=== PATIENT | female | born 1945 | race Caucasian/White ===

== ENCOUNTER → 2017-09-19 11:08 | Outpatient (CLI) | payer MEDICARE, SELFPAY ==
[2017-09-19 11:38] LABS: Absolute Lymphocyte Count 2.34 X10^3/ul (0.83-4.51); Absolute Neutrophil Count 4.7 X10^3/uL (2.0-7.7); Basophil# 0.06 X10^3/uL; Basophil% 0.7 % (0-1); Eosinophil# 0.32 X10^3/uL; Hematocrit 39.1 % (37-47); Hemoglobin 12.8 g/dl (12.0-15.0); Lymphocyte # 2.34 X10^3/ul (4.0); Lymphocyte % 29.2 % (19-41); Mean Corp Hgb Conc 32.7 g/gl (32-36); Mean Corpuscular Hgb 29.1 pg (27.0-32.0); Mean Corpuscular Volume 88.9 fL (81-99); Mean Platelet Vol. 9.8 fl (6.2-12.0); Monocyte% 7.5 % (0-10); Neutrophil # 4.67 X10^3/uL (2.7-7.7); Neutrophil % 58.4 % (47-70); POSITIVE COUNT NO; POSITIVE DIFFERENTIAL NO; POSITIVE MORPHOLOGY NO; Platelet Count 215 K/mm3 (150-450); RBC Distribution Width CV 13.3 % (11.6-14.6); RBC Distribution Width SD 43.1 fl (35.1-43.9)
[2017-09-19 12:12] LABS: Hemoglobin A1c 7.6 % (4.2-6.3)
[2017-09-19 12:23] LABS: ALB/GLOB Ratio 0.9 RATIO (0.9-2.4); AST(SGOT) 23 U/L (15-37); Alanine Aminotransfer ALT/SGPT 28 U/L (13-56); Albumin, Serum 3.7 g/dL (3.2-5.0); Alkaline Phosphatase 90 U/L (45-117); Anion Gap 10 (5-15); BUN 36 mg/dL (7-18); BUN/Creat Ratio 15.7 RATIO (10-20); Chloride 105 mmol/L (98-107); Cholesterol 162 mg/dL (200); Creatinine, Serum 2.29 mg/dL (0.55-1.02); EST Glomerular Filtration Rate 22 mL/min (>60); Est Glom Filt Rate - Afr Amer 27 mL/min (>60); Globulin 3.9 g/dL (2.2-4.2); Glucose 210 mg/dL (74-106); High Density Lipoprotein 37 mg/dL; Potassium 4.3 mmol/L (3.5-5.1); Protein, Total 7.6 g/dL (6.4-8.2); Sodium Level 140 mmol/L (136-145); Thyroid Stim Hormone (TSH) 4.55 uIU/mL (0.358-3.74); Triglycerides 203 mg/dL; Very Low Density Lipoprotein 41 mg/dL (5-40)
== END ==
PROVIDERS: Family Provider Nurse Practitioner Adult Health; PCP Nurse Practitioner Adult Health; Visit Provider Nurse Practitioner Adult Health
DX: E11.65 Type 2 diabetes mellitus with hyperglycemia (principal); E78.2 Mixed hyperlipidemia; I25.119 Atherosclerotic heart disease of native coronary artery with unspecified angina pectoris; M62.81 Muscle weakness (generalized); I10 Essential (primary) hypertension
CPT/HCPCS: 36415; 80053; 80061; 83036; 84443; 85025

== ENCOUNTER 2017-09-27 08:52 | Emergency (ER) | payer MEDICARE, SELFPAY ==
[2017-09-27 08:53] VITALS: BP 124/70; PULSE 59; RESP 18; TEMP 36.6; O2SAT 97; BMI 34.4
--- NOTE | 2017-09-27 09:11 | EKG12_ITS ---
Test Reason : Blood Pressure : / mmHG Vent. Rate : 056 BPM Atrial Rate : 056 BPM P-R Int : 192 ms QRS Dur : 082 ms QT Int : 460 ms P-R-T Axes : -08 060 113 degrees QTc Int : 443 ms Sinus bradycardia T wave abnormality, consider anterior ischemia Abnormal ECG Confirmed by CASTRO ANTUNEZ ([id number]), book editor NATALIIA OLIVEROS ([id number]) on 09/29/2017 2:59:49 PM Referred By: BHARATI Confirmed By:CASTRO ANTUNEZ
[2017-09-27 09:28] LABS: Absolute Lymphocyte Count 2.25 X10^3/ul (0.83-4.51); Absolute Neutrophil Count 3.8 X10^3/uL (2.0-7.7); Basophil# 0.07 X10^3/uL; Eosinophil# 0.46 X10^3/uL; Eosinophils% 6.6 % (0-5); Hematocrit 35.5 % (37-47); Hemoglobin 12.1 g/dl (12.0-15.0); Lymphocyte # 2.25 X10^3/ul (4.0); Lymphocyte % 32.1 % (19-41); Mean Corp Hgb Conc 34.1 g/gl (32-36); Mean Corpuscular Hgb 29.4 pg (27.0-32.0); Mean Corpuscular Volume 86.4 fL (81-99); Mean Platelet Vol. 9.6 fl (6.2-12.0); Monocyte# 0.44 X10^3/uL; Monocyte% 6.3 % (0-10); Neutrophil # 3.76 X10^3/uL (2.7-7.7); Neutrophil % 53.7 % (47-70); Platelet Count 188 K/mm3 (150-450); RBC Distribution Width CV 12.3 % (11.6-14.6); RBC Distribution Width SD 38.7 fl (35.1-43.9); Red Blood Count 4.11 M/mm3 (4.2-5.4)
--- NOTE | 2017-09-27 09:28 | RAD_ITS ---
STUDY: X-RAY CHEST REASON FOR EXAM: Female, 72 years old. Stage IV kidney failure. TECHNIQUE: PA and lateral views of the chest. COMPARISON: Prior comparison studies are not available for review at this time. FINDINGS: The lungs are clear and expanded. There is no demonstrated pleural abnormality. Sternal cerclage wires and vascular clips are present from a prior sternotomy and coronary artery bypass graft procedure (CABG). Normal mediastinum and baldemar. Normal visualized pulmonary arteries. There is atherosclerotic calcification of the aortic arch with tortuosity. There are degenerative changes of the visualized thoracic spine. Normal visualized ribs, clavicles, and shoulders. There is no demonstrated abnormality of the visualized soft tissue structures of the upper abdomen. RAD/Chest PA and Lateral IMPRESSION: No acute abnormality is seen. Electronically Signed: Ronen Norris MD at 10:12 EST Tel [phone], Service support ,
[2017-09-27 09:36] LABS: POSITIVE COUNT NO; POSITIVE DIFFERENTIAL NO; POSITIVE MORPHOLOGY NO
[2017-09-27 09:37] LABS: Anion Gap 7 (5-15); BUN 24 mg/dL (7-18); BUN/Creat Ratio 17.1 RATIO (10-20); Calcium,Total 8.9 mg/dL (8.5-10.1); Chloride 100 mmol/L (98-107); EST Glomerular Filtration Rate 40 mL/min (>60); Est Glom Filt Rate - Afr Amer 48 mL/min (>60); Estimated Creatinine Clearance 36.36 ml/min; Glucose 245 mg/dL (74-106); Potassium 4.3 mmol/L (3.5-5.1); Sodium Level 135 mmol/L (136-145)
[2017-09-27] MEDS: 0.9% Normal Saline 1,000 ML 1000 ML IV (09:41)
[2017-09-27 09:43] VITALS: BP 145/73; PULSE 58; RESP 17; O2SAT 95
[2017-09-27 10:57] VITALS: BP 144/67; PULSE 57; RESP 20; O2SAT 96
--- NOTE | 2017-09-27 11:10 | NURSING ---
PAGED IRON PLASTIC BULLET MAKER TRACI HOFFMAN THROUGH DR OFFICE. TALKED TO AYUSH. [phone]
--- NOTE | 2017-09-27 11:12 | ED.DCSUM_ITS ---
- ER Visit Summary Date of Service: 09/27/17 Chief Complaint: Abnormal blood work History of Present Illness: The patient is a 72 F who presents with abnormal blood work. She had labs drawn 8 days ago. This showed worsening of her kidney function. The office had difficulty contacting the patient but when the patient was contacted today was advised to be evaluated in the emergency department. She complains of about a week of generalized weakness and generalized malaise. She has multiple chronic complaints including lower back pain and chest pain which she states she has had for the past 16 years ever since her bypass. She has no focal new complaints except generalized malaise and weakness for the past week. She denies fevers or vomiting. No congestion rhinorrhea cough. He is urinating normally. She states that last week she was not drinking as well and was drinking a lot of pop and tea to water and is actually drinking better. Physical Examination: Afebrile vitals are stable Moist mucous membranes Heart regular bradycardia Lungs are clear Abdomen soft nontender Back nontender Test Results: EKG shows sinus rhythm at a rate of 56 with anterior T-wave inversions similar to prior. Chest x-ray shows no acute process. CBC BMP notable for creatinine of 1.40. Troponin negative. BNP 148. Emergency Department Course and Treatment: Patient's creatinine has actually improved from prior labs and appears to be near baseline. I suspect that given that she was not drinking as well and has been drinking better lately at her acute kidney injury was likely prerenal. An improvement of her laboratory studies I do feel she can follow-up as an outpatient. I have attempted to contact her physician and nurse practitioner but have not received a call back. The patient was instructed on signs and symptoms to monitor for and conditions under which return to the emergency department. All questions answered at bedside. Patient is asking to be discharged. She was discharged home in good condition. Treatment Plan: [] Disposition: Discharge Impression: Acute kidney injury, resolved This note was generated with [employer] dictation software. It may contain incorrect words, spelling, and punctuation that were not noted in review of the chart prior to signing ED Disposition - Plan for ED Patient: Chief Complaint: General Illness Referrals: Eugenia Watson, GROUNDWATER PROGRAMS DIRECTOR-C [Primary Care Provider] -
--- NOTE | 2017-09-27 11:12 | ED.DEP ---
ED Disposition - Plan for ED Patient: Chief Complaint: General Illness Instructions: ED Dehydration, ED Insufficiency Renal Referrals: Eugenia Watson, OUTER DIAMETER GRINDER-C [Primary Care Provider] -
--- NOTE | 2017-09-27 11:14 | DCINST.ED_ITS ---
ED Disposition - Plan for ED Patient: Chief Complaint: General Illness Instructions: ED Dehydration, ED Insufficiency Renal Referrals: Eugenia Watson, PHOSPHORIC ACID SUPERVISOR-C [Primary Care Provider] -
[2017-09-27 11:21] VITALS: BP 132/71; PULSE 59; RESP 19; O2SAT 95
== END 2017-09-27 11:24 | disposition home or self-care (01) ==
PROVIDERS: Emergency Provider Emergency Medicine; Family Provider Nurse Practitioner Adult Health; PCP Nurse Practitioner Adult Health
DX: N17.9 Acute kidney failure, unspecified (principal); R06.09 Other forms of dyspnea; I25.10 Atherosclerotic heart disease of native coronary artery without angina pectoris; I25.2 Old myocardial infarction; I10 Essential (primary) hypertension; E78.00 Pure hypercholesterolemia, unspecified; E11.9 Type 2 diabetes mellitus without complications; Z79.4 Long term (current) use of insulin; F32.9 Major depressive disorder, single episode, unspecified; Z95.1 Presence of aortocoronary bypass graft; Z79.82 Long term (current) use of aspirin; Z79.899 Other long term (current) drug therapy; Z72.0 Tobacco use
CPT/HCPCS: 71046; 80048; 83880; 84484; 85025; 93005; 96360; 99284; J7030; A4216

== ENCOUNTER → 2017-10-10 09:18 | Outpatient (CLI) | payer MEDICARE, SELFPAY ==
[2017-10-10 09:28] LABS: Bacteria 0 SEEN /hpf (None Seen); Mucous, Urine 0 SEEN /hpf (<or=2+); Red Blood Cells-Urine 0 SEEN /hpf (0-5); White Blood Cells 0 SEEN /hpf (0-5)
[2017-10-10 10:48] LABS: Color, Urine Yellow (Yellow); Glucose, Dipstick 1000 mg/dl (Normal); Ketone-Dipstick Negative (Negative); Leukocyte Esterase-Dipstick 25 /ul (Negative); Nitrite-Dipstick Negative (Negative); Occult Blood-Urine Negative /ul (Negative); Protein-Dipstick Negative (Negative); Specific Gravity, Urine 1.015 (1.002-1.030); Urine Bilirubin Dipstick Negative (Negative); Urine Clarity Clear (Clear); Urine Urobilinogen Normal (Normal)
[2017-10-10 11:01] LABS: Squamous Epithelial Cells - UA 0-5 SEEN /hpf (5-10)
[2017-10-10 11:15] LABS: Anion Gap 8 (5-15); BUN 16 mg/dL (7-18); BUN/Creat Ratio 12.6 RATIO (10-20); Calcium,Total 9.5 mg/dL (8.5-10.1); Chloride 101 mmol/L (98-107); Creatinine, Serum 1.27 mg/dL (0.55-1.02); EST Glomerular Filtration Rate 44 mL/min (>60); Est Glom Filt Rate - Afr Amer 54 mL/min (>60); Glucose 196 mg/dL (74-106); Sodium Level 137 mmol/L (136-145)
== END ==
PROVIDERS: Family Provider Nurse Practitioner Adult Health; PCP Nurse Practitioner Adult Health; Visit Provider Nurse Practitioner Adult Health
DX: N18.3 Chronic kidney disease, stage 3 (moderate) (principal); N39.0 Urinary tract infection, site not specified
CPT/HCPCS: 36415; 80048; 81001; 87086; 87088

== ENCOUNTER → 2017-10-24 09:10 | Outpatient (CLI) | payer MEDICARE, SELFPAY ==
[2017-10-24 09:40] LABS: Color, Urine Yellow (Yellow); Glucose, Dipstick 1000 mg/dl (Normal); Ketone-Dipstick Negative (Negative); Leukocyte Esterase-Dipstick Negative /ul (Negative); Nitrite-Dipstick Negative (Negative); Occult Blood-Urine Negative /ul (Negative); Protein-Dipstick Negative (Negative); Specific Gravity, Urine 1.015 (1.002-1.030); Urine Bilirubin Dipstick Negative (Negative); Urine Clarity Sl. Cloudy (Clear); Urine Urobilinogen Normal (Normal)
== END ==
PROVIDERS: Family Provider Nurse Practitioner Adult Health; PCP Nurse Practitioner Adult Health; Visit Provider Nurse Practitioner Adult Health
DX: E11.65 Type 2 diabetes mellitus with hyperglycemia (principal); I25.119 Atherosclerotic heart disease of native coronary artery with unspecified angina pectoris; G64 Other disorders of peripheral nervous system; E78.2 Mixed hyperlipidemia; M51.36 Other intervertebral disc degeneration, lumbar region; M43.02 Spondylolysis, cervical region; F34.1 Dysthymic disorder; K51.80 Other ulcerative colitis without complications; M79.7 Fibromyalgia; K21.9 Gastro-esophageal reflux disease without esophagitis; N39.0 Urinary tract infection, site not specified; I12.9 Hypertensive chronic kidney disease with stage 1 through stage 4 chronic kidney disease, or unspecified chronic kidney disease; E11.22 Type 2 diabetes mellitus with diabetic chronic kidney disease; N18.3 Chronic kidney disease, stage 3 (moderate)
CPT/HCPCS: 81002; 87086; 87088

== ENCOUNTER → 2017-12-29 09:01 | Outpatient (CLI) | payer MEDICARE, SELFPAY ==
[2017-12-29 10:06] LABS: Hemoglobin A1c 11.7 % (4.2-6.3)
[2017-12-29 10:17] LABS: ALB/GLOB Ratio 0.8 RATIO (0.9-2.4); AST(SGOT) 23 U/L (15-37); Alanine Aminotransfer ALT/SGPT 24 U/L (13-56); Albumin, Serum 3.5 g/dL (3.2-5.0); Alkaline Phosphatase 106 U/L (45-117); Anion Gap 10 (5-15); BUN 39 mg/dL (7-18); BUN/Creat Ratio 24.5 RATIO (10-20); Calcium,Total 9.2 mg/dL (8.5-10.1); Chloride 99 mmol/L (98-107); Creatinine, Serum 1.59 mg/dL (0.55-1.02); EST Glomerular Filtration Rate 34 mL/min (>60); Est Glom Filt Rate - Afr Amer 41 mL/min (>60); Globulin 4.3 g/dL (2.2-4.2); Glucose 372 mg/dL (74-106); Potassium 3.9 mmol/L (3.5-5.1); Protein, Total 7.8 g/dL (6.4-8.2); Sodium Level 137 mmol/L (136-145)
== END ==
PROVIDERS: Family Provider Nurse Practitioner Adult Health; PCP Nurse Practitioner Adult Health; Visit Provider Nurse Practitioner Adult Health
DX: E11.65 Type 2 diabetes mellitus with hyperglycemia (principal); I12.9 Hypertensive chronic kidney disease with stage 1 through stage 4 chronic kidney disease, or unspecified chronic kidney disease; E11.22 Type 2 diabetes mellitus with diabetic chronic kidney disease; N18.3 Chronic kidney disease, stage 3 (moderate); I25.119 Atherosclerotic heart disease of native coronary artery with unspecified angina pectoris; G64 Other disorders of peripheral nervous system; E78.2 Mixed hyperlipidemia; M51.36 Other intervertebral disc degeneration, lumbar region; M43.02 Spondylolysis, cervical region; F34.1 Dysthymic disorder; K51.80 Other ulcerative colitis without complications; M79.7 Fibromyalgia; K21.9 Gastro-esophageal reflux disease without esophagitis; N39.0 Urinary tract infection, site not specified; M62.81 Muscle weakness (generalized); R29.6 Repeated falls
CPT/HCPCS: 36415; 80053; 83036

== ENCOUNTER → 2018-04-19 12:30 | Outpatient (CLI) | payer MEDICARE, SELFPAY ==
--- NOTE | 2018-04-19 12:34 | CT_ITS ---
STUDY: CT BRAIN WITHOUT CONTRAST REASON FOR EXAM: Female, 72 years old. History of falls. RADIATION DOSAGE (If Supplied By Facility): CTDIvol = ( 60.81 ) mGy, DLP = ( 1089.89 ) mGycm TECHNIQUE: Transaxial CT imaging of the brain was performed without administration of intravenous contrast material. Individualized dose optimization techniques were used for this CT. COMPARISON: Comparison is made with prior study dated July 12, 2017. FINDINGS: Normal soft tissue structures. There is hyperostosis frontalis internus. There is mild cerebral atrophy with widening of the extra-axial spaces and ventricular dilatation. Normal white matter tracts of the cerebral hemispheres. Normal basal ganglia and thalami. Normal brainstem. Normal cerebellum. There is no intracranial hemorrhage. There are no findings of an acute ischemic infarction. Atherosclerotic calcification of the vertebral arteries and cavernous portions of the internal carotid arteries bilaterally. Normal visualized paranasal sinuses. CT/Brain/Head without Contrast IMPRESSION: Chronic involutional changes of the brain. Electronically Signed: Ronen Norris MD at 15:57 EDT Tel [phone], Service support ,
== END ==
PROVIDERS: Family Provider Nurse Practitioner Adult Health; PCP Nurse Practitioner Adult Health; Visit Provider Nurse Practitioner Adult Health
DX: R41.0 Disorientation, unspecified (principal); R29.6 Repeated falls
CPT/HCPCS: 70450

== ENCOUNTER → 2018-05-02 08:41 | Outpatient (CLI) | payer MEDICARE, SELFPAY ==
[2018-05-02 08:50] LABS: Mucous, Urine 0 SEEN /hpf (<or=2+); Red Blood Cells-Urine 0 SEEN /hpf (0-5)
[2018-05-02 11:03] LABS: Hematocrit 38.4 % (37-47); Hemoglobin 12.9 g/dl (12.0-15.0); Mean Corp Hgb Conc 33.6 g/gl (32-36); Mean Corpuscular Hgb 29.7 pg (27.0-32.0); Mean Corpuscular Volume 88.5 fL (81-99); Mean Platelet Vol. 10.3 fl (6.2-12.0); Platelet Count 224 K/mm3 (150-450); RBC Distribution Width CV 12.8 % (11.6-14.6); Red Blood Count 4.34 M/mm3 (4.2-5.4); White Blood Count 8.3 K/mm3 (4.4-11.0)
[2018-05-02 11:05] LABS: Color, Urine Yellow (Yellow); Glucose, Dipstick Normal (Normal); Ketone-Dipstick Negative (Negative); Leukocyte Esterase-Dipstick 100 /ul (Negative); Nitrite-Dipstick Negative (Negative); Occult Blood-Urine Negative /ul (Negative); Protein-Dipstick Negative (Negative); Urine Bilirubin Dipstick Negative (Negative); Urine Clarity Sl. Cloudy (Clear); Urine Urobilinogen Normal (Normal)
[2018-05-02 11:11] LABS: Bacteria RARE /hpf (None Seen); Squamous Epithelial Cells - UA 5-10 SEEN /hpf (5-10); White Blood Cells 0-5 SEEN /hpf (0-5)
[2018-05-02 11:12] LABS: Scan Indicated on CBC? Y/N NO
[2018-05-02 11:13] LABS: Hemoglobin A1c 6.9 % (4.2-6.3)
[2018-05-02 11:30] LABS: ALB/GLOB Ratio 0.9 RATIO (0.9-2.4); AST(SGOT) 25 U/L (15-37); Alanine Aminotransfer ALT/SGPT 30 U/L (13-56); Albumin, Serum 3.7 g/dL (3.2-5.0); Alkaline Phosphatase 82 U/L (45-117); Anion Gap 10 (5-15); BUN 17 mg/dL (7-18); BUN/Creat Ratio 13.7 RATIO (10-20); Calcium,Total 9.2 mg/dL (8.5-10.1); Chloride 103 mmol/L (98-107); Cholesterol 152 mg/dL (200); Creatinine, Serum 1.24 mg/dL (0.55-1.02); EST Glomerular Filtration Rate 45 mL/min (>60); Est Glom Filt Rate - Afr Amer 55 mL/min (>60); Globulin 4.1 g/dL (2.2-4.2); Glucose 175 mg/dL (74-106); High Density Lipoprotein 50 mg/dL; Potassium 3.8 mmol/L (3.5-5.1); Protein, Total 7.8 g/dL (6.4-8.2); Sodium Level 141 mmol/L (136-145); Thyroid Stim Hormone (TSH) 5.81 uIU/mL (0.358-3.74); Triglycerides 198 mg/dL; Very Low Density Lipoprotein 40 mg/dL (5-40); Vitamin B12 465 pg/mL (211-911); Vitamin D,25 Hydroxy 13.9 ng/mL (29.95-100.01)
== END ==
PROVIDERS: Family Provider Nurse Practitioner Adult Health; PCP Nurse Practitioner Adult Health; Visit Provider Nurse Practitioner Adult Health
DX: I12.9 Hypertensive chronic kidney disease with stage 1 through stage 4 chronic kidney disease, or unspecified chronic kidney disease (principal); E11.22 Type 2 diabetes mellitus with diabetic chronic kidney disease; N18.3 Chronic kidney disease, stage 3 (moderate); E11.65 Type 2 diabetes mellitus with hyperglycemia; I25.119 Atherosclerotic heart disease of native coronary artery with unspecified angina pectoris; G64 Other disorders of peripheral nervous system; E78.2 Mixed hyperlipidemia; M51.36 Other intervertebral disc degeneration, lumbar region; M43.02 Spondylolysis, cervical region; F34.1 Dysthymic disorder; K51.80 Other ulcerative colitis without complications; M79.7 Fibromyalgia; K21.9 Gastro-esophageal reflux disease without esophagitis; N39.0 Urinary tract infection, site not specified; M62.81 Muscle weakness (generalized); M79.604 Pain in right leg; R29.6 Repeated falls; Z79.4 Long term (current) use of insulin
CPT/HCPCS: 80053; 80061; 81001; 82306; 82607; 83036; 84443; 85027

== ENCOUNTER → 2018-08-22 10:25 | Outpatient (CLI) | payer MEDICARE, SELFPAY ==
[2018-08-22 10:46] LABS: Red Blood Cells-Urine 0 SEEN /hpf (0-5)
[2018-08-22 11:44] LABS: Absolute Lymphocyte Count 2.22 X10^3/ul (0.83-4.51); Absolute Neutrophil Count 4.4 X10^3/uL (2.0-7.7); Basophil# 0.07 X10^3/uL; Basophil% 0.9 % (0-1); Eosinophil# 0.41 X10^3/uL; Eosinophils% 5.4 % (0-5); Lymphocyte # 2.22 X10^3/ul (4.0); Lymphocyte % 29.1 % (19-41); Mean Corp Hgb Conc 33.3 g/gl (32-36); Mean Corpuscular Hgb 29.5 pg (27.0-32.0); Mean Corpuscular Volume 88.4 fL (81-99); Mean Platelet Vol. 10.7 fl (6.2-12.0); Monocyte# 0.52 X10^3/uL; Monocyte% 6.8 % (0-10); Neutrophil % 57.5 % (47-70); Platelet Count 225 K/mm3 (150-450); RBC Distribution Width CV 12.9 % (11.6-14.6); RBC Distribution Width SD 41.1 fl (35.1-43.9); Red Blood Count 4.41 M/mm3 (4.2-5.4); White Blood Count 7.6 K/mm3 (4.4-11.0)
[2018-08-22 11:45] LABS: POSITIVE COUNT NO; POSITIVE DIFFERENTIAL NO; POSITIVE MORPHOLOGY NO
[2018-08-22 11:51] LABS: Color, Urine Yellow (Yellow); Glucose, Dipstick Normal (Normal); Ketone-Dipstick Negative (Negative); Leukocyte Esterase-Dipstick 25 /ul (Negative); Nitrite-Dipstick Negative (Negative); Occult Blood-Urine Negative /ul (Negative); Protein-Dipstick Negative (Negative); Urine Bilirubin Dipstick Negative (Negative); Urine Clarity Sl. Cloudy (Clear); Urine Urobilinogen Normal (Normal)
[2018-08-22 12:05] LABS: Bacteria RARE /hpf (None Seen); Mucous, Urine RARE /hpf (<or=2+); Squamous Epithelial Cells - UA 5-10 SEEN /hpf (5-10); White Blood Cells 0-5 SEEN /hpf (0-5)
[2018-08-22 12:06] LABS: Hemoglobin A1c 8.9 % (4.2-6.3)
[2018-08-22 12:20] LABS: ALB/GLOB Ratio 0.9 RATIO (0.9-2.4); AST(SGOT) 32 U/L (15-37); Alanine Aminotransfer ALT/SGPT 35 U/L (13-56); Albumin, Serum 3.5 g/dL (3.2-5.0); Alkaline Phosphatase 88 U/L (45-117); Anion Gap 11 (5-15); BUN 28 mg/dL (7-18); BUN/Creat Ratio 20.1 RATIO (10-20); Calcium,Total 9.3 mg/dL (8.5-10.1); Chloride 104 mmol/L (98-107); Cholesterol 174 mg/dL (200); Creatinine, Serum 1.39 mg/dL (0.55-1.02); EST Glomerular Filtration Rate 40 mL/min (>60); Est Glom Filt Rate - Afr Amer 48 mL/min (>60); Glucose 238 mg/dL (74-106); High Density Lipoprotein 50 mg/dL; Potassium 4.4 mmol/L (3.5-5.1); Protein, Total 7.5 g/dL (6.4-8.2); Sodium Level 142 mmol/L (136-145); Thyroid Stim Hormone (TSH) 1.68 uIU/mL (0.358-3.74); Triglycerides 200 mg/dL; Very Low Density Lipoprotein 40 mg/dL (5-40)
== END ==
PROVIDERS: Family Provider Nurse Practitioner Adult Health; PCP Nurse Practitioner Adult Health; Referring Provider Nurse Practitioner Adult Health; Visit Provider Nurse Practitioner Adult Health
DX: E11.65 Type 2 diabetes mellitus with hyperglycemia (principal); I12.9 Hypertensive chronic kidney disease with stage 1 through stage 4 chronic kidney disease, or unspecified chronic kidney disease; N18.3 Chronic kidney disease, stage 3 (moderate); E78.2 Mixed hyperlipidemia; R30.0 Dysuria
CPT/HCPCS: 36415; 80053; 80061; 81001; 83036; 84443; 85025; 87086; 87088

== ENCOUNTER → 2018-12-13 10:21 | Outpatient (CLI) | payer MEDICARE, SELFPAY ==
[2018-12-13 12:20] LABS: Hematocrit 35.8 % (37-47); Hemoglobin 11.7 g/dl (12.0-15.0); Mean Corp Hgb Conc 32.7 g/gl (32-36); Mean Corpuscular Hgb 29.2 pg (27.0-32.0); Mean Corpuscular Volume 89.3 fL (81-99); Mean Platelet Vol. 10.7 fl (6.2-12.0); Platelet Count 197 K/mm3 (150-450); RBC Distribution Width SD 41.7 fl (35.1-43.9); Red Blood Count 4.01 M/mm3 (4.2-5.4); White Blood Count 7.2 K/mm3 (4.4-11.0)
[2018-12-13 12:27] LABS: Scan Indicated on CBC? Y/N NO
[2018-12-13 13:08] LABS: ALB/GLOB Ratio 0.9 RATIO (0.9-2.4); AST(SGOT) 36 U/L (15-37); Alanine Aminotransfer ALT/SGPT 34 U/L (13-56); Albumin, Serum 3.5 g/dL (3.2-5.0); Alkaline Phosphatase 90 U/L (45-117); Anion Gap 8 (5-15); BUN 23 mg/dL (7-18); BUN/Creat Ratio 16.9 RATIO (10-20); Chloride 104 mmol/L (98-107); Cholesterol 163 mg/dL (200); Creatinine, Serum 1.36 mg/dL (0.55-1.02); EST Glomerular Filtration Rate 41 mL/min (>60); Est Glom Filt Rate - Afr Amer 49 mL/min (>60); Globulin 3.7 g/dL (2.2-4.2); Glucose 257 mg/dL (74-106); Hemoglobin A1c 8.3 % (4.2-6.3); High Density Lipoprotein 42 mg/dL; Potassium 4.3 mmol/L (3.5-5.1); Protein, Total 7.2 g/dL (6.4-8.2); Sodium Level 139 mmol/L (136-145); Thyroid Stim Hormone (TSH) 2.04 uIU/mL (0.358-3.74); Triglycerides 250 mg/dL; Very Low Density Lipoprotein 50 mg/dL (5-40)
== END ==
PROVIDERS: Family Provider Nurse Practitioner Adult Health; PCP Nurse Practitioner Adult Health; Referring Provider Nurse Practitioner Adult Health; Visit Provider Nurse Practitioner Adult Health
DX: E11.65 Type 2 diabetes mellitus with hyperglycemia (principal); E78.2 Mixed hyperlipidemia; I10 Essential (primary) hypertension
CPT/HCPCS: 36415; 80053; 80061; 83036; 84443; 85027

== ENCOUNTER 2019-01-05 17:10 | Observation (INO) | payer MEDICARE, SELFPAY ==
[2019-01-05] VITALS (8 sets, daily range): BP systolic 124–140; BP diastolic 59–99; PULSE 58–65; RESP 13–20; TEMP 37–37.1; O2SAT 95–96; BMI 40.8; BMI 38.8
--- NOTE | 2019-01-05 17:19 | EKG12_ITS ---
Test Reason : ADMISSION CP Blood Pressure : / mmHG Vent. Rate : 063 BPM Atrial Rate : 063 BPM P-R Int : 168 ms QRS Dur : 082 ms QT Int : 480 ms P-R-T Axes : 077 046 100 degrees QTc Int : 491 ms Normal sinus rhythm T wave abnormality, consider anterolateral ischemia Prolonged QT Abnormal ECG Confirmed by MISTY GARZA, JASSON ([id number]), newspaper editor NATALIIA OLIVEROS ([id number]) on 01/12/2019 6:48:43 AM Referred By: Dioni Hammonds Confirmed By:JASSON JAY MD
--- NOTE | 2019-01-05 17:35 | RAD_ITS ---
STUDY: X-RAY CHEST REASON FOR EXAM: Female, 73 years old. Chest pain TECHNIQUE: Frontal and lateral views of the chest. COMPARISON: 09/27/2017 FINDINGS: Median sternotomy wires. The lungs are clear and expanded. There is no demonstrated pleural abnormality. Normal size heart. Normal mediastinum and baldemar. Normal visualized pulmonary arteries. Normal visualized aortic arch and descending thoracic aorta. Normal visualized thoracic spine. Normal visualized ribs, clavicles, and shoulders. There is no demonstrated abnormality of the visualized soft tissue structures of the upper abdomen. RAD/Chest PA and Lateral IMPRESSION: No acute pulmonary findings. Electronically Signed: Marco Do MD at 17:59 EDT Tel , Service support ,
[2019-01-05 17:45] LABS: Absolute Lymphocyte Count 2.94 X10^3/ul (0.83-4.51); Absolute Neutrophil Count 5.3 X10^3/uL (2.0-7.7); Basophil# 0.05 X10^3/uL; Basophil% 0.5 % (0-1); Eosinophil# 0.51 X10^3/uL; Eosinophils% 5.4 % (0-5); Hematocrit 35.4 % (37-47); Hemoglobin 12.2 g/dl (12.0-15.0); Lymphocyte # 2.94 X10^3/ul (4.0); Lymphocyte % 31.2 % (19-41); Mean Corp Hgb Conc 34.5 g/gl (32-36); Mean Corpuscular Hgb 30.1 pg (27.0-32.0); Mean Corpuscular Volume 87.4 fL (81-99); Mean Platelet Vol. 9.8 fl (6.2-12.0); Monocyte# 0.63 X10^3/uL; Monocyte% 6.7 % (0-10); Neutrophil # 5.27 X10^3/uL (2.7-7.7); Platelet Count 212 K/mm3 (150-450); RBC Distribution Width CV 12.6 % (11.6-14.6); RBC Distribution Width SD 40.5 fl (35.1-43.9); Red Blood Count 4.05 M/mm3 (4.2-5.4); White Blood Count 9.4 K/mm3 (4.4-11.0)
[2019-01-05 17:48] LABS: International Normalized Ratio 1.1; Partial Thromboplast Time 27.5 Seconds (24.1-36.2); Prothrombin Time (Protime)PT. 14.4 SECONDS (11.7-14.9)
[2019-01-05 17:54] LABS: Anion Gap 8 (5-15); BUN 21 mg/dL (7-18); BUN/Creat Ratio 15.9 RATIO (10-20); Calcium,Total 9.3 mg/dL (8.5-10.1); Chloride 102 mmol/L (98-107); Creatinine, Serum 1.32 mg/dL (0.55-1.02); EST Glomerular Filtration Rate 42 mL/min (>60); Est Glom Filt Rate - Afr Amer 51 mL/min (>60); Estimated Creatinine Clearance 36.59 ml/min; Glucose 152 mg/dL (74-106); Potassium 3.9 mmol/L (3.5-5.1); Sodium Level 139 mmol/L (136-145)
--- NOTE | 2019-01-05 17:55 | ED.DCSUM_ITS ---
- ER Visit Summary Date of Service: 01/05/19 Chief Complaint: Shortness of breath and chest pain History of Present Illness: The patient is a 73 F who presents emergency department after being referred by her nurse practitioner who visited her home today. Patient notes 2 days of shortness of breath. It is worse with exertion. She states that when she starts to breathe heavy she gets a chest heaviness in the midsternal region.. She has a history of coronary artery bypass 14 years ago. She also notes history of diabetes hypertension high cholesterol. She is a current smoker and utilizes marijuana once a year. She states she rarely drinks alcohol. She notes a slight cough but nonproductive and nothing out of the ordinary. No leg swelling. There is practitioner informed me that even taking her sweater off makes her short of breath. Patient informs me last time she had a stress test was at the time of her CABG. She has not seen a field service specialist since Dr. Jones. She had aspirin 81 mg x 4 by EMS. Physical Examination: Afebrile vital signs are stable. Heart rate 65 pulse ox 95% on room air Gen: Well-nourished well-developed Head: Normocephalic atraumatic Eyes: Perrl EOMI ENT: TMs clear no rhinorrhea moist mucous membranes Neck: Supple no lymphadenopathy no JVD nontender CVS: Regular rate rhythm no murmurs normal S1-S2 Respiratory: No distress clear to auscultation bilaterally diminished breath sounds at the bases chest nontender patient has conversational dyspnea Abdomen: Soft nontender nondistended normal bowel sounds no masses Back: Nontender Extremity: Nontender no edema Skin: Normal color no rash Neuro: alert orientated ?3 CN II-XII intact normal strength sensation reflexes Psych: Normal affect normal mood Test Results: EKG shows a sinus rhythm at a rate of 63. There are T wave inversions in V2 through V5. This is unchanged from EKG dated September 27, 2017. CBC BMP troponin negative. Beta natruretic peptide at 100. Chest x-ray showed no acute findings. D-dimer 0.68 and is normal using the age-adjusted method. Emergency Department Course and Treatment: She received a DuoNeb. This did not change her symptomology. Patient is still short of breath when she exerts herself. Patient does not wish to have any further heart surgery. She is agreeable to stress testing and heart catheterization if need be. Impression: 1. Chest pain 2. Dyspnea on exertion This note was generated with [employer] dictation software. It may contain incorrect words, spelling, and punctuation that were not noted in review of the chart prior to signing ED Disposition - Plan for ED Patient:
[2019-01-05 18:00] LABS: POSITIVE COUNT NO; POSITIVE DIFFERENTIAL NO; POSITIVE MORPHOLOGY NO
[2019-01-05] MEDS: Ipratropium/Albuterol Sulfate 3 ML AMPUL.NEB INHALATION (18:00)
[2019-01-05 18:22] LABS: BNP,B-Type NATRIURETIC PEPTIDE 108.2 pg/mL (0-100)
[2019-01-05 18:59] LABS: D-Dimer Quantitative (DVT/PE) 0.68 FEU/ug/m (0.27-0.49)
--- NOTE | 2019-01-05 19:01 | ED.RN ---
DR ARCHIBALD NOTIFIED OF DDIMER 0.68
--- NOTE | 2019-01-05 19:20 | HP.PCM_ITS ---
Problem List (1) Chest pain Status: Acute (2) Diabetes mellitus, type II Status: Chronic Qualifiers: Diabetes mellitus terminal supervisor insulin use: with nursing home use Diabetes mellitus complication status: with unspecified complications Qualified Code(s): E11.8 - Type 2 diabetes mellitus with unspecified complications (3) Postconcussive syndrome Status: Inactive (4) Vertigo Status: Inactive History of Present Illness Date of Admission: 01/05/19 Chief Complaint: chest pain The patient is a 73 year old F with a significant history of CAD status post CABG; obesity; diabetes mellitus; hypertension; hyperlipidemia; and tobacco use who presented to the emergency department with 1 month history of progressively worsening chest pain and shortness of breath. Both her chest pain and shortness of breath worsens with exertion. She describes her chest pain as an elephant sitting on her chest. Associated with her symptoms is diaphoresis. She denies any nausea or vomiting. She describes her chest pain as an elephant sitting on her chest. Her chest pain ranges from a 2 to a 10 on a scale of 1-10. At times her chest pain radiates to her left arm. Her nurse practitioner saw her on the day of presentation and the nurse practitioner recommended that she come to emergency department for further evaluation. Past Medical History Past Medical History (Chronic Problems): Chronic Problems Back pain (Chronic) Hypertension (Chronic) Diabetes mellitus, type II (Chronic) Obesity (BMI 30-39.9) (Chronic) CAD (coronary artery disease) (Chronic) Neuropathy (Chronic) Allergies pregabalin [From Lyrica] Adverse Reaction (Verified 01/05/19 17:18) Other suicidal Home Medications: Ambulatory Orders Medication Instructions Recorded Aspirin 81 mg PO DAILY 04/06/16 Insulin U-500 [Humulin R U-500 0.24 ml SQ BIDAC 04/06/16 ([facility])] Torsemide [Demadex] 20 mg PO DAILY 04/06/16 Propranolol HCl [Propranolol HCl 80 mg PO DAILY 04/09/16 ER] Simvastatin [Zocor] 40 mg PO DINNER 04/09/16 Losartan Potassium [Cozaar] 100 mg PO DAILY 09/27/17 Cholecalciferol (Vitamin D3) 2,000 unit PO DAILY 01/05/19 [D3-2000] Fluoxetine HCl 40 mg PO DAILY 01/05/19 Levothyroxine [Synthroid] 50 mcg PO DAILY 01/05/19 Multivitamin with Minerals 1 tab PO DAILY 01/05/19 [Multiple Vitamin] [place]-3 Fatty Acids/Fish Oil 1 cap PO BID 01/05/19 [[place] 3 1,000 mg Softgel] Surgical History: coronary bypass surgery, - - CABG x 4, Carpal tunnel BL, Cervical neck fusion x 2 (anterior, posterior), LA w/ BLSOO, Appendectomy, Cholecystectomy, Eye surgery, Bowel resection. Psychiatric History: No pertinent psych hx GUEST SERVICES ASSISTANT History: No pertinent GUEST SERVICES ASSISTANT history Lives: Alone Smoking Status: Current some day smoker Tobacco Use: Cigarettes - *Family History Maternal History Items: Cancer, Diabetes, Dementia Paternal History Items: No pertinent history Review of Systems Constitutional: Denies: Chills, Fever, Weight Change HEENT: Denies: Head Aches, Sinus Congestion, Sinus Drainage Cardiovascular: Reports: Chest Pressure. Denies: Palpitations Respiratory: Reports: Shortness of Breath. Denies: Cough, Sputum production Gastrointestinal: Denies: Abdominal Pain, Nausea, Vomiting Genitourinary: Denies: Dysuria Musculoskeletal: Denies: Joint Pain, Joint Tenderness Skin: Denies: Rash, Wounds Neurological: Denies: Numbness, Tingling, Focal weakness Psychiatric: Denies: Anxiety, Depression, Homicidal Ideations, Suicidal Ideatio ns Hematologic/ Lymphatic: Denies: Easy Bruising, Easy Bleeding VTE Information - Inpt Only VTE Present on Admission: No VTE Mechan Device Prophylaxis: None VTE Pharm Prophylaxis ordered?: Yes Patient Problems: Active and Suspected Problems Chest pain (Acute) - Physical Exam General: Alert, Oriented x3, Cooperative HEENT: Atraumatic, PERRLA, EOMI, Normocephalic Neck: Supple, No JVD, Negative Carotid Bruits Lungs: Diminished, Tachypneic, Using Accessory Muscles Cardiovascular: Regular rate, No murmurs Abdomen: Bowel Sounds Present, Soft, Non Tender Extremities: No edema, Capillary Refill Less than 3 Seconds Skin: No rashes, No breakdown Musculoskeletal: No Tenderness to Palpation of Joints or Extremities Neurological: Neuro grossly intact Psych/Mental Status: Normal Affect, Appropriate Vital Signs Temp Pulse Resp BP Pulse Ox 98.8 F 59 L 13 140/69 H 96 01/05/19 17:11 01/05/19 19:12 01/05/19 19:12 01/05/19 19:12 01/05/19 19:12 Oxygen Delivery Method Room Air Weight: 114.7 kg Body Mass Index (BMI) 40.8 Laboratory Tests Past 24 Hrs 01/05/19 01/05/19 01/05/19 17:25 17:25 17:25 WBC 9.4 RBC 4.05 L Hgb 12.2 Hct 35.4 L MCV 87.4 MCH 30.1 MCHC 34.5 RDW 12.6 RDW Differential 40.5 Plt Count 212 MPV 9.8 Immature Gran % (Auto) 0.200 Neut % (Auto) 56.0 Lymph % (Auto) 31.2 [place] % (Auto) 6.7 Eos % (Auto) 5.4 H Baso % (Auto) 0.5 Absolute Neuts (auto) 5.3 Absolute Lymphs (auto) 2.94 Total Counted Not Reportable PT 14.4 INR 1.1 APTT 27.5 D-Dimer Quant (PE/DVT) Sodium 139 Potassium 3.9 Chloride 102 Carbon Dioxide 29.0 Anion Gap 8 BUN 21 H Creatinine 1.32 H Estim Creat Clear Calc 36.59 Est GFR (MDRD) Af Amer 51 L Est GFR (MDRD) Non-Af 42 L BUN/Creatinine Ratio 15.9 Glucose 152 H Calcium 9.3 Troponin I < 0.015 B-Natriuretic Peptide 01/05/19 01/05/19 17:25 17:25 WBC RBC Hgb Hct MCV MCH MCHC RDW RDW Differential Plt Count MPV Immature Gran % (Auto) Neut % (Auto) Lymph % (Auto) [place] % (Auto) Eos % (Auto) Baso % (Auto) Absolute Neuts (auto) Absolute Lymphs (auto) Total Counted PT INR APTT D-Dimer Quant (PE/DVT) 0.68 H* Sodium Potassium Chloride Carbon Dioxide Anion Gap BUN Creatinine Estim Creat Clear Calc Est GFR (MDRD) Af Amer Est GFR (MDRD) Non-Af BUN/Creatinine Ratio Glucose Calcium Troponin I B-Natriuretic Peptide 108.2 H Assessment/Plan All Active Problems Chest pain (Acute) The patient is a 73 year old F with a significant history of CAD status post CABG; obesity; diabetes mellitus; hypertension; hyperlipidemia; tobacco use who presented to the emergency department with 1 month history of progressively worsening chest pain and shortness of breath. Chest pain Admit to a monitored bed on PCU CXR independently reviewed confirms no acute cardiopulmonary process. EKG independently reviewed showed T wave inversion in anterolateral leads. Old records reviewed showed unchanged EKG(27 September 2017) Reportedly she received 4 baby aspirin by the paramedics. She takes aspirin 81 mg daily. Continue ASA 81 mg p.o. daily SL NTG 0.4 mg prn as needed for chest pain Morphine as needed for pain We will check lipid panel. Continue home statin. Serial cardiac enzymes Stat EKG as needed for chest pain Dobutamine Stress test in the AM if the cardiac enzymes are negative. Albuterol as needed for shortness of breath. Consider outpatient PFT if cardiac work-up is unremarkable. Tobacco abuse Patient smoke about 5 cigarettes per week on Fridays. Counseled. Hypertension On presentation her blood pressure was stable in regard to her age. Cozaar continued Hydralazine as needed ordered Hold propranolol because of stress test in a.m. Trend blood pressures. Diabetes mellitus Presentation her blood glucose was within goal. Hold home U5 100 insulin bid. And put on correction scale insulin. Depression Fluoxetine continued DVT prophylaxis Lovenox Code Visit OBSV E&M: [id number] Initial observation care L3
--- NOTE | 2019-01-05 19:23 | ED.RN ---
DR. ARCHIBALD TOLD THIS NURSE TO HOLD THE 500 CC'S BOLUS.
--- NOTE | 2019-01-05 20:28 | EKG12_ITS ---
Test Reason : CP Blood Pressure : / mmHG Vent. Rate : 063 BPM Atrial Rate : 063 BPM P-R Int : 182 ms QRS Dur : 082 ms QT Int : 440 ms P-R-T Axes : 088 050 123 degrees QTc Int : 450 ms Normal sinus rhythm with sinus arrhythmia T wave abnormality, consider anterolateral ischemia Abnormal ECG Confirmed by MISTY GARZA, JASSON ([id number]), news editor NATALIIA OLIVEROS ([id number]) on 01/08/2019 1:44:53 PM Referred By: Dioni Hammonds Confirmed By:JASSON JAY MD
--- NOTE | 2019-01-05 22:48 | NURSING ---
This RN entered room and pt was drowsy, confused, diaphoretic, and speech was slow/slurred. Blood sugar checked and was 58. Pt given orange juice and Loreta Doones. After carbs given, pt states speech sounds normal to her and she is A/O x3. Will continue to monitor blood glucose.
--- NOTE | 2019-01-05 23:04 | NURSING ---
Blood sugar rechecked at this time and is 102. Pt NPO at midnight. More Loreta Doones given at this time.
[2019-01-05 23:16] LABS: Bedside Glucose 102 mg/dL (70-110)
[2019-01-05 23:16] LABS: Bedside Glucose 58 mg/dL (70-110)
[2019-01-06] VITALS (7 sets, daily range): BP systolic 116–124; BP diastolic 41–53; PULSE 53–71; RESP 12–16; TEMP 36.6–36.8; O2SAT 95–96
[2019-01-06 05:01] LABS: Bedside Glucose 174 mg/dL (70-110)
--- NOTE | 2019-01-06 05:55 | EKG12_ITS ---
Test Reason : AM EKG / CP Blood Pressure : / mmHG Vent. Rate : 053 BPM Atrial Rate : 053 BPM P-R Int : 190 ms QRS Dur : 086 ms QT Int : 500 ms P-R-T Axes : -32 037 109 degrees QTc Int : 469 ms Unusual P axis, possible ectopic atrial bradycardia T wave abnormality, consider anterolateral ischemia Abnormal ECG Confirmed by MISTY GARZA, JASSON ([id number]), editor news NATALIIA OLIVEROS ([id number]) on 01/12/2019 6:48:12 AM Referred By: Dioni Hammonds Confirmed By:JASSON JAY MD
[2019-01-06] MEDS: Aspirin 81 MG TAB.CHEW PO (06:03)
[2019-01-06] MEDS: Losartan Potassium 100 MG Tablet PO (06:03)
[2019-01-06] MEDS: Levothyroxine 50 MCG Tablet PO (06:03)
[2019-01-06 06:59] LABS: Absolute Neutrophil Count 4.7 X10^3/uL (2.0-7.7); Basophil# 0.07 X10^3/uL; Basophil% 0.8 % (0-1); Eosinophil# 0.57 X10^3/uL; Eosinophils% 6.6 % (0-5); Hematocrit 36.5 % (37-47); Hemoglobin 12.1 g/dl (12.0-15.0); Mean Corp Hgb Conc 33.2 g/gl (32-36); Mean Corpuscular Volume 87.5 fL (81-99); Mean Platelet Vol. 10.1 fl (6.2-12.0); Monocyte# 0.62 X10^3/uL; Monocyte% 7.1 % (0-10); Neutrophil # 4.71 X10^3/uL (2.7-7.7); Neutrophil % 54.2 % (47-70); Platelet Count 192 K/mm3 (150-450); RBC Distribution Width CV 12.5 % (11.6-14.6); RBC Distribution Width SD 38.6 fl (35.1-43.9); Red Blood Count 4.17 M/mm3 (4.2-5.4); White Blood Count 8.7 K/mm3 (4.4-11.0)
[2019-01-06 07:00] LABS: POSITIVE COUNT NO; POSITIVE DIFFERENTIAL NO; POSITIVE MORPHOLOGY NO
[2019-01-06 07:01] LABS: Bedside Glucose 162 mg/dL (70-110)
[2019-01-06 07:17] LABS: International Normalized Ratio 1.2; Prothrombin Time (Protime)PT. 14.6 SECONDS (11.7-14.9)
[2019-01-06 07:18] LABS: Partial Thromboplast Time 29.3 Seconds (24.1-36.2)
[2019-01-06 07:21] LABS: Anion Gap 10 (5-15); BUN 20 mg/dL (7-18); BUN/Creat Ratio 14.5 RATIO (10-20); Calcium,Total 9.2 mg/dL (8.5-10.1); Chloride 102 mmol/L (98-107); Cholesterol 159 mg/dL (200); Creatinine, Serum 1.38 mg/dL (0.55-1.02); EST Glomerular Filtration Rate 40 mL/min (>60); Est Glom Filt Rate - Afr Amer 48 mL/min (>60); Glucose 173 mg/dL (74-106); High Density Lipoprotein 48 mg/dL; Sodium Level 139 mmol/L (136-145); Triglycerides 171 mg/dL; Very Low Density Lipoprotein 34 mg/dL (5-40)
--- NOTE | 2019-01-06 07:35 | ECHOCS_ITS ---
Reason For Study: HEART FAILURE Procedure This was a 2D Doppler, Color Flow transthoracic echocardiogram. The study was technically difficult. Contrast injection was performed. Exam performed portable in patient room. Left Ventricle Normal LV size. Left ventricular systolic function is normal. The estimated ejection fraction is 65 %. No regional wall motion abnormalities noted. Right Ventricle Normal RV size. Normal systolic function. Atria Normal left atrium. Normal right atrium. No doppler evidence for ASD. Mitral Valve There is no mitral annular calcification. Normal mitral valve. Trivial mitral valve insufficiency. Tricuspid Valve Normal tricuspid valve. Trivial tricuspid valve insufficiency. Right ventricular systolic pressure estimated to be 20 mmHg. Aortic Valve Trisinus/trileaflet aortic valve. Normal aortic valve. Pulmonic Valve The pulmonic valve is not well visualized. Trivial pulmonic valve insufficiency. Great Vessels Normal sized aortic root. Pericardium/Pleural No pericardial effusion. Medication Diluted definity 2.0ml given slow IV push to enhance endocardial definition. MMode/2D Measurements & Calculations LVIDd: 5.0 cm IVSd: 1.1 cm Ao root diam: 3.2 cm LVIDs: 3.5 cm LVPWd: 1.1 cm RVDd: 3.1 cm FS: 30.8 % LAV(MOD-bp): 61.4 ml LA A4 area: 20.0 cm2 LA dimension(2D): 3.7 cm LAV(MOD-bp) Indexed: 28.4 ml/m2 LAV(MOD-sp2): 59.9 ml LAV(MOD-sp4): 55.7 ml RA A4 area: 19.3 cm2 Time Measurements MV dec time: 0.20 sec Doppler Measurements & Calculations MV E max vineet: 101.9 cm/sec Lat Peak E' Vineet: 10.5 cm/sec Med Peak E' Vineet: 7.0 cm/sec MV A max vineet: 83.6 cm/sec E/E' lat: 9.7 E/E' med: 14.6 MV E/A: 1.2 Ao V2 max: 161.2 cm/sec LV V1 max: 104.9 cm/sec PA V2 max: 105.8 cm/sec Ao max P.4 mmHg LV V1 max P.4 mmHg TR max vineet: 207.9 cm/sec TR max P.3 mmHg Interpretation Summary The study was technically difficult. Contrast injection was performed. Left ventricular systolic function is normal. The estimated ejection fraction is 65 %. Trivial mitral valve insufficiency. Trivial tricuspid valve insufficiency. Trivial pulmonic valve insufficiency. Right ventricular systolic pressure estimated to be 20 mmHg. Transmitral diastolic flow velocities suggest diastolic dysfunction (pseudonormal pattern). Ordering Physician: Shaun Montaño Referring Physician: Dioni Hammonds Performed By: Becky Pa, ROQUE, RVT
--- NOTE | 2019-01-06 10:05 | NURSING ---
Pt down in stress lab for testing.
[2019-01-06 11:15] LABS: Bedside Glucose 282 mg/dL (70-110)
--- NOTE | 2019-01-06 11:45 | PCM.DC ---
- Discharge Diagnoses Current Active Problems: Current Active and Chronic Problems Chest pain (Acute) You will use the following diet at home:: Cardiac Your food should be the consistency of: Regular Discharge Activity: May not drive while taking narcotic pain medications. Call your doctor if you observe: Fever of 101 or Higher, Numbness or Tingling, Change in Color, Inability to urinate, Inability to have a bowel movement, Shortness of breath, Dizziness, Fainting spells, Swelling in the ankles, Chest pain Additional Instructions: Follow-up own deburring technician at [facility] in 2 to 3 weeks with 2D echo Allergies/Adverse Reactions: Allergies pregabalin [From Lyrica] Adverse Reaction (Verified 01/05/19 19:53) suicidal thoughts Medications to take at Discharge Aspirin 81 mg PO DAILY 04/06/16 Insulin U-500 [Humulin R U-500 ([facility])] 0.24 ml SQ BIDAC 04/06/16 Torsemide [Demadex] 20 mg PO DAILY 04/06/16 Propranolol HCl [Propranolol HCl ER] 80 mg PO DAILY 04/09/16 Simvastatin [Zocor] 40 mg PO DINNER 04/09/16 Losartan Potassium [Cozaar] 100 mg PO DAILY 09/27/17 Cholecalciferol (Vitamin D3) [D3-2000] 2,000 unit PO DAILY 01/05/19 Fluoxetine HCl 40 mg PO DAILY 01/05/19 Levothyroxine [Synthroid] 50 mcg PO DAILY 01/05/19 Multivitamin with Minerals [Multiple Vitamin] 1 tab PO DAILY 01/05/19 [place]-3 Fatty Acids/Fish Oil [[place] 3 1,000 mg Softgel] 1 cap PO BID 01/05/19 Primary Care Physician: Eugenia Watson NP-C [Primary Care Provider] - Please follow up with your Primary Care Physician in: in 2 week Test Results: Test results from this visit will be discussed in further detail at your follow-up appointment, if applicable.
[2019-01-06] MEDS: FLUoxetine 20 MG Capsule 40 MG PO (11:49)
[2019-01-06] MEDS: Enoxaparin 40 MG/0.4 ML Syringe SC (11:50)
[2019-01-06] MEDS: Furosemide 40 MG Tablet PO (11:50)
--- NOTE | 2019-01-06 12:37 | STRESSREP_ITS ---
Stress Test Report Date: 01-06-19 Procedure: Pharmacologic stress nuclear imaging study Indications: Chest pain; shortness of breath; CAD; CABG Consent: Per the patient Procedure: The patient underwent pharmacologic (Regadenoson) evaluation with a peak heart rate of 72 beats per minute (48 %predicted maximal heart rate) and a peak blood pressure of 142/68 mmHg. The baseline ECG demonstrated normal sinus rhythm; nonspecific T wave abnormality. The peak pharmacologic ECG demonstrated continued T wave abnormality. There were no cardiac dysrhythmias pretest, during pharmacologic infusion, or recovery. There was no complaint of chest discomfort during pharmacologic infusion or recovery. The examination was discontinued secondary to completion of protocol. Impression: 1. Pharmacologic (Regadenoson) evaluation 2. Peak pharmacologic ECG with continued T wave abnormality. 3. There were no cardiac dysrhythmias pretest, during pharmacologic infusion, or recovery. 4. Nuclear images pending Myocardial perfusion imaging study: Technique: The patient was injected with 13.9 millicuries of technetium 99m Cardiolite and subsequently rest SPECT Cardiolite nuclear imaging was obtained in the horizontal long, vertical long, and short axis views. The patient underwent pharmacologic (Regadenoson) evaluation with a peak heart rate of 72 beats per minute (48 % percent predicted maximal heart rate) and a peak blood pressure of 142/68 mmHg. The patient was injected with 42.0 millicuries of technetium 99m Cardiolite and subsequently stress SPECT Cardiolite nuclear imaging was obtained in the horizontal long, vertical long, and short axis views. A gated Cardiolite study at peak stress was obtained. Interpretation: Rest and stress SPECT Cardiolite nuclear imaging status post realignment, normalization, and attenuation correction demonstrate relative uniform tracer uptake and myocardial perfusion appearing within normal limits. There is end systolic thickening and brightening. The gated Cardiolite study demonstrates myocardial thickening and inward wall motion. The reported LVEF is 77 %. Impression: 1. Rest and stress SPECT Cardiolite nuclear imaging demonstrate relative uniform tracer uptake and myocardial perfusion appearing within normal limits. 2. The gated Cardiolite study reports an LVEF of 77 %. This note was generated with Algonom[employer]ation software. It may contain incorrect words, spelling, and punctuation that were not noted in checking the note before signing.
--- NOTE | 2019-01-06 12:48 | DCINST_ITS ---
- Discharge Diagnoses Current Active Problems: Current Active and Chronic Problems Chest pain (Acute) You will use the following diet at home:: Cardiac Your food should be the consistency of: Regular Discharge Activity: May not drive while taking narcotic pain medications. Call your doctor if you observe: Fever of 101 or Higher, Numbness or Tingling, Change in Color, Inability to urinate, Inability to have a bowel movement, Shortness of breath, Dizziness, Fainting spells, Swelling in the ankles, Chest pain Additional Instructions: Follow-up own grain sacker at [facility] in 2 to 3 weeks with 2D echo Allergies/Adverse Reactions: Allergies pregabalin [From Lyrica] Adverse Reaction (Verified 01/05/19 19:53) suicidal thoughts Medications to take at Discharge Aspirin 81 mg PO DAILY 04/06/16 Insulin U-500 [Humulin R U-500 (BKC)] 0.24 ml SQ BIDAC 04/06/16 Torsemide [Demadex] 20 mg PO DAILY 04/06/16 Propranolol HCl [Propranolol HCl ER] 80 mg PO DAILY 04/09/16 Simvastatin [Zocor] 40 mg PO DINNER 04/09/16 Losartan Potassium [Cozaar] 100 mg PO DAILY 09/27/17 Cholecalciferol (Vitamin D3) [D3-2000] 2,000 unit PO DAILY 01/05/19 Fluoxetine HCl 40 mg PO DAILY 01/05/19 Levothyroxine [Synthroid] 50 mcg PO DAILY 01/05/19 Multivitamin with Minerals [Multiple Vitamin] 1 tab PO DAILY 01/05/19 Valley-3 Fatty Acids/Fish Oil [Valley 3 1,000 mg Softgel] 1 cap PO BID 01/05/19 Primary Care Physician: Eugenia Watson NP-C [Primary Care Provider] - Please follow up with your Primary Care Physician in: in 2 week Test Results: Test results from this visit will be discussed in further detail at your follow- up appointment, if applicable.
--- NOTE | 2019-01-06 12:48 | PCM.DC.SUM ---
Discharge Date and Diagnosis Date of Admission: 01/05/19 Date of Discharge: 01/06/19 - Primary Discharge Diagnosis Active and Suspected Problems Chest pain (Acute) - Secondary Discharge Diagnosis Chronic Problems Back pain (Chronic) Hypertension (Chronic) Diabetes mellitus, type II (Chronic) Obesity (BMI 30-39.9) (Chronic) CAD (coronary artery disease) (Chronic) Neuropathy (Chronic) Hospital Course and Treatment Imaging Results: 01/06/19 07:35 Echo Complete W/ Contrast [ECHO] Routine Nuclear Stress Test - Chemical [NM] Routine Operations: None Summary of Care Provided: The patient is a 73 year old F with history of coronary artery status post quadruple bypass surgery, morbid obesity, diabetes mellitus type 2, hypertension and dyslipidemia was admitted with progressive worsening of shortness of breath and chest pain/heaviness. Patient follows corporate licensed broker in [facility]. No available cardiac testing record available here. She was admitted in PCU. Serial troponin enzymes were done and came out negative. Patient glucose is elevated. BNP slightly elevated 108 her chest x-ray is clear. Thereafter, patient had Lexiscan nuclear stress test which was negative for stress-induced ischemia. 2D echo was done reported as EF 65% with normal left ventricular systolic function. Trivial MR and TR. RVSP 20 mmHg. 2D echo suggestive of diastolic dysfunction history of chronic heart failure with preserved EF. Patient is being discharged home. Discharge medication reconciliation done. Discharge follow-up instructions completed. Discharge process discussed with the patient and all questions were answered to patient's satisfaction.. [] Subjective: Patient looks mild short of breath. Denies any chest pain. Patient was admitted with chest heaviness and shortness of breath. Patient has history of quadruple bypass surgery in [address] [facility]. She follows corporate licensed broker in [place]. - Physical Exam General: Alert, Oriented x3, Cooperative, - - Morbid obesity HEENT: Atraumatic, PERRLA, EOMI, Normocephalic Neck: Supple, No JVD, Negative Carotid Bruits Lungs: Clear to auscultation, Normal air movement, No rhonchi, No wheeze, No rales Cardiovascular: Regular rate, Regular Rhythm, Normal S1, Normal S2, No murmurs Abdomen: Bowel Sounds Present, Soft, Non Tender, Non-Distended Extremities: No edema, Capillary Refill Less than 3 Seconds Skin: No rashes, No breakdown Musculoskeletal: No Tenderness to Palpation of Joints or Extremities, Arthritic Changes Lymphatic: No Cervical, Supraclavicular, or Inguinal Adenopathy Neurological: Cranial nerves II-XII grossly intact, Deep Tendon Reflexes 2+/4 and Symmetrical, Neuro grossly intact, Motor Exam 5/5 strength throughout Psych/Mental Status: Normal Affect, Appropriate Vital Signs Temp Pulse Resp BP Pulse Ox 98 F 71 16 116/41 L 95 01/06/19 08:36 01/06/19 12:04 01/06/19 08:42 01/06/19 08:36 01/06/19 08:42 Oxygen Flow Rate (L/min) 2 Oxygen Delivery Method Nasal Cannula Weight: 240 lb 11.916 oz Body Mass Index (BMI) 38.8 Intake and Output for Last 24 Hours 01/04/19 01/05/19 01/06/19 23:59 23:59 23:59 Intake Total 720 / 720 270 / 270 Output Total 0 / 0 Balance 720 / 720 270 / 270 Laboratory Tests Past 24 Hrs 01/05/19 01/05/19 01/05/19 17:25 17:25 17:25 WBC 9.4 RBC 4.05 L Hgb 12.2 Hct 35.4 L MCV 87.4 MCH 30.1 MCHC 34.5 RDW 12.6 RDW Differential 40.5 Plt Count 212 MPV 9.8 Immature Gran % (Auto) 0.200 Neut % (Auto) 56.0 Lymph % (Auto) 31.2 Dale % (Auto) 6.7 Eos % (Auto) 5.4 H Baso % (Auto) 0.5 Absolute Neuts (auto) 5.3 Absolute Lymphs (auto) 2.94 Total Counted Not Reportable PT 14.4 INR 1.1 APTT 27.5 D-Dimer Quant (PE/DVT) Sodium 139 Potassium 3.9 Chloride 102 Carbon Dioxide 29.0 Anion Gap 8 BUN 21 H Creatinine 1.32 H Estim Creat Clear Calc 36.59 Est GFR (MDRD) Af Amer 51 L Est GFR (MDRD) Non-Af 42 L BUN/Creatinine Ratio 15.9 Glucose 152 H Calcium 9.3 Troponin I < 0.015 B-Natriuretic Peptide Triglycerides Cholesterol LDL Cholesterol VLDL Cholesterol HDL Cholesterol 01/05/19 01/05/19 01/05/19 17:25 17:25 20:40 WBC RBC Hgb Hct MCV MCH MCHC RDW RDW Differential Plt Count MPV Immature Gran % (Auto) Neut % (Auto) Lymph % (Auto) [place] % (Auto) Eos % (Auto) Baso % (Auto) Absolute Neuts (auto) Absolute Lymphs (auto) Total Counted PT INR APTT D-Dimer Quant (PE/DVT) 0.68 H* Sodium Potassium Chloride Carbon Dioxide Anion Gap BUN Creatinine Estim Creat Clear Calc Est GFR (MDRD) Af Amer Est GFR (MDRD) Non-Af BUN/Creatinine Ratio Glucose Calcium Troponin I < 0.015 B-Natriuretic Peptide 108.2 H Triglycerides Cholesterol LDL Cholesterol VLDL Cholesterol HDL Cholesterol 01/05/19 01/06/19 01/06/19 23:10 06:30 06:30 WBC 8.7 RBC 4.17 L Hgb 12.1 Hct 36.5 L MCV 87.5 MCH 29.0 MCHC 33.2 RDW 12.5 RDW Differential 38.6 Plt Count 192 MPV 10.1 Immature Gran % (Auto) 0.300 Neut % (Auto) 54.2 Lymph % (Auto) 31.0 [place] % (Auto) 7.1 Eos % (Auto) 6.6 H Baso % (Auto) 0.8 Absolute Neuts (auto) 4.7 Absolute Lymphs (auto) 2.70 Total Counted Not Reportable PT INR APTT D-Dimer Quant (PE/DVT) Sodium 139 Potassium 4.0 Chloride 102 Carbon Dioxide 27.0 Anion Gap 10 BUN 20 H Creatinine 1.38 H Estim Creat Clear Calc 35.00 Est GFR (MDRD) Af Amer 48 L Est GFR (MDRD) Non-Af 40 L BUN/Creatinine Ratio 14.5 Glucose 173 H Calcium 9.2 Troponin I < 0.015 B-Natriuretic Peptide Triglycerides 171 Cholesterol 159 LDL Cholesterol 77 VLDL Cholesterol 34 HDL Cholesterol 48 01/06/19 06:30 WBC RBC Hgb Hct MCV MCH MCHC RDW RDW Differential Plt Count MPV Immature Gran % (Auto) Neut % (Auto) Lymph % (Auto) [place] % (Auto) Eos % (Auto) Baso % (Auto) Absolute Neuts (auto) Absolute Lymphs (auto) Total Counted PT 14.6 INR 1.2 APTT 29.3 D-Dimer Quant (PE/DVT) Sodium Potassium Chloride Carbon Dioxide Anion Gap BUN Creatinine Estim Creat Clear Calc Est GFR (MDRD) Af Amer Est GFR (MDRD) Non-Af BUN/Creatinine Ratio Glucose Calcium Troponin I B-Natriuretic Peptide Triglycerides Cholesterol LDL Cholesterol VLDL Cholesterol HDL Cholesterol POC Glucose 01/06/19 01/06/19 01/06/19 11:00 05:58 04:56 POC Glucose 282 H 162 H 174 H 01/05/19 01/05/19 23:03 22:40 POC Glucose 102 58 L Discharge Activity: May not drive while taking narcotic pain medications. Call your doctor if you observe: Fever of 101 or Higher, Numbness or Tingling, Change in Color, Inability to urinate, Inability to have a bowel movement, Shortness of breath, Dizziness, Fainting spells, Swelling in the ankles, Chest pain Home Medications: Medications to take at Discharge Aspirin 81 mg PO DAILY 04/06/16 Insulin U-500 [Humulin R U-500 (BKC)] 0.24 ml SQ BIDAC 04/06/16 Torsemide [Demadex] 20 mg PO DAILY 04/06/16 Propranolol HCl [Propranolol HCl ER] 80 mg PO DAILY 04/09/16 Simvastatin [Zocor] 40 mg PO DINNER 04/09/16 Losartan Potassium [Cozaar] 100 mg PO DAILY 09/27/17 Cholecalciferol (Vitamin D3) [D3-2000] 2,000 unit PO DAILY 01/05/19 Fluoxetine HCl 40 mg PO DAILY 01/05/19 Levothyroxine [Synthroid] 50 mcg PO DAILY 01/05/19 Multivitamin with Minerals [Multiple Vitamin] 1 tab PO DAILY 01/05/19 Garita-3 Fatty Acids/Fish Oil [Garita 3 1,000 mg Softgel] 1 cap PO BID 01/05/19 Primary Care Physician: Eugenia Watson, MEAT GRADER-C [Primary Care Provider] - Please follow up with your Primary Care Physician in: in 2 week Medical Necessity - Tobacco Use Smoking Status: Current some day smoker Tobacco Use: Cigarettes Meaningful Use Info Meaningful Use Diagnoses (Choose all that apply): None applicable Code Visit OBSV E&M: 63993 Observation care discharge
== END 2019-01-06 12:46 | disposition home or self-care (01) ==
LOC: ED 17:31 → PCU 19:49
PROVIDERS: Admitting Provider Hospitalist; Emergency Provider Emergency Medicine; Family Provider Nurse Practitioner Adult Health; PCP Nurse Practitioner Adult Health; Referring Provider Hospitalist; Visit Provider Internal Medicine
DX: R07.89 Other chest pain (principal); I10 Essential (primary) hypertension; E11.40 Type 2 diabetes mellitus with diabetic neuropathy, unspecified; I25.10 Atherosclerotic heart disease of native coronary artery without angina pectoris; E66.9 Obesity, unspecified; Z95.1 Presence of aortocoronary bypass graft; E78.5 Hyperlipidemia, unspecified; F17.210 Nicotine dependence, cigarettes, uncomplicated; Z79.899 Other long term (current) drug therapy; Z79.82 Long term (current) use of aspirin; F32.9 Major depressive disorder, single episode, unspecified; Z68.38 Body mass index [BMI] 38.0-38.9, adult; Z71.3 Dietary counseling and surveillance; R06.02 Shortness of breath
CPT/HCPCS: 36415; 71046; 78452; 80048; 80061; 82962; 83880; 84484; 85025; 85379; 85610; 85730; 93005; 93017; 93306; 94640; 96372; 97162; 97165; 99218; 99285; 99406; A9500; J7030; J7040; Q9957; A4216; C8929; G0378; J2785

== ENCOUNTER 2019-01-12 10:48 | Observation (INO) | payer MEDICARE, SELFPAY ==
[2019-01-05 20:34] VITALS: BMI 38.8
[2019-01-12] VITALS (11 sets, daily range): BP systolic 123–182; BP diastolic 46–88; PULSE 57–68; RESP 13–24; TEMP 36.4–37.4; O2SAT 92–98; BMI 38.0; BMI 36.7
--- NOTE | 2019-01-12 11:01 | EKG12_ITS ---
Test Reason : CONFUSION Blood Pressure : / mmHG Vent. Rate : 059 BPM Atrial Rate : 059 BPM P-R Int : 188 ms QRS Dur : 084 ms QT Int : 482 ms P-R-T Axes : 084 053 102 degrees QTc Int : 477 ms Sinus bradycardia T wave abnormality, consider anterolateral ischemia Prolonged QT Abnormal ECG Confirmed by ION GARZA, JESUS ([id number]), pictures editor MARTIN MONTES ([id number]) on 01/16/2019 8:51:31 AM Referred By: SANDRA Confirmed By:JESUS LEMON MD
--- NOTE | 2019-01-12 11:12 | RAD_ITS ---
STUDY: X-RAY CHEST REASON FOR EXAM: Female, 73 years old. Confusion/fever. TECHNIQUE: Single AP portable view of the chest. COMPARISON: Comparison is made with prior study dated January 05, 2019. FINDINGS: EKG electrodes are seen. Hyperinflation. The lungs are clear. There is no demonstrated pleural abnormality. Sternal cerclage wires and vascular clips are present from a prior sternotomy and coronary artery bypass graft procedure (CABG). Normal mediastinum and baldemar. Normal visualized pulmonary arteries. There is atherosclerotic calcification of the aortic arch with tortuosity. Normal visualized thoracic spine. Normal visualized ribs, clavicles, and shoulders. There is no demonstrated abnormality of the visualized soft tissue structures of the upper abdomen. RAD/Chest 1 View (Portable) IMPRESSION: Hyperinflation. The lungs are clear. Electronically Signed: Ronen Norris, at 11:41 EDT , Service support ,
[2019-01-12 11:19] LABS: Absolute Lymphocyte Count 1.73 X10^3/ul (0.83-4.51); Absolute Neutrophil Count 4.3 X10^3/uL (2.0-7.7); Basophil# 0.08 X10^3/uL; Basophil% 1.1 % (0-1); Eosinophil# 0.37 X10^3/uL; Eosinophils% 5.3 % (0-5); Hematocrit 36.8 % (37-47); Hemoglobin 12.2 g/dl (12.0-15.0); Lymphocyte # 1.73 X10^3/ul (4.0); Lymphocyte % 24.7 % (19-41); Mean Corp Hgb Conc 33.2 g/gl (32-36); Mean Corpuscular Hgb 29.3 pg (27.0-32.0); Mean Corpuscular Volume 88.5 fL (81-99); Mean Platelet Vol. 9.9 fl (6.2-12.0); Monocyte# 0.49 X10^3/uL; Neutrophil # 4.32 X10^3/uL (2.7-7.7); Neutrophil % 61.8 % (47-70); Platelet Count 185 K/mm3 (150-450); RBC Distribution Width CV 12.8 % (11.6-14.6); Red Blood Count 4.16 M/mm3 (4.2-5.4)
[2019-01-12 11:22] LABS: POSITIVE COUNT NO; POSITIVE DIFFERENTIAL NO; POSITIVE MORPHOLOGY NO
[2019-01-12 11:29] LABS: Bacteria 0 SEEN /hpf (None Seen); Mucous, Urine 0 SEEN /hpf (<or=2+); Red Blood Cells-Urine 0 SEEN /hpf (0-5); Squamous Epithelial Cells - UA 0 SEEN /hpf (5-10); White Blood Cells 0 SEEN /hpf (0-5)
[2019-01-12 11:32] LABS: International Normalized Ratio 1.2; Partial Thromboplast Time 26.6 Seconds (24.1-36.2); Prothrombin Time (Protime)PT. 15.2 SECONDS (11.7-14.9)
[2019-01-12 11:34] LABS: Color, Urine Yellow (Yellow); Glucose, Dipstick 100 mg/dl (Normal); Ketone-Dipstick Negative (Negative); Leukocyte Esterase-Dipstick Negative /ul (Negative); Nitrite-Dipstick Negative (Negative); Occult Blood-Urine Negative /ul (Negative); Protein-Dipstick 15 mg/dl (Negative); Urine Bilirubin Dipstick Negative (Negative); Urine Clarity Sl. Cloudy (Clear); Urine Urobilinogen Normal (Normal)
[2019-01-12 11:35] LABS: ALB/GLOB Ratio 0.9 RATIO (0.9-2.4); AST(SGOT) 35 U/L (15-37); Alanine Aminotransfer ALT/SGPT 35 U/L (13-56); Albumin, Serum 3.4 g/dL (3.2-5.0); Alkaline Phosphatase 88 U/L (45-117); Anion Gap 6 (5-15); BUN 16 mg/dL (7-18); BUN/Creat Ratio 12.3 RATIO (10-20); Calcium,Total 9.2 mg/dL (8.5-10.1); Chloride 104 mmol/L (98-107); EST Glomerular Filtration Rate 43 mL/min (>60); Est Glom Filt Rate - Afr Amer 52 mL/min (>60); Estimated Creatinine Clearance 40.04 ml/min; Globulin 3.8 g/dL (2.2-4.2); Glucose 269 mg/dL (74-106); Potassium 4.3 mmol/L (3.5-5.1); Protein, Total 7.2 g/dL (6.4-8.2); Sodium Level 139 mmol/L (136-145)
--- NOTE | 2019-01-12 11:45 | ED.RN ---
PER HOME HEALTH AIDE THAT HELPS TAKE CARE OF PATIENT, I WAS THERE YESTERDAY AND SHE SEEMED FINE, SHE IS USUALLY WITH IT AND CAN TAKE CARE OF HERSELF. I HELP COOK AND CLEAN FOR HER WITH BASIC CARE. SHE IS VERY SMART. PT UNABLE TO ANSWER BASIC HISTORY QUESTIONS ONLY ORIENTED TO SELF. REPETITIVE STATEMENTS, RESTLESSNESS, PULLING AT IV. IV WRAPPED WITH GAUZE. PT RE-ORIENTED. HOME HEALTH AIDE CONTACTED DR. PERAZA AND ASKED FOR MEDICATION LIST TO BE FAXED.
[2019-01-12 11:56] LABS: Lactic Acid 2.6 mmol/L (0.4-2.0)
--- NOTE | 2019-01-12 12:10 | CT_ITS ---
STUDY: CT BRAIN WITHOUT CONTRAST REASON FOR EXAM: Female, 73 years old. Mental status change RADIATION DOSAGE (If Supplied By Facility): CTDIvol = ( 60.81 ) mGy, DLP = ( 1112.69 ) mGycm TECHNIQUE: Transaxial CT imaging of the brain was performed without administration of intravenous contrast material. Individualized dose optimization techniques were used for this CT. COMPARISON: 04/19/2018 FINDINGS: Normal soft tissue structures. Normal calvarium. Normal size ventricles and extra-axial spaces for the patient's age. Normal white matter tracts of the cerebral hemispheres. Normal basal ganglia and thalami. Normal brainstem. Normal cerebellum. There is no intracranial hemorrhage. There are no findings of an acute ischemic infarction. Normal visualized paranasal sinuses. CT/Brain/Head without Contrast IMPRESSION: Chronic involutional changes of the brain. No acute hemorrhage Electronically Signed: Stu Baez MD at 12:50 EDT , Service support ,
--- NOTE | 2019-01-12 12:11 | ED.VIS.GEN ---
History of Present Illness Chief Complaint: Confusion Informant: - - Care provider for the past 8 years Limited by: - - Patient responds to all questions is mom Onset: Today Context: Sudden Onset Timing: Continuous Quality: Abrupt altered mental status Location: From home Current Severity: Moderate Maximum Severity: Moderate Worsened by: Unable to determine Relieved by: Unable to determine Associated Symptoms: Unable to determine Narrative: Patient is an elderly woman sent to the emerge department as abrupt onset of altered mental status. There is no history of trauma. There is no history of fall. She is unable to provide history. Once truck safety inspector arrived spoke with her. She was alert oriented yesterday. This is not her normal self. There is no history of trauma. She voiced no complaints prior to the abrupt change in her mental status. Prior similar symptoms: No Recent Illness/Hospitalization: No - Past Medical History (1) CAD (coronary artery disease) Status: Chronic (2) Diabetes mellitus, type II Status: Chronic (3) Hypertension Status: Chronic (4) Neuropathy Status: Chronic (5) Obesity (BMI 30-39.9) Status: Chronic (6) Postconcussive syndrome Status: Inactive (7) Vertigo Status: Inactive Past Medical History - Allergies and Home Meds Allergies/Adverse Reactions: Allergies pregabalin [From Lyrica] Adverse Reaction (Verified 01/12/19 10:49) suicidal thoughts Primary Care Physician: Eugenia Watson NP-C [Primary Care Provider] - Prior records reviewed: Yes Surgical History: coronary bypass surgery, - - CABG x 4, Carpal tunnel BL, Cervical neck fusion x 2 (anterior, posterior), LA w/ BLSOO, Appendectomy, Cholecystectomy, Eye surgery, Bowel resection. Lives: - - Health care provider Smoking Status: Former smoker Alcohol: None - Family History Maternal Family History: Reports: Cancer, Diabetes, Dementia Paternal Family History: Reports: No pertinent history Review of Systems ROS: Unable to Obtain Physical Exam Vital Signs/Narrative: Vital Signs Temp Pulse Resp BP Pulse Ox 01/12/19 11:08 98.0 F 62 21 H 168/76 H 98 01/12/19 11:07 99.0 F 93 01/12/19 10:49 99.0 F 61 24 H 182/75 H 94 Inital Vital Signs reviewed: Yes General: Well nourished, Well developed, Obese, No Acute Distress Head: Normocephalic, Atraumatic Eyes: Perrl, EOMI. Negative for: Pale conjunctiva, Scleral icterus ENT: No rhinorrhea, TM's clear, Dry mucous membranes, - - Trachea is midline. There is no stridor. Neck: Supple, Nontender, No lymphadenopathy, No JVD Cardiovascular: Regular rate, Regular rhythm, No murmurs, Normal S1, Normal S2 Respiratory: No distress, CTA bilaterally, Chest nontender, Chest tenderness Abdomen: Soft, Nontender, Nondistended, Normal bowel sounds Rectal: Deferred Back: Nontender, Normal Inspection Extremities: Nontender, Edema Skin: No rash, No Trauma, Pallor. Negative for: Cyanosis, Diaphoresis, Jaundice Neurological: Cranial nerves II-XII grossly intact, Confused. Negative for: Alert, Oriented x3, Normal Gait Psychological: - - Unable to determine Diagnostic/Tx/Re-eval Chest X-Ray - ED: 1 View, Read by ED Physician, Unchanged, Normal, Heart, Mediastinum, Bony Structures, No Acute Disease, Chronic Changes, - - CT of the head was reviewed by me. There is no evidence of skull fracture, subdural, epidural, arachnoid hemorrhage or intraparenchymal bleed. No obvious stroke on my review. Awaiting formal read by radiologist. Impressions Chest X-Ray 01/12/19 11:12 IMPRESSION: Hyperinflation. The lungs are clear. Electronically Signed: Ronen Norris, at 11:41 EDT , Service support , Brain CT 01/12/19 12:10 IMPRESSION: Chronic involutional changes of the brain. No acute hemorrhage Electronically Signed: Stu Baez MD at 12:50 EDT , Service support , 01/12/19 11:12 Chest 1 View (Portable) [RAD] Stat 01/12/19 12:10 Brain/Head without Contrast [CT] Stat Laboratory Results 01/12/19 01/12/19 01/12/19 11:05 11:05 11:05 WBC 7.0 RBC 4.16 L Hgb 12.2 Hct 36.8 L MCV 88.5 MCH 29.3 MCHC 33.2 RDW 12.8 RDW Differential 41.0 Plt Count 185 MPV 9.9 Immature Gran % (Auto) 0.100 Neut % (Auto) 61.8 Lymph % (Auto) 24.7 [place] % (Auto) 7.0 Eos % (Auto) 5.3 H Baso % (Auto) 1.1 H Absolute Neuts (auto) 4.3 Absolute Lymphs (auto) 1.73 Total Counted Not Reportable PT 15.2 H INR 1.2 APTT 26.6 Sodium 139 Potassium 4.3 Chloride 104 Carbon Dioxide 29.0 Anion Gap 6 BUN 16 Creatinine 1.30 H Estim Creat Clear Calc 40.04 Est GFR (MDRD) Af Amer 52 L Est GFR (MDRD) Non-Af 43 L BUN/Creatinine Ratio 12.3 Glucose 269 H Lactic Acid Calcium 9.2 Total Bilirubin 0.50 AST 35 ALT 35 Alkaline Phosphatase 88 Total Protein 7.2 Albumin 3.4 Globulin 3.8 Albumin/Globulin Ratio 0.9 Urine Color Urine Clarity Urine pH Ur Specific [place] Urine Protein Urine Glucose (UA) Urine Ketones Urine Occult Blood Urine Nitrite Urine Bilirubin Urine Urobilinogen Ur Leukocyte Esterase Urine RBC Urine WBC Ur Squamous Epith Cells Urine Bacteria Urine Mucus 01/12/19 01/12/19 11:05 11:23 WBC RBC Hgb Hct MCV MCH MCHC RDW RDW Differential Plt Count MPV Immature Gran % (Auto) Neut % (Auto) Lymph % (Auto) [place] % (Auto) Eos % (Auto) Baso % (Auto) Absolute Neuts (auto) Absolute Lymphs (auto) Total Counted PT INR APTT Sodium Potassium Chloride Carbon Dioxide Anion Gap BUN Creatinine Estim Creat Clear Calc Est GFR (MDRD) Af Amer Est GFR (MDRD) Non-Af BUN/Creatinine Ratio Glucose Lactic Acid 2.6 H Calcium Total Bilirubin AST ALT Alkaline Phosphatase Total Protein Albumin Globulin Albumin/Globulin Ratio Urine Color Yellow Urine Clarity Sl. Cloudy Urine pH 6.0 Ur Specific [place] 1.020 Urine Protein 15 H Urine Glucose (UA) 100 H Urine Ketones Negative Urine Occult Blood Negative Urine Nitrite Negative Urine Bilirubin Negative Urine Urobilinogen Normal Ur Leukocyte Esterase Negative Urine RBC 0 SEEN Urine WBC 0 SEEN Ur Squamous Epith Cells 0 SEEN Urine Bacteria 0 SEEN Urine Mucus 0 SEEN - Medical Decision Making Abrupt onset of mental status change will evaluate for metabolic infectious etiology. Image was not ordered initially since there is no history of trauma. Since metabolic work-up was unremarkable including UA chest x-ray will obtain CT of the head to determine if there is an intracranial process to explain patient's abrupt onset and mental status change. Since there is no obvious source of infection or metabolic cause and CT is unremarkable will contact hospitalist for admission and further testing. This may represent seizure disorder. Also, this may represent psychological etiology. ED Disposition - Plan for ED Patient: Disposition: Acute Care Hospital [facility] Diagnosis: Acute alteration in mental status Referrals: Eugenia Watson, STAVE BLOCK ROLLER-C [Primary Care Provider] -
--- NOTE | 2019-01-12 12:12 | ED.RN ---
DR. FLORES INFORMED OF LACTIC ACID 2.6.
--- NOTE | 2019-01-12 12:15 | ED.DCSUM_ITS ---
History of Present Illness Chief Complaint: Confusion Informant: - - Care provider for the past 8 years Limited by: - - Patient responds to all questions is mom Onset: Today Context: Sudden Onset Timing: Continuous Quality: Abrupt altered mental status Location: From home Current Severity: Moderate Maximum Severity: Moderate Worsened by: Unable to determine Relieved by: Unable to determine Associated Symptoms: Unable to determine Narrative: Patient is an elderly woman sent to the [facility] as abrupt onset of altered mental status. There is no history of trauma. There is no history of fall. She is unable to provide history. Once pump installer arrived spoke with her. She was alert oriented yesterday. This is not her normal self. There is no history of trauma. She voiced no complaints prior to the abrupt change in her mental status. Prior similar symptoms: No Recent Illness/Hospitalization: No - Past Medical History (1) CAD (coronary artery disease) Status: Chronic (2) Diabetes mellitus, type II Status: Chronic (3) Hypertension Status: Chronic (4) Neuropathy Status: Chronic (5) Obesity (BMI 30-39.9) Status: Chronic (6) Postconcussive syndrome Status: Inactive (7) Vertigo Status: Inactive Past Medical History - Allergies and Home Meds Allergies/Adverse Reactions: Allergies pregabalin [From Lyrica] Adverse Reaction (Verified 01/12/19 10:49) suicidal thoughts Primary Care Physician: Eugenia Watson NP-C [Primary Care Provider] - Prior records reviewed: Yes Surgical History: coronary bypass surgery, - - CABG x 4, Carpal tunnel BL, Cervical neck fusion x 2 (anterior, posterior), [place] w/ BLSOO, Appendectomy, Cholecystectomy, Eye surgery, Bowel resection. Lives: - - Health care provider Smoking Status: Former smoker Alcohol: None - Family History Maternal Family History: Reports: Cancer, Diabetes, Dementia Paternal Family History: Reports: No pertinent history Review of Systems ROS: Unable to Obtain Physical Exam Vital Signs/Narrative: Vital Signs Temp Pulse Resp BP Pulse Ox 01/12/19 11:08 98.0 F 62 21 H 168/76 H 98 01/12/19 11:07 99.0 F 93 01/12/19 10:49 99.0 F 61 24 H 182/75 H 94 Inital Vital Signs reviewed: Yes General: Well nourished, Well developed, Obese, No Acute Distress Head: Normocephalic, Atraumatic Eyes: Perrl, EOMI. Negative for: Pale conjunctiva, Scleral icterus ENT: No rhinorrhea, TM's clear, Dry mucous membranes, - - Trachea is midline. There is no stridor. Neck: Supple, Nontender, No lymphadenopathy, No JVD Cardiovascular: Regular rate, Regular rhythm, No murmurs, Normal S1, Normal S2 Respiratory: No distress, CTA bilaterally, Chest nontender, Chest tenderness Abdomen: Soft, Nontender, Nondistended, Normal bowel sounds Rectal: Deferred Back: Nontender, Normal Inspection Extremities: Nontender, Edema Skin: No rash, No Trauma, Pallor. Negative for: Cyanosis, Diaphoresis, Jaundice Neurological: Cranial nerves II-XII grossly intact, Confused. Negative for: Alert, Oriented x3, Normal Gait Psychological: - - Unable to determine Diagnostic/Tx/Re-eval Chest X-Ray - ED: 1 View, Read by ED Physician, Unchanged, Normal, Heart, Mediastinum, Bony Structures, No Acute Disease, Chronic Changes, - - CT of the head was reviewed by me. There is no evidence of skull fracture, subdural, epidural, arachnoid hemorrhage or intraparenchymal bleed. No obvious stroke on my review. Awaiting formal read by radiologist. Impressions Chest X-Ray 01/12/19 11:12 IMPRESSION: Hyperinflation. The lungs are clear. Electronically Signed: Ronen Norris, at 11:41 EDT , Service support , Brain CT 01/12/19 12:10 IMPRESSION: Chronic involutional changes of the brain. No acute hemorrhage Electronically Signed: Stu Baez MD at 12:50 EDT , Service support , 01/12/19 11:12 Chest 1 View (Portable) [RAD] Stat 01/12/19 12:10 Brain/Head without Contrast [CT] Stat Laboratory Results 01/12/19 01/12/19 01/12/19 11:05 11:05 11:05 WBC 7.0 RBC 4.16 L Hgb 12.2 Hct 36.8 L MCV 88.5 MCH 29.3 MCHC 33.2 RDW 12.8 RDW Differential 41.0 Plt Count 185 MPV 9.9 Immature Gran % (Auto) 0.100 Neut % (Auto) 61.8 Lymph % (Auto) 24.7 [place] % (Auto) 7.0 Eos % (Auto) 5.3 H Baso % (Auto) 1.1 H Absolute Neuts (auto) 4.3 Absolute Lymphs (auto) 1.73 Total Counted Not Reportable PT 15.2 H INR 1.2 APTT 26.6 Sodium 139 Potassium 4.3 Chloride 104 Carbon Dioxide 29.0 Anion Gap 6 BUN 16 Creatinine 1.30 H Estim Creat Clear Calc 40.04 Est GFR (MDRD) Af Amer 52 L Est GFR (MDRD) Non-Af 43 L BUN/Creatinine Ratio 12.3 Glucose 269 H Lactic Acid Calcium 9.2 Total Bilirubin 0.50 AST 35 ALT 35 Alkaline Phosphatase 88 Total Protein 7.2 Albumin 3.4 Globulin 3.8 Albumin/Globulin Ratio 0.9 Urine Color Urine Clarity Urine pH Ur Specific [place] Urine Protein Urine Glucose (UA) Urine Ketones Urine Occult Blood Urine Nitrite Urine Bilirubin Urine Urobilinogen Ur Leukocyte Esterase Urine RBC Urine WBC Ur Squamous Epith Cells Urine Bacteria Urine Mucus 01/12/19 01/12/19 11:05 11:23 WBC RBC Hgb Hct MCV MCH MCHC RDW RDW Differential Plt Count MPV Immature Gran % (Auto) Neut % (Auto) Lymph % (Auto) [place] % (Auto) Eos % (Auto) Baso % (Auto) Absolute Neuts (auto) Absolute Lymphs (auto) Total Counted PT INR APTT Sodium Potassium Chloride Carbon Dioxide Anion Gap BUN Creatinine Estim Creat Clear Calc Est GFR (MDRD) Af Amer Est GFR (MDRD) Non-Af BUN/Creatinine Ratio Glucose Lactic Acid 2.6 H Calcium Total Bilirubin AST ALT Alkaline Phosphatase Total Protein Albumin Globulin Albumin/Globulin Ratio Urine Color Yellow Urine Clarity Sl. Cloudy Urine pH 6.0 Ur Specific [place] 1.020 Urine Protein 15 H Urine Glucose (UA) 100 H Urine Ketones Negative Urine Occult Blood Negative Urine Nitrite Negative Urine Bilirubin Negative Urine Urobilinogen Normal Ur Leukocyte Esterase Negative Urine RBC 0 SEEN Urine WBC 0 SEEN Ur Squamous Epith Cells 0 SEEN Urine Bacteria 0 SEEN Urine Mucus 0 SEEN - Medical Decision Making Abrupt onset of mental status change will evaluate for metabolic infectious etiology. Image was not ordered initially since there is no history of trauma. Since metabolic work-up was unremarkable including UA chest x-ray will obtain CT of the head to determine if there is an intracranial process to explain patient's abrupt onset and mental status change. Since there is no obvious source of infection or metabolic cause and CT is unremarkable will contact hospitalist for admission and further testing. This may represent seizure disorder. Also, this may represent psychological etiology. ED Disposition - Plan for ED Patient: Disposition: Acute Care Hospital [facility] Diagnosis: Acute alteration in mental status Referrals: Eugenia Watson, PEPPER PICKER-C [Primary Care Provider] -
--- NOTE | 2019-01-12 13:35 | NURSING ---
PCU OBS [place] ACUTE ALTERED MENTAL STATUS
--- NOTE | 2019-01-12 13:43 | PCM.HP.STD ---
Problem List (1) Acute alteration in mental status Status: Acute (2) CAD (coronary artery disease) Status: Chronic Qualifiers: Coronary Disease-Associated Artery/Lesion type: unspecified vessel or lesion type [place] vs. transplanted heart: unspecified whether [place] or transplanted heart Associated angina: angina presence unspecified Qualified Code(s): I25.10 - Atherosclerotic heart disease of [place] coronary artery without angina pectoris (3) Diabetes mellitus, type II Status: Chronic Qualifiers: Diabetes mellitus intermediate insulin use: with regional intermodal truck driver use Diabetes mellitus complication status: with unspecified complications (4) Hypertension Status: Chronic Qualifiers: Hypertension type: essential hypertension Qualified Code(s): I10 - Essential (primary) hypertension (5) Obesity (BMI 30-39.9) Status: Chronic History of Present Illness Date of Admission: 01/12/19 Chief Complaint: Confusion The patient is a 73 year old F H as below who presents with acute onset altered mental status. She is incomprehensible in her responses and therefore history is very limited. She was recently admitted for chest pain and had a stress test which was normal and an echo with a normal EF and diastolic function. She has a caregiver that comes every day from about 10 AM to 3 PM, and yesterday she was at her baseline and normal. Today on arrival she was completely confused and disoriented. In the ER her work-up was essentially normal, with normal vital signs, her only abnormal lab was a lactate of 2.6 however chest x-ray, CT of the brain, and UTI were negative for any pathology. Her renal function is at baseline and she has no signs of infection. Of note she calls everybody mom and does not respond to questions appropriately and is making up words. The family states that she gets drunk once a week on Tuesday and she has not drank anything today. Otherwise she does not do any drugs or take any medications other than was prescribed. Past Medical History Past Medical History (Chronic Problems): Chronic Problems Back pain (Chronic) Hypertension (Chronic) Diabetes mellitus, type II (Chronic) Obesity (BMI 30-39.9) (Chronic) CAD (coronary artery disease) (Chronic) Neuropathy (Chronic) Allergies pregabalin [From Lyrica] Adverse Reaction (Verified 01/12/19 10:49) suicidal thoughts Home Medications: Ambulatory Orders Medication Instructions Recorded Aspirin 81 mg PO DAILY 04/06/16 Insulin U-500 [Humulin R U-500 0.24 ml SQ BIDAC 04/06/16 ([facility])] Torsemide [Demadex] 20 mg PO DAILY 04/06/16 Propranolol HCl [Propranolol HCl 80 mg PO DAILY 04/09/16 ER] Simvastatin [Zocor] 40 mg PO DINNER 04/09/16 Losartan Potassium [Cozaar] 100 mg PO DAILY 09/27/17 Cholecalciferol (Vitamin D3) 3,000 unit PO DAILY 01/05/19 [D3-2000] Fluoxetine HCl 40 mg PO DAILY 01/05/19 Levothyroxine [Synthroid] 50 mcg PO DAILY 01/05/19 Multivitamin with Minerals 1 tab PO DAILY 01/05/19 [Multiple Vitamin] [place]-3 Fatty Acids/Fish Oil 1 cap PO BID 01/05/19 [[place] 3 1,000 mg Softgel] Surgical History: coronary bypass surgery, - - CABG x 4, Carpal tunnel BL, Cervical neck fusion x 2 (anterior, posterior), [place] w/ BLSOO, Appendectomy, Cholecystectomy, Eye surgery, Bowel resection. Lives: - - Health care provider Smoking Status: Former smoker Tobacco Use: Cigarettes Alcohol: Occasional Drugs: None - *Family History Maternal History Items: Cancer, Diabetes, Dementia Paternal History Items: No pertinent history Review of Systems Unable to obtain accurate/complete ROS d/t: Confusion VTE Information - Inpt Only VTE Present on Admission: No Patient Problems: Active and Suspected Problems Acute alteration in mental status (Acute) - Physical Exam General: Alert, Confused, Disoriented, Non-Cooperative, - - Incapable of following commands HEENT: Atraumatic, PERRLA Oral: Moist Mucosa Neck: Supple, No JVD Lungs: Clear to auscultation, Normal air movement, No rhonchi, No wheeze, No rales Cardiovascular: Regular rate, Regular Rhythm, Normal S1, Normal S2, No murmurs Abdomen: Soft, Non-Distended, No Hepato-splenomegaly, Obese, Tender - There is bruising from previous DVT prophylaxis administration Extremities: No edema, Capillary Refill Less than 3 Seconds Skin: No rashes, No breakdown Neurological: - - She moves all extremities on her own though she does not follow any commands, she does not have any lateralizing symptoms however her incomprehensible speech is reminiscent of a Broca's aphasia Psych/Mental Status: - - Cannot obtain secondary to her altered mental status Vital Signs Temp Pulse Resp BP Pulse Ox 99.2 F H 60 18 177/87 H 98 01/12/19 13:22 01/12/19 13:22 01/12/19 13:22 01/12/19 13:22 01/12/19 13:22 Oxygen Flow Rate (L/min) 2 Oxygen Delivery Method Nasal Cannula Weight: 250 lb 0.067 oz Body Mass Index (BMI) 38.0 Laboratory Tests Past 24 Hrs 01/12/19 01/12/19 01/12/19 11:05 11:05 11:05 WBC 7.0 RBC 4.16 L Hgb 12.2 Hct 36.8 L MCV 88.5 MCH 29.3 MCHC 33.2 RDW 12.8 RDW Differential 41.0 Plt Count 185 MPV 9.9 Immature Gran % (Auto) 0.100 Neut % (Auto) 61.8 Lymph % (Auto) 24.7 [place] % (Auto) 7.0 Eos % (Auto) 5.3 H Baso % (Auto) 1.1 H Absolute Neuts (auto) 4.3 Absolute Lymphs (auto) 1.73 Total Counted Not Reportable PT 15.2 H INR 1.2 APTT 26.6 Sodium 139 Potassium 4.3 Chloride 104 Carbon Dioxide 29.0 Anion Gap 6 BUN 16 Creatinine 1.30 H Estim Creat Clear Calc 40.04 Est GFR (MDRD) Af Amer 52 L Est GFR (MDRD) Non-Af 43 L BUN/Creatinine Ratio 12.3 Glucose 269 H Lactic Acid Calcium 9.2 Total Bilirubin 0.50 AST 35 ALT 35 Alkaline Phosphatase 88 Total Protein 7.2 Albumin 3.4 Globulin 3.8 Albumin/Globulin Ratio 0.9 Urine Color Urine Clarity Urine pH Ur Specific [place] Urine Protein Urine Glucose (UA) Urine Ketones Urine Occult Blood Urine Nitrite Urine Bilirubin Urine Urobilinogen Ur Leukocyte Esterase Urine RBC Urine WBC Ur Squamous Epith Cells Urine Bacteria Urine Mucus 01/12/19 01/12/19 11:05 11:23 WBC RBC Hgb Hct MCV MCH MCHC RDW RDW Differential Plt Count MPV Immature Gran % (Auto) Neut % (Auto) Lymph % (Auto) [place] % (Auto) Eos % (Auto) Baso % (Auto) Absolute Neuts (auto) Absolute Lymphs (auto) Total Counted PT INR APTT Sodium Potassium Chloride Carbon Dioxide Anion Gap BUN Creatinine Estim Creat Clear Calc Est GFR (MDRD) Af Amer Est GFR (MDRD) Non-Af BUN/Creatinine Ratio Glucose Lactic Acid 2.6 H Calcium Total Bilirubin AST ALT Alkaline Phosphatase Total Protein Albumin Globulin Albumin/Globulin Ratio Urine Color Yellow Urine Clarity Sl. Cloudy Urine pH 6.0 Ur Specific [place] 1.020 Urine Protein 15 H Urine Glucose (UA) 100 H Urine Ketones Negative Urine Occult Blood Negative Urine Nitrite Negative Urine Bilirubin Negative Urine Urobilinogen Normal Ur Leukocyte Esterase Negative Urine RBC 0 SEEN Urine WBC 0 SEEN Ur Squamous Epith Cells 0 SEEN Urine Bacteria 0 SEEN Urine Mucus 0 SEEN Assessment/Plan All Active Problems Chest pain (Acute) Acute alteration in mental status (Acute) 1. Confusion with altered mental status and incomprehensible speech -This is very similar to Broca's aphasia or possibly a Warnicke's encephalopathy secondary to her drinking though that is highly unlikely since she only drinks once a week -She is getting a dose of thiamine in the ER -We will consult neurology and proceed with an MRI of her brain to rule out a left MCA stroke -She is already on aspirin, will start Plavix -We will increase her statin from Zocor to Lipitor 80 mg -Continue with speech for dysphasia screen -PT/OT -There is no metabolic cause for her altered mental status 2. CAD status post CABG/HLD/HTN -She had a stress test earlier in the week which was normal because of chest pain, and her echo was unremarkable -Will not repeat lipid panel that was done and it was normal We will continue with her medications of losartan, aspirin, torsemide once she is cleared to take p.o. 3. Hypothyroidism -Stable -Continue with Synthroid 4. DM2 -She is on insulin U500 at home -Placed on a sliding scale insulin while she is here 5. Depression/anxiety -Stable -Continue with Prozac when able to take p.o. DVT: Lovenox Code Visit OBSV E&M: [id number] Initial observation care L3
--- NOTE | 2019-01-12 13:48 | HP.PCM_ITS ---
Problem List (1) Acute alteration in mental status Status: Acute (2) CAD (coronary artery disease) Status: Chronic Qualifiers: Coronary Disease-Associated Artery/Lesion type: unspecified vessel or lesion type [place] vs. transplanted heart: unspecified whether [place] or transplanted heart Associated angina: angina presence unspecified Qualified Code(s): I25.10 - Atherosclerotic heart disease of [place] coronary artery without angina pectoris (3) Diabetes mellitus, type II Status: Chronic Qualifiers: Diabetes mellitus senior care insulin use: with manager intermediate use Diabetes mellitus complication status: with unspecified complications (4) Hypertension Status: Chronic Qualifiers: Hypertension type: essential hypertension Qualified Code(s): I10 - Essential (primary) hypertension (5) Obesity (BMI 30-39.9) Status: Chronic History of Present Illness Date of Admission: 01/12/19 Chief Complaint: Confusion The patient is a 73 year old F H as below who presents with acute onset altered mental status. She is incomprehensible in her responses and therefore history is very limited. She was recently admitted for chest pain and had a stress test which was normal and an echo with a normal EF and diastolic function. She has a caregiver that comes every day from about 10 AM to 3 PM, and yesterday she was at her baseline and normal. Today on arrival she was completely confused and disoriented. In the ER her work-up was essentially normal, with normal vital signs, her only abnormal lab was a lactate of 2.6 however chest x-ray, CT of the brain, and UTI were negative for any pathology. Her renal function is at baseline and she has no signs of infection. Of note she calls everybody mom and does not respond to questions appropriately and is making up words. The family states that she gets drunk once a week on Tuesday and she has not drank anything today. Otherwise she does not do any drugs or take any medications other than was prescribed. Past Medical History Past Medical History (Chronic Problems): Chronic Problems Back pain (Chronic) Hypertension (Chronic) Diabetes mellitus, type II (Chronic) Obesity (BMI 30-39.9) (Chronic) CAD (coronary artery disease) (Chronic) Neuropathy (Chronic) Allergies pregabalin [From Lyrica] Adverse Reaction (Verified 01/12/19 10:49) suicidal thoughts Home Medications: Ambulatory Orders Medication Instructions Recorded Aspirin 81 mg PO DAILY 04/06/16 Insulin U-500 [Humulin R U-500 0.24 ml SQ BIDAC 04/06/16 ([facility])] Torsemide [Demadex] 20 mg PO DAILY 04/06/16 Propranolol HCl [Propranolol HCl 80 mg PO DAILY 04/09/16 ER] Simvastatin [Zocor] 40 mg PO DINNER 04/09/16 Losartan Potassium [Cozaar] 100 mg PO DAILY 09/27/17 Cholecalciferol (Vitamin D3) 3,000 unit PO DAILY 01/05/19 [D3-2000] Fluoxetine HCl 40 mg PO DAILY 01/05/19 Levothyroxine [Synthroid] 50 mcg PO DAILY 01/05/19 Multivitamin with Minerals 1 tab PO DAILY 01/05/19 [Multiple Vitamin] [place]-3 Fatty Acids/Fish Oil 1 cap PO BID 01/05/19 [[place] 3 1,000 mg Softgel] Surgical History: coronary bypass surgery, - - CABG x 4, Carpal tunnel BL, Cervical neck fusion x 2 (anterior, posterior), [place] w/ BLSOO, Appendectomy, Cholecystectomy, Eye surgery, Bowel resection. Lives: - - Health care provider Smoking Status: Former smoker Tobacco Use: Cigarettes Alcohol: Occasional Drugs: None - *Family History Maternal History Items: Cancer, Diabetes, Dementia Paternal History Items: No pertinent history Review of Systems Unable to obtain accurate/complete ROS d/t: Confusion VTE Information - Inpt Only VTE Present on Admission: No Patient Problems: Active and Suspected Problems Acute alteration in mental status (Acute) - Physical Exam General: Alert, Confused, Disoriented, Non-Cooperative, - - Incapable of fol lowing commands HEENT: Atraumatic, PERRLA Oral: Moist Mucosa Neck: Supple, No JVD Lungs: Clear to auscultation, Normal air movement, No rhonchi, No wheeze, No rales Cardiovascular: Regular rate, Regular Rhythm, Normal S1, Normal S2, No murmurs Abdomen: Soft, Non-Distended, No Hepato-splenomegaly, Obese, Tender - There is bruising from previous DVT prophylaxis administration Extremities: No edema, Capillary Refill Less than 3 Seconds Skin: No rashes, No breakdown Neurological: - - She moves all extremities on her own though she does not follow any commands, she does not have any lateralizing symptoms however her incomprehensible speech is reminiscent of a Broca's aphasia Psych/Mental Status: - - Cannot obtain secondary to her altered mental status Vital Signs Temp Pulse Resp BP Pulse Ox 99.2 F H 60 18 177/87 H 98 01/12/19 13:22 01/12/19 13:22 01/12/19 13:22 01/12/19 13:22 01/12/19 13:22 Oxygen Flow Rate (L/min) 2 Oxygen Delivery Method Nasal Cannula Weight: 250 lb 0.067 oz Body Mass Index (BMI) 38.0 Laboratory Tests Past 24 Hrs 01/12/19 01/12/19 01/12/19 11:05 11:05 11:05 WBC 7.0 RBC 4.16 L Hgb 12.2 Hct 36.8 L MCV 88.5 MCH 29.3 MCHC 33.2 RDW 12.8 RDW Differential 41.0 Plt Count 185 MPV 9.9 Immature Gran % (Auto) 0.100 Neut % (Auto) 61.8 Lymph % (Auto) 24.7 [place] % (Auto) 7.0 Eos % (Auto) 5.3 H Baso % (Auto) 1.1 H Absolute Neuts (auto) 4.3 Absolute Lymphs (auto) 1.73 Total Counted Not Reportable PT 15.2 H INR 1.2 APTT 26.6 Sodium 139 Potassium 4.3 Chloride 104 Carbon Dioxide 29.0 Anion Gap 6 BUN 16 Creatinine 1.30 H Estim Creat Clear Calc 40.04 Est GFR (MDRD) Af Amer 52 L Est GFR (MDRD) Non-Af 43 L BUN/Creatinine Ratio 12.3 Glucose 269 H Lactic Acid Calcium 9.2 Total Bilirubin 0.50 AST 35 ALT 35 Alkaline Phosphatase 88 Total Protein 7.2 Albumin 3.4 Globulin 3.8 Albumin/Globulin Ratio 0.9 Urine Color Urine Clarity Urine pH Ur Specific [place] Urine Protein Urine Glucose (UA) Urine Ketones Urine Occult Blood Urine Nitrite Urine Bilirubin Urine Urobilinogen Ur Leukocyte Esterase Urine RBC Urine WBC Ur Squamous Epith Cells Urine Bacteria Urine Mucus 01/12/19 01/12/19 11:05 11:23 WBC RBC Hgb Hct MCV MCH MCHC RDW RDW Differential Plt Count MPV Immature Gran % (Auto) Neut % (Auto) Lymph % (Auto) [place] % (Auto) Eos % (Auto) Baso % (Auto) Absolute Neuts (auto) Absolute Lymphs (auto) Total Counted PT INR APTT Sodium Potassium Chloride Carbon Dioxide Anion Gap BUN Creatinine Estim Creat Clear Calc Est GFR (MDRD) Af Amer Est GFR (MDRD) Non-Af BUN/Creatinine Ratio Glucose Lactic Acid 2.6 H Calcium Total Bilirubin AST ALT Alkaline Phosphatase Total Protein Albumin Globulin Albumin/Globulin Ratio Urine Color Yellow Urine Clarity Sl. Cloudy Urine pH 6.0 Ur Specific [place] 1.020 Urine Protein 15 H Urine Glucose (UA) 100 H Urine Ketones Negative Urine Occult Blood Negative Urine Nitrite Negative Urine Bilirubin Negative Urine Urobilinogen Normal Ur Leukocyte Esterase Negative Urine RBC 0 SEEN Urine WBC 0 SEEN Ur Squamous Epith Cells 0 SEEN Urine Bacteria 0 SEEN Urine Mucus 0 SEEN Assessment/Plan All Active Problems Chest pain (Acute) Acute alteration in mental status (Acute) 1. Confusion with altered mental status and incomprehensible speech -This is very similar to Broca's aphasia or possibly a Warnicke's encephalopathy secondary to her drinking though that is highly unlikely since she only drinks once a week -She is getting a dose of thiamine in the ER -We will consult neurology and proceed with an MRI of her brain to rule out a left MCA stroke -She is already on aspirin, will start Plavix -We will increase her statin from Zocor to Lipitor 80 mg -Continue with speech for dysphasia screen -PT/OT -There is no metabolic cause for her altered mental status 2. CAD status post CABG/HLD/HTN -She had a stress test earlier in the week which was normal because of chest pain, and her echo was unremarkable -Will not repeat lipid panel that was done and it was normal We will continue with her medications of losartan, aspirin, torsemide once she is cleared to take p.o. 3. Hypothyroidism -Stable -Continue with Synthroid 4. DM2 -She is on insulin U500 at home -Placed on a sliding scale insulin while she is here 5. Depression/anxiety -Stable -Continue with Prozac when able to take p.o. DVT: Lovenox Code Visit OBSV E&M: [id number] Initial observation care L3
--- NOTE | 2019-01-12 14:33 | CASEMGMT ---
RN CM Assessment Introduced role of RN CM to patient, Patient Commercial Relief Driver, and Patient Friend at bedside.? Patient is alert, not oriented and unable?to participate in RN CM Assessment. ?All information obtained from the Commercial Relief Driver and Friend at bedside. Care providers, pharmacy, and demographics verified. Presentation: Abrupt Onset of AMS Admit Dx: Left MCA Stroke ? Re-Admit: No, OBS 01/05-01/06/19 for CP Barriers/Issues: Patient lives alone, has her Commercial Relief Driver Aishwarya from [employer] [facility] M-F 10:30-3pm. Friend Birgit lives down the [address] from patient. PCP: Jamarcus Juarez. Eugenia Watson, PROCESS IMPROVEMENT SPECIALIST- Sees patient in the home. Specialists: None Preferred [facility] Rx Benefit:?Yes LNOK: Caregiver Aishwarya Britt LW/HPOA: No, Patient confused at this time. Living Arrangements:?Lives alone in a Ground Level Apartment, no steps to enter. ADL?s: Per Friend and Commercial Relief Driver, patient is normally Oriented, stays in her Pajamas on the weekends but Independent with meds and meals, Gets assistance with baths by Commercial Relief Driver during the week. Drives her Scooter around and her Provider-PROCESS IMPROVEMENT SPECIALIST visits her in the home. Ambulates Independently in home, Scooter for longer distances. Transportation: Electric Scooter DME: Electric Scooter, Glucometer, Shower Chair HHC: Current with [facility]- Nurse visits every 3 months to check on patient. Aide with [employer]. SNF: None Goal: Home per patient, Per Caregiver TBD depending on what is going on. DC PLAN: Home with Resumption of HHC Vs SNF. Transportation to TBD. GAVIN Araiza
--- NOTE | 2019-01-12 14:44 | MRI_ITS ---
STUDY: MRI BRAIN WITHOUT CONTRAST REASON FOR EXAM: Female, 73 years old. Aphasia confusion TECHNIQUE: Standardized multiplanar fat and water weighted pulse sequences were obtained. COMPARISON: None. FINDINGS: There is no acute infarct. There are minor white matter age-appropriate gliotic foci. Otherwise brain parenchyma is normal. Appearance is similar to recent CT. MRI/Brain without Contrast IMPRESSION: 1. No acute or focal findings. 2. Unremarkable for age MRI brain. Electronically Signed: Tabatha Rodrigez, at 16:30 EDT Tel , Service support ,
--- NOTE | 2019-01-12 14:44 | PCM.CONS.GEN ---
Problem List (1) Acute alteration in mental status Status: Acute (2) Aphasia Status: Acute Reason for Consult Date of Consultation: 01/12/19 Reason for Consultation: Altered mental status and aphasia History of Present Illness: The patient is a 73 year old F with PMH HTN, HLD, DM, DM neuropathy, history of neck surgery, CAD s/p CABG, hypothyroidism, depression, EtOH abuse admitted with aphasia and altered mental status. History is obtained from the patient, medical records and patient's caregiver. Per caregiver patient lives alone she was normal yesterday evening 01/11/2019 when she left the house when she saw her again this morning around 10 AM she was not herself, the patient did not recognize the caregiver, patient has been repeating herself, does not comprehend well has been repeating words like mom and radha cat also has some word neologisms, there is no focal motor weakness, sensory loss, patient also denies any headache or dizziness, denies any visual disturbances. Per caregiver patient binge drinks almost every Tuesday and can drink up to 12 cans of beer. No documented witnessed seizures, no fever. BP on admission 182/[address] head done on admission reported nothing acute. Labs?WBC 7, platelet 185, Hb 12.2, INR 1.2, sodium 139, potassium 4.3, creatinine 1.3, lactic acid 2.6, AST/ALT 35/35, UA?slight cloudy, nitrite?negative, LE?negative, WBCs 0, bacteria 0. [] Past Medical History Past Medical History (Chronic Problems): Chronic Problems Back pain (Chronic) Hypertension (Chronic) Diabetes mellitus, type II (Chronic) Obesity (BMI 30-39.9) (Chronic) CAD (coronary artery disease) (Chronic) Neuropathy (Chronic) Allergies pregabalin [From Lyrica] Adverse Reaction (Verified 01/12/19 10:49) suicidal thoughts Home Medications: Ambulatory Orders Medication Instructions Recorded Aspirin 81 mg PO DAILY 04/06/16 Insulin U-500 [Humulin R U-500 0.24 ml SQ BIDAC 04/06/16 (BK)] Torsemide [Demadex] 20 mg PO DAILY 04/06/16 Propranolol HCl [Propranolol HCl 80 mg PO DAILY 04/09/16 ER] Simvastatin [Zocor] 40 mg PO DINNER 04/09/16 Losartan Potassium [Cozaar] 100 mg PO DAILY 09/27/17 Cholecalciferol (Vitamin D3) 3,000 unit PO DAILY 01/05/19 [D3-2000] Fluoxetine HCl 40 mg PO DAILY 01/05/19 Levothyroxine [Synthroid] 50 mcg PO DAILY 01/05/19 Multivitamin with Minerals 1 tab PO DAILY 01/05/19 [Multiple Vitamin] [place]-3 Fatty Acids/Fish Oil 1 cap PO BID 01/05/19 [[place] 3 1,000 mg Softgel] Surgical History: coronary bypass surgery, - - CABG x 4, Carpal tunnel BL, Cervical neck fusion x 2 (anterior, posterior), LA w/ BLSOO, Appendectomy, Cholecystectomy, Eye surgery, Bowel resection. Lives: - - Health care provider Smoking Status: Former smoker Tobacco Use: Cigarettes Alcohol: Occasional Drugs: None - *Family History Maternal History Items: Cancer, Diabetes, Dementia Paternal History Items: No pertinent history Review of Systems Constitutional: Reports: - - Complete ROS could not be obtained when the patient as she has possible aphasia and altered mental status. Patient Problems: Active and Suspected Problems Acute alteration in mental status (Acute) Aphasia (Acute) - Physical Exam General: Alert HEENT: Normocephalic Neck: Supple Lungs: Normal air movement Cardiovascular: Normal S1, Normal S2 Abdomen: Bowel Sounds Present Extremities: No cyanosis Neurological: - - Conscious, alert, CN II to XII grossly intact, power?moves all 4 extremities, denies any sensory loss,? Ataxia right upper extremity, reflexes + B/L B/S/T/K/A, gait deferred, patient currently exhibits mixed aphasia expressive and some receptive component (has poor comprehension, poor fluency, impaired repetition) Vital Signs Temp Pulse Resp BP Pulse Ox 99.2 F H 58 L 13 132/75 H 96 01/12/19 13:22 01/12/19 14:00 01/12/19 14:00 01/12/19 14:00 01/12/19 14:00 Oxygen Flow Rate (L/min) 2 Oxygen Delivery Method Nasal Cannula Weight: 113.4 kg Body Mass Index (BMI) 38.0 Laboratory Tests Past 24 Hrs 01/12/19 01/12/19 01/12/19 11:05 11:05 11:05 WBC 7.0 RBC 4.16 L Hgb 12.2 Hct 36.8 L MCV 88.5 MCH 29.3 MCHC 33.2 RDW 12.8 RDW Differential 41.0 Plt Count 185 MPV 9.9 Immature Gran % (Auto) 0.100 Neut % (Auto) 61.8 Lymph % (Auto) 24.7 [place] % (Auto) 7.0 Eos % (Auto) 5.3 H Baso % (Auto) 1.1 H Absolute Neuts (auto) 4.3 Absolute Lymphs (auto) 1.73 Total Counted Not Reportable PT 15.2 H INR 1.2 APTT 26.6 Sodium 139 Potassium 4.3 Chloride 104 Carbon Dioxide 29.0 Anion Gap 6 BUN 16 Creatinine 1.30 H Estim Creat Clear Calc 40.04 Est GFR (MDRD) Af Amer 52 L Est GFR (MDRD) Non-Af 43 L BUN/Creatinine Ratio 12.3 Glucose 269 H Lactic Acid Calcium 9.2 Total Bilirubin 0.50 AST 35 ALT 35 Alkaline Phosphatase 88 Total Protein 7.2 Albumin 3.4 Globulin 3.8 Albumin/Globulin Ratio 0.9 Urine Color Urine Clarity Urine pH Ur Specific [place] Urine Protein Urine Glucose (UA) Urine Ketones Urine Occult Blood Urine Nitrite Urine Bilirubin Urine Urobilinogen Ur Leukocyte Esterase Urine RBC Urine WBC Ur Squamous Epith Cells Urine Bacteria Urine Mucus 01/12/19 01/12/19 11:05 11:23 WBC RBC Hgb Hct MCV MCH MCHC RDW RDW Differential Plt Count MPV Immature Gran % (Auto) Neut % (Auto) Lymph % (Auto) [place] % (Auto) Eos % (Auto) Baso % (Auto) Absolute Neuts (auto) Absolute Lymphs (auto) Total Counted PT INR APTT Sodium Potassium Chloride Carbon Dioxide Anion Gap BUN Creatinine Estim Creat Clear Calc Est GFR (MDRD) Af Amer Est GFR (MDRD) Non-Af BUN/Creatinine Ratio Glucose Lactic Acid 2.6 H Calcium Total Bilirubin AST ALT Alkaline Phosphatase Total Protein Albumin Globulin Albumin/Globulin Ratio Urine Color Yellow Urine Clarity Sl. Cloudy Urine pH 6.0 Ur Specific [place] 1.020 Urine Protein 15 H Urine Glucose (UA) 100 H Urine Ketones Negative Urine Occult Blood Negative Urine Nitrite Negative Urine Bilirubin Negative Urine Urobilinogen Normal Ur Leukocyte Esterase Negative Urine RBC 0 SEEN Urine WBC 0 SEEN Ur Squamous Epith Cells 0 SEEN Urine Bacteria 0 SEEN Urine Mucus 0 SEEN Assessment/Plan All Active Problems Chest pain (Acute) Acute alteration in mental status (Acute) Aphasia (Acute) The patient is a 73 year old F with PMH HTN, HLD, DM, DM neuropathy, history of neck surgery, CAD s/p CABG, hypothyroidism, depression, EtOH abuse admitted with aphasia and altered mental status. History is obtained from the patient, medical records and patient's caregiver. Per caregiver patient lives alone she was normal yesterday evening 01/11/2019 when she left the house when she saw her again this morning around 10 AM she was not herself, the patient did not recognize the caregiver, patient has been repeating herself, does not comprehend well has been repeating words like mom and radha cat also has some word neologisms, there is no focal motor weakness, sensory loss, patient also denies any headache or dizziness, denies any visual disturbances. Per caregiver patient binge drinks almost every Tuesday and can drink up to 12 cans of beer. No documented witnessed seizures, no fever. BP on admission 182/[address] head done on admission reported nothing acute. Labs?WBC 7, platelet 185, Hb 12.2, INR 1.2, sodium 139, potassium 4.3, creatinine 1.3, lactic acid 2.6, AST/ALT 35/35, UA?slight cloudy, nitrite?negative, LE?negative, WBCs 0, bacteria 0 Impression Rule out left MCA stroke AMS Plan ?MRI brain without contrast and MRA head/neck ?Patient on aspirin at baseline ?Change Zocor to Lipitor ?Start thiamine 100 mg once daily ?TTE, LDL, HbA1c ?Labs reviewed ?PT/OT/ST ?GI/DVT prophylaxis ?Fall precautions ?Further medical management per ED and hospitalist team ?Follow-up with neurology as outpatient in 4 weeks ?Please call with questions if any ?Thank you for allowing us to participate in patient's care and management Code Visit Inpatient E&M: 46990 Init Hosp L3
--- NOTE | 2019-01-12 14:53 | MRI_ITS ---
STUDY: MRA OF THE HEAD WITHOUT CONTRAST REASON FOR EXAM: Female, 73 years old. Aphasia confusion TECHNIQUE: 3-D [id number] (TOF) imaging was performed with MIPs. The study was performed unenhanced. COMPARISON: None. FINDINGS: Normal bilateral petrous carotid arteries. Normal right cavernous carotid artery with a normal supraclinoid bifurcation. Normal left cavernous carotid artery with a normal supraclinoid bifurcation. Normal right A1 segments of the anterior cerebral artery. Normal left A1 segments of the anterior cerebral artery. Normal intact anterior communicating artery (ACOM). Normal bilateral A2 segments of the anterior cerebral arteries. Normal right M1 and M2 segments of the middle cerebral arteries, with a normal M1 bifurcation. Normal left M1 and M2 segments of the middle cerebral arteries, with a normal M1 bifurcation. Normal bilateral vertebral arteries. Normal basilar artery with a normal basilar bifurcation. The visualized bilateral superior cerebellar (SCA) arteries are normal. Normal bilateral P1, P2 and visualized P3 segments of the posterior cerebral arteries. There is no demonstrated aneurysm of the [place]. There is no major vessel occlusion or hemodynamically significant stenosis. There is no demonstrated abnormality of the visualized brain. MRI/MRA Head ONLY without Contrast IMPRESSION: Normal MRA of the head Electronically Signed: Tabatha Rodrigez, at 17:03 EDT Tel , Service support ,
--- NOTE | 2019-01-12 14:53 | MRI_ITS ---
STUDY: MRA NECK WITHOUT CONTRAST REASON FOR EXAM: Female, 73 years old. Aphasia and confusion TECHNIQUE: Source images were obtained, MIPs were performed. The study was performed unenhanced. COMPARISON: None. FINDINGS: Examination is limited due to technique. Presence of flow can be ascertained. Grading of stenosis is not technically possible. Intrathoracic portions of the great vessels are not assessable due to pulsation artifact. Mid to distal portions of the common carotids and proximal internal carotid arteries have flow without high-grade stenosis or occlusion. Intraosseous vertebral arteries have preserved flow. MRI/MRA Neck without Contrast IMPRESSION: 1. No occlusion or high-grade stenosis of the cervical arteries. Electronically Signed: Tabatha Rodrigez, at 17:21 EDT Tel , Service support ,
[2019-01-12 15:10] LABS: Reflex Lactate? Y
[2019-01-12] MEDS: 0.9% Normal Saline 1,000 ML 100 ML IV (16:26)
[2019-01-12 16:46] LABS: Bedside Glucose 232 mg/dL (70-110)
[2019-01-12 16:46] LABS: Lactic Acid 2.2 mmol/L (0.4-2.0)
[2019-01-12 20:47] LABS: Amphetamine Urine VISTA NEGATIVE (<1000 ng/mL); Barbiturate Urine VISTA NEGATIVE (< 200 ng/mL); Benzodiazepine Urine VISTA NEGATIVE (< 200 ng/mL); Cocaine Urine VISTA NEGATIVE (< 300 ng/mL); Ecstacy Urine VISTA NEGATIVE (< 500 ng/mL); Methadone Urine VISTA NEGATIVE (< 300 ng/mL); PCP Urine VISTA NEGATIVE (< 25 ng/mL); THC Urine VISTA NEGATIVE (< 50 ng/mL); Vista UDS pH Range 6
[2019-01-12] MEDS: Ketorolac 15 MG/ML Vial IV (22:58)
[2019-01-12 23:06] LABS: Bedside Glucose 209 mg/dL (70-110)
[2019-01-13] VITALS (11 sets, daily range): BP systolic 132–153; BP diastolic 50–58; PULSE 56–70; RESP 16–20; TEMP 36.2–37.1; O2SAT 93–96
[2019-01-13] MEDS: 0.9% Normal Saline 1,000 ML 100 ML IV ×3 (02:07→22:19)
[2019-01-13 07:05] LABS: Bedside Glucose 206 mg/dL (70-110)
[2019-01-13 07:33] LABS: Absolute Neutrophil Count 3.1 X10^3/uL (2.0-7.7); Basophil# 0.04 X10^3/uL; Basophil% 0.7 % (0-1); Eosinophils% 4.9 % (0-5); Hematocrit 33.9 % (37-47); Hemoglobin 11.3 g/dl (12.0-15.0); Lymphocyte % 34.5 % (19-41); Mean Corp Hgb Conc 33.3 g/gl (32-36); Mean Corpuscular Hgb 29.5 pg (27.0-32.0); Mean Corpuscular Volume 88.5 fL (81-99); Mean Platelet Vol. 9.9 fl (6.2-12.0); Monocyte# 0.54 X10^3/uL; Monocyte% 8.9 % (0-10); Neutrophil % 50.8 % (47-70); Platelet Count 173 K/mm3 (150-450); RBC Distribution Width CV 12.7 % (11.6-14.6); RBC Distribution Width SD 41.3 fl (35.1-43.9); Red Blood Count 3.83 M/mm3 (4.2-5.4); White Blood Count 6.1 K/mm3 (4.4-11.0)
[2019-01-13 07:42] LABS: POSITIVE COUNT NO; POSITIVE DIFFERENTIAL NO; POSITIVE MORPHOLOGY NO
[2019-01-13 07:51] LABS: Anion Gap 10 (5-15); BUN 17 mg/dL (7-18); BUN/Creat Ratio 13.9 RATIO (10-20); Calcium,Total 8.7 mg/dL (8.5-10.1); Chloride 107 mmol/L (98-107); Creatinine, Serum 1.22 mg/dL (0.55-1.02); EST Glomerular Filtration Rate 46 mL/min (>60); Est Glom Filt Rate - Afr Amer 56 mL/min (>60); Estimated Creatinine Clearance 42.67 ml/min; Glucose 188 mg/dL (74-106); Sodium Level 145 mmol/L (136-145)
--- NOTE | 2019-01-13 08:58 | PCM.PROGNOTE ---
Patient Problems: Active and Suspected Problems Acute alteration in mental status (Acute) Aphasia (Acute) Subjective: The patient is a 73-year-old female with a past medical history of coronary artery disease with a history of quadruple bypass, diabetes mellitus type 2, chronic renal failure, tobacco dependence, depression, hypothyroidism, hypertension, morbid obesity, chronic back pain and peripheral neuropathy who presented to the emergency department at [facility] on 01/12/2019 with complaint of confusion. Vital signs at presentation to the emergency room were temperature 99, pulse rate 61, blood pressure 182/75, respiratory rate 24 and she was 94% saturated on room air. CBC was normal. BMP was remarkable for an increased creatinine at 1.3 with a BUN of 16. 1.3 is within her baseline. Random blood sugar was elevated at 269 and the lactic acid was elevated at 2.6. UA had 0 WBCs. Urine drug screen was negative. Ethyl alcohol level was 5.0. Chest x-ray showed no pleural effusions, pulmonary vascular congestion or infiltrates. A noncontrasted CT of the brain showed chronic involutional changes only. Brain MRI showed no acute or focal findings. MRA of the head was normal. MRA of the neck showed no occlusion or high-grade stenosis of the cervical arteries. EKG in the emergency room showed poor R wave progression in the anterior leads possibly secondary to LVH or prior anterior [place]. There were T wave inversions present in V1 through V6. QT was mildly prolonged with a QTC of 477. The EKG is essentially unchanged from an EKG done in December 2018. A stress test done on 01/06/2019 was negative for ischemia and the gated Cardiolite ejection fraction was 77%. An echocardiogram recently showed a ejection fraction of 65% with no significant valvular heart disease. The right ventricular systolic pressure was estimated at 20. Transmitral diastolic flow velocities suggested diastolic dysfunction. She was seen in the emergency department by Dr. Raines and found to have ataxia of the right upper extremity with mixed aphasia, expressive and receptive. She was admitted to a monitored bed on PCU with a diagnosis of suspected ischemic CVA. T-max 99.3. Current temp is 98.1. Blood pressures have ranged from 133/58-180 2/75. Current blood pressure 133/58. She is 94% saturated on room air. All lab and imaging was personally reviewed. CBC remains unremarkable. The creatinine is 1.22 today. Lipid panel and a HGBA1C have been ordered but not resulted yet. - Physical Exam General: Alert, Non-Cooperative - pulling off the telemetry leads, angry voice, spit the clear liquids out at the ST when she was doing a bedside evaluation. Oriented to person only, - - very agitated, confused. Calling her niece mom. Demanding to go home. HEENT: Atraumatic, PERRLA, EOMI, Normocephalic Oral: - - will not open her mouth Neck: Supple, No Nuchal Rigidity, Trachea Midline Lungs: Clear to auscultation Cardiovascular: Regular rate, Regular Rhythm, Normal S1, Normal S2, No murmurs, No Gallop Abdomen: Bowel Sounds Present, Soft, Non-Distended, Obese, - - no guarding with palpation - with what she would let me do Extremities: No clubbing, No cyanosis, No edema Skin: No rashes, No breakdown Neurological: Cranial nerves II-XII grossly intact, - - moving all extremities.....would not cooperate with me - please see Dr. Raines's neuro exam done recently this AM Psych/Mental Status: Agitated, Impulsive, Irrational Behavior Vital Signs Temp Pulse Resp BP Pulse Ox 98.1 F 70 16 133/58 H 94 01/13/19 04:08 01/13/19 06:50 01/13/19 08:45 01/13/19 04:08 01/13/19 08:45 Oxygen Flow Rate (L/min) 2 Oxygen Delivery Method Room Air Weight: 241 lb 6.499 oz Body Mass Index (BMI) 36.7 Intake and Output for Last 24 Hours 01/11/19 01/12/19 01/13/19 23:59 23:59 23:59 Intake Total 775 / 775 686 / 686 Output Total 350 / 350 100 / 100 Balance 425 / 425 586 / 586 Laboratory Tests Past 24 Hrs 01/12/19 01/12/19 01/12/19 11:05 11:05 11:05 WBC 7.0 RBC 4.16 L Hgb 12.2 Hct 36.8 L MCV 88.5 MCH 29.3 MCHC 33.2 RDW 12.8 RDW Differential 41.0 Plt Count 185 MPV 9.9 Immature Gran % (Auto) 0.100 Neut % (Auto) 61.8 Lymph % (Auto) 24.7 [place] % (Auto) 7.0 Eos % (Auto) 5.3 H Baso % (Auto) 1.1 H Absolute Neuts (auto) 4.3 Absolute Lymphs (auto) 1.73 Total Counted Not Reportable PT 15.2 H INR 1.2 APTT 26.6 Sodium 139 Potassium 4.3 Chloride 104 Carbon Dioxide 29.0 Anion Gap 6 BUN 16 Creatinine 1.30 H Estim Creat Clear Calc 40.04 Est GFR (MDRD) Af Amer 52 L Est GFR (MDRD) Non-Af 43 L BUN/Creatinine Ratio 12.3 Glucose 269 H Lactic Acid Calcium 9.2 Total Bilirubin 0.50 AST 35 ALT 35 Alkaline Phosphatase 88 Total Protein 7.2 Albumin 3.4 Globulin 3.8 Albumin/Globulin Ratio 0.9 Urine Color Urine Clarity Urine pH Ur Specific [place] Urine Protein Urine Glucose (UA) Urine Ketones Urine Occult Blood Urine Nitrite Urine Bilirubin Urine Urobilinogen Ur Leukocyte Esterase Urine RBC Urine WBC Ur Squamous Epith Cells Urine Bacteria Urine Mucus Urine Opiates Screen Urine Methadone Screen Ur Barbiturates Screen Ur Phencyclidine Scrn Ur Amphetamines Screen U Methamphetamin-MDMA U Benzodiazepines Scrn Urine Cocaine Screen U Cannabinoids Screen Ur Drug Screen Comment Ethyl Alcohol 01/12/19 01/12/19 01/12/19 11:05 11:10 11:23 WBC RBC Hgb Hct MCV MCH MCHC RDW RDW Differential Plt Count MPV Immature Gran % (Auto) Neut % (Auto) Lymph % (Auto) [place] % (Auto) Eos % (Auto) Baso % (Auto) Absolute Neuts (auto) Absolute Lymphs (auto) Total Counted PT INR APTT Sodium Potassium Chloride Carbon Dioxide Anion Gap BUN Creatinine Estim Creat Clear Calc Est GFR (MDRD) Af Amer Est GFR (MDRD) Non-Af BUN/Creatinine Ratio Glucose Lactic Acid 2.6 H Calcium Total Bilirubin AST ALT Alkaline Phosphatase Total Protein Albumin Globulin Albumin/Globulin Ratio Urine Color Yellow Urine Clarity Sl. Cloudy Urine pH 6.0 Ur Specific [place] 1.020 Urine Protein 15 H Urine Glucose (UA) 100 H Urine Ketones Negative Urine Occult Blood Negative Urine Nitrite Negative Urine Bilirubin Negative Urine Urobilinogen Normal Ur Leukocyte Esterase Negative Urine RBC 0 SEEN Urine WBC 0 SEEN Ur Squamous Epith Cells 0 SEEN Urine Bacteria 0 SEEN Urine Mucus 0 SEEN Urine Opiates Screen Urine Methadone Screen Ur Barbiturates Screen Ur Phencyclidine Scrn Ur Amphetamines Screen U Methamphetamin-MDMA U Benzodiazepines Scrn Urine Cocaine Screen U Cannabinoids Screen Ur Drug Screen Comment Ethyl Alcohol 5.0 01/12/19 01/12/19 01/13/19 16:15 20:23 05:34 WBC 6.1 RBC 3.83 L Hgb 11.3 L Hct 33.9 L MCV 88.5 MCH 29.5 MCHC 33.3 RDW 12.7 RDW Differential 41.3 Plt Count 173 MPV 9.9 Immature Gran % (Auto) 0.200 Neut % (Auto) 50.8 Lymph % (Auto) 34.5 [place] % (Auto) 8.9 Eos % (Auto) 4.9 Baso % (Auto) 0.7 Absolute Neuts (auto) 3.1 Absolute Lymphs (auto) 2.10 Total Counted Not Reportable PT INR APTT Sodium Potassium Chloride Carbon Dioxide Anion Gap BUN Creatinine Estim Creat Clear Calc Est GFR (MDRD) Af Amer Est GFR (MDRD) Non-Af BUN/Creatinine Ratio Glucose Lactic Acid 2.2 H Calcium Total Bilirubin AST ALT Alkaline Phosphatase Total Protein Albumin Globulin Albumin/Globulin Ratio Urine Color Urine Clarity Urine pH Ur Specific [place] Urine Protein Urine Glucose (UA) Urine Ketones Urine Occult Blood Urine Nitrite Urine Bilirubin Urine Urobilinogen Ur Leukocyte Esterase Urine RBC Urine WBC Ur Squamous Epith Cells Urine Bacteria Urine Mucus Urine Opiates Screen NEGATIVE Urine Methadone Screen NEGATIVE Ur Barbiturates Screen NEGATIVE Ur Phencyclidine Scrn NEGATIVE Ur Amphetamines Screen NEGATIVE U Methamphetamin-MDMA NEGATIVE U Benzodiazepines Scrn NEGATIVE Urine Cocaine Screen NEGATIVE U Cannabinoids Screen NEGATIVE Ur Drug Screen Comment Ethyl Alcohol 01/13/19 05:34 WBC RBC Hgb Hct MCV MCH MCHC RDW RDW Differential Plt Count MPV Immature Gran % (Auto) Neut % (Auto) Lymph % (Auto) [place] % (Auto) Eos % (Auto) Baso % (Auto) Absolute Neuts (auto) Absolute Lymphs (auto) Total Counted PT INR APTT Sodium 145 Potassium 4.0 Chloride 107 Carbon Dioxide 28.0 Anion Gap 10 BUN 17 Creatinine 1.22 H Estim Creat Clear Calc 42.67 Est GFR (MDRD) Af Amer 56 L Est GFR (MDRD) Non-Af 46 L BUN/Creatinine Ratio 13.9 Glucose 188 H Lactic Acid Calcium 8.7 Total Bilirubin AST ALT Alkaline Phosphatase Total Protein Albumin Globulin Albumin/Globulin Ratio Urine Color Urine Clarity Urine pH Ur Specific [place] Urine Protein Urine Glucose (UA) Urine Ketones Urine Occult Blood Urine Nitrite Urine Bilirubin Urine Urobilinogen Ur Leukocyte Esterase Urine RBC Urine WBC Ur Squamous Epith Cells Urine Bacteria Urine Mucus Urine Opiates Screen Urine Methadone Screen Ur Barbiturates Screen Ur Phencyclidine Scrn Ur Amphetamines Screen U Methamphetamin-MDMA U Benzodiazepines Scrn Urine Cocaine Screen U Cannabinoids Screen Ur Drug Screen Comment Ethyl Alcohol POC Glucose 01/13/19 01/12/19 01/12/19 06:54 22:45 16:28 POC Glucose 206 H 209 H 232 H Medical Necessity - Tobacco Use Smoking Status: Former smoker Tobacco Use: Cigarettes Assessment/Plan All Active Problems Chest pain (Acute) Acute alteration in mental status (Acute) Aphasia (Acute) Impressions 1. acute onset confusion with both expressive and receptive aphasia Etiology uncertain. MRI negative for CVA. EEG with mild intermittent generalized background slowing but no epileptiform dysfunction. She is afebrile with a normal white blood cell count and an unremarkable differential. Urine tox screen was negative. She has no nuchal rigidity. Discussed with Dr. Raines and he would like an LP done on Tuesday. 2. No hx of chronic daily ETOH - will DC the Ativan - I think this will confuse her more. 3. History of coronary artery disease with CABG x4 vessels in the past 4. Diabetes mellitus type 2 on U5 100 insulin -not adequately controlled-hemoglobin A1c is 8.5. 5. Chronic renal failure stage III 6. Lactic acidosis-etiology uncertain 7. Tobacco dependence 8. History of depression 9. Hypothyroidism 10. Hypertension 11. Morbid obesity 12. Chronic back pain 13. Diabetic peripheral polyneuropathy 14. Suspected diastolic dysfunction 15. Mildly prolonged QTC No recent new medications - need to find out if she has possibly been on a Fluoroquinolone recently or any new antidepressants or is she suddenly stopped the SSRI and this is acute withdrawal. Doubt due to ETOH withdrawal. PRN Haldol for agitation. Recheck an EKG to make sure the QTC is not getting any longer. Code Visit Inpatient E&M: 76122 Subs Hosp L3
--- NOTE | 2019-01-13 09:58 | PN.NEURO_ITS ---
Patient Problems: Active and Suspected Problems Acute alteration in mental status (Acute) Aphasia (Acute) Subjective: No issues overnight. Patient continues to have altered mental status with speech disturbances where she continues to repeating words like mom and keep to get. There is no focal deficit on examination. MRI brain without contrast did not show any acute changes and was reported unremarkable, MRA head/neck also reported unremarkable. EEG done did not reveal any epileptiform discharges or electrographic seizures. - Physical Exam General: Alert HEENT: Normocephalic Neck: Supple Lungs: Normal air movement Cardiovascular: Normal S1, Normal S2 Abdomen: Bowel Sounds Present Extremities: No cyanosis Neurological: - - Conscious, alert, CN II to XII grossly intact, power?moves all 4 extremities, denies any sensory loss,? Ataxia right upper extremity, reflexes + B/L B/S/T/K/A, gait deferred, patient currently exhibits mixed aphasia expressive and some receptive component (has poor comprehension, poor fluency, impaired repetition) Psych/Mental Status: Normal Affect Vital Signs Temp Pulse Resp BP Pulse Ox 98.1 F 70 16 133/58 H 94 01/13/19 04:08 01/13/19 06:50 01/13/19 08:45 01/13/19 04:08 01/13/19 08:45 Oxygen Flow Rate (L/min) 2 Oxygen Delivery Method Room Air Weight: 109.5 kg Body Mass Index (BMI) 36.7 Intake and Output for Last 24 Hours 01/11/19 01/12/19 01/13/19 23:59 23:59 23:59 Intake Total 775 / 775 686 / 686 Output Total 350 / 350 100 / 100 Balance 425 / 425 586 / 586 Laboratory Tests Past 24 Hrs 01/12/19 01/12/19 01/12/19 11:05 11:05 11:05 WBC 7.0 RBC 4.16 L Hgb 12.2 Hct 36.8 L MCV 88.5 MCH 29.3 MCHC 33.2 RDW 12.8 RDW Differential 41.0 Plt Count 185 MPV 9.9 Immature Gran % (Auto) 0.100 Neut % (Auto) 61.8 Lymph % (Auto) 24.7 [place] % (Auto) 7.0 Eos % (Auto) 5.3 H Baso % (Auto) 1.1 H Absolute Neuts (auto) 4.3 Absolute Lymphs (auto) 1.73 Total Counted Not Reportable PT 15.2 H INR 1.2 APTT 26.6 Sodium 139 Potassium 4.3 Chloride 104 Carbon Dioxide 29.0 Anion Gap 6 BUN 16 Creatinine 1.30 H Estim Creat Clear Calc 40.04 Est GFR (MDRD) Af Amer 52 L Est GFR (MDRD) Non-Af 43 L BUN/Creatinine Ratio 12.3 Glucose 269 H Lactic Acid Calcium 9.2 Total Bilirubin 0.50 AST 35 ALT 35 Alkaline Phosphatase 88 Total Protein 7.2 Albumin 3.4 Globulin 3.8 Albumin/Globulin Ratio 0.9 Urine Color Urine Clarity Urine pH Ur Specific [place] Urine Protein Urine Glucose (UA) Urine Ketones Urine Occult Blood Urine Nitrite Urine Bilirubin Urine Urobilinogen Ur Leukocyte Esterase Urine RBC Urine WBC Ur Squamous Epith Cells Urine Bacteria Urine Mucus Urine Opiates Screen Urine Methadone Screen Ur Barbiturates Screen Ur Phencyclidine Scrn Ur Amphetamines Screen U Methamphetamin-MDMA U Benzodiazepines Scrn Urine Cocaine Screen U Cannabinoids Screen Ur Drug Screen Comment Ethyl Alcohol 01/12/19 01/12/19 01/12/19 11:05 11:10 11:23 WBC RBC Hgb Hct MCV MCH MCHC RDW RDW Differential Plt Count MPV Immature Gran % (Auto) Neut % (Auto) Lymph % (Auto) [place] % (Auto) Eos % (Auto) Baso % (Auto) Absolute Neuts (auto) Absolute Lymphs (auto) Total Counted PT INR APTT Sodium Potassium Chloride Carbon Dioxide Anion Gap BUN Creatinine Estim Creat Clear Calc Est GFR (MDRD) Af Amer Est GFR (MDRD) Non-Af BUN/Creatinine Ratio Glucose Lactic Acid 2.6 H Calcium Total Bilirubin AST ALT Alkaline Phosphatase Total Protein Albumin Globulin Albumin/Globulin Ratio Urine Color Yellow Urine Clarity Sl. Cloudy Urine pH 6.0 Ur Specific [place] 1.020 Urine Protein 15 H Urine Glucose (UA) 100 H Urine Ketones Negative Urine Occult Blood Negative Urine Nitrite Negative Urine Bilirubin Negative Urine Urobilinogen Normal Ur Leukocyte Esterase Negative Urine RBC 0 SEEN Urine WBC 0 SEEN Ur Squamous Epith Cells 0 SEEN Urine Bacteria 0 SEEN Urine Mucus 0 SEEN Urine Opiates Screen Urine Methadone Screen Ur Barbiturates Screen Ur Phencyclidine Scrn Ur Amphetamines Screen U Methamphetamin-MDMA U Benzodiazepines Scrn Urine Cocaine Screen U Cannabinoids Screen Ur Drug Screen Comment Ethyl Alcohol 5.0 01/12/19 01/12/19 01/13/19 16:15 20:23 05:34 WBC 6.1 RBC 3.83 L Hgb 11.3 L Hct 33.9 L MCV 88.5 MCH 29.5 MCHC 33.3 RDW 12.7 RDW Differential 41.3 Plt Count 173 MPV 9.9 Immature Gran % (Auto) 0.200 Neut % (Auto) 50.8 Lymph % (Auto) 34.5 [place] % (Auto) 8.9 Eos % (Auto) 4.9 Baso % (Auto) 0.7 Absolute Neuts (auto) 3.1 Absolute Lymphs (auto) 2.10 Total Counted Not Reportable PT INR APTT Sodium Potassium Chloride Carbon Dioxide Anion Gap BUN Creatinine Estim Creat Clear Calc Est GFR (MDRD) Af Amer Est GFR (MDRD) Non-Af BUN/Creatinine Ratio Glucose Lactic Acid 2.2 H Calcium Total Bilirubin AST ALT Alkaline Phosphatase Total Protein Albumin Globulin Albumin/Globulin Ratio Urine Color Urine Clarity Urine pH Ur Specific [place] Urine Protein Urine Glucose (UA) Urine Ketones Urine Occult Blood Urine Nitrite Urine Bilirubin Urine Urobilinogen Ur Leukocyte Esterase Urine RBC Urine WBC Ur Squamous Epith Cells Urine Bacteria Urine Mucus Urine Opiates Screen NEGATIVE Urine Methadone Screen NEGATIVE Ur Barbiturates Screen NEGATIVE Ur Phencyclidine Scrn NEGATIVE Ur Amphetamines Screen NEGATIVE U Methamphetamin-MDMA NEGATIVE U Benzodiazepines Scrn NEGATIVE Urine Cocaine Screen NEGATIVE U Cannabinoids Screen NEGATIVE Ur Drug Screen Comment Ethyl Alcohol 01/13/19 05:34 WBC RBC Hgb Hct MCV MCH MCHC RDW RDW Differential Plt Count MPV Immature Gran % (Auto) Neut % (Auto) Lymph % (Auto) [place] % (Auto) Eos % (Auto) Baso % (Auto) Absolute Neuts (auto) Absolute Lymphs (auto) Total Counted PT INR APTT Sodium 145 Potassium 4.0 Chloride 107 Carbon Dioxide 28.0 Anion Gap 10 BUN 17 Creatinine 1.22 H Estim Creat Clear Calc 42.67 Est GFR (MDRD) Af Amer 56 L Est GFR (MDRD) Non-Af 46 L BUN/Creatinine Ratio 13.9 Glucose 188 H Lactic Acid Calcium 8.7 Total Bilirubin AST ALT Alkaline Phosphatase Total Protein Albumin Globulin Albumin/Globulin Ratio Urine Color Urine Clarity Urine pH Ur Specific [place] Urine Protein Urine Glucose (UA) Urine Ketones Urine Occult Blood Urine Nitrite Urine Bilirubin Urine Urobilinogen Ur Leukocyte Esterase Urine RBC Urine WBC Ur Squamous Epith Cells Urine Bacteria Urine Mucus Urine Opiates Screen Urine Methadone Screen Ur Barbiturates Screen Ur Phencyclidine Scrn Ur Amphetamines Screen U Methamphetamin-MDMA U Benzodiazepines Scrn Urine Cocaine Screen U Cannabinoids Screen Ur Drug Screen Comment Ethyl Alcohol POC Glucose 01/13/19 01/12/19 01/12/19 06:54 22:45 16:28 POC Glucose 206 H 209 H 232 H Medical Necessity - Tobacco Use Smoking Status: Former smoker Tobacco Use: Cigarettes Assessment/Plan All Active Problems Chest pain (Acute) Acute alteration in mental status (Acute) Aphasia (Acute) The patient is a 73 year old F with PMH HTN, HLD, DM, DM neuropathy, history of neck surgery, CAD s/p CABG, hypothyroidism, depression, EtOH abuse admitted with aphasia and altered mental status. History is obtained from the patient, medical records and patient's caregiver. Per caregiver patient lives alone she was normal yesterday evening 01/11/2019 when she left the house when she saw her again this morning around 10 AM she was not herself, the patient did not recognize the caregiver, patient has been repeating herself, does not comprehend well has been repeating words like mom and radha cat also has some word neologisms, there is no focal motor weakness, sensory loss, patient also denies any headache or dizziness, denies any visual disturbances. Per caregiver patient binge drinks almost every Tuesday and can drink up to 12 cans of beer. No documented witnessed seizures, no fever. BP on admission 182/[address] head done on admission reported nothing acute. Labs?WBC 7, platelet 185, Hb 12.2, INR 1.2, sodium 139, potassium 4.3, creatinine 1.3, lactic acid 2.6, AST/ALT 35/35, UA?slight cloudy, nitrite?negative, LE?negative, WBCs 0, bacteria 0 Impression Encephalopathy- ? Cause ? Wernicke's encephalopathy versus Korsakoff psychosis Plan ?MRI brain without contrast and MRA head/neck-reported nothing acute ?Patient on aspirin at baseline ?On statins ?EEG did not show anything epileptiform or did not show any letter graphic seizures ?Check LP?CSF cell count, protein, glucose, HSV/EBV/CMV PCR, Gram stain, culture, cytology. Lymes AB ?Continue thiamine ?TTE, LDL, HbA1c ?Labs reviewed ?PT/OT/ST ?GI/DVT prophylaxis ?Fall precautions ?Further medical management per hospitalist team ?Follow-up with neurology as outpatient in 4 weeks ?Please call with questions if any ?Thank you for allowing us to participate in patient's care and management
--- NOTE | 2019-01-13 10:03 | EEG ---
- Electroencephalogram Date of service 01/13/2019 History EEG is being done in this 73 yr F to rule out seizures EEG Description: This is an 18 channel EEG with 10-20 lead placement system. Bipolar montages, and Referential montages were reviewed. Photic stimulation was performed but Hyperventilation could not be performed. The posterior dominant rhythm is 8-9 HZ synchronous, symmetric, reacting to eye opening and closing. Photo stimulation elicited normal driving response but no abnormal photoparoxysmal response, Hyperventilation was not performed as patient was not co-operative. Sleep was not identified. There is abnormal background slowing noted in the theta frequency range intermittently. There was no epileptiform discharges or electrographic seizures noted during this recording. EEG Interpretation This is abnormal EEG due to the presence of mild intermittent generalized back ground slowing. This may be seen with generalized cerebral dysfunction like metabolic/toxic encephalopathy. There is no epileptiform discharges or electrographic seizures noted during the record.
--- NOTE | 2019-01-13 11:08 | CASEMGMT ---
Social Work Note Pt is still confused today but caregiver is present in room. Plan is still TBD and PT/OT will need to evaluate pt. LURDES met with pt and pt's caregiver. SW introduced self and role at [facility]. SW briefly mentioned senior care to caregiver and pt stated no, I am going home. Pt repeatedly stated I am going home, I am not going to senior care. SW informed pt and pt's caregiver that pt is not medically cleared yet for discharge and there will be a SW offensive coordinator CM that can follow up with pt on Tuesday to determine discharge needs. SW informed caregiver that this worker can leave list of area SNF in the event that SNF is needed. SW placed list of SNF on pt's table in room. Plan: Pt wishes to discharge home and at this time is refusing SNF. Pt will need followed up with on Tuesday to confirm discharge plans. Tameka Tran TECHNICAL MARKETING ENGINEER, COMMERCIAL SPECIALIST
[2019-01-13 11:37] LABS: Hemoglobin A1c 8.5 % (4.2-6.3)
[2019-01-13 11:39] LABS: Cholesterol 168 mg/dL (200); Free T3 2.1 pg/mL (2.18-3.98); High Density Lipoprotein 37 mg/dL; T4 Free Direct 1.28 ng/dL (0.76-1.46); Thyroid Stim Hormone (TSH) 1.44 uIU/mL (0.358-3.74); Triglycerides 277 mg/dL; Very Low Density Lipoprotein 55 mg/dL (5-40)
[2019-01-13 11:41] LABS: Bedside Glucose 218 mg/dL (70-110)
[2019-01-13] MEDS: Ketorolac 15 MG/ML Vial IV (11:56)
[2019-01-13] MEDS: Haloperidol Lactate 5 MG/ML Vial 2 MG IV (13:14)
--- NOTE | 2019-01-13 13:16 | NURSING ---
Pt more agitated and upset wants to go home. Support given. Pt states wants her IV's out and catheter removed so she can go home. Family at bedside. Dr. Morrissey here ordered Haldo 2 mg IV x 1 now. Given. Family in room at bedside. Support given.
--- NOTE | 2019-01-13 14:00 | EKG12_ITS ---
Test Reason : RHYTHM CHECK Blood Pressure : / mmHG Vent. Rate : 060 BPM Atrial Rate : 060 BPM P-R Int : 196 ms QRS Dur : 078 ms QT Int : 476 ms P-R-T Axes : 092 059 045 degrees QTc Int : 476 ms Normal sinus rhythm Nonspecific T wave abnormality Prolonged QT Abnormal ECG Confirmed by MISTY AGRZA, JASSON ([id number]), manuscript editor LIO BALDWIN ([id number]) on 01/17/2019 12:10:06 PM Referred By: LOREN Confirmed By:JASSON JAY MD
--- NOTE | 2019-01-13 16:06 | NURSING ---
Per Dr. Morrissey may do a dysphagia screening with applesauce and honey thickened liquid due to pt request. Pt able to talk applesauce without difficulty, per Dr. Morrissey may have pureed, honey thickened diet.
[2019-01-13 16:45] LABS: Bedside Glucose 214 mg/dL (70-110)
[2019-01-13] MEDS: Insulin Lispro 100 UNIT/ML INSULN.PEN SQ (22:16)
[2019-01-13] MEDS: Atorvastatin Calcium 80 MG Tablet PO (22:16)
[2019-01-13 22:25] LABS: Bedside Glucose 202 mg/dL (70-110)
[2019-01-14 03:00] VITALS: PULSE 58
[2019-01-14 03:37] VITALS: BP 139/57; PULSE 56; RESP 18; TEMP 36.6; O2SAT 95
--- NOTE | 2019-01-14 05:55 | EKG12_ITS ---
Test Reason : AM EKG Blood Pressure : / mmHG Vent. Rate : 055 BPM Atrial Rate : 055 BPM P-R Int : 166 ms QRS Dur : 086 ms QT Int : 496 ms P-R-T Axes : 000 060 118 degrees QTc Int : 474 ms Sinus bradycardia with sinus arrhythmia Septal infarct , age undetermined T wave abnormality, consider anterior ischemia Abnormal ECG Confirmed by MISTY GARZA, JASSON ([id number]), communications editor LIO BALDWIN ([id number]) on 01/17/2019 12:05:52 PM Referred By: DR CARBAJAL Confirmed By:JASSON JAY MD
[2019-01-14] MEDS: 0.9% Normal Saline 1,000 ML 100 ML IV (06:45)
[2019-01-14] MEDS: Insulin Lispro 100 UNIT/ML INSULN.PEN SQ ×2 (06:45→11:19)
[2019-01-14 06:52] VITALS: PULSE 67
[2019-01-14 07:11] LABS: Bedside Glucose 213 mg/dL (70-110)
[2019-01-14 10:12] VITALS: BP 154/65; PULSE 63; RESP 16; TEMP 36.6; O2SAT 97
[2019-01-14] MEDS: Thiamine Hydrochloride 100 MG Tablet PO (10:20)
[2019-01-14] MEDS: Multivitamins,Ther W-Minerals Tablet 1 TABLET PO (10:20)
[2019-01-14] MEDS: Clopidogrel Bisulfate 75 MG Tablet PO (10:20)
[2019-01-14 11:00] VITALS: PULSE 62
[2019-01-14 11:56] LABS: Bedside Glucose 309 mg/dL (70-110)
--- NOTE | 2019-01-14 13:43 | PCM.DC ---
- Discharge Diagnoses Current Active Problems: Current Active and Chronic Problems Acute alteration in mental status (Acute) Aphasia (Acute) You will use the following diet at home:: Calorie/Carbohydrate Controlled (specify 1200, 1400, etc), Cardiac Your food should be the consistency of: Regular Your liquids should be the consistency of: Regular/Thin Discharge Activity: Return to Normal Activity Call your doctor if you observe: Fever of 101 or Higher, Inability to urinate, Shortness of breath, Dizziness, Fainting spells, Swelling in the ankles, Chest pain, Uncontrolled pain, - - hallucinations,any change in mental status, confusion, any thoughts of hurting yourself or someone else, sleeping all day, losing your appetite Instructions: Understanding Reversible Dementias, Understanding Dementia Additional Instructions: 1. I do not know exactly what happened with you when you came to the hospital and why you were so confused and agitated. The good news is that you have completely recovered. The MRI did NOT show a stroke and the EEG (brain wave study) showed no seziure activity. You have not had a fever and the the white blood cell count is normal. I think it is safe to send you home since you have a lot of services in place. I am concerned about the hx of dementia in your mother and the fact that your memory has been slipping. I think you should follow up with the neurologist who saw you in the hospital, Dr. Raines, and asked to be evaluated for dementia. There are medications available that can help slow the process down and some forms of dementia are actually reversible. If this situation recurs I think at that time you should have a lumbar puncture to rule out an infection of the brain. Even depression which is undertreated can result in memory loss. 2. The injections in the back for nerve pain work very well in some patients. They worked very well for me for a long time. This may help you and it would not be another pill. Since you can not take Gabapentin or Lyrica and the Amytriptiline did not work I would probably try it at least once........if it does not help you will know not to go back. Allergies/Adverse Reactions: Allergies pregabalin [From Lyrica] Adverse Reaction (Verified 01/12/19 10:49) suicidal thoughts Medications to take at Discharge Aspirin 81 mg PO DAILY 04/06/16 Insulin U-500 [Humulin R U-500 (BKC)] 0.24 ml SQ BIDAC 04/06/16 Torsemide [Demadex] 20 mg PO DAILY 04/06/16 Propranolol HCl [Propranolol HCl ER] 80 mg PO DAILY 04/09/16 Simvastatin [Zocor] 40 mg PO DINNER 04/09/16 Losartan Potassium [Cozaar] 100 mg PO DAILY 09/27/17 Cholecalciferol (Vitamin D3) [D3-2000] 3,000 unit PO DAILY 01/05/19 Fluoxetine HCl 40 mg PO DAILY 01/05/19 Levothyroxine [Synthroid] 50 mcg PO DAILY 01/05/19 Multivitamin with Minerals [Multiple Vitamin] 1 tab PO DAILY 01/05/19 [place]-3 Fatty Acids/Fish Oil [[place] 3 1,000 mg Softgel] 1 cap PO BID 01/05/19 Primary Care Physician: Eugenia Watson SOLID WASTE DISPOSAL MANAGER-C [Primary Care Provider] - Please follow up with your Primary Care Physician in: 1 week Test Results: Test results from this visit will be discussed in further detail at your follow-up appointment, if applicable. Please Follow Up With: Selvin Raines MD When: 4-6 weeks Please Follow Up With: Han Pyle MD When: as needed for and epidural Proposed Discharge Date: 01/14/19
--- NOTE | 2019-01-14 13:54 | DCINST_ITS ---
- Discharge Diagnoses Current Active Problems: Current Active and Chronic Problems Acute alteration in mental status (Acute) Aphasia (Acute) You will use the following diet at home:: Calorie/Carbohydrate Controlled (specify 1200, 1400, etc), Cardiac Your food should be the consistency of: Regular Your liquids should be the consistency of: Regular/Thin Discharge Activity: Return to Normal Activity Call your doctor if you observe: Fever of 101 or Higher, Inability to urinate, Shortness of breath, Dizziness, Fainting spells, Swelling in the ankles, Chest pain, Uncontrolled pain, - - hallucinations,any change in mental status, confusion, any thoughts of hurting yourself or someone else, sleeping all day, losing your appetite Instructions: Understanding Reversible Dementias, Understanding Dementia Additional Instructions: 1. I do not know exactly what happened with you when you came to the hospital and why you were so confused and agitated. The good news is that you have completely recovered. The MRI did NOT show a stroke and the EEG (brain wave study) showed no seziure activity. You have not had a fever and the the white blood cell count is normal. I think it is safe to send you home since you have a lot of services in place. I am concerned about the hx of dementia in your mother and the fact that your memory has been slipping. I think you should follow up with the neurologist who saw you in the hospital, Dr. Raines, and asked to be evaluated for dementia. There are medications available that can help slow the process down and some forms of dementia are actually reversible. If this situation recurs I think at that time you should have a lumbar puncture to rule out an infection of the brain. Even depression which is undertreated can result in memory loss. 2. The injections in the back for nerve pain work very well in some patients. They worked very well for me for a long time. This may help you and it would not be another pill. Since you can not take Gabapentin or Lyrica and the Amytriptiline did not work I would probably try it at least once........if it does not help you will know not to go back. Allergies/Adverse Reactions: Allergies pregabalin [From Lyrica] Adverse Reaction (Verified 01/12/19 10:49) suicidal thoughts Medications to take at Discharge Aspirin 81 mg PO DAILY 04/06/16 Insulin U-500 [Humulin R U-500 (BKC)] 0.24 ml SQ BIDAC 04/06/16 Torsemide [Demadex] 20 mg PO DAILY 04/06/16 Propranolol HCl [Propranolol HCl ER] 80 mg PO DAILY 04/09/16 Simvastatin [Zocor] 40 mg PO DINNER 04/09/16 Losartan Potassium [Cozaar] 100 mg PO DAILY 09/27/17 Cholecalciferol (Vitamin D3) [D3-2000] 3,000 unit PO DAILY 01/05/19 Fluoxetine HCl 40 mg PO DAILY 01/05/19 Levothyroxine [Synthroid] 50 mcg PO DAILY 01/05/19 Multivitamin with Minerals [Multiple Vitamin] 1 tab PO DAILY 01/05/19 [place]-3 Fatty Acids/Fish Oil [[place] 3 1,000 mg Softgel] 1 cap PO BID 01/05/19 Primary Care Physician: Eugenia Watson HYDROPONICS WORKER-C [Primary Care Provider] - Please follow up with your Primary Care Physician in: 1 week Test Results: Test results from this visit will be discussed in further detail at your follow- up appointment, if applicable. Please Follow Up With: Selvin Raines MD When: 4-6 weeks Please Follow Up With: Han Pyle MD When: as needed for and epidural Proposed Discharge Date: 01/14/19
--- NOTE | 2019-01-14 14:32 | PCM.DC.SUM ---
Discharge Date and Diagnosis - Problem List Patient Problems: Active and Suspected Problems Diastolic dysfunction (Suspected) Lactic acidosis (Acute) Toxic metabolic encephalopathy (Acute) Date of Admission: 01/12/19 Date of Discharge: 01/14/19 - Primary Discharge Diagnosis Active and Suspected Problems Toxic metabolic encephalopathy (Acute) Acute alteration in mental status (Acute) Aphasia-both receptive and expressive Lactic acidosis (Acute) - may be due to agitation and excessive restlessness Diastolic dysfunction (Suspected) - Secondary Discharge Diagnosis Chronic Problems QT prolongation (Chronic) - mild QTC 476 Chronic renal failure, stage 3 (moderate) (Chronic) Diabetic peripheral neuropathy associated with type 2 diabetes mellitus (Chronic) Morbid obesity (Chronic) Depression (Chronic) Tobacco dependence (Chronic) S/P CABG x 4 (Chronic) Back pain (Chronic) - left flank and radiating around to the abdomen Hypertension (Chronic) Diabetes mellitus, type II (Chronic) - HGBA1C CAD (coronary artery disease) (Chronic) Hospital Course and Treatment Imaging Results: 01/15/19 09:00 Fluoro Guided Lumbar Puncture [RAD] Urgent Clinical Impression(s) from Imaging Studies Chest X-Ray 01/12/19 11:12 IMPRESSION: Hyperinflation. The lungs are clear. Electronically Signed: Ronen Norris, at 11:41 EDT , Service support , Brain CT 01/12/19 12:10 IMPRESSION: Chronic involutional changes of the brain. No acute hemorrhage Electronically Signed: Stu Baez MD at 12:50 EDT , Service support , Brain MRI 01/12/19 14:44 IMPRESSION: 1. No acute or focal findings. 2. Unremarkable for age MRI brain. Electronically Signed: Tabatha Rodrigez, at 16:30 EDT Tel , Service support , Head MRA 01/12/19 14:53 IMPRESSION: Normal MRA of the head Electronically Signed: Tabatha Rodrigez, at 17:03 EDT Tel , Service support , Neck MRA 01/12/19 14:53 IMPRESSION: 1. No occlusion or high-grade stenosis of the cervical arteries. Electronically Signed: Tabatha Rodrigez, at 17:21 EDT Tel , Service support , Laboratory Results - last 24 hr 01/13/19 01/13/19 01/14/19 16:39 22:08 06:41 POC Glucose 214 H 202 H 213 H 01/14/19 11:16 POC Glucose 309 H Microbiology 01/12/19 11:35 Blood Culture (Wb) - Left Wrist Blood Culture - Preliminary No growth in 48 hours. 01/12/19 11:05 Blood Culture (Wb) - Anticubital Left Blood Culture - Preliminary No growth in 48 hours. 01/12/19 11:23 Urine Catheter - [place] Urine Culture - Final Culture exhibits no growth. Dr. Abhinav Raines-neurology Operations: None Procedures: Electroencephalogram - Intermittent mild background slowing with no epileptiform discharges likely due to toxic metabolic encephalopathy Summary of Care Provided: The patient is a 73-year-old female with a past medical history of coronary artery disease with a history of quadruple bypass, diabetes mellitus type 2, chronic renal failure, tobacco dependence, depression, hypothyroidism, hypertension, morbid obesity, chronic back pain and peripheral neuropathy who presented to the emergency department at [facility] on 01/12/2019 with complaint of confusion. Vital signs at presentation to the emergency room were temperature 99, pulse rate 61, blood pressure 182/75, respiratory rate 24 and she was 94% saturated on room air. CBC was normal. BMP was remarkable for an increased creatinine at 1.3 with a BUN of 16. 1.3 is within her baseline. Random blood sugar was elevated at 269 and the lactic acid was elevated at 2.6. UA had 0 WBCs. Urine drug screen was negative. Ethyl alcohol level was 5.0. Chest x-ray showed no pleural effusions, pulmonary vascular congestion or infiltrates. A noncontrasted CT of the brain showed chronic involutional changes only. Brain MRI showed no acute or focal findings. MRA of the head was normal. MRA of the neck showed no occlusion or high-grade stenosis of the cervical arteries. EKG in the emergency room showed poor R wave progression in the anterior leads possibly secondary to LVH or prior anterior [place]. There were T wave inversions present in V1 through V6. QT was mildly prolonged with a QTC of 477. The EKG is essentially unchanged from an EKG done in December 2018. A stress test done on 01/06/2019 was negative for ischemia and the gated Cardiolite ejection fraction was 77%. An echocardiogram recently showed a ejection fraction of 65% with no significant valvular heart disease. The right ventricular systolic pressure was estimated at 20. Transmitral diastolic flow velocities suggested diastolic dysfunction. She was seen in the emergency department by Dr. Raines and found to have ataxia of the right upper extremity with mixed aphasia, expressive and receptive. She was admitted to a monitored bed on PCU with a diagnosis of suspected ischemic CVA. Consultation with Dr. Raines was ordered. MRI of the brain was negative for CVA. MRA of the head was normal and MRA of the neck showed no significant areas of stenosis. EEG revealed intermittent generalized slowing with no epileptiform discharge. Findings were considered consistent with possible toxic/metabolic encephalopathy. She was afebrile with a normal WBC and an unremarkable diff. She had no nuchal rigidity. An LP was recommended by Dr. Raines. she was given a dose of IV Haldol 2 mg and she slept for a few hours. When she awoke she was much more calm and appropriate. On the morning of 01/14/19 she was back to her baseline. She was passed by ST with no restrictions she requested to go home. She has home health services in place at home to assist her. she has an aide 5 days a week. She refused to stay for a lumbar puncture but stated she would follow up with Dr. Raines as an OP to be evaluated for dementia. Her mother had dementia and she has been having difficulty with memory. Physical Exam General: Alert, cooperative, pleasant, making good eye contact. Oral: Moist mucosa Neck: Supple, No Nuchal Rigidity, Trachea Midline Lungs: Clear to auscultation Cardiovascular: Regular rate, Regular Rhythm, Normal S1, Normal S2, No murmurs, No Gallop Abdomen: Bowel Sounds Present, Soft, Non-Distended, Obese, - - no guarding with palpation Extremities: No clubbing, No cyanosis, No edema Skin: No rashes, No breakdown Neurological: Cranial nerves II through XII grossly intact, moving all extremities, no focal neurologic deficits, sensory loss in her distal lower extremities and hands secondary to peripheral neuropathy Psych/Mental Status: normal affect This note was generated with [employer] dictation software. It may contain incorrect words, spelling, and punctuation that were not noted in checking the note before signing. Patient Problems: Active and Suspected Problems Diastolic dysfunction (Suspected) Lactic acidosis (Acute) Toxic metabolic encephalopathy (Acute) - Physical Exam Vital Signs Temp Pulse Resp BP Pulse Ox 97.9 F 62 16 154/65 H 97 01/14/19 10:12 01/14/19 11:00 01/14/19 10:12 01/14/19 10:12 01/14/19 10:12 Oxygen Flow Rate (L/min) 2 Oxygen Delivery Method Room Air Weight: 241 lb 6.499 oz Body Mass Index (BMI) 36.7 Intake and Output for Last 24 Hours 01/12/19 01/13/19 01/14/19 23:59 23:59 23:59 Intake Total 775 / 775 3508 / 3508 2304 / 2304 Output Total 350 / 350 800 / 800 675 / 675 Balance 425 / 425 2708 / 2708 1629 / 1629 Microbiology Past 72 Hours 01/12/19 11:35 Blood Culture - Preliminary Blood Culture (Wb) - Left Wrist No growth in 48 hours. 01/12/19 11:05 Blood Culture - Preliminary Blood Culture (Wb) - Anticubital Left No growth in 48 hours. 01/12/19 11:23 Urine Culture - Final Urine Catheter - [place] Culture exhibits no growth. POC Glucose 01/14/19 01/14/19 01/13/19 11:16 06:41 22:08 POC Glucose 309 H 213 H 202 H 01/13/19 16:39 POC Glucose 214 H Discharge Activity: Return to Normal Activity Call your doctor if you observe: Fever of 101 or Higher, Inability to urinate, Shortness of breath, Dizziness, Fainting spells, Swelling in the ankles, Chest pain, Uncontrolled pain, - - hallucinations,any change in mental status, confusion, any thoughts of hurting yourself or someone else, sleeping all day, losing your appetite Home Medications: Medications to take at Discharge Aspirin 81 mg PO DAILY 04/06/16 Insulin U-500 [Humulin R U-500 (BKC)] 0.24 ml SQ BIDAC 04/06/16 Torsemide [Demadex] 20 mg PO DAILY 04/06/16 Propranolol HCl [Propranolol HCl ER] 80 mg PO DAILY 04/09/16 Simvastatin [Zocor] 40 mg PO DINNER 04/09/16 Losartan Potassium [Cozaar] 100 mg PO DAILY 09/27/17 Cholecalciferol (Vitamin D3) [D3-2000] 3,000 unit PO DAILY 01/05/19 Fluoxetine HCl 40 mg PO DAILY 01/05/19 Levothyroxine [Synthroid] 50 mcg PO DAILY 01/05/19 Multivitamin with Minerals [Multiple Vitamin] 1 tab PO DAILY 01/05/19 [place]-3 Fatty Acids/Fish Oil [[place] 3 1,000 mg Softgel] 1 cap PO BID 01/05/19 Primary Care Physician: Eugenia Watson, LAW ENFORCEMENT INSTRUCTOR-C [Primary Care Provider] - Please follow up with your Primary Care Physician in: 1 week Please Follow Up With: Selvin Raines MD When: 4-6 weeks Please Follow Up With: Han Pyle MD When: as needed for and epidural Patient Instructions: Understanding Reversible Dementias, Understanding Dementia Disposition: Home Minutes spent on discharge:: 40 Medical Necessity - Tobacco Use Smoking Status: Current some day smoker Tobacco Use: Cigarettes Meaningful Use Info Meaningful Use Diagnoses (Choose all that apply): None applicable Code Visit OBSV E&M: 84176 Observation care discharge
--- NOTE | 2019-01-14 14:36 | DS.PCM_ITS ---
Discharge Date and Diagnosis - Problem List Patient Problems: Active and Suspected Problems Diastolic dysfunction (Suspected) Lactic acidosis (Acute) Toxic metabolic encephalopathy (Acute) Date of Admission: 01/12/19 Date of Discharge: 01/14/19 - Primary Discharge Diagnosis Active and Suspected Problems Toxic metabolic encephalopathy (Acute) Acute alteration in mental status (Acute) Aphasia-both receptive and expressive Lactic acidosis (Acute) - may be due to agitation and excessive restlessness Diastolic dysfunction (Suspected) - Secondary Discharge Diagnosis Chronic Problems QT prolongation (Chronic) - mild QTC 476 Chronic renal failure, stage 3 (moderate) (Chronic) Diabetic peripheral neuropathy associated with type 2 diabetes mellitus (Chronic) Morbid obesity (Chronic) Depression (Chronic) Tobacco dependence (Chronic) S/P CABG x 4 (Chronic) Back pain (Chronic) - left flank and radiating around to the abdomen Hypertension (Chronic) Diabetes mellitus, type II (Chronic) - HGBA1C CAD (coronary artery disease) (Chronic) Hospital Course and Treatment Imaging Results: 01/15/19 09:00 Fluoro Guided Lumbar Puncture [RAD] Urgent Clinical Impression(s) from Imaging Studies Chest X-Ray 01/12/19 11:12 IMPRESSION: Hyperinflation. The lungs are clear. Electronically Signed: Ronen Norris, at 11:41 EDT , Service support , Brain CT 01/12/19 12:10 IMPRESSION: Chronic involutional changes of the brain. No acute hemorrhage Electronically Signed: Stu Baez MD at 12:50 EDT , Service support , Brain MRI 01/12/19 14:44 IMPRESSION: 1. No acute or focal findings. 2. Unremarkable for age MRI brain. Electronically Signed: Tabatha Rodrigez, at 16:30 EDT Tel , Service support , Head MRA 01/12/19 14:53 IMPRESSION: Normal MRA of the head Electronically Signed: Tabatha Rodrigez, at 17:03 EDT Tel , Service support , Neck MRA 01/12/19 14:53 IMPRESSION: 1. No occlusion or high-grade stenosis of the cervical arteries. Electronically Signed: Tabatha Rodrigez, at 17:21 EDT Tel , Service support , Laboratory Results - last 24 hr 01/13/19 01/13/19 01/14/19 16:39 22:08 06:41 POC Glucose 214 H 202 H 213 H 01/14/19 11:16 POC Glucose 309 H Microbiology 01/12/19 11:35 Blood Culture (Wb) - Left Wrist Blood Culture - Preliminary No growth in 48 hours. 01/12/19 11:05 Blood Culture (Wb) - Anticubital Left Blood Culture - Preli minary No growth in 48 hours. 01/12/19 11:23 Urine Catheter - [place] Urine Culture - Final Culture exhibits no growth. Dr. Abhinav Raines-neurology Operations: None Procedures: Electroencephalogram - Intermittent mild background slowing with no epileptiform discharges likely due to toxic metabolic encephalopathy Summary of Care Provided: The patient is a 73-year-old female with a past medical history of coronary artery disease with a history of quadruple bypass, diabetes mellitus type 2, chronic renal failure, tobacco dependence, depression, hypothyroidism, hypertension, morbid obesity, chronic back pain and peripheral neuropathy who presented to the emergency department at [facility] on 01/12/2019 with complaint of confusion. Vital signs at presentation to the emergency room were temperature 99, pulse rate 61, blood pressure 182/75, respiratory rate 24 and she was 94% saturated on room air. CBC was normal. BMP was remarkable for an increased creatinine at 1.3 with a BUN of 16. 1.3 is within her baseline. Random blood sugar was elevated at 269 and the lactic acid was elevated at 2.6. UA had 0 WBCs. Urine drug screen was negative. Ethyl alcohol level was 5.0. Chest x-ray showed no pleural effusions, pulmonary vascular congestion or infiltrates. A noncontrasted CT of the brain showed chronic involutional changes only. Brain MRI showed no acute or focal findings. MRA of the head was normal. MRA of the neck showed no occlusion or high-grade stenosis of the cervical arteries. EKG in the emergency room showed poor R wave progression in the anterior leads possibly secondary to LVH or prior anterior [place]. There were T wave inversions present in V1 through V6. QT was mildly prolonged with a QTC of 477. The EKG is essentially unchanged from an EKG done in December 2018. A stress test done on 01/06/2019 was negative for ischemia and the gated Cardiolite ejection fraction was 77%. An echocardiogram recently showed a ejection fraction of 65% with no significant valvular heart disease. The right ventricul ar systolic pressure was estimated at 20. Transmitral diastolic flow velocities suggested diastolic dysfunction. She was seen in the emergency department by Dr. Raines and found to have ataxia of the right upper extremity with mixed aphasia, expressive and receptive. She was admitted to a monitored bed on PCU with a diagnosis of suspected ischemic CVA. Consultation with Dr. Raines was ordered. MRI of the brain was negative for CVA. MRA of the head was normal and MRA of the neck showed no significant areas of stenosis. EEG revealed intermittent generalized slowing with no epileptiform discharge. Findings were considered consistent with possible toxic/metabolic encephalopathy. She was afebrile with a normal WBC and an unremarkable diff. She had no nuchal rigidity. An LP was recommended by Dr. Raines. she was given a dose of IV Haldol 2 mg and she slept for a few hours. When she awoke she was much more calm and appropriate. On the morning of 01/14/19 she was back to her baseline. She was passed by ST with no restrictions she requested to go home. She has home health services in place at home to assist her. she has an aide 5 days a week. She refused to stay for a lumbar puncture but stated she would follow up with Dr. Raines as an OP to be evaluated for dementia. Her mother had dementia and she has been having difficulty with memory. Physical Exam General: Alert, cooperative, pleasant, making good eye contact. Oral: Moist mucosa Neck: Supple, No Nuchal Rigidity, Trachea Midline Lungs: Clear to auscultation Cardiovascular: Regular rate, Regular Rhythm, Normal S1, Normal S2, No murmurs, No Gallop Abdomen: Bowel Sounds Present, Soft, Non-Distended, Obese, - - no guarding with palpation Extremities: No clubbing, No cyanosis, No edema Skin: No rashes, No breakdown Neurological: Cranial nerves II through XII grossly intact, moving all extremities, no focal neurologic deficits, sensory loss in her distal lower extremities and hands secondary to peripheral neuropathy Psych/Mental Status: normal affect This note was generated with IID dictation software. It may contain incorrect words, spelling, and punctuation that were not noted in checking the note before signing. Patient Problems: Active and Suspected Problems Diastolic dysfunction (Suspected) Lactic acidosis (Acute) Toxic metabolic encephalopathy (Acute) - Physical Exam Vital Signs Temp Pulse Resp BP Pulse Ox 97.9 F 62 16 154/65 H 97 01/14/19 10:12 01/14/19 11:00 01/14/19 10:12 01/14/19 10:12 01/14/19 10:12 Oxygen Flow Rate (L/min) 2 Oxygen Delivery Method Room Air Weight: 241 lb 6.499 oz Body Mass Index (BMI) 36.7 Intake and Output for Last 24 Hours 01/12/19 01/13/19 01/14/19 23:59 23:59 23:59 Intake Total 775 / 775 3508 / 3508 2304 / 2304 Output Total 350 / 350 800 / 800 675 / 675 Balance 425 / 425 2708 / 2708 1629 / 1629 Microbiology Past 72 Hours 01/12/19 11:35 Blood Culture - Preliminary Blood Culture (Wb) - Left Wrist No growth in 48 hours. 01/12/19 11:05 Blood Culture - Preliminary Blood Culture (Wb) - Anticubital Left No growth in 48 hours. 01/12/19 11:23 Urine Culture - Final Urine Catheter - [place] Culture exhibits no growth. POC Glucose 01/14/19 01/14/19 01/13/19 11:16 06:41 22:08 POC Glucose 309 H 213 H 202 H 01/13/19 16:39 POC Glucose 214 H Discharge Activity: Return to Normal Activity Call your doctor if you observe: Fever of 101 or Higher, Inability to urinate, Shortness of breath, Dizziness, Fainting spells, Swelling in the ankles, Chest pain, Uncontrolled pain, - - hallucinations,any change in mental status, confusion, any thoughts of hurting yourself or someone else, sleeping all day, losing your appetite Home Medications: Medications to take at Discharge Aspirin 81 mg PO DAILY 04/06/16 Insulin U-500 [Humulin R U-500 (BKC)] 0.24 ml SQ BIDAC 04/06/16 Torsemide [Demadex] 20 mg PO DAILY 04/06/16 Propranolol HCl [Propranolol HCl ER] 80 mg PO DAILY 04/09/16 Simvastatin [Zocor] 40 mg PO DINNER 04/09/16 Losartan Potassium [Cozaar] 100 mg PO DAILY 09/27/17 Cholecalciferol (Vitamin D3) [D3-2000] 3,000 unit PO DAILY 01/05/19 Fluoxetine HCl 40 mg PO DAILY 01/05/19 Levothyroxine [Synthroid] 50 mcg PO DAILY 01/05/19 Multivitamin with Minerals [Multiple Vitamin] 1 tab PO DAILY 01/05/19 [place]-3 Fatty Acids/Fish Oil [[place] 3 1,000 mg Softgel] 1 cap PO BID 01/05/19 Primary Care Physician: Eugenia Watson, WORKFORCE MANAGER-C [Primary Care Provider] - Please follow up with your Primary Care Physician in: 1 week Please Follow Up With: Selvin Raines MD When: 4-6 weeks Please Follow Up With: Han Pyle MD When: as needed for and epidural Patient Instructions: Understanding Reversible Dementias, Understanding Dementia Disposition: Home Minutes spent on discharge:: 40 Medical Necessity - Tobacco Use Smoking Status: Current some day smoker Tobacco Use: Cigarettes Meaningful Use Info Meaningful Use Diagnoses (Choose all that apply): None applicable Code Visit OBSV E&M: 11887 Observation care discharge
[2019-01-14 14:40] VITALS: BP 163/66; PULSE 66; RESP 16; TEMP 36.6; O2SAT 97
== END 2019-01-14 14:24 | disposition home or self-care (01) ==
LOC: ED 13:08 → PCU 13:45
PROVIDERS: Family Medicine; Admitting Provider Family Medicine; Emergency Provider Emergency Medicine; Family Provider Nurse Practitioner Adult Health; PCP Nurse Practitioner Adult Health; Visit Provider Internal Medicine
DX: G92 Toxic encephalopathy (principal); I25.10 Atherosclerotic heart disease of native coronary artery without angina pectoris; R47.01 Aphasia; E03.9 Hypothyroidism, unspecified; F41.9 Anxiety disorder, unspecified; F32.9 Major depressive disorder, single episode, unspecified; E66.01 Morbid (severe) obesity due to excess calories; E11.22 Type 2 diabetes mellitus with diabetic chronic kidney disease; I12.9 Hypertensive chronic kidney disease with stage 1 through stage 4 chronic kidney disease, or unspecified chronic kidney disease; E11.42 Type 2 diabetes mellitus with diabetic polyneuropathy; N18.3 Chronic kidney disease, stage 3 (moderate); I45.81 Long QT syndrome; E87.2 Acidosis; Z79.899 Other long term (current) drug therapy; Z79.82 Long term (current) use of aspirin; Z79.4 Long term (current) use of insulin; Z68.36 Body mass index [BMI] 36.0-36.9, adult; Z71.3 Dietary counseling and surveillance; Z95.1 Presence of aortocoronary bypass graft; F17.210 Nicotine dependence, cigarettes, uncomplicated
CPT/HCPCS: 36415; 51702; 70450; 70544; 70547; 70551; 71045; 80048; 80053; 80061; 80307; 80320; 81001; 82962; 83036; 83605; 84439; 84443; 84481; 85025; 85610; 85730; 87040; 87086; 92526; 92610; 93005; 95819; 96361; 96365; 96366; 96367; 96375; 96376; 97162; 97166; 99218; 99285; 99406; J7030; A4216; G0378; G0480; J3490

== ENCOUNTER → 2021-03-05 08:57 | Outpatient (CLI) | payer MEDICARE, SELFPAY ==
[2019-01-12 14:48] VITALS: BMI 36.7
[2021-03-05 09:04] LABS: Bacteria 0 SEEN /hpf (None Seen); Mucous, Urine 0 SEEN /hpf (<or=2+); Red Blood Cells-Urine 0 SEEN /hpf (0-5); White Blood Cells 0 SEEN /hpf (0-5)
[2021-03-05 09:30] LABS: Color, Urine Yellow (Yellow); Glucose, Dipstick 250 mg/dl (Normal); Ketone-Dipstick Negative (Negative); Leukocyte Esterase-Dipstick Negative /ul (Negative); Nitrite-Dipstick Negative (Negative); Occult Blood-Urine Negative /ul (Negative); Protein-Dipstick Negative (Negative); Urine Bilirubin Dipstick Negative (Negative); Urine Clarity Sl. Cloudy (Clear); Urine Urobilinogen Normal (Normal)
[2021-03-05 09:37] LABS: Squamous Epithelial Cells - UA 0-5 SEEN /hpf (5-10)
== END ==
LOC: LAB.FUTURE 08:58 → LABSPEC 08:59
PROVIDERS: PCP Nurse Practitioner Adult Health; Visit Provider Nurse Practitioner Adult Health
DX: E11.65 Type 2 diabetes mellitus with hyperglycemia (principal); E11.22 Type 2 diabetes mellitus with diabetic chronic kidney disease; I12.9 Hypertensive chronic kidney disease with stage 1 through stage 4 chronic kidney disease, or unspecified chronic kidney disease; N18.30 Chronic kidney disease, stage 3 unspecified; I25.119 Atherosclerotic heart disease of native coronary artery with unspecified angina pectoris; G64 Other disorders of peripheral nervous system; E78.2 Mixed hyperlipidemia; M51.36 Other intervertebral disc degeneration, lumbar region; M43.02 Spondylolysis, cervical region; F34.1 Dysthymic disorder; K51.80 Other ulcerative colitis without complications; M79.7 Fibromyalgia; K21.9 Gastro-esophageal reflux disease without esophagitis; N39.0 Urinary tract infection, site not specified; R29.6 Repeated falls; M79.604 Pain in right leg; M54.5 Low back pain; M25.512 Pain in left shoulder; R41.0 Disorientation, unspecified; F51.01 Primary insomnia; J00 Acute nasopharyngitis [common cold]; R06.09 Other forms of dyspnea; E03.8 Other specified hypothyroidism; R07.89 Other chest pain; R06.00 Dyspnea, unspecified; M62.84 Sarcopenia; R06.01 Orthopnea; R45.89 Other symptoms and signs involving emotional state; Z13.6 Encounter for screening for cardiovascular disorders; Z12.11 Encounter for screening for malignant neoplasm of colon; Z28.3 Underimmunization status; Z13.820 Encounter for screening for osteoporosis; Z13.31 Encounter for screening for depression; Z71.89 Other specified counseling; Z13.818 Encounter for screening for other digestive system disorders; Z12.39 Encounter for other screening for malignant neoplasm of breast; Z12.2 Encounter for screening for malignant neoplasm of respiratory organs; Z87.891 Personal history of nicotine dependence; Z71.41 Alcohol abuse counseling and surveillance of alcoholic; Z91.81 History of falling; Z68.39 Body mass index [BMI] 39.0-39.9, adult
CPT/HCPCS: 81001; 87086; 87088

== ENCOUNTER 2022-03-11 17:50 | Emergency (ER) | payer MEDICARE, MEDICAID, SELFPAY ==
[2022-03-11 17:51] VITALS: BP 136/67; PULSE 66; RESP 18; TEMP 36.5; O2SAT 97; BMI 36.8
--- NOTE | 2022-03-11 18:11 | EKG12_ITS ---
Test Reason : DYSRHYTHMIA Blood Pressure : / mmHG Vent. Rate : 062 BPM Atrial Rate : 062 BPM P-R Int : 162 ms QRS Dur : 074 ms QT Int : 440 ms P-R-T Axes : 095 022 125 degrees QTc Int : 446 ms Normal sinus rhythm Septal infarct , age undetermined ST & T wave abnormality, consider anterior ischemia Abnormal ECG Confirmed by ION GARZA, JESUS ([id number]), web editor MARTIN MONTES ([id number]) on 03/12/2022 9:16:09 AM Referred By: Confirmed By:JESUS LEMON MD
--- NOTE | 2022-03-11 18:14 | ED.VIS.BACK ---
HPI History of Present Illness Chief Complaint: Confusion Informant: patient and EMS Narrative Narrative: 6-year-old female arriving to the hospital via EMS with a chief complaint of back pain. Patient states she has had pain in the right flank for 1 week. Her nurse practitioner came and saw her at home and recommended she come to the hospital. Patient states she was told that she has been confused. She notes no shortness of breath but states that when she takes a deep breath it causes her right back to hurt. She points in the right CVA area as the source of her pain. She notes a history of diabetes chronic kidney disease coronary artery disease hypertension and vertigo. No reported fevers or vomiting. She notes that the pain is knifelike. [facility] Medical History (Updated 03/11/22 @ 21:[address] Noah Rodrigez, ) Back pain CAD (coronary artery disease) Chronic renal failure, stage 3 (moderate) Depression Diabetes mellitus, type II Diabetic peripheral neuropathy associated with type 2 diabetes mellitus Diastolic dysfunction Hypertension Morbid obesity Tobacco dependence Vertigo Home Medications aspirin 81 mg chewable tablet 81 mg PO DAILY heart health 04/06/16 [History Last Taken 01/05/19 81 mg] insulin regular hum U-500 conc 500 unit/mL subcutaneous soln (Humulin R U-500 (Concentrated) Insulin) 0.24 ml SQ BIDAC 04/06/16 [History Last Taken 01/05/19] torsemide 20 mg tablet 20 mg PO DAILY 04/06/16 [History Last Taken 01/05/19 20 mg] propranolol 80 mg capsule,24 hr,extended release 80 mg PO DAILY heart 04/09/16 [History Last Taken 01/05/19] simvastatin 40 mg tablet 40 mg PO DINNER cholesterol 04/09/16 [History Last Taken 01/05/19] losartan 100 mg tablet 100 mg PO DAILY 09/27/17 [History Last Taken 01/05/19] cholecalciferol (vitamin D3) 50 mcg (2,000 unit) capsule (D3-2000) 3,000 unit PO DAILY supplement 01/05/19 [History Last Taken 01/05/19] fluoxetine 20 mg capsule 40 mg PO DAILY depression 01/05/19 [History Last Taken 01/05/19] levothyroxine 50 mcg tablet 50 mcg PO DAILY thyroid 01/05/19 [History Last Taken 01/05/19] multivitamin with minerals (Multiple Vitamin-Minerals tablet) 1 tab PO DAILY supplement 01/05/19 [History Last Taken 01/05/19] omega-3 fatty acids-fish oil 300 mg-1,000 mg capsule 1 cap PO BID supplement 01/05/19 [History Last Taken 01/05/19] oxycodone-acetaminophen 5 mg-325 mg tablet 1 tab PO Q6H PRN PRN Pain 3 days #12 TABLETS 03/11/22 [Rx Last Taken Unknown] Allergy/AdvReac Type Severity Reaction Status Date / Time pregabalin [From Lyrica] AdvReac suicidal Verified 01/12/19 10:49 thoughts Surgical History (Updated 03/11/22 @ 21:[address] Noah Rodrigez DO) History of cholecystectomy S/P CABG x 4 Social History (Updated 03/11/22 @ 18:[address] Noah Rodrigez DO) Smoking Status: Former smoker substance use type: does not use ROS ROS ED Constitutional Constitutional ED: Denies chills or weight loss Eyes Eyes: Denies change in vision or diplopia ENT ENT ED: Denies ear pain, rhinorrhea or sore throat Cardiovascular Cardiovascular: Denies chest pain, orthopnea, palpitations or racing heartbeat Respiratory/Chest Respiratory/Chest: Denies cough, dyspnea or orthopnea Gastrointestinal Gastrointestinal: Denies abdominal pain, diarrhea, nausea or vomiting Genitourinary Genitourinary ED: Denies dysuria, hematuria or urinary frequency Musculoskeletal Musculoskeletal: Reports back pain; Denies arthralgias or myalgias Integumentary Denies abscess or rash Neurologic Neurologic: Denies headache(s) or weakness Psychiatric Psychiatric: Denies anxiety, depression, suicidal ideation or suicidal thoughts Endocrine Endocrinology: Denies polydipsia, polyphagia or polyuria Allergic/Immunologic Allergic/Immunologic ED: Denies mouth swelling, tongue swelling or urticaria EXAM Physical Exam Const Vital Signs: 03/11/22 17:51 Temperature 97.7 F L Temperature Source Temporal Pulse Rate 66 Respiratory Rate 18 Blood Pressure 136/67 H Blood Pressure Mean 90 Pulse Ox 97 Oxygen Delivery Method Room Air Positive well nourished, well developed and obese General Appearance ED: well developed Nutritional Appearance: obese HEENT Reports normocephalic, head/scalp atraumatic and moist mucous membranes Eyes PERRL and EOMs intact bilaterally Neck no lymphadenopathy, supple and no JVD Resp normal respiratory effort and clear to auscultation bilaterally Cardio regular rate, regular rhythm and no murmurs GI normal to inspection, nondistended, normoactive bowel sounds and non-tender Palpation: soft Back/Spine no CVA tenderness and normal ROM Back/Spine Narrative: Patient complains of tenderness to palpation with touch of the skin as well as with deeper palpation of the right flank. Extremity normal to inspection General Extremety ED: Negative for edema General Extremity: Negative for edema Neuro oriented x3 and CN's II-XII intact bilaterally Sensorium / Orientation: alert Motor Exam: strength 5/5 throughout Psych mental status grossly normal Mood & Affect: Negative for depressed or tearful Skin no rashes or lesions noted and no wounds MDM MDM MDM Narrative Medical decision making narrative: Count normal at 8.5 with a hemoglobin of 13.2 and a platelet count of 195. Creatinine 1.28 with a BUN of 20. Lipase 608. Total bilirubin is 0.80 AST is 70 ALT is 73. Urinalysis is negative. My interpretation of the chest x-ray is no acute process. CT of the abdomen pelvis was obtained. This is being read as a contracted gallbladder with a common bile duct of 12 m. There is abnormal liver contour is noted. Of note the patient states that she has had a cholecystectomy. I do not see an obvious obstructive pattern on her liver enzymes and she is not having epigastric pain. She is not tender in the right upper quadrant or in the epigastrium. She has tenderness in the right flank. While possible that there is a stone causing a pancreatitis her lipase is only 608 the bilirubin is normal alk phos is normal and AST and ALT are minimally elevated. I will write for her to have pain medication. Should her pain worsen, jaundice develops, nausea vomiting worsening or concerns she needs to return to the emergency department. Patient notes understanding of plan. Lab Data Attestation: I reviewed the patient's lab results. Labs: Laboratory Results - last 24 hr 03/11/22 03/11/22 03/11/22 18:32 18:32 19:40 WBC 8.5 RBC 4.61 Hgb 13.2 Hct 38.7 MCV 83.9 MCH 28.6 MCHC 34.1 RDW Std Deviation 36.5 RDW Coeff of Hilda 12.1 Plt Count 195 MPV 9.6 Immature Gran % (Auto) 0.400 Neut % (Auto) 60.3 Lymph % (Auto) 27.7 [place] % (Auto) 7.6 Eos % (Auto) 3.2 Baso % (Auto) 0.8 Absolute Neuts (auto) 5.1 Absolute Lymphs (auto) 2.35 Nucleated RBC % 0 Sodium 138 Potassium 3.8 Chloride 99 Carbon Dioxide 31.0 Anion Gap 8 BUN 20 H Creatinine 1.28 H Estim Creat Clear Calc 36.10 Est GFR (MDRD) Af Amer 52 L Est GFR (MDRD) Non-Af 43 L BUN/Creatinine Ratio 15.6 Glucose 237 H Calcium 9.7 Total Bilirubin 0.80 AST 70 H ALT 73 H Alkaline Phosphatase 86 Troponin I High Sens 11 Total Protein 7.2 Albumin 3.6 Globulin 3.6 Albumin/Globulin Ratio 1.0 Lipase 608 H Urine Color Yellow Urine Clarity Clear Urine pH 6.0 Ur Specific [place] 1.015 Urine Protein Negative Urine Glucose (UA) 100 H Urine Ketones Negative Urine Occult Blood Negative Urine Nitrite Negative Urine Bilirubin Negative Urine Urobilinogen Normal Ur Leukocyte Esterase Negative Urine RBC 0 SEEN Urine WBC 0 SEEN Ur Squamous Epith Cells 0-5 SEEN Urine Bacteria 0 SEEN Urine Mucus 0 SEEN Radiography Diagnostic Testing: Clinical Impression(s) from Imaging Studies Chest X-Ray 03/11/22 18:42 IMPRESSION: There are no acute findings. Electronically Signed: Tej Garcia MD at 19:08 EDT , Abdomen/Pelvis CT 03/11/22 20:10 IMPRESSION: (NOT LISTED IN ORDER OF SIGNIFICANCE) There is a diffuse contour abnormality of the liver consistent with cirrhotic changes. There is dilation of the common bile duct. A common bile duct stone is not seen. The CBD diameter is 12 mm. Calcification noted in the pancreatic duct. There is an umbilical soft tissue density containing calcifications this measures 39 x 26 mm. This is nonspecific. Surveillance may be required.. No evidence for renal infarct. Other findings as above. Electronically Signed: Tej Garcia MD at 20:44 EDT , EKG Initial EKG: Attestation: I personally reviewed and interpreted this EKG as follows: Comments: Normal sinus rhythm ventricular rate of 62 bpm Discharge Plan Triage Chief Complaint: Confusion Other Complaint: Back Flank Pain ED Provider: Noah Rodrigez Dx/Rx/DC Orders Clinical Impression: Acute right flank pain, Diabetes, Chronic kidney disease Instructions: ED Flank Pain, Uncertain Cause Prescriptions: New oxycodone-acetaminophen [oxycodone-acetaminophen] 1 TABLET tablet 1 tab PO Q6H PRN PRN (Reason: Pain) 3 Days Qty: 12 0RF No Action insulin regular hum U-500 conc [Humulin R U-500 (Conc) Insulin] 20 ML solution 0.24 ml SQ BIDAC Label Comments: BLOOD SUGAR aspirin 81 MG tablet,chewable 81 mg PO DAILY Label Comments: BLOOD THINNER/HEART torsemide 20 MG tablet 20 mg PO DAILY Label Comments: WATER PILL simvastatin 40 MG tablet 40 mg PO DINNER Label Comments: CHOLESTEROL propranolol 80 MG capsule,extended release 24 hr 80 mg PO DAILY Label Comments: BLOOD PRESSURE losartan 100 MG tablet 100 mg PO DAILY levothyroxine 50 MCG tablet 50 mcg PO DAILY multivitamin with minerals [Multiple Vitamin-Minerals] 1 EACH tablet 1 tab PO DAILY fluoxetine 20 MG capsule 40 mg PO DAILY Label Comments: TAKE 2 CAPSULE (20 MG) BY MOUTH DAILY omega-3 fatty acids-fish oil 1 EACH capsule 1 cap PO BID cholecalciferol (vitamin D3) [D3-2000] 2,000 UNIT capsule 3,000 unit PO DAILY Primary Care Provider: Eugenia Watson [employer] Referrals: Eugenia Watson [employer], [employer] [Primary Care Provider] - 3-5 Days Disposition Disposition: Home, Self Care
[2022-03-11] MEDS: Morphine 4 MG/ML Syringe IV (18:24)
[2022-03-11] MEDS: Ondansetron 4 MG/2 ML Vial IV (18:25)
[2022-03-11 18:41] LABS: Absolute Lymphocyte Count 2.35 X10^3/uL (0.83-4.51); Absolute Neutrophil Count 5.1 X10^3/uL (2.0-7.7); Basophil# 0.07 X10^3/uL; Basophil% 0.8 % (0-1); Eosinophil# 0.27 X10^3/uL; Eosinophils% 3.2 % (0-5); Hematocrit 38.7 % (37-47); Hemoglobin 13.2 g/dL (12.0-15.0); Lymphocyte # 2.35 X10^3/ul (0.83-4.51); Lymphocyte % 27.7 % (19-41); Mean Corp Hgb Conc 34.1 g/dL (32-36); Mean Corpuscular Hgb 28.6 pg (27.0-32.0); Mean Corpuscular Volume 83.9 fL (81-99); Mean Platelet Vol. 9.6 fl (6.2-12.0); Monocyte# 0.64 X10^3/uL; Monocyte% 7.6 % (0-10); NRBC Flagged by Analyzer 0 % (0-5); Neutrophil # 5.11 X10^3/uL (2.7-7.7); Neutrophil % 60.3 % (47-70); Platelet Count 195 K/mm3 (150-450); RBC Distribution Width CV 12.1 % (11.6-14.6); RBC Distribution Width SD 36.5 fl (35.1-43.9); Red Blood Count 4.61 M/mm3 (4.2-5.4); White Blood Count 8.5 K/mm3 (4.4-11.0)
--- NOTE | 2022-03-11 18:42 | RAD_ITS ---
STUDY: XR Chest 1 View 03/11/2022 6:38 PM REASON FOR EXAM: Female, 76 years old. CHEST PAIN amsTechnologist Notes RIGHT FLANK PAIN, BACK PAIN, CHANGE IN MENTAL STATUS/CONFUSION COMPARISON: 01/12/2019 TECHNIQUE: XR Chest 1 View FINDINGS: There is no demonstrated pleural abnormality. There are multiple median sternotomy wires. Normal heart size. Normal mediastinum. Normal baldemar. Prominent appearing increased interstitial lung markings. Normal visualized pulmonary arteries. There is atherosclerotic calcification of the aortic arch with tortuosity. There are diffuse degenerative changes of the visualized thoracic spine. There is degenerative osteoarthritis of the bilateral shoulders. There is no demonstrated abnormality of the visualized soft tissue structures of the upper abdomen. RAD/Chest 1 View (Portable) IMPRESSION: There are no acute findings. Electronically Signed: Tej Garcia MD at 19:08 EDT ,
[2022-03-11 18:59] LABS: AST(SGOT) 70 U/L (15-37); Alanine Aminotransfer ALT/SGPT 73 U/L (13-56); Albumin, Serum 3.6 g/dL (3.2-5.0); Alkaline Phosphatase 86 U/L (45-117); Anion Gap 8 (5-15); BUN 20 mg/dL (7-18); BUN/Creat Ratio 15.6 RATIO (10-20); Calcium,Total 9.7 mg/dL (8.5-10.1); Chloride 99 mmol/L (98-107); Creatinine, Serum 1.28 mg/dL (0.55-1.02); EST Glomerular Filtration Rate 43 mL/min (>60); Est Glom Filt Rate - Afr Amer 52 mL/min (>60); Globulin 3.6 g/dL (2.2-4.2); Glucose 237 mg/dL (74-106); Lipase 608 U/L (73-393); Potassium 3.8 mmol/L (3.5-5.1); Protein, Total 7.2 g/dL (6.4-8.2); Sodium Level 138 mmol/L (136-145); Troponin-I HS 11 pg/mL (3.0-54.0)
[2022-03-11 19:44] LABS: Bacteria 0 SEEN /hpf (None Seen); Mucous, Urine 0 SEEN /hpf (<or=2+); Red Blood Cells-Urine 0 SEEN /hpf (0-5); White Blood Cells 0 SEEN /hpf (0-5)
[2022-03-11 19:52] LABS: Color, Urine Yellow (Yellow); Glucose, Dipstick 100 mg/dl (Normal); Ketone-Dipstick Negative (Negative); Leukocyte Esterase-Dipstick Negative /ul (Negative); Nitrite-Dipstick Negative (Negative); Occult Blood-Urine Negative /ul (Negative); Protein-Dipstick Negative (Negative); Specific Gravity, Urine 1.015 (1.002-1.030); Urine Bilirubin Dipstick Negative (Negative); Urine Clarity Clear (Clear); Urine Urobilinogen Normal (Normal)
[2022-03-11 19:58] LABS: Squamous Epithelial Cells - UA 0-5 SEEN /hpf (5-10)
--- NOTE | 2022-03-11 20:10 | CT_ITS ---
STUDY: CT Abdomen And Pelvis W/ Contrast Injection 03/11/2022 8:30 PM REASON FOR EXAM: Female, 76 years old. ABDOMINAL PAIN flank pain, renal infarct TECHNIQUE: Transaxial images were obtained without oral contrast, and with IV 100mL Isovue-300 intravenous contrast. Individualized dose optimization techniques were used for this CT. COMPARISON: None. FINDINGS: There are atherosclerotic calcifications of visualized coronary arteries. The visualized portions of the heart are within normal limits. There is a diffuse contour abnormality of the liver consistent with cirrhotic changes. The gallbladder is contracted. Unremarkable spleen. Unremarkable pancreas. There is dilation of the common bile duct. A common bile duct stone is not seen. The CBD diameter is 12 mm. Calcification noted in the pancreatic duct. Unremarkable bilateral adrenal glands. There are hypodensities in the right kidney. These are consistent for cysts. No follow up required. There are hypodensities in the left kidney. These are consistent for cysts. No follow up required. Unremarkable visualized stomach. Unremarkable small intestine. There are multiple colonic diverticula consistent with diverticulosis. There is non-visualization of the appendix. There are no acute findings of the abdominal aorta. Unremarkable inferior vena cava. Subcentimeter mesenteric lymph nodes. Unremarkable urinary bladder. There is absence of the uterus consistent with a prior hysterectomy. There is an umbilical soft tissue density containing calcifications this measures 39 x 26 mm. This is nonspecific. Surveillance may be required.. Unremarkable osseous structures. CT/Abdomen/Pelvis W IV Cont ONLY IMPRESSION: (NOT LISTED IN ORDER OF SIGNIFICANCE) There is a diffuse contour abnormality of the liver consistent with cirrhotic changes. There is dilation of the common bile duct. A common bile duct stone is not seen. The CBD diameter is 12 mm. Calcification noted in the pancreatic duct. There is an umbilical soft tissue density containing calcifications this measures 39 x 26 mm. This is nonspecific. Surveillance may be required.. No evidence for renal infarct. Other findings as above. Electronically Signed: Tej Garcia MD at 20:44 EDT ,
[2022-03-11 21:15] VITALS: BP 120/60; PULSE 80; RESP 20; O2SAT 92
== END 2022-03-11 22:00 | disposition home or self-care (01) ==
PROVIDERS: Emergency Provider Emergency Medicine; PCP Nurse Practitioner Adult Health; Visit Provider Emergency Medicine
DX: R10.9 Unspecified abdominal pain (principal); E11.22 Type 2 diabetes mellitus with diabetic chronic kidney disease; N18.30 Chronic kidney disease, stage 3 unspecified; I25.10 Atherosclerotic heart disease of native coronary artery without angina pectoris; E66.9 Obesity, unspecified; Z87.891 Personal history of nicotine dependence
CPT/HCPCS: 71045; 74177; 80053; 81001; 83690; 84484; 85025; 93005; 96374; 96375; 99285; P9612; Q9967; A4216; J2405

== ENCOUNTER 2022-04-26 07:42 | Emergency (ER) | payer MEDICARE, MEDICAID, SELFPAY ==
[2022-04-26 07:44] VITALS: BP 141/106; PULSE 73; RESP 18; TEMP 36.8; O2SAT 95; BMI 36.3
--- NOTE | 2022-04-26 07:52 | RAD_ITS ---
STUDY: X-RAY - RIGHT WRIST REASON FOR EXAM: Female, 76 years old. pain TECHNIQUE: 3 view(s) of the wrist were obtained. COMPARISON: None. FINDINGS: Normal visualized distal radius and ulna. Normal radiocarpal articulation. Normal distal radioulnar articulation. Normal carpal bones. Normal carpal articulations. Normal carpometacarpal articulation of the thumb. Normal second through fifth carpometacarpal articulations. Normal visualized metacarpal bones. The soft tissue structures are unremarkable. RAD/Wrist min 3 Views IMPRESSION: Normal x-ray examination of the wrist. Electronically Signed: Balbir Heard MD at 8:55 EDT ,
--- NOTE | 2022-04-26 07:52 | CT_ITS ---
STUDY: CT CERVICAL SPINE WITHOUT CONTRAST REASON FOR EXAM: Female, 76 years old. trauma RADIATION DOSAGE (If Supplied By Facility): CTDIvol = ( 24.64 ) mGy, DLP = ( 466.08 ) mGycm TECHNIQUE: High resolution transaxial imaging was performed without contrast material. Sagittal and coronal images were reconstructed. Individualized dose optimization techniques were used for this CT. COMPARISON: 07/12/2017 FINDINGS: Normal craniovertebral junction. There are degenerative changes of the anterior atlantoaxial articulation. Normal odontoid process. Normal cervical lordosis. Normal vertebral bodies and posterior osseous elements. C2-3: Mild peripherally calcified broad disc protrusion (hard disc) (produces mild spinal stenosis. No neural foraminal stenosis. C3-4: Status post posterior decompression. Moderate peripherally calcified broad disc protrusion with uncovertebral joint hypertrophy produces mild neural foraminal stenosis and moderate left neural foraminal stenosis. C4-5: Status post posterior decompression. Left uncovertebral hypertrophy produces mild left neural foraminal stenosis. C5-6: Mild bilateral facet hypertrophy with ankylosis of facet joints. Ankylosis of the disc space without spinal stenosis or neural foraminal stenosis. C6-7: Mild bilateral facet hypertrophy with ankylosis of facet joint. Ankylosis of the disc space with a large right paracentral osteophyte produces moderate spinal stenosis. C7-T1: Normal endplates. Normal disc height and morphology. Normal central canal and intervertebral neuroforamina. Normal visualized soft tissue structures. CT/Spine Cervical without Contras IMPRESSION: No acute fracture or subluxation. Electronically Signed: Balbir Heard MD at 9:08 EDT ,
--- NOTE | 2022-04-26 07:52 | RAD_ITS ---
STUDY: X-RAY - UNILATERAL RIBS ( RIGHT ) WITH CHEST REASON FOR EXAM: Female, 76 years old. pain TECHNIQUE - RIBS: 4 view(s) of the ribs. TECHNIQUE - CHEST: Single PA view of the chest. COMPARISON: None. FINDINGS - RIBS: Normal visualized ribs without a demonstrated fracture. FINDINGS - CHEST: Status post median sternotomy. The lungs are clear and expanded. There is no demonstrated pleural abnormality. Normal size heart. Normal mediastinum and baldemar. Normal visualized pulmonary arteries. Normal visualized aortic arch and descending thoracic aorta. Normal visualized thoracic spine. Normal visualized ribs, clavicles, and shoulders. There is no demonstrated abnormality of the visualized soft tissue structures of the upper abdomen. RAD/Ribs Uni Min 3V w/PA Chest IMPRESSION: RIBS: Normal x-ray examination of the ribs. CHEST: Normal x-ray examination of the chest. Electronically Signed: Balbir Heard MD at 8:57 EDT ,
--- NOTE | 2022-04-26 07:52 | RAD_ITS ---
STUDY: X-RAY - RIGHT SHOULDER REASON FOR EXAM: Female, 76 years old. pain TECHNIQUE: 3 view(s) of the shoulder. COMPARISON: None. FINDINGS: Normal glenohumeral articulation. Normal acromioclavicular joint. Normal acromion. Normal humeral head and visualized proximal humerus. The soft tissue structures are unremarkable. Normal visualized pulmonary apex. RAD/Shoulder min 2 Views IMPRESSION: Normal x-ray examination of the shoulder. Electronically Signed: Balbir Heard MD at 8:59 EDT ,
--- NOTE | 2022-04-26 07:52 | CT_ITS ---
STUDY: CT BRAIN WITHOUT CONTRAST REASON FOR EXAM: Female, 76 years old. fall RADIATION DOSAGE (If Supplied By Facility): CTDIvol = ( 44.99 ) mGy, DLP = ( 846.73 ) mGycm TECHNIQUE: Transaxial CT imaging of the brain was performed without administration of intravenous contrast material. Individualized dose optimization techniques were used for this CT. COMPARISON: No relevant priors. FINDINGS: Normal soft tissue structures. Normal calvarium. Normal size ventricles and extra-axial spaces for the patient''s age. Normal white matter tracts of the cerebral hemispheres. Normal basal ganglia and thalami. Normal brainstem. Normal cerebellum. There is no intracranial hemorrhage. There are no findings of an acute ischemic infarction. Normal visualized paranasal sinuses. CT/Brain/Head without Contrast IMPRESSION: Normal unenhanced CT scan of the brain. Electronically Signed: Balbir Heard MD at 9:03 EDT ,
--- NOTE | 2022-04-26 07:52 | RAD_ITS ---
STUDY: X-RAY - RIGHT HAND REASON FOR EXAM: Female, 76 years old. pain TECHNIQUE: 3 view(s) of the hand. COMPARISON: None. FINDINGS: Normal radiocarpal articulation. Normal distal radioulnar joint. Normal visualized carpal bones. Normal carpal articulations Normal carpometacarpal articulation of the thumb. Normal second through fifth carpometacarpal joints. Normal metacarpi. Normal metacarpophalangeal joint of the thumb. Normal interphalangeal joint of the thumb. Normal proximal and distal phalanges of the thumb. Normal metacarpophalangeal joints of the second through fifth fingers. Normal proximal and distal interphalangeal joints of the second through fifth fingers. Normal phalanges of the second through fifth fingers. The soft tissue structures are unremarkable. RAD/Hand Min 3 Views IMPRESSION: Normal x-ray examination of the hand. Electronically Signed: Balbir Heard MD at 8:54 EDT ,
--- NOTE | 2022-04-26 07:54 | EDS_ITS ---
HPI History of Present Illness Chief Complaint: General Illness Narrative Narrative: 76-year-old female presenting with right-sided neck pain, shoulder pain, rib pain, wrist pain and hand pain. She states that she fell out of her motorized chair 6 days ago. At that point she was able to pick it up. She states that bystanders just watch her. She has had pain for the last 6 days. She has oxycodone at home and has been taking this. She states that anywhere you touch on her arm and makes her neck hurt. Anywhere you touch on her hand makes her wrist hurt. She does note she has swelling in her right wrist. She has a cock- up wrist splint in place. She denies any numbness or tingling. [facility] Medical History Back pain CAD (coronary artery disease) Chronic renal failure, stage 3 (moderate) Depression Diabetes mellitus, type II Diabetic peripheral neuropathy associated with type 2 diabetes mellitus Diastolic dysfunction Hypertension Morbid obesity Tobacco dependence Vertigo Home Medications aspirin 81 mg chewable tablet 81 mg PO DAILY heart health 04/06/16 [History Last Taken 01/05/19 81 mg] insulin regular hum U-500 conc 500 unit/mL subcutaneous soln (Humulin R U-500 (Concentrated) Insulin) 0.24 ml SQ BIDAC 04/06/16 [History Last Taken 01/05/19] torsemide 20 mg tablet 20 mg PO DAILY 04/06/16 [History Last Taken 01/05/19 20 mg] propranolol 80 mg capsule,24 hr,extended release 80 mg PO DAILY heart 04/09/16 [History Last Taken 01/05/19] simvastatin 40 mg tablet 40 mg PO DINNER cholesterol 04/09/16 [History Last Taken 01/05/19] losartan 100 mg tablet 100 mg PO DAILY 09/27/17 [History Last Taken 01/05/19] cholecalciferol (vitamin D3) 50 mcg (2,000 unit) capsule (D3-2000) 3,000 unit PO DAILY supplement 01/05/19 [History Last Taken 01/05/19] fluoxetine 20 mg capsule 40 mg PO DAILY depression 01/05/19 [History Last Taken 01/05/19] levothyroxine 50 mcg tablet 50 mcg PO DAILY thyroid 01/05/19 [History Last Taken 01/05/19] multivitamin with minerals (Multiple Vitamin-Minerals tablet) 1 tab PO DAILY supplement 01/05/19 [History Last Taken 01/05/19] omega-3 fatty acids-fish oil 300 mg-1,000 mg capsule 1 cap PO BID supplement 01/05/19 [History Last Taken 01/05/19] oxycodone-acetaminophen 5 mg-325 mg tablet 1 tab PO Q6H PRN PRN Pain 3 days #12 TABLETS 03/11/22 [Rx Last Taken Unknown] Allergy/AdvReac Type Severity Reaction Status Date / Time pregabalin [From Lyrica] AdvReac suicidal Verified 01/12/19 10:49 thoughts Surgical History History of cholecystectomy S/P CABG x 4 Social History Smoking Status: Former smoker substance use type: does not use ROS ROS ED Constitutional Constitutional ED: Denies chills or fever(s) Eyes Eyes: Denies diplopia ENT ENT ED: Denies rhinorrhea or sore throat Cardiovascular Cardiovascular: Reports other Details: Right rib pain ; Denies palpitations Respiratory/Chest Respiratory/Chest: Denies cough or dyspnea Gastrointestinal Gastrointestinal: Denies abdominal pain Genitourinary Genitourinary ED: Denies dysuria or hematuria Musculoskeletal Musculoskeletal: Reports neck pain and other Details: Right shoulder, right wrist, right hand pain Integumentary Denies abscess or rash Neurologic Neurologic: Reports headache(s); Denies paresthesias Psychiatric Psychiatric: Denies anxiety or depression EXAM Physical Exam Const Vital Signs: 04/26/22 07:44 04/26/22 07:50 Temperature 98.3 F Temperature Source Oral Pulse Rate 73 Respiratory Rate 18 Respiratory Effort Normal Respiratory Pattern Normal Blood Pressure 141/106 H Blood Pressure Mean 117 Pulse Ox 95 Oxygen Delivery Method Room Air Positive well nourished General Appearance ED: NAD; Negative for pallor HEENT Reports moist mucous membranes Negative for trauma Eyes PERRL and EOMs intact bilaterally General Eye ED: Negative for pale conjunctiva or scleral icterus Chest Wall Chest Narrative: Tenderness to palpation right ribs in the posterior axillary line in the midaxil ana maria line. Equal symmetric breath sounds and chest wall rise. No crepitance appreciated. Resp normal respiratory effort and clear to auscultation bilaterally Cardio regular rate and regular rhythm GI normal to inspection, nondistended, normoactive bowel sounds Back/Spine Cervical Spine: cervical spine tenderness Cervical Spine Tenderness Details: diffuse Thoracic Spine / Upper Back: paraspinal muscle tenderness right Extremity Extremity Narrative: Right shoulder is tender to palpation the posterior aspect of the shoulder girdle. Patient has full range of motion of the right shoulder and is able to lift this up over her head. Right elbow nontender to palpation. She has full range of motion in flexion, extension, pronation and supination of the right elbow. Right wrist is tender to palpation diffusely, and there is swelling fairly diffusely. Pain is greatest at the thenar eminence. She is unable to flex and extend this. Right hand diffusely tender to palpation on all 5 digits. Right hand neurovascular intact brisk cap refill all 5 fingers. Neuro oriented x3 and CN's II-XII intact bilaterally Sensorium / Orientation: alert Motor Exam: strength 5/5 throughout Psych mental status grossly normal Skin no rashes or lesions noted General Skin Exam: Negative for jaundice or pallor MDM MDM MDM Narrative Medical decision making narrative: Patient presenting to the ER 6 days after she had a fall from her mechanical wheelchair. She reports that at that time she was able to stand up pepper picker her mechanical wheelchair and turned over without any assistance. She states that this was because of her adrenaline. She has had pain in the right ribs, neck, right shoulder, right hand and wrist since that time. She has been taking her home Percocet for this. She has placed a cock-up wrist splint on her right wrist that the job was broken. She maintains full range of motion of the right shoulder, elbow, forearm. She states she cannot move her wrist very well and it is a little bit swollen. Her hand is diffusely tender. She was medicated with IM morphine and given Zofran orally. X-rays were obtained of the right hand, right shoulder, right wrist and on my interpretation there are no acute fractures or subluxations. The right rib series on my interpretation shows no acute cardiopulmonary process and no identifiable rib fractures. The radiologist does agree. CT of the brain and the cervical spine are both negative. I believe she is safe for discharge and she continue her home Percocet regimen Impression: 1. Mechanical fall 2. Cervical strain 3. Right shoulder contusion 4. Right wrist contusion 5. Right hand contusion 6. Closed head injury 7. Right rib contusion Lab Data Attestation: I reviewed the patient's lab results. Radiography Diagnostic Testing: Clinical Impression(s) from Imaging Studies Brain CT 04/26/22 07:52 IMPRESSION: Normal unenhanced CT scan of the brain. Electronically Signed: Balbir Heard MD at 9:03 EDT Reading Location ID and State: [employer] [facility] [employer] , Service support , Cervical Spine CT 04/26/22 07:52 IMPRESSION: No acute fracture or subluxation. Electronically Signed: Balbir Heard MD at 9:08 EDT Reading Location ID and State: [employer] [facility] [employer] , Service support , Hand X-Ray 04/26/22 07:52 IMPRESSION: Normal x-ray examination of the hand. Electronically Signed: Balbir Heard MD at 8:54 EDT Reading Location ID and State: [employer] / [employer] , Service support , Ribs w/Chest X-Ray 04/26/22 07:52 IMPRESSION: RIBS: Normal x-ray examination of the ribs. CHEST: Normal x-ray examination of the chest. Electronically Signed: Balbir Heard MD at 8:57 EDT Reading Location ID and State: [id number] / [employer] , Service support , Shoulder X-Ray 04/26/22 07:52 IMPRESSION: Normal x-ray examination of the shoulder. Electronically Signed: Balbir Heard MD at 8:59 EDT Reading Location ID and State: [employer] [facility] [employer] , Service support , Wrist X-Ray 04/26/22 07:52 IMPRESSION: Normal x-ray examination of the wrist. Electronically Signed: Balbir Heard MD at 8:55 EDT , Discharge Plan Triage Chief Complaint: General Illness ED Provider: Sherman Correia Dx/Rx/DC Orders Instructions: ED Contusion, Upper Extremity, ED Mechanical Fall, ED Neck Sprain or Strain, ED Bruise, Rib Prescriptions: No Action insulin regular hum U-500 conc [Humulin R U-500 (Conc) Insulin] 20 ML solution 0.24 ml SQ BIDAC Label Comments: BLOOD SUGAR aspirin 81 MG tablet,chewable 81 mg PO DAILY Label Comments: BLOOD THINNER/HEART torsemide 20 MG tablet 20 mg PO DAILY Label Comments: WATER PILL simvastatin 40 MG tablet 40 mg PO DINNER Label Comments: CHOLESTEROL propranolol 80 MG capsule,extended release 24 hr 80 mg PO DAILY Label Comments: BLOOD PRESSURE losartan 100 MG tablet 100 mg PO DAILY levothyroxine 50 MCG tablet 50 mcg PO DAILY multivitamin with minerals [Multiple Vitamin-Minerals] 1 EACH tablet 1 tab PO DAILY fluoxetine 20 MG capsule 40 mg PO DAILY Label Comments: TAKE 2 CAPSULE (20 MG) BY MOUTH DAILY omega-3 fatty acids-fish oil 1 EACH capsule 1 cap PO BID cholecalciferol (vitamin D3) [D3-2000] 2,000 UNIT capsule 3,000 unit PO DAILY oxycodone-acetaminophen [oxycodone-acetaminophen] 1 TABLET tablet 1 tab PO Q6H PRN PRN (Reason: Pain) 3 Days Qty: 12 0RF Primary Care Provider: Eugenia Watson COMMUNITY DEVELOPMENT AIDE Referrals: Eugenia Watson COMMUNITY DEVELOPMENT AIDE, COMMUNITY DEVELOPMENT AIDE-C [Primary Care Provider] - Disposition Disposition: Home, Self Care
[2022-04-26] MEDS: Morphine 4 MG/ML Syringe IM (08:01)
[2022-04-26] MEDS: Ondansetron ODT 4 MG Tablet PO (08:08)
[2022-04-26 10:02] VITALS: BP 115/83; PULSE 72; RESP 18; O2SAT 95
[2022-04-26 10:04] VITALS: BP 115/83; PULSE 72; RESP 18; O2SAT 96
== END 2022-04-26 10:05 | disposition home or self-care (01) ==
PROVIDERS: Emergency Provider Student in an Organized Health Care Education/Training Program; PCP Nurse Practitioner Adult Health; Visit Provider Student in an Organized Health Care Education/Training Program
DX: S16.1XXA Strain of muscle, fascia and tendon at neck level, initial encounter (principal); S40.011A Contusion of right shoulder, initial encounter; S60.211A Contusion of right wrist, initial encounter; S60.221A Contusion of right hand, initial encounter; S09.90XA Unspecified injury of head, initial encounter; S20.211A Contusion of right front wall of thorax, initial encounter; I25.10 Atherosclerotic heart disease of native coronary artery without angina pectoris; Z87.891 Personal history of nicotine dependence; W07.XXXA Fall from chair, initial encounter
CPT/HCPCS: 70450; 71101; 72125; 73030; 73110; 73130; 96372; 96374; 99284

== ENCOUNTER 2022-08-30 09:44 | Inpatient (IN) | payer MEDICARE, MEDICAID, SELFPAY ==
[2022-08-30] VITALS (9 sets, daily range): BP systolic 103–111; BP diastolic 51–72; PULSE 79–110; RESP 18–20; TEMP 36.3–37.6; O2SAT 95–99; BMI 31.7; BMI 31.1
--- NOTE | 2022-08-30 09:59 | EKG12_ITS ---
Test Reason : Blood Pressure : / mmHG Vent. Rate : 094 BPM Atrial Rate : 242 BPM P-R Int : 000 ms QRS Dur : 084 ms QT Int : 372 ms P-R-T Axes : -78 -26 265 degrees QTc Int : 465 ms Atrial flutter with variable A-V block T wave abnormality, consider anterolateral ischemia Abnormal ECG Confirmed by MISTY GARZA, JASSON ([id number]), society editor MARTIN MONTES ([id number]) on 09/01/2022 8:56:33 AM Referred By: SANDRA Confirmed By:JASSON JAY MD
--- NOTE | 2022-08-30 10:03 | EX.ED.DYSGE1 ---
HPI History of Present Illness Chief Complaint: Wound Informant: patient Onset/Context/Timing Onset: Weeks Context: Sudden Onset Quality: Infected toes Location: Right and left Current Severity: Moderate Maximum Severity: Moderate Worsened by: Nothing specific Associated Symptoms Associated Symptoms: Subjective fever, polydipsia, polyuria Narrative Narrative: Patient is a 77-year-old woman with type 1 diabetes. She presents because her toes are black. The only toe that is black is the right second toe. There appears to be a wound under the right third toe. The left toes have drainage. There is slight erythema. The great toe has abnormality of the nail with discharge per patient. She does complain of subjective fever. She denies chills. She states this started a week ago. She had no good reason why she did not come sooner. She states she is type 2 diabetes however review of meds would indicate she is has type I. Patient does know age month and place. Patient denies headache, does endorse blurred vision denies double vision loss of vision. [place] ringing in ears decreased hearing. She denies trouble with speech or swallowing. She denies cardiac respiratory symptoms. She denies nausea, vomiting diarrhea. Denies abdominal pain. She does endorse going to the bathroom more frequently. Prior similar symptoms: No Recent Illness/Hospitalization: No PFSH PFSH Medical History Back pain CAD (coronary artery disease) Chronic renal failure, stage 3 (moderate) Depression Diabetes mellitus, type II Diabetic peripheral neuropathy associated with type 2 diabetes mellitus Diastolic dysfunction Hypertension Morbid obesity Tobacco dependence Vertigo Home Medications aspirin 81 mg chewable tablet 81 mg PO DAILY [facility] 04/06/16 [History Last Taken 01/05/19 81 mg] insulin regular hum U-500 conc 500 unit/mL subcutaneous soln (Humulin R U-500 (Concentrated) Insulin) 0.24 ml SQ BIDAC 04/06/16 [History Last Taken 01/05/19] torsemide 20 mg tablet 20 mg PO DAILY 04/06/16 [History Last Taken 01/05/19 20 mg] propranolol 80 mg capsule,24 hr,extended release 80 mg PO DAILY heart 04/09/16 [History Last Taken 01/05/19] simvastatin 40 mg tablet 40 mg PO DINNER cholesterol 04/09/16 [History Last Taken 01/05/19] losartan 100 mg tablet 100 mg PO DAILY 09/27/17 [History Last Taken 01/05/19] cholecalciferol (vitamin D3) 50 mcg (2,000 unit) capsule (D3-2000) 3,000 unit PO DAILY supplement 01/05/19 [History Last Taken 01/05/19] fluoxetine 20 mg capsule 40 mg PO DAILY depression 01/05/19 [History Last Taken 01/05/19] levothyroxine 50 mcg tablet 50 mcg PO DAILY thyroid 01/05/19 [History Last Taken 01/05/19] multivitamin with minerals (Multiple Vitamin-Minerals tablet) 1 tab PO DAILY supplement 01/05/19 [History Last Taken 01/05/19] omega-3 fatty acids-fish oil 300 mg-1,000 mg capsule 1 cap PO BID supplement 01/05/19 [History Last Taken 01/05/19] oxycodone-acetaminophen 5 mg-325 mg tablet 1 tab PO Q6H PRN PRN Pain 3 days #12 TABLETS 03/11/22 [Rx Last Taken Unknown] Allergy/AdvReac Type Severity Reaction Status Date / Time pregabalin [From Lyrica] AdvReac suicidal Verified 08/30/22 09:51 thoughts Surgical History History of cholecystectomy S/P CABG x 4 Social History (Updated 08/30/22 @ 10:[address] Faraz Bishop MD) household members: none Smoking Status: Former smoker substance use type: does not use ROS ROS ED Constitutional Constitutional ED: Reports fever(s), subjective and sweats Eyes Eyes: Reports blurry vision bilateral; Denies change in vision or diplopia ENT ENT ED: Denies ear pain, rhinorrhea or sore throat Cardiovascular Cardiovascular: Denies chest pain, orthopnea, palpitations, paroxysmal nocturnal dyspnea or racing heartbeat Respiratory/Chest Respiratory/Chest: Reports dyspnea; Denies cough, dyspnea on exertion, orthopnea or paroxysmal nocturnal dyspnea Gastrointestinal Gastrointestinal: Denies abdominal pain, constipation, diarrhea, melena, nausea or vomiting Genitourinary Genitourinary ED: Reports urinary frequency; Denies dysuria or hematuria Musculoskeletal Musculoskeletal: Denies arthralgias, back pain, myalgias or neck pain Integumentary Reports rash Neurologic Neurologic: Reports paresthesias; Denies headache(s) Endocrine Endocrinology: Reports polydipsia and polyuria Hematologic/Lymphatic Hematologic/Lymphatic: Reports systems reviewed and no addt'l complaints, except as documented EXAM Physical Exam Const Vital Signs: 08/30/22 09:48 08/30/22 09:51 08/30/22 10:55 Temperature 99.6 F H 99.6 F H 99.6 F H Temperature Source Oral Oral Oral Pulse Rate 110 H 105 H 96 Respiratory Rate 20 H 20 H 20 H Blood Pressure 110/72 110/72 106/63 Blood Pressure Mean 84 84 77 Pulse Ox 99 99 99 Oxygen Delivery Method Room Air Room Air Room Air 08/30/22 10:55 08/30/22 12:13 Temperature 98 F Temperature Source Temporal Pulse Rate 79 Respiratory Rate 18 Blood Pressure 104/63 Blood Pressure Mean 76 Pulse Ox 98 Oxygen Delivery Method Room Air Room Air Positive well nourished, well developed, obese and unkempt Constitutional Narrative: Patient appears ill. She also appears pale. General Appearance ED: unkempt, well developed and pallor; Negative for cyanotic, diaphoretic or NAD Nutritional Appearance: obese HEENT Reports dry mucous membranes HEENT Narrative: Head is atraumatic no cephalic. Ears normal. Nares patent. Uvula midline. No deviation tongue with protrusion. Mouth ED: Yes dry mucous membranes Mouth: dry mucous membranes Eyes PERRL and EOMs intact bilaterally General Eye ED: Yes pale conjunctiva; Negative for scleral icterus Neck no lymphadenopathy, supple and no JVD Chest Wall inspection of chest normal and palpation of chest normal Resp normal respiratory effort and No clear to auscultation bilaterally Auscultation: rales bilateral base Cardio regular rhythm, S1 normal heart sound, S2 normal heart sound and no murmurs Rate: tachycardic GI normal to inspection, nondistended, normoactive bowel sounds, non-tender, non-distended and no masses; Negative for hepatosplenomegaly Back/Spine no CVA tenderness Extremity Negative for normal to inspection Extremity Narrative: Patient has gangrene of the right second toe with evidence of cellulitis involving other toes including the great toe, foot and lymphangitic spread noted medially to the knee. There is no popliteal lymphadenopathy. There is drainage on the dorsal surface of the right second toe. Patient has wounds to multiple left toes. The nail of the left great toe is abnormal with drainage noted. DP pulse was not palpable. Capillary refill is approximately 2 seconds. We will need to obtain flow with Doppler. Neuro oriented x3, CN's II-XII intact bilaterally and No no sensory deficits noted Sensorium / Orientation: Negative for alert Psych mental status grossly normal Appearance: unkempt Skin No no rashes or lesions noted, No no wounds and No skin turgor normal General Skin Exam: pallor; Negative for elasticity normal or jaundice MDM MDM MDM Narrative Medical decision making narrative: Patient has infection with gangrene involving the right second toe, right foot and lymphangitic spread. She also has evidence infection of multiple toes on left foot. Will obtain appropriate blood work to assess for sepsis, inflammatory markers because of concern for osteomyelitis. X-rays of the right and left foot were obtained as well. Patient was started on Zosyn and vancomycin. At this time there is no concern for necrotizing fasciitis. EKG was obtained to evaluate for ischemia since she is elderly diabetic may have atypical presentation for ischemia. Patient last admission was in 2018. She was admitted at that time for diastolic dysfunction lactic acidosis and toxic metabolic encephalitis. At that time she was diagnosed with type 2 diabetes. Apparently she has been started on insulin recently. During her last hospital stay she had no evidence of occlusion or high-grade stenosis of the cervical arteries. Patient did have an echo January 06, 2019 which revealed a Cardiolite ejection fraction of 77%. There is no evidence of ischemia. Echo that was performed recent to that admission a ejection fraction 65% with no significant valvular heart disease. Chest x-ray is obtained because of tachypnea and concern patient will need operative intervention i.e. preoperative clearance/risk ratification. Case was discussed with Dr. Milan Dee. He requested a CAT scan of the ankle and foot. Patient be admitted to medicine. Lab Data Attestation: I reviewed the patient's lab results. Lab results narrative: White count is elevated 16.1 thousand with shift. There is no bandemia. Patient does have evidence of anemia coags are upper in the. Competence of metabolic panel reveals hyponatremia with a sodium 126. Glucose is 286 with a normal CO2 and anion gap. Glucose of 286 should not cause me. C-reactive protein is 167. ESR is elevated at 36. Lactate is normal at 1.5. UA is unremarkable for infection. There is evidence of proteinuria, glucosuria, microscopic hematuria as well as pyuria. There is no bacteria noted. Will send UA. Labs: Laboratory Results - last 24 hr 08/30/22 08/30/22 08/30/22 10:10 10:10 10:10 WBC 16.1 H RBC 3.98 L Hgb 10.8 L Hct 32.4 L MCV 81.4 MCH 27.1 MCHC 33.3 RDW Std Deviation 34.3 L RDW Coeff of Hilda 11.7 Plt Count 323 MPV 9.4 Immature Gran % (Auto) 1.800 H Neut % (Auto) 81.8 H Lymph % (Auto) 7.4 L [place] % (Auto) 8.7 Eos % (Auto) 0.1 Baso % (Auto) 0.2 Absolute Neuts (auto) 13.2 H Absolute Lymphs (auto) 1.19 Nucleated RBC % 0 ESR 36 H PT 18.4 H INR 1.6 APTT 33.4 Sodium 126 L Potassium 3.8 Chloride 91 L Carbon Dioxide 24.0 Anion Gap 11 BUN 14 Creatinine 0.91 Estim Creat Clear Calc 50.00 Est GFR (MDRD) Af Amer 77 Est GFR (MDRD) Non-Af 64 BUN/Creatinine Ratio 15.3 Glucose 286 H Lactic Acid Calcium 9.2 Total Bilirubin 1.20 H AST 37 ALT 35 Alkaline Phosphatase 110 Total Creatine Kinase 136 C-React Prot Ext Range 167.00 H Total Protein 7.5 Albumin 2.2 L Globulin 5.3 H Albumin/Globulin Ratio 0.4 L Urine Color Urine Clarity Urine pH Ur Specific [place] Urine Protein Urine Glucose (UA) Urine Ketones Urine Occult Blood Urine Nitrite Urine Bilirubin Urine Urobilinogen Ur Leukocyte Esterase Urine RBC Urine WBC Ur Squamous Epith Cells Amorphous Sediment Urine Bacteria Fine Granular Casts Urine Mucus 08/30/22 08/30/22 10:10 10:40 WBC RBC Hgb Hct MCV MCH MCHC RDW Std Deviation RDW Coeff of Hilda Plt Count MPV Immature Gran % (Auto) Neut % (Auto) Lymph % (Auto) [place] % (Auto) Eos % (Auto) Baso % (Auto) Absolute Neuts (auto) Absolute Lymphs (auto) Nucleated RBC % ESR PT INR APTT Sodium Potassium Chloride Carbon Dioxide Anion Gap BUN Creatinine Estim Creat Clear Calc Est GFR (MDRD) Af Amer Est GFR (MDRD) Non-Af BUN/Creatinine Ratio Glucose Lactic Acid 1.5 Calcium Total Bilirubin AST ALT Alkaline Phosphatase Total Creatine Kinase C-React Prot Ext Range Total Protein Albumin Globulin Albumin/Globulin Ratio Urine Color [place] Urine Clarity Sl Cldy Urine pH 5.0 Ur Specific [place] 1.020 Urine Protein 30 H Urine Glucose (UA) 1000 H Urine Ketones 50 H Urine Occult Blood 25 H Urine Nitrite Negative Urine Bilirubin Negative Urine Urobilinogen 1 H Ur Leukocyte Esterase 500 H Urine RBC 0-5 SEEN Urine WBC 50-100 SEEN Ur Squamous Epith Cells 0 SEEN Amorphous Sediment 1+ Urine Bacteria 0 SEEN Fine Granular Casts 0-5 SEEN Urine Mucus 0 SEEN Radiography Diagnostic Testing: Clinical Impression(s) from Imaging Studies Ankle X-Ray 08/30/22 11:00 IMPRESSION: Multiple surgical clips are seen in the soft tissues overlying the distal tibia. No acute abnormality is seen. Electronically Signed: Ronen Norris MD at 11:28 EST , Foot X-Ray 08/30/22 11:00 IMPRESSION: Prominent soft tissue swelling overlying the second toe with a small amount of air within the distal portion of the tibial. Mild irregularity of the distal phalanx of the second toe. Osteomyelitis should be ruled out. Soft tissue swelling. Electronically Signed: Ronen Norris MD at 11:28 EST , X-ray of the left ankle was accidentally on her instead of foot. Unable to see any of her toes. X-ray of the right foot reveals significant soft tissue swelling overlying the second toe with small amount of air noted distal portion of the second toe not the tibia as documented by the radiologist.. There is mild irregularity of the distal phalanx noted as well consistent with osteomyelitis especially in light of white count and elevated inflammatory markers. This was in dependently reviewed and interpreted by me. The radiology read was noted. The x-ray of the ankle reveals multiple surgical hips with no acute process. Rhythm Strip Rhythm Strip: Sinus Tach Rate: 108 Ectopy: None Treatment and Re-Evaluation Narrative: There is subcu air noted we will contact podiatry and patient will also receive clindamycin. Critical Care Time Critical Care Time: Yes Critical care time (excluding procedures): 30-74 minutes (32 ), Including time spent: (History, physical, documentation, discussion with family member, certified welding inspector, admitting hospitalist interpretation of laboratory results initiation of therapy), Discussing w/Patient &/or Family/Ironing Worker, Discussing w/Consultants (Podiatry, Dr. Milan ndiaye and hospitalist) and Arranging Admission or Transfer Discharge Plan Triage Chief Complaint: Wound ED Provider: Faraz Bishop Dx/Rx/DC Orders Clinical Impression: Diabetic wet gangrene of the foot, Acute osteomyelitis of toe of right foot, Acute hyponatremia, Hyperglycemia, Pyuria Prescriptions: No Action insulin regular hum U-500 conc [Humulin R U-500 (Conc) Insulin] 20 ML solution 0.24 ml SQ BIDAC Label Comments: BLOOD SUGAR aspirin 81 MG tablet,chewable 81 mg PO DAILY Label Comments: BLOOD THINNER/HEART torsemide 20 MG tablet 20 mg PO DAILY Label Comments: WATER PILL simvastatin 40 MG tablet 40 mg PO DINNER Label Comments: CHOLESTEROL propranolol 80 MG capsule,extended release 24 hr 80 mg PO DAILY Label Comments: BLOOD PRESSURE losartan 100 MG tablet 100 mg PO DAILY levothyroxine 50 MCG tablet 50 mcg PO DAILY multivitamin with minerals [Multiple Vitamin-Minerals] 1 EACH tablet 1 tab PO DAILY fluoxetine 20 MG capsule 40 mg PO DAILY Label Comments: TAKE 2 CAPSULE (20 MG) BY MOUTH DAILY omega-3 fatty acids-fish oil 1 EACH capsule 1 cap PO BID cholecalciferol (vitamin D3) [D3-2000] 2,000 UNIT capsule 3,000 unit PO DAILY oxycodone-acetaminophen [oxycodone-acetaminophen] 1 TABLET tablet 1 tab PO Q6H PRN PRN (Reason: Pain) 3 Days Qty: 12 0RF Primary Care Provider: Eugenia Watson DIRECTOR OF ADVERTISING SALES Referrals: Eugenia Watson DIRECTOR OF ADVERTISING SALES, DIRECTOR OF ADVERTISING SALES-C [Primary Care Provider] - Disposition Disposition: Home, Self Care
[2022-08-30] MEDS: Morphine 4 MG/ML Syringe IV (10:28)
[2022-08-30] MEDS: Ondansetron 4 MG/2 ML Vial IV (10:28)
[2022-08-30 10:42] LABS: ALB/GLOB Ratio 0.4 RATIO (0.9-2.4); AST(SGOT) 37 U/L (15-37); Alanine Aminotransfer ALT/SGPT 35 U/L (13-56); Albumin, Serum 2.2 g/dL (3.2-5.0); Alkaline Phosphatase 110 U/L (45-117); Anion Gap 11 (5-15); BUN 14 mg/dL (7-18); BUN/Creat Ratio 15.3 RATIO (10-20); CPK Total, Creatine Kinase 136 U/L (26-192); Calcium,Total 9.2 mg/dL (8.5-10.1); Chloride 91 mmol/L (98-107); Creatinine, Serum 0.91 mg/dL (0.55-1.02); EST Glomerular Filtration Rate 64 mL/min (>60); Est Glom Filt Rate - Afr Amer 77 mL/min (>60); Globulin 5.3 g/dL (2.2-4.2); Glucose 286 mg/dL (74-106); Potassium 3.8 mmol/L (3.5-5.1); Protein, Total 7.5 g/dL (6.4-8.2); Sodium Level 126 mmol/L (136-145)
[2022-08-30 10:44] LABS: Bacteria 0 SEEN /hpf (None Seen); Mucous, Urine 0 SEEN /hpf (<or=2+); Squamous Epithelial Cells - UA 0 SEEN /hpf (5-10)
[2022-08-30] MEDS: 0.9% Normal Saline 1,000 ML 250 ML IV (10:46)
[2022-08-30 10:56] LABS: Lactic Acid 1.5 mmol/L (0.4-1.9)
[2022-08-30 11:00] LABS: Glucose, Dipstick 1000 mg/dl (Normal); Ketone-Dipstick 50 mg/dl (Negative); Leukocyte Esterase-Dipstick 500 /ul (Negative); Nitrite-Dipstick Negative (Negative); Occult Blood-Urine 25 /ul (Negative); Protein-Dipstick 30 mg/dl (Negative); Urine Bilirubin Dipstick Negative (Negative); Urine Urobilinogen 1 mg/dl (Normal)
--- NOTE | 2022-08-30 11:00 | RAD_ITS ---
STUDY: X-RAY - RIGHT FOOT CLINICAL: Female, 77 years old. Injury/Pain -- Concern for osteomyelitis and specifically right s TECHNIQUE: 3 view(s) of the foot. COMPARISON: None. FINDINGS: Plantar spur. Normal visualized subtalar, talonavicular, calcaneocuboid, tarsal and tarsometatarsal articulations. Normal metatarsi. Normal metatarsophalangeal joint of the great toe. Normal tibial and fibular sesamoid bones. Normal interphalangeal joint of the great toe. Normal phalanges of the great toe. Normal second through fifth metatarsophalangeal joints. Normal interphalangeal joints and phalanges of the lesser toes. Diffuse soft tissue swelling. More prominent soft tissue swelling overlying the second toe with the small amount of air in the soft tissues as well as irregularity of the distal phalanx of the second toe. Osteomyelitis should be ruled out. RAD/Foot min 3 Views IMPRESSION: Prominent soft tissue swelling overlying the second toe with a small amount of air within the distal portion of the tibial. Mild irregularity of the distal phalanx of the second toe. Osteomyelitis should be ruled out. Soft tissue swelling. Electronically Signed: Ronen Norris MD at 11:28 EST ,
--- NOTE | 2022-08-30 11:00 | RAD_ITS ---
STUDY: X-RAY - LEFT ANKLE REASON FOR EXAM: Female, 77 years old. Injury/Pain -- Diabetic foot infection, concerned left great toe TECHNIQUE: 3 view(s) of the ankle. COMPARISON: None. FINDINGS: Normal visualized distal tibia and fibula. Normal medial and lateral malleoli. Normal tibiotalar articulation and ankle mortise. Plantar spur. The visualized subtalar, talonavicular, calcaneocuboid and tarsal articulations are normal. Surgical clips are seen in the soft tissues overlying the distal tibia suggestive of prior venous surgery. RAD/Ankle min 3 Views IMPRESSION: Multiple surgical clips are seen in the soft tissues overlying the distal tibia. No acute abnormality is seen. Electronically Signed: Ronen Norris MD at 11:28 EST ,
[2022-08-30 11:01] LABS: International Normalized Ratio 1.6; Prothrombin Time (Protime)PT. 18.4 SECONDS (11.7-14.9)
[2022-08-30 11:02] LABS: Partial Thromboplast Time 33.4 Seconds (24.1-36.2)
--- NOTE | 2022-08-30 11:05 | RAD_ITS ---
STUDY: X-RAY CHEST REASON FOR EXAM: Female, 77 years old. Tachypnea TECHNIQUE: Single AP portable view of the chest. COMPARISON: Comparison is made with prior study dated 04/26/2022. FINDINGS: Hyperinflation. The lungs are clear. There is no demonstrated pleural abnormality. Sternal cerclage wires are present from a prior sternotomy. Normal mediastinum and baldemar. Normal visualized pulmonary arteries. There is atherosclerotic calcification of the aortic arch with tortuosity. There are diffuse degenerative changes of the visualized thoracic spine. Normal visualized ribs, clavicles, and shoulders. There is no demonstrated abnormality of the visualized soft tissue structures of the upper abdomen. RAD/Chest 1 View (Portable) IMPRESSION: Hyperinflation. The lungs are clear. Electronically Signed: Ronen Norris MD at 11:22 EST ,
[2022-08-30 11:06] LABS: Color, Urine Amber (Yellow)
[2022-08-30 11:07] LABS: Urine Clarity Sl Cldy (Clear)
[2022-08-30 11:09] LABS: Erythrocyte Sedimentation Rate 36 mm/hr (0-30)
[2022-08-30 11:10] LABS: Absolute Lymphocyte Count 1.19 X10^3/uL (0.83-4.51); Absolute Neutrophil Count 13.2 X10^3/uL (2.0-7.7); Basophil# 0.03 X10^3/uL; Basophil% 0.2 % (0-1); Eosinophil# 0.01 X10^3/uL; Eosinophils% 0.1 % (0-5); Hematocrit 32.4 % (37-47); Hemoglobin 10.8 g/dL (12.0-15.0); Lymphocyte # 1.19 X10^3/ul (0.83-4.51); Lymphocyte % 7.4 % (19-41); Mean Corp Hgb Conc 33.3 g/dL (32-36); Mean Corpuscular Hgb 27.1 pg (27.0-32.0); Mean Corpuscular Volume 81.4 fL (81-99); Mean Platelet Vol. 9.4 fl (6.2-12.0); Monocyte# 1.41 X10^3/uL; Monocyte% 8.7 % (0-10); NRBC Flagged by Analyzer 0 % (0-5); Neutrophil % 81.8 % (47-70); Platelet Count 323 K/mm3 (150-450); RBC Distribution Width CV 11.7 % (11.6-14.6); RBC Distribution Width SD 34.3 fl (35.1-43.9); Red Blood Count 3.98 M/mm3 (4.2-5.4); White Blood Count 16.1 K/mm3 (4.4-11.0)
[2022-08-30 11:11] LABS: Red Blood Cells-Urine 0-5 SEEN /hpf (0-5); White Blood Cells 50-100 SEEN /hpf (0-5)
[2022-08-30 11:13] LABS: Amorphous Sediment 1+; Fine Granular Cast- Urine 0-5 SEEN /lpf (0-5)
--- NOTE | 2022-08-30 12:38 | CT_ITS ---
STUDY: CT RIGHT FOOT REASON FOR EXAM: Female, 77 years old. Osteomyelitis and wet gangrene, subcu air toe RADIATION DOSAGE (If Supplied By Facility): CTDIvol = ( 15.35 ) mGy, DLP = ( 507.27 ) mGycm TECHNIQUE: Thin section transaxial imaging of the foot was obtained, with sagittal and coronal reconstructed images. Individualized dose optimization techniques were used for this CT. COMPARISON: Comparison is made with the radiographs done earlier in the day. FINDINGS: Calcaneal spurs. Normal visualized tibiotalar, subtalar, talonavicular, calcaneocuboid, tarsal and tarsometatarsal articulations. Normal metatarsi. Normal metatarsophalangeal joint of the great toe. Normal tibial and fibular sesamoid bones. Normal interphalangeal joint of the great toe. Normal phalanges of the great toe. Normal second through fifth metatarsophalangeal joints. Soft tissue swelling overlying the distal tibia as well as the foot. This is worse along the posterior aspect. Small amount of air is seen within the soft tissues in keeping with the possible gangrene. There is also evidence of diffuse soft tissue swelling with skin thickening of the foot. Air is seen in the soft tissues overlying the second toe. There is evidence of irregularity of the distal phalanx of the second toe with evidence of a osteomyelitis. CT/Extremity Lower without Contra IMPRESSION: Soft tissue swelling overlying the posterolateral aspect of the distal leg as well as the foot with air in the soft tissues. Diffuse soft tissue swelling of the foot with the ulcerated lesion and air in the soft tissues surrounding the distal portion of the second toe with findings suggestive of a erosive changes of the distal phalanx of the second toe suggestive of osteomyelitis. Electronically Signed: Ronen Norris MD at 13:17 EST ,
--- NOTE | 2022-08-30 13:00 | HP.PCM.HOS_ITS ---
HPI - General General Date of Admission: 08/30/22 Date of Service: 08/30/22 Chief Complaint: Black toes HPI Narrative GREGORY VU, is a 77 F with past medical history signal for diabetes mellitus type 2 on insulin who was apparently brought in with black toes involving both feet. Initial imaging studies obtained did express concern about possible osteomyelitis involving theSecond left toe with noted in the distal portion. Patient was limited with regards to events leading to her hospitalization history was provided by her accompanying frail lining stamper. The stitching machine feeder or offbearer on- call was informed from the ED staff patient was started on broad-spectrum antibiotic therapy admitted to monitored bed for further eval and treatment [facility] Medical History Back pain CAD (coronary artery disease) Chronic renal failure, stage 3 (moderate) Depression Diabetes mellitus, type II Diabetic peripheral neuropathy associated with type 2 diabetes mellitus Diastolic dysfunction Hypertension Morbid obesity Tobacco dependence Vertigo Home Medications aspirin 81 mg chewable tablet 81 mg PO DAILY heart health 04/06/16 [History Last Taken 01/05/19 81 mg] insulin regular hum U-500 conc 500 unit/mL subcutaneous soln (Humulin R U-500 (Concentrated) Insulin) 0.24 ml SQ BIDAC Check with primary doctor 04/06/16 [History Last Taken 01/05/19] torsemide 20 mg tablet 20 mg PO DAILY Check with primary doctor 04/06/16 [History Last Taken 01/05/19 20 mg] simvastatin 40 mg tablet 40 mg PO DINNER cholesterol 04/09/16 [History Last Taken 01/05/19] losartan 100 mg tablet 100 mg PO DAILY Check with primary doctor 09/27/17 [History Last Taken 01/05/19] cholecalciferol (vitamin D3) 50 mcg (2,000 unit) capsule (D3-2000) 3,000 unit PO DAILY supplement 01/05/19 [History Last Taken 01/05/19] fluoxetine 20 mg capsule 40 mg PO DAILY depression 01/05/19 [History Last Taken 01/05/19] levothyroxine 50 mcg tablet 50 mcg PO DAILY thyroid 01/05/19 [History Last Taken 01/05/19] multivitamin with minerals (Multiple Vitamin-Minerals tablet) 1 tab PO DAILY supplement 01/05/19 [History Last Taken 01/05/19] omega-3 fatty acids-fish oil 300 mg-1,000 mg capsule 1 cap PO BID supplement 01/05/19 [History Last Taken 01/05/19] oxycodone-acetaminophen 5 mg-325 mg tablet 1 tab PO Q6H PRN PRN Pain 3 days #12 TABLETS 03/11/22 [Rx Last Taken Unknown] Allergy/AdvReac Type Severity Reaction Status Date / Time pregabalin [From Lyrica] AdvReac suicidal Verified 08/30/22 09:51 thoughts Surgical History History of cholecystectomy S/P CABG x 4 Social History household members: none Smoking Status: Former smoker substance use type: does not use ROS Review of Systems ROS Unobtainable: due to encephalopathy and due to mental status Vital Signs Vital Signs Vital Signs: 08/30/22 09:48 08/30/22 09:51 08/30/22 10:55 Temperature 99.6 F H 99.6 F H 99.6 F H Temperature Source Oral Oral Oral Pulse Rate 110 H 105 H 96 Respiratory Rate 20 H 20 H 20 H Blood Pressure 110/72 110/72 106/63 Blood Pressure Mean 84 84 77 Pulse Ox 99 99 99 Oxygen Delivery Method Room Air Room Air Room Air 08/30/22 10:55 08/30/22 12:13 08/30/22 12:37 Temperature 98 F 97.4 F L Temperature Source Temporal Temporal Pulse Rate 79 97 Respiratory Rate 18 20 H Blood Pressure 104/63 111/65 Blood Pressure Mean 76 80 Pulse Ox 98 98 Oxygen Delivery Method Room Air Room Air Room Air Weight Weight: 89.3 kg Body Mass Index (BMI) 31.7 Physical Exam Narrative GENERAL: Very slow to respond HEENT: Atraumatic; normocephalic EYES; Anicteric, Normal Conjunctiva NECK; supple, normal thyroid, RESPIRATORY: Diminished to auscultation CARDIOVASCULAR: Regular S1 S2, GI: soft, normoactive bowel sounds, : No Renal angle tenderness; EXTREMITIES: Swelling and erythema involving both feet with necrotic toes MUSCULOSKELETAL: no muscle wasting NEURO: Awake; no lateralizing signs. SKIN: As described above PSYCH; Flat affect Results Lab / Micro Data Result Diagrams: 08/30/22 10:10 08/30/22 10:10 Labs: Laboratory Results - last 24 hr 08/30/22 10:10: WBC 16.1 H, RBC 3.98 L, Hgb 10.8 L, Hct 32.4 L, MCV 81.4, MCH 27.1, MCHC 33.3, RDW Std Deviation 34.3 L, RDW Coeff of Hilda 11.7, Plt Count 323, MPV 9.4, Immature Gran % (Auto) 1.800 H, Neut % (Auto) 81.8 H, Lymph % (Auto) 7.4 L, [place] % (Auto) 8.7, Eos % (Auto) 0.1, Baso % (Auto) 0.2, Absolute Neuts (auto) 13.2 H, Absolute Lymphs (auto) 1.19, Nucleated RBC % 0, ESR 36 H 08/30/22 10:10: Sodium 126 L, Potassium 3.8, Chloride 91 L, Carbon Dioxide 24.0, Anion Gap 11, BUN 14, Creatinine 0.91, Estim Creat Clear Calc 50.00, Est GFR (MDRD) Af Amer 77, Est GFR (MDRD) Non-Af 64, BUN/Creatinine Ratio 15.3, Glucose 286 H, Calcium 9.2, Total Bilirubin 1.20 H, AST 37, ALT 35, Alkaline Phosphatase 110, Total Creatine Kinase 136, C-React Prot Ext Range 167.00 H, Total Protein 7.5, Albumin 2.2 L, Globulin 5.3 H, Albumin/Globulin Ratio 0.4 L 08/30/22 10:10: PT 18.4 H, INR 1.6, APTT 33.4 08/30/22 10:10: Lactic Acid 1.5 08/30/22 10:40: Urine Color Makenzie, Urine Clarity Sl Cldy, Urine pH 5.0, Ur Specific [place] 1.020, Urine Protein 30 H, Urine Glucose (UA) 1000 H, Urine Ketones 50 H, Urine Occult Blood 25 H, Urine Nitrite Negative, Urine Bilirubin Negative, Urine Urobilinogen 1 H, Ur Leukocyte Esterase 500 H, Urine RBC 0-5 SEEN, Urine WBC 50-100 SEEN, Ur Squamous Epith Cells 0 SEEN, Amorphous Sediment 1+, Urine Bacteria 0 SEEN, Fine Granular Casts 0-5 SEEN, Urine Mucus 0 SEEN Rhythm Strip Rhythm Strip: Sinus Tach Rate: 108 Ectopy: None Radiology Impression Ankle X-Ray 08/30/22 11:00 IMPRESSION: Multiple surgical clips are seen in the soft tissues overlying the distal tibia. No acute abnormality is seen. Electronically Signed: Ronen Norris MD at 11:28 EST , Foot X-Ray 08/30/22 11:00 IMPRESSION: Prominent soft tissue swelling overlying the second toe with a small amount of air within the distal portion of the tibial. Mild irregularity of the distal phalanx of the second toe. Osteomyelitis should be ruled out. Soft tissue swelling. Electronically Signed: Ronen Norris MD at 11:28 EST , Chest X-Ray 08/30/22 11:05 IMPRESSION: Hyperinflation. The lungs are clear. Electronically Signed: Ronen Norris MD at 11:22 EST , Assessment & Plan Assessment/Plan (1) Diabetic wet gangrene of the foot: (2) Acute osteomyelitis of toe of right foot: PLAN: Plan Patient is a 77-year-old lady with multiple comorbidities admitted with diabetic foot ulceration involving both feet with concern for osteomyelitis involving the second and toe of the right foot 1. Diabetic foot ulceration involving both feet with concern for osteomyelitis involving the second and 2 of the right foot ? Patient has been admitted to a monitored bed managed with broad-spectrum antibiotic therapy with Zosyn and vancomycin. As part of her management CT of the foot was ordered results reviewed. Consult placed to podiatry and infectious disease. Response to therapy being monitored with daily CBC with differential 2. Chronic A-flutter ? Rate controlled patient placed on a monitored bed 3. Coronary artery disease ? Patient has history of CABG. Patient remained stable 4. Diabetes mellitus type 2 ? Uncontrolled with hyperglycemia. Patient was placed on long-acting insulin in addition to scheduled short acting insulin as well as Accu-Cheks before meals and at bedtime with sliding scale coverage was also placed on 1800 ADA diet 5. Hypothyroidism ? Patient is on levothyroxine did continue home dose 6. Hyponatremia ? Multifactorial including possible dehydration as well as patient hyperglycemia started on IV fluids daily monitoring with BMPs ordered 7. Dyslipidemia ? Patient is on simvastatin substituted with atorvastatin in the hospital 8. Depression ? Patient is on fluoxetine did continue 9. Class I obesity with BMI of 31.2 ? Weight loss advised 10. DVT prophylaxis ? On Lovenox Time spent in the patient's overall evaluation,decision-making process, review of diagnostic data, adjustment of management, discussion with other providers, nursing nursing and ancillary staff involved in patient's care documentation, 75-minute minutes Advance planning; did discuss with the patient and family regarding advanced directives as well as CODE STATUS. Did explain the various scenarios involved ( FULL CODE, DNR CCA, DNR CCA with no intubation, and DNR CC and what each meant) patient's company in the emergency room this. Patient wishes is to remain full code with CPR and intubation if needed. Order was placed. Time spent on discussion 18 minutes. Charges/Coding Visit Charges Inpatient E&M: 40728 Init Hosp L3 Procedures Hospitalists Procedures: 81326 Advncd Care Plan addl 30 Min
[2022-08-30] MEDS: Clindamycin 600 MG/50 ML BAG 100 MG IV (13:03)
--- NOTE | 2022-08-30 13:14 | NURSING ---
PCU KITTOE RIGHT HANGRENE, OSTEOMYELITIS, HYPONATREMIA, ATRIAL FLUTTER
--- NOTE | 2022-08-30 14:36 | PCM.RX.CS ---
Consult Pharmacy has been consulted to manage selected antiobiotic: Vancomycin Type of Consult: New start Suspected Infection: Skin/Soft tissue Prior Doses of Antibiotics Received/Current Regimen: 08/30/22 @ 1054 Labs: Sodium 126 mmol/L (136-145) L 08/30/22 10:10 Potassium 3.8 mmol/L (3.5-5.1) 08/30/22 10:10 Chloride 91 mmol/L (98-107) L 08/30/22 10:10 Carbon Dioxide 24.0 mmol/L (21.0-32.0) 08/30/22 10:10 Anion Gap 11 (5-15) 08/30/22 10:10 BUN 14 mg/dL (7-18) 08/30/22 10:10 Creatinine 0.91 mg/dL (0.55-1.02) 08/30/22 10:10 Est GFR (MDRD) Af Amer 77 mL/min (>60) 08/30/22 10:10 Est GFR (MDRD) Non-Af 64 mL/min (>60) 08/30/22 10:10 BUN/Creatinine Ratio 15.3 RATIO (10-20) 08/30/22 10:10 Glucose 286 mg/dL (74-106) H 08/30/22 10:10 Estimated Creatinine Clearance: 50 Goal Trough: 15-20 mcg/mL Pharmacy Plan for Drug Dosin08/30/22 start maintenance dose of Vancomycin 750mg q12h Pharmacy Service will continue to monitor and adjust dosing as required. Follow-Up Labs: Trough Vancomycin Labs to be done on [date and time ordered]: 08/31/22 @ 3550
[2022-08-30] MEDS: 0.9% Normal Saline 1,000 ML 125 ML IV ×2 (14:48→23:38)
--- NOTE | 2022-08-30 15:39 | WOUNDNOTE ---
wound photo: right foot
--- NOTE | 2022-08-30 15:39 | WOUNDNOTE ---
wound photo: right foot
--- NOTE | 2022-08-30 15:40 | WOUNDNOTE ---
wound photo: left foot
--- NOTE | 2022-08-30 15:41 | WOUNDNOTE ---
wound photo: bilateral feet
[2022-08-30] MEDS: Acetaminophen 500 MG Tablet 1000 MG PO ×2 (16:03→23:38)
[2022-08-30] MEDS: oxyCODONE 5 MG Tablet PO (16:03)
[2022-08-30 16:15] LABS: Probe Check PASS; Staph aureus DNA By PCR POSITIVE (Negative)
[2022-08-30 16:16] LABS: M R Staph aureus DNA By PCR POSITIVE (Negative)
[2022-08-30 17:35] LABS: Bedside Glucose 263 mg/dL (74-106)
[2022-08-30] MEDS: Insulin Glargine-YFGN 100 UNIT/ML Pen 15 UNIT SC (18:05)
[2022-08-30] MEDS: Insulin Lispro 100 UNIT/ML INSULN.PEN SC ×2 (18:06→18:07)
--- NOTE | 2022-08-30 21:25 | CON.PCM_ITS ---
Assessment & Plan Assessment/Plan (1) Acute osteomyelitis of toe of right foot: (2) Diabetes mellitus with diabetic polyneuropathy: (3) Type 2 diabetes mellitus with foot ulcer: (4) Cellulitis of right lower limb: PLAN: Plan Evaluation performed. Reviewed diagnostic data. It is likely the right foot is chronic - it is chronic appearing. It appears she has been flighting this for some time but it is worsening and gas is starting to form. Per review of xrays and CT scan there is gas to the right 2nd toe, but I do not see any to rest of the foot, ankle or leg. Due to necrosis right 2nd toe we discussed right 2nd toe amputation with debridement of right foot of all nonviable, infected and necrotic soft tissue and bone. Patient has been started on broad spectrum antibiotics. We will plan to proceed with the surgical soon. Painted betadine soln to sites and applied dry gauze dressing. Ordered LEAS to better assess vascular flow. Podiatry will continue to follow, thank you for consultation. HPI Consult Data Date of Consult: 08/30/22 HPI Narrative HPI Narrative: GREGORY VU, is a 77 F who presents with hx of diabetes with neuropathy and with necrotic right 2nd toe, and also wounds to toes bilateral. Patient has redness and swelling of right foot. She relates it just turned like this about a week ago. Patient's WBC is elevated. There was gas noted right 2nd toe. Patient has been started on IV antibiotics Vanc and Zosyn. [facility] Medical History Back pain CAD (coronary artery disease) Chronic renal failure, stage 3 (moderate) Depression Diabetes mellitus, type II Diabetic peripheral neuropathy associated with type 2 diabetes mellitus Diastolic dysfunction Hypertension Morbid obesity Tobacco dependence Vertigo Home Medications aspirin 81 mg chewable tablet 81 mg PO DAILY heart health 04/06/16 [History Last Taken 01/05/19 81 mg] insulin regular hum U-500 conc 500 unit/mL subcutaneous soln (Humulin R U-500 (Concentrated) Insulin) 0.24 ml SQ BIDAC Check with primary doctor 04/06/16 [History Last Taken 01/05/19] torsemide 20 mg tablet 20 mg PO DAILY Check with primary doctor 04/06/16 [History Last Taken 01/05/19 20 mg] simvastatin 40 mg tablet 40 mg PO DINNER cholesterol 04/09/16 [History Last Taken 01/05/19] losartan 100 mg tablet 100 mg PO DAILY Check with primary doctor 09/27/17 [History Last Taken 01/05/19] cholecalciferol (vitamin D3) 50 mcg (2,000 unit) capsule (D3-2000) 3,000 unit PO DAILY supplement 01/05/19 [History Last Taken 01/05/19] fluoxetine 20 mg capsule 40 mg PO DAILY depression 01/05/19 [History Last Taken 01/05/19] levothyroxine 50 mcg tablet 50 mcg PO DAILY thyroid 01/05/19 [History Last Taken 01/05/19] multivitamin with minerals (Multiple Vitamin-Minerals tablet) 1 tab PO DAILY supplement 01/05/19 [History Last Taken 01/05/19] omega-3 fatty acids-fish oil 300 mg-1,000 mg capsule 1 cap PO BID supplement 01/05/19 [History Last Taken 01/05/19] oxycodone-acetaminophen 5 mg-325 mg tablet 1 tab PO Q6H PRN PRN Pain 3 days #12 TABLETS 03/11/22 [Rx Last Taken Unknown] Allergy/AdvReac Type Severity Reaction Status Date / Time pregabalin [From Lyrica] AdvReac suicidal Verified 08/30/22 09:51 thoughts Surgical History History of cholecystectomy S/P CABG x 4 Social History household members: none Smoking Status: Former smoker substance use type: does not use Physical Exam Narrative Right 2nd toe is gangrene - wet distally, there is maloder, there is cellulitis to the foot, there is crepitus to the distal right 2nd toe, there appears to be abscess plantar right central forefoot sub 2nd MTPJ, otherwise no crepitus, no fluctuance to rest of the foot or ankle. There is some erythema to the anterior right leg but no edema, no necrosis, no crepitus, no abscess noted. There are diffuse superficial wounds to the toes on bilateral feet with scabbing, no cellulitis left foot or necrosis left foot. DP and PT pulses palpable bilateral, CFT < 2 seconds to all toes bilateral except right 2nd toe. Chronic peripheral neuropathy bilateral foot. No evidence of charcot neuroarthropathy at this time bilateral foot. Const alert, oriented x3 and no apparent distress Lab / Micro Data Result Diagrams: 08/30/22 10:10 08/30/22 10:10 Labs: Laboratory Results - last 24 hr 08/30/22 10:10: WBC 16.1 H, RBC 3.98 L, Hgb 10.8 L, Hct 32.4 L, MCV 81.4, MCH 27.1, MCHC 33.3, RDW Std Deviation 34.3 L, RDW Coeff of Hilda 11.7, Plt Count 323, MPV 9.4, Immature Gran % (Auto) 1.800 H, Neut % (Auto) 81.8 H, Lymph % (Auto) 7.4 L, [place] % (Auto) 8.7, Eos % (Auto) 0.1, Baso % (Auto) 0.2, Absolute Neuts (auto) 13.2 H, Absolute Lymphs (auto) 1.19, Nucleated RBC % 0, ESR 36 H 08/30/22 10:10: Sodium 126 L, Potassium 3.8, Chloride 91 L, Carbon Dioxide 24.0, Anion Gap 11, BUN 14, Creatinine 0.91, Estim Creat Clear Calc 50.00, Est GFR (MDRD) Af Amer 77, Est GFR (MDRD) Non-Af 64, BUN/Creatinine Ratio 15.3, Glucose 286 H, Calcium 9.2, Total Bilirubin 1.20 H, AST 37, ALT 35, Alkaline Phosphatase 110, Total Creatine Kinase 136, C-React Prot Ext Range 167.00 H, Total Protein 7.5, Albumin 2.2 L, Globulin 5.3 H, Albumin/Globulin Ratio 0.4 L 08/30/22 10:10: PT 18.4 H, INR 1.6, APTT 33.4 08/30/22 10:10: Lactic Acid 1.5 08/30/22 10:40: Urine Color Makenzie, Urine Clarity Sl Cldy, Urine pH 5.0, Ur Specific [place] 1.020, Urine Protein 30 H, Urine Glucose (UA) 1000 H, Urine Ketones 50 H, Urine Occult Blood 25 H, Urine Nitrite Negative, Urine Bilirubin Negative, Urine Urobilinogen 1 H, Ur Leukocyte Esterase 500 H, Urine RBC 0-5 SEEN, Urine WBC 50-100 SEEN, Ur Squamous Epith Cells 0 SEEN, Amorphous Sediment 1+, Urine Bacteria 0 SEEN, Fine Granular Casts 0-5 SEEN, Urine Mucus 0 SEEN 08/30/22 14:15: S.aureus Protein A PCR POSITIVE H, MRSA (PCR) POSITIVE H 08/30/22 17:13: POC Glucose 263 H Rhythm Strip Rhythm Strip: Sinus Tach Rate: 108 Ectopy: None Radiology Impression Ankle X-Ray 08/30/22 11:00 IMPRESSION: Multiple surgical clips are seen in the soft tissues overlying the distal tibia. No acute abnormality is seen. Electronically Signed: Ronen Norris MD at 11:28 EST , Foot X-Ray 08/30/22 11:00 IMPRESSION: Prominent soft tissue swelling overlying the second toe with a small amount of air within the distal portion of the tibial. Mild irregularity of the distal phalanx of the second toe. Osteomyelitis should be ruled out. Soft tissue swelling. Electronically Signed: Ronen Norris MD at 11:28 EST , Chest X-Ray 08/30/22 11:05 IMPRESSION: Hyperinflation. The lungs are clear. Electronically Signed: Ronen Norris MD at 11:22 EST , Lower Extremity CT 08/30/22 12:38 IMPRESSION: Soft tissue swelling overlying the posterolateral aspect of the distal leg as well as the foot with air in the soft tissues. Diffuse soft tissue swelling of the foot with the ulcerated lesion and air in the soft tissues surrounding the distal portion of the second toe with findings suggestive of a erosive changes of the distal phalanx of the second toe suggestive of osteomyelitis. Electronically Signed: Ronen Norris MD at 13:17 EST ,
--- NOTE | 2022-08-30 21:48 | ART_ITS ---
Reason For Study: Ulcer Procedure A bilateral lower extremity continuous wave Doppler with analog waveform analysis,segmental pressures,and ankle brachial indexes without exercise. Left Segmental Pressures Left posterior tibial artery = 136mmHg. Left dorsalis pedis artery = 111mmHg. Right Segmental Pressures Right brachial= 99mmHg. Right posterior tibial artery = 100mmHg. Right dorsalis pedis artery = 127mmHg. Indices The right ankle brachial index by the posterior tibial artery is 1.01. The right ankle brachial index by the dorsalis pedis is 1.28. The left ankle brachial index by the posterior tibial artery is 1.37. The left ankle brachial index by the dorsalis pedis is 1.12. VL/Lower Ext Art Exam w/o Exercis Interpretation Summary Triphasic Doppler waveforms are noted at ankle level bilaterally. Pulse-volume recordings appear satisfactory bilaterally. Resting ankle-brachial indices are normal bilaterally . There is no evidence of significant arterial occlusive disease in the lower ext remities bilaterally. Ordering Physician: Van Dee Referring Physician: Eugenia Watson Performed By: Cheryl Gonsalez RDCS/RVT
[2022-08-30] MEDS: Atorvastatin Calcium 20 MG Tablet PO (23:38)
[2022-08-30] MEDS: Famotidine 20 MG Tablet PO (23:38)
[2022-08-31] VITALS (14 sets, daily range): BP systolic 100–116; BP diastolic 47–74; PULSE 71–99; RESP 12–18; TEMP 36.3–37.4; O2SAT 93–98
[2022-08-31 00:11] LABS: Bedside Glucose 222 mg/dL (74-106)
[2022-08-31 05:43] LABS: Absolute Lymphocyte Count 0.74 X10^3/uL (0.83-4.51); Absolute Neutrophil Count 8.9 X10^3/uL (2.0-7.7); Basophil# 0.04 X10^3/uL; Basophil% 0.4 % (0-1); Eosinophil# 0.19 X10^3/uL; Eosinophils% 1.7 % (0-5); Hemoglobin 9.6 g/dL (12.0-15.0); Lymphocyte # 0.74 X10^3/ul (0.83-4.51); Lymphocyte % 6.8 % (19-41); Mean Corpuscular Hgb 26.5 pg (27.0-32.0); Mean Corpuscular Volume 82.9 fL (81-99); Mean Platelet Vol. 9.3 fl (6.2-12.0); Monocyte# 0.95 X10^3/uL; Monocyte% 8.7 % (0-10); NRBC Flagged by Analyzer 0 % (0-5); Neutrophil # 8.85 X10^3/uL (2.7-7.7); Neutrophil % 80.8 % (47-70); Platelet Count 257 K/mm3 (150-450); RBC Distribution Width CV 11.8 % (11.6-14.6); RBC Distribution Width SD 35.8 fl (35.1-43.9); Red Blood Count 3.62 M/mm3 (4.2-5.4); White Blood Count 10.9 K/mm3 (4.4-11.0)
[2022-08-31 06:11] LABS: Anion Gap 8 (5-15); BUN 13 mg/dL (7-18); BUN/Creat Ratio 14.6 RATIO (10-20); Calcium,Total 8.4 mg/dL (8.5-10.1); Chloride 101 mmol/L (98-107); Creatinine, Serum 0.89 mg/dL (0.55-1.02); EST Glomerular Filtration Rate 66 mL/min (>60); Est Glom Filt Rate - Afr Amer 80 mL/min (>60); Estimated Creatinine Clearance 51.13 ml/min; Glucose 270 mg/dL (74-106); Magnesium 1.9 mg/dL (1.6-2.6); Phosphorus 2.7 mg/dL (2.5-4.9); Potassium 3.9 mmol/L (3.5-5.1); Sodium Level 133 mmol/L (136-145)
[2022-08-31 07:21] LABS: Bedside Glucose 258 mg/dL (74-106)
[2022-08-31 07:21] LABS: Bedside Glucose 266 mg/dL (74-106)
--- NOTE | 2022-08-31 07:38 | NURSING ---
pt had not voided overnight, encouraged pt to attempt to void. Bladder scanned for 800ml. Straight cathed for 600ml. Pt tolerated well.
[2022-08-31 07:57] LABS: Hemoglobin A1c 12.1 % (3.8-5.6)
[2022-08-31] MEDS: 0.9% Normal Saline 1,000 ML 125 ML IV ×2 (08:15→18:23)
[2022-08-31] MEDS: oxyCODONE 5 MG Tablet PO (08:15)
[2022-08-31 08:36] LABS: Bedside Glucose 248 mg/dL (74-106)
--- NOTE | 2022-08-31 09:43 | ECHOCS_ITS ---
Reason For Study: Murmur Procedure This was a 2D Doppler, Color Flow transthoracic echocardiogram. The study was technically difficult. Contrast injection was performed. Exam performed in AC bed 4. Left Ventricle Based upon the 2D echocardiographic and contrast enhanced images obtained there appears to be grossly normal left ventricular size, wall motion, and systolic function. The estimated ejection fraction is 65 %. Diastolic function is indeterminate. Right Ventricle Based upon the 2D echocardiographic images obtained there appears to be grossly normal right ventricular size and systolic function. Atria Normal left atrium. Normal right atrium. No doppler evidence for ASD. Mitral Valve There is no mitral annular calcification. Normal mitral valve. Trivial mitral valve insufficiency. Tricuspid Valve Normal tricuspid valve. Trivial tricuspid valve insufficiency. Right ventricular systolic pressure estimated to be 35 mmHg. Aortic Valve Trisinus/trileaflet aortic valve. Mild focal aortic valve calcification. Pulmonic Valve The pulmonic valve is not well visualized. Trivial pulmonic valve insufficiency. Great Vessels Normal sized aortic root. Calcified aortic root. Pericardium/Pleural No pericardial effusion. Epicardial fat. Medication Diluted definity 2.5ml given slow IV push to enhance endocardial definition. MMode/2D Measurements & Calculations LVIDd: 4.0 cm IVSd: 1.0 cm Ao root diam: 3.2 cm LVIDs: 2.9 cm LVPWd: 1.0 cm LA dimension: 3.3 cm RVDd: 3.6 cm FS: 27.2 % LAV(MOD-bp): 54.8 ml LA A4 area: 19.6 cm2 RA A4 area: 19.4 cm2 LAV(MOD-bp) Indexed: 27.8 ml/m2 LAV(MOD-sp2): 52.9 ml LAV(MOD-sp4): 51.9 ml Doppler Measurements & Calculations MV E max jose: 110.6 cm/sec MV V2 max: 113.2 cm/sec Ao V2 max: 143.9 cm/sec MV max P.1 mmHg Ao max P.3 mmHg MV V2 mean: 49.2 cm/sec MV mean P.3 mmHg MV V2 VTI: 23.3 cm LV V1 max: 120.9 cm/sec PA V2 max: 103.5 cm/sec TR max jose: 282.8 cm/sec LV V1 max P.9 mmHg PA V2 mean: 72.9 cm/sec TR max P.0 mmHg ECHO/Echo Complete W/ Contrast Interpretation Summary The study was technically difficult. Contrast injection was performed. Based upon the 2D echocardiographic and contrast enhanced images obtained there appears to be grossly normal left ventricular size, wall motion, and systolic function. The estimated ejection fraction is 65 %. Trivial mitral valve insufficiency. Trivial tricuspid valve insufficiency. Mild focal aortic valve calcification. Trivial pulmonic valve insufficiency. Calcified aortic root. Epicardial fat. Right ventricular systolic pressure estimated to be 35 mmHg. Diastolic function is indeterminate. Ordering Physician: Moses Forbes Performed By: Fam Marin RCS
--- NOTE | 2022-08-31 10:18 | CASEMGMT ---
SW received a call from Key with [employer] as she is patient's security shift manager. 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 Daniela LAW
--- NOTE | 2022-08-31 10:33 | PCM.PN.HOSP ---
Subjective Subjective Follow-up diabetic foot ulcers Patient admitted to monitored bed started on broad-spectrum antibiotic therapy. Cultures obtained so far came back positive for MRSA in the blood as well as in the wound. Patient has been seen by both infectious disease and podiatry. Objective Data Objective Data Vital Signs: Vital Signs Temp Pulse Resp BP Pulse Ox O2 Del Method 98.5 F 71 18 112/57 L 98 Room Air 08/31/22 04:08 08/31/22 07:33 08/31/22 04:08 08/31/22 04:08 08/31/22 04:08 08/31/22 04:10 Oxygen Delivery Method Room Air Weight: 87.6 kg Body Mass Index (BMI) 31.1 Intake & Output: Intake and Output for Last 24 Hours 08/29/22 08/30/22 08/31/22 23:59 23:59 23:59 Intake Total 3245.83 / 3245.83 1315 / 1315 Output Total 600 / 600 Balance 3245.83 / 3245.83 715 / 715 Lab / Micro Data Result Diagrams: 08/31/22 05:19 08/31/22 05:19 Labs: Laboratory Results - last 24 hr 08/30/22 10:10: WBC 16.1 H, RBC 3.98 L, Hgb 10.8 L, Hct 32.4 L, MCV 81.4, MCH 27.1, MCHC 33.3, RDW Std Deviation 34.3 L, RDW Coeff of Hilda 11.7, Plt Count 323, MPV 9.4, Immature Gran % (Auto) 1.800 H, Neut % (Auto) 81.8 H, Lymph % (Auto) 7.4 L, [place] % (Auto) 8.7, Eos % (Auto) 0.1, Baso % (Auto) 0.2, Absolute Neuts (auto) 13.2 H, Absolute Lymphs (auto) 1.19, Nucleated RBC % 0, ESR 36 H 08/30/22 10:10: Sodium 126 L, Potassium 3.8, Chloride 91 L, Carbon Dioxide 24.0, Anion Gap 11, BUN 14, Creatinine 0.91, Estim Creat Clear Calc 50.00, Est GFR (MDRD) Af Amer 77, Est GFR (MDRD) Non-Af 64, BUN/Creatinine Ratio 15.3, Glucose 286 H, Calcium 9.2, Total Bilirubin 1.20 H, AST 37, ALT 35, Alkaline Phosphatase 110, Total Creatine Kinase 136, C-React Prot Ext Range 167.00 H, Total Protein 7.5, Albumin 2.2 L, Globulin 5.3 H, Albumin/Globulin Ratio 0.4 L 08/30/22 10:10: PT 18.4 H, INR 1.6, APTT 33.4 08/30/22 10:10: Lactic Acid 1.5 08/30/22 10:40: Urine Color Makenzie, Urine Clarity Sl Cldy, Urine pH 5.0, Ur Specific [place] 1.020, Urine Protein 30 H, Urine Glucose (UA) 1000 H, Urine Ketones 50 H, Urine Occult Blood 25 H, Urine Nitrite Negative, Urine Bilirubin Negative, Urine Urobilinogen 1 H, Ur Leukocyte Esterase 500 H, Urine RBC 0-5 SEEN, Urine WBC 50-100 SEEN, Ur Squamous Epith Cells 0 SEEN, Amorphous Sediment 1+, Urine Bacteria 0 SEEN, Fine Granular Casts 0-5 SEEN, Urine Mucus 0 SEEN 08/30/22 14:15: S.aureus Protein A PCR POSITIVE H, MRSA (PCR) POSITIVE H 08/30/22 17:13: POC Glucose 263 H 08/30/22 23:36: POC Glucose 222 H 08/31/22 04:25: POC Glucose 266 H 08/31/22 05:19: WBC 10.9, RBC 3.62 L, Hgb 9.6 L, Hct 30.0 L, MCV 82.9, MCH 26.5 L, MCHC 32.0, RDW Std Deviation 35.8, RDW Coeff of Hilda 11.8, Plt Count 257, MPV 9.3, Immature Gran % (Auto) 1.600 H, Neut % (Auto) 80.8 H, Lymph % (Auto) 6.8 L, [place] % (Auto) 8.7, Eos % (Auto) 1.7, Baso % (Auto) 0.4, Absolute Neuts (auto) 8.9 H, Absolute Lymphs (auto) 0.74 L, Nucleated RBC % 0 08/31/22 05:19: Sodium 133 L, Potassium 3.9, Chloride 101, Carbon Dioxide 24.0, Anion Gap 8, BUN 13, Creatinine 0.89, Estim Creat Clear Calc 51.13, Est GFR (MDRD) Af Amer 80, Est GFR (MDRD) Non-Af 66, BUN/Creatinine Ratio 14.6, Glucose 270 H, Calcium 8.4 L, Phosphorus 2.7, Magnesium 1.9 08/31/22 05:19: Hemoglobin A1c 12.1 H 08/31/22 06:36: POC Glucose 258 H 08/31/22 08:05: POC Glucose 248 H Micro: Microbiology 08/30/22 14:15 Wound Abcess - Right Foot Wound Culture - Preliminary Staphylococcus aureus 08/30/22 11:40 Urine, Clean Catch Urine Culture - Preliminary Staphylococcus aureus 08/30/22 10:10 Blood Culture (Wb) - Anticubital Right Bacteria Detection (PCR) - Final Staphylococcus aureus mecA Resistance Marker 08/30/22 10:10 Blood Culture (Wb) - Anticubital Right Blood Culture - Preliminary 08/30/22 10:30 Blood Culture (Wb) - Anticubital Left Blood Culture - Preliminary Radiography Diagnostic Testing: Radiology Impression Ankle X-Ray 08/30/22 11:00 IMPRESSION: Multiple surgical clips are seen in the soft tissues overlying the distal tibia. No acute abnormality is seen. Electronically Signed: Ronen Norris MD at 11:28 EST , Foot X-Ray 08/30/22 11:00 IMPRESSION: Prominent soft tissue swelling overlying the second toe with a small amount of air within the distal portion of the tibial. Mild irregularity of the distal phalanx of the second toe. Osteomyelitis should be ruled out. Soft tissue swelling. Electronically Signed: Ronen Norris MD at 11:28 EST , Chest X-Ray 08/30/22 11:05 IMPRESSION: Hyperinflation. The lungs are clear. Electronically Signed: Ronen Norris MD at 11:22 EST , Lower Extremity CT 08/30/22 12:38 IMPRESSION: Soft tissue swelling overlying the posterolateral aspect of the distal leg as well as the foot with air in the soft tissues. Diffuse soft tissue swelling of the foot with the ulcerated lesion and air in the soft tissues surrounding the distal portion of the second toe with findings suggestive of a erosive changes of the distal phalanx of the second toe suggestive of osteomyelitis. Electronically Signed: Ronen Norris MD at 13:17 EST , Rhythm Strip Rhythm Strip: Sinus Tach Rate: 108 Ectopy: None Physical Exam Narrative GENERAL: Very slow to respond HEENT: Atraumatic; normocephalic EYES; Anicteric, Normal Conjunctiva NECK; supple, normal thyroid, RESPIRATORY: Diminished to auscultation CARDIOVASCULAR: Regular S1 S2, GI: soft, normoactive bowel sounds, : No Renal angle tenderness; EXTREMITIES: Swelling and erythema involving both feet with necrotic toes MUSCULOSKELETAL: no muscle wasting NEURO: Awake; no lateralizing signs. SKIN: As described above PSYCH; Flat affect Assessment & Plan Assessment/Plan (1) Diabetic wet gangrene of the foot: (2) Acute osteomyelitis of toe of right foot: PLAN: Plan Patient is a 77-year-old lady with multiple comorbidities admitted with diabetic foot ulceration involving both feet with concern for osteomyelitis involving the second and toe of the right foot 1. Diabetic foot ulceration involving both feet with concern for osteomyelitis involving the second and 2 of the right foot secondary to MRSA infection. ? Patient has been admitted to a monitored bed managed with broad-spectrum antibiotic therapy with Zosyn and vancomycin. As part of her management CT of the foot was ordered results reviewed. Consult placed to podiatry and infectious disease. Response to therapy being monitored with daily CBC with differential - Cultures obtained so far came back positive for MRSA in the blood as well as in the wound. Patient has been seen by both infectious disease and podiatry. Clindamycin added to patient's therapy. Plan is for patient to undergo right second toe amputation and debridement of right foot of all nonviable infected and necrotic tissue and bone 2. Chronic A-flutter ? Rate controlled patient placed on a monitored bed 3. Coronary artery disease ? Patient has history of CABG. Patient remained stable 4. Diabetes mellitus type 2 ? Uncontrolled with hyperglycemia. Patient was placed on long-acting insulin in addition to scheduled short acting insulin as well as Accu-Cheks before meals and at bedtime with sliding scale coverage was also placed on 1800 ADA diet 5. Hypothyroidism ? Patient is on levothyroxine did continue home dose 6. Hyponatremia ? Multifactorial including possible dehydration as well as patient hyperglycemia started on IV fluids daily monitoring with BMPs ordered 7. Dyslipidemia ? Patient is on simvastatin substituted with atorvastatin in the hospital 8. Depression ? Patient is on fluoxetine did continue 9. Class I obesity with BMI of 31.2 ? Weight loss advised 10. DVT prophylaxis ? On Lovenox Time spent in the patient's overall evaluation,decision-making process, review of diagnostic data, adjustment of management, discussion with other providers, nursing nursing and ancillary staff involved in patient's care documentation, 55-minute minutes Charges/Coding Visit Charges Inpatient E&M: 54765 Subs Hosp L3
--- NOTE | 2022-08-31 10:38 | CON.PCM.ID_ITS ---
Assessment & Plan Assessment/Plan (1) Diabetic wet gangrene of the foot: (2) Diabetes mellitus with diabetic polyneuropathy: (3) MRSA bacteremia: PLAN: MRSA bacteremia per PCR due to R foot gangrene - bcx, ucx, and wound cx with staph aureus. On vanc/zosyn, will add clinda for anti-toxin effect. OR planned for today with Dr. Dee for source control. Will repeat bcx and check echo. No signs of metastatic infection on exam at this point. Will follow, thank you HPI Consult Data Date of Consult: 08/31/22 HPI Narrative Reason for Consultation: bacteremia HPI Narrative: GREGORY VU, is a 77 F with DM neuropathy, presented 08/30 with several weeks worsening R foot swelling, odor, blackness. No fever or chills. Reports she hits her feet on things frequently. No pain in feet. Came to ED with worsening symptoms. No new joint/back pain. Admitted on vanc/zosyn, CT done of foot. Seen by podiatry, OR planned for today. Full ROS performed and neg except as noted above. [facility] Medical History Back pain CAD (coronary artery disease) Chronic renal failure, stage 3 (moderate) Depression Diabetes mellitus, type II Diabetic peripheral neuropathy associated with type 2 diabetes mellitus Diastolic dysfunction Hypertension Morbid obesity Tobacco dependence Vertigo Home Medications aspirin 81 mg chewable tablet 81 mg PO DAILY heart health 04/06/16 [History Last Taken 01/05/19 81 mg] insulin regular hum U-500 conc 500 unit/mL subcutaneous soln (Humulin R U-500 (Concentrated) Insulin) 0.24 ml SQ BIDAC Check with primary doctor 04/06/16 [History Last Taken 01/05/19] torsemide 20 mg tablet 20 mg PO DAILY Check with primary doctor 04/06/16 [History Last Taken 01/05/19 20 mg] simvastatin 40 mg tablet 40 mg PO DINNER cholesterol 04/09/16 [History Last Taken 01/05/19] losartan 100 mg tablet 100 mg PO DAILY Check with primary doctor 09/27/17 [History Last Taken 01/05/19] cholecalciferol (vitamin D3) 50 mcg (2,000 unit) capsule (D3-2000) 3,000 unit PO DAILY supplement 01/05/19 [History Last Taken 01/05/19] fluoxetine 20 mg capsule 40 mg PO DAILY depression 01/05/19 [History Last Taken 01/05/19] levothyroxine 50 mcg tablet 50 mcg PO DAILY thyroid 01/05/19 [History Last Taken 01/05/19] multivitamin with minerals (Multiple Vitamin-Minerals tablet) 1 tab PO DAILY supplement 01/05/19 [History Last Taken 01/05/19] omega-3 fatty acids-fish oil 300 mg-1,000 mg capsule 1 cap PO BID supplement 01/05/19 [History Last Taken 01/05/19] oxycodone-acetaminophen 5 mg-325 mg tablet 1 tab PO Q6H PRN PRN Pain 3 days #12 TABLETS 03/11/22 [Rx Last Taken Unknown] Allergy/AdvReac Type Severity Reaction Status Date / Time pregabalin [From Lyrica] AdvReac suicidal Verified 08/30/22 09:51 thoughts Surgical History History of cholecystectomy S/P CABG x 4 Social History household members: none Smoking Status: Former smoker substance use type: does not use Physical Exam Const alert, oriented x3 and no apparent distress General Appearance: cooperative HEENT normocephalic and head/scalp atraumatic Eyes PERRL and EOMs intact bilaterally Neck supple and No nodes Resp normal air movement and clear to auscultation bilaterally Cardio regular rate, regular rhythm and no murmurs GI soft to palpation, non-tender and non-distended Extremity Extremity Narrative: No focal joint pain or spine pain on palpation. General Extremity: edema Skin Skin Narrative: No splinter hemorrhages on fingers. R 2nd toe is black with surrounding swelling, redness, foul odor. L foot with ulcers/redness of toes. Neuro CN's II-XII intact bilaterally Lab / Micro Data Attestation: I reviewed the patient's lab results. Result Diagrams: 08/31/22 05:19 08/31/22 05:19 Labs: Laboratory Results - last 24 hr 08/30/22 10:10: WBC 16.1 H, RBC 3.98 L, Hgb 10.8 L, Hct 32.4 L, MCV 81.4, MCH 27 .1, MCHC 33.3, RDW Std Deviation 34.3 L, RDW Coeff of Hilda 11.7, Plt Count 323, MPV 9.4, Immature Gran % (Auto) 1.800 H, Neut % (Auto) 81.8 H, Lymph % (Auto) 7.4 L, [place] % (Auto) 8.7, Eos % (Auto) 0.1, Baso % (Auto) 0.2, Absolute Neuts (auto) 13.2 H, Absolute Lymphs (auto) 1.19, Nucleated RBC % 0, ESR 36 H 08/30/22 10:10: Sodium 126 L, Potassium 3.8, Chloride 91 L, Carbon Dioxide 24.0, Anion Gap 11, BUN 14, Creatinine 0.91, Estim Creat Clear Calc 50.00, Est GFR (MDRD) Af Amer 77, Est GFR (MDRD) Non-Af 64, BUN/Creatinine Ratio 15.3, Glucose 286 H, Calcium 9.2, Total Bilirubin 1.20 H, AST 37, ALT 35, Alkaline Phosphatase 110, Total Creatine Kinase 136, C-React Prot Ext Range 167.00 H, Total Protein 7.5, Albumin 2.2 L, Globulin 5.3 H, Albumin/Globulin Ratio 0.4 L 08/30/22 10:10: PT 18.4 H, INR 1.6, APTT 33.4 08/30/22 10:10: Lactic Acid 1.5 08/30/22 10:40: Urine Color Makenzie, Urine Clarity Sl Cldy, Urine pH 5.0, Ur Specific [place] 1.020, Urine Protein 30 H, Urine Glucose (UA) 1000 H, Urine Ketones 50 H, Urine Occult Blood 25 H, Urine Nitrite Negative, Urine Bilirubin Negative, Urine Urobilinogen 1 H, Ur Leukocyte Esterase 500 H, Urine RBC 0-5 SEEN, Urine WBC 50-100 SEEN, Ur Squamous Epith Cells 0 SEEN, Amorphous Sediment 1+, Urine Bacteria 0 SEEN, Fine Granular Casts 0-5 SEEN, Urine Mucus 0 SEEN 08/30/22 14:15: S.aureus Protein A PCR POSITIVE H, MRSA (PCR) POSITIVE H 08/30/22 17:13: POC Glucose 263 H 08/30/22 23:36: POC Glucose 222 H 08/31/22 04:25: POC Glucose 266 H 08/31/22 05:19: WBC 10.9, RBC 3.62 L, Hgb 9.6 L, Hct 30.0 L, MCV 82.9, MCH 26.5 L, MCHC 32.0, RDW Std Deviation 35.8, RDW Coeff of Hilda 11.8, Plt Count 257, MPV 9.3, Immature Gran % (Auto) 1.600 H, Neut % (Auto) 80.8 H, Lymph % (Auto) 6.8 L, [place] % (Auto) 8.7, Eos % (Auto) 1.7, Baso % (Auto) 0.4, Absolute Neuts (auto) 8.9 H, Absolute Lymphs (auto) 0.74 L, Nucleated RBC % 0 08/31/22 05:19: Sodium 133 L, Potassium 3.9, Chloride 101, Carbon Dioxide 24.0, Anion Gap 8, BUN 13, Creatinine 0.89, Estim Creat Clear Calc 51.13, Est GFR (MDRD) Af Amer 80, Est GFR (MDRD) Non-Af 66, BUN/Creatinine Ratio 14.6, Glucose 270 H, Calcium 8.4 L, Phosphorus 2.7, Magnesium 1.9 08/31/22 05:19: Hemoglobin A1c 12.1 H 08/31/22 06:36: POC Glucose 258 H 08/31/22 08:05: POC Glucose 248 H Micro: Microbiology 08/30/22 14:15 Wound Abcess - Right Foot Wound Culture - Preliminary Staphylococcus aureus 08/30/22 11:40 Urine, Clean Catch Urine Culture - Preliminary Staphylococcus aureus 08/30/22 10:10 Blood Culture (Wb) - Anticubital Right Bacteria Detection (PCR) - Final Staphylococcus aureus mecA Resistance Marker 08/30/22 10:10 Blood Culture (Wb) - Anticubital Right Blood Culture - Preliminary 08/30/22 10:30 Blood Culture (Wb) - Anticubital Left Blood Culture - Preliminary Rhythm Strip Rhythm Strip: Sinus Tach Rate: 108 Ectopy: None Radiology Impression Ankle X-Ray 08/30/22 11:00 IMPRESSION: Multiple surgical clips are seen in the soft tissues overlying the distal tibia. No acute abnormality is seen. Electronically Signed: Ronen Norris MD at 11:28 EST , Foot X-Ray 08/30/22 11:00 IMPRESSION: Prominent soft tissue swelling overlying the second toe with a small amount of air within the distal portion of the tibial. Mild irregularity of the distal phalanx of the second toe. Osteomyelitis should be ruled out. Soft tissue swelling. Electronically Signed: Ronen Norris MD at 11:28 EST Reading Location ID and State: [facility] / [place] , Service support , Chest X-Ray 08/30/22 11:05 IMPRESSION: Hyperinflation. The lungs are clear. Electronically Signed: Ronen Norris MD at 11:22 EST Reading Location ID and State: [facility] / [place] , Service support , Lower Extremity CT 08/30/22 12:38 IMPRESSION: Soft tissue swelling overlying the posterolateral aspect of the distal leg as well as the foot with air in the soft tissues. Diffuse soft tissue swelling of the foot with the ulcerated lesion and air in the soft tissues surrounding the distal portion of the second toe with findings suggestive of a erosive changes of the distal phalanx of the second toe suggestive of osteomyelitis. Electronically Signed: Ronen Norris MD at 13:17 EST Reading Location ID and State: [facility] / [place] , Service support ,
--- NOTE | 2022-08-31 13:00 | AMP_PTH ---
PATIENT: GREGORY VU LOC: [facility] U#:[id number] AGE/SX: 77/F ROOM: [facility] RE08/30/[address]: Dr. Prem Espino MD : [id number] BED: 1 DIS: 09/03/2022 SPEC #: [id number] RECD: 09/01/22 08:49 STATUS: GEOVANY REShawna #: [id number] TAMMIE: 08/31/22 13:[address]: Van Dee DEPT: SURGICAL PATHOLOGY RECD BY: Alexei Lacy ENTERED: 09/01/22 09:06 SP TYPE: Amputation OTHR DR: MD Dr. Moses Whitehead MD Tamara Faith Howard, LOW ALTITUDE [employer] DEFENSE GUNNER-C Tissues: A - TISSUE SURGICALLY REMOVED B - Toe, NOS Procedures: Decalcification bone/plaque Surgery Specimen Level IV HEADER OPERATION: Foot debridement with second toe amputation PRE-OP DIAGNOSIS: Acute osteomyelitis of toe of right foot, cellulitis of right lower limb TISSUE SUBMITTED: A ? Second metatarsal soft tissue, B - Second metatarsal bone MICROSCOPIC DIAGNOSIS A. Second metatarsal bone and tissue, amputation: Ulceration with associated acute and chronic inflammation, gangrenous necrosis and granulation. Bone with acute osteomyelitis. B. Second metatarsal bone, excision: Soft tissue with acute and chronic inflammation and granulation. Bone with no pathologic change. AM:merlin 09/06/2022 MICROSCOPIC DESCRIPTION Slides are reviewed. GROSS DESCRIPTION A - Received in fixative is one container labeled with the patient's name and designated second metatarsal soft tissue. The specimen consists of a portion of toe measuring 5.5 x 3 x 3.5 cm. The plantar surface shows extensive brownish-black ulceration consistent with gangrenous necrosis and covered with smith, purulent exudate. Also present in the container are multiple fragments of knox-white skin with underlying tissue measuring in aggregate 8 x 6 x 2 cm. Gear Lapping Machine Operator sections are submitted in three cassettes as follows: 1 - skin and soft tissue from ulcer from toe, 2 - detached pieces of soft tissue, 3 - bone after decalcification. B - Received in fixative is one container labeled with the patient's name and designated second metatarsal bone. The specimen consists of a piece of bone with attached soft tissue measuring 2.5 x 2 x 1.5 cm. Gear Lapping Machine Operator sections are submitted in two cassettes after decalcification. / CARRIE:merlin 09/01/2022 TC:2 CPT: 18380 x2, 20152 x2
--- NOTE | 2022-08-31 13:00 | CASEMGMT ---
RN CM NOTE: Pt out of room @ OR @ this time. Unable to complete initial RN CM assessment. Araceli BSN RN CM
--- NOTE | 2022-08-31 13:02 | SUR.PREOP ---
RECEIVED PHONE CALL FROM DR. TORRES TO ORDER STAT ECHO AND WILL READ.
[2022-08-31 13:26] LABS: Troponin-I HS 14 pg/mL (3.0-54.0)
[2022-08-31 13:39] LABS: Troponin-I HS 12 pg/mL (3.0-54.0)
--- NOTE | 2022-08-31 15:07 | CASEMGMT ---
RN CM attempted to complete assessment at this time. Patient is out of room and in surgery. CM will attempt to complete assessment at later time.
[2022-08-31] MEDS: Bupivacaine Mpf 0.5% 30 ML VIAL (16:37)
--- NOTE | 2022-08-31 16:59 | PCM.OPRPT ---
Report of Operation Date of Procedure: 08/31/22 Pre-Operative Diagnosis: Abscess, osteomyelitis, gangrene right foot Post-Operative Diagnosis: Same Surgery/Procedure Performed:: Incision, drainage, debridement of right foot - removing all nonviable soft tissue and bone - 2nd toe amputation, partial 2nd metatarsal resection - all right foot Surgeon: Van Dee digital computer systems analyst: None Type of Anesthesia: Local and MAC Specimen's removed: 1. Right 2nd metatarsal bone- sent to pathology and microbiology 2. Debrided abscess/soft tissue from right foot - sent to pathology and microbiology Estimated Blood Loss (mL): 10mL Description of Procedure: Indications: This is a 77 year old female with history of diabetes who presents for significant right foot ulceration and infection, and abscess, gangrene as well. Discussed with patient the options - antibiotics, wound care, as well as incision and drainage and debridement of the abscess, ulceration, gangrene and infections sites - this would include and 2nd toe amputation and possible 2nd metatarsal amputation. This was discussed with her in detail, reviewed rationale of this, as well as the possible benefits vs risks, goals, expectations and estimated course. Alternative options discussed and reviewed - antibiotics with no surgery, wound care. Reviewed possible benefits vs risks of each. She elected to proceed with the procedure of incision and drainage with debridement of all nonviable, infected and necrotic tissue from the right foot with right 2nd toe amputation, and possible 2nd metatarsal amputation. Advised the patient the risks include but not limited to pain, need for further procedures, swelling, delayed healing, nonhealing, worsening infection, blood clots, deformity, weakness, loss of limb, loss of life. She is at high risk of limb loss. The consent form was reviewed with her and she freely signed it.? Also of note patient relates she is suppose to start a new job in about 1 week - I advised patient it will likely taken months for her foot to heal - could be longer. I advised she will not be able to start a new job in which she will need to use her foot. No weightbearing until foot is healed. No guarantees were given nor implied. No warranties were given. Operative Procedure: The patient was brought back to the operating room and was placed on the operating room table in the supine position. A timeout was preformed and the patient was properly identified and the surgical plan was confirmed. The patient was secured to the operating room table with a safety belt around her waist as well. The patient was already on IV antibiotics - followed by Infectious Disease. The patient received MACl anesthesia per the anesthesia team. A well padded right ankle pneumatic tourniquet was applied around the right ankle. A local anesthesia block consisting of 20mL of 0.25% Bupivacaine plain was given around the right foot after the overlying skin was cleanse with 70% Isopropyl alcohol. The patient's right foot/ankle were scrubbed, prepped, and draped in the usual aseptic fashion. Further attention was directed to the patient's right foot/ankle - where there was significant cellulitis, there was visible abscess to the plantar central forefoot, there was necrotic 2nd toe which was very maloderous. The right foot was elevated for 3 minutes and the right ankle pneumatic tourniquet was inflated to 250mmHg. Using a 15 blade the abscess site was incised and there was significant purulence noted. The 2nd toe was disarticulated at the 2nd metatarsal phalangeal joint - the toe was very necrotic - it was severely gangrenous. There was significant purulence to the plantar forefoot and the infection was deep extending to the bone of the 2nd metatarsal. The 2nd metatarsal was nonviable as well and the distal portion of the 2nd metatarsal was resected. There was significant nonviable and necrotic infected soft tissue down to muscle layer plantar forefoot which was debrided and excised using a 15 blade, this was debrided down to healthy viable bleeding tissue. The debrided tissue was sent to microbiology and pathology. The site was flushed out with copious amounts of normal saline solution. Total area debrided was 8cm x 3cm and down to bone (5cm in depth). A betadine gauze wet to dry dressing was applied with overlying kerlix and keyona dressing. The pneumatic tourniquet was deflated- there was immediate return of perfusion to the right foot with CFT < 2 seconds to all toes. Total tourniquet time was 15 minutes. The patient was transported from the operating room to the recovery room with vital signs stable and in good condition. Post op orders placed. The patient will be followed as an inpatient. Grafts/Implants Used: None
--- NOTE | 2022-08-31 17:50 | RAD_ITS ---
STUDY: X-RAY - RIGHT FOOT CLINICAL: Female, 77 years old. Post op TECHNIQUE: 3 view(s) of the foot. COMPARISON: August 30, 2022 FINDINGS: Normal talus, calcaneus, and tarsal bones. Normal visualized subtalar, talonavicular, calcaneocuboid, tarsal and tarsometatarsal articulations. There is amputation of the second toe at the distal metatarsal. There is postoperative change in the soft tissues. Normal metatarsophalangeal joint of the great toe. Normal tibial and fibular sesamoid bones. Normal interphalangeal joint of the great toe. Normal phalanges of the great toe. There is arthrosis of the third through fifth metatarsophalangeal and interphalangeal joints. RAD/Foot min 3 Views IMPRESSION: Amputation of the second toe. Electronically Signed: Joel Cheek MD at 20:02 EST ,
[2022-08-31] MEDS: Clindamycin 600 MG/50 ML BAG 100 MG IV (22:09)
[2022-08-31] MEDS: Insulin Lispro 100 UNIT/ML INSULN.PEN SC (22:22)
[2022-08-31] MEDS: Famotidine 20 MG Tablet PO (22:24)
[2022-08-31 23:37] LABS: Vancomycin, Trough Level 14.7 ug/mL (5.0-15.0)
--- NOTE | 2022-08-31 23:43 | PCM.RX.CS ---
Consult Pharmacy has been consulted to manage selected antiobiotic: Vancomycin Type of Consult: Follow-up Suspected Infection: Osteomyelitis Prior Doses of Antibiotics Received/Current Regimen: Medications Vancomycin HCl 750 mg/ Sodium (Chloride) 265 mls @ 250 mls/hr IV Q12H EULOGIO Last Admin: 08/31/22 11:57 Dose: Infused Labs: Sodium 133 mmol/L (136-145) L 08/31/22 05:19 Potassium 3.9 mmol/L (3.5-5.1) 08/31/22 05:19 Chloride 101 mmol/L (98-107) 08/31/22 05:19 Carbon Dioxide 24.0 mmol/L (21.0-32.0) 08/31/22 05:19 Anion Gap 8 (5-15) 08/31/22 05:19 BUN 13 mg/dL (7-18) 08/31/22 05:19 Creatinine 0.89 mg/dL (0.55-1.02) 08/31/22 05:19 Est GFR (MDRD) Af Amer 80 mL/min (>60) 08/31/22 05:19 Est GFR (MDRD) Non-Af 66 mL/min (>60) 08/31/22 05:19 BUN/Creatinine Ratio 14.6 RATIO (10-20) 08/31/22 05:19 Glucose 270 mg/dL (74-106) H 08/31/22 05:19 Vancomycin Trough 14.7 ug/mL (5.0-15.0) 08/31/22 23:05 Microbiology: Microbiology 08/30/22 14:15 Wound Abcess - Right Foot Gram Stain - Final 08/30/22 14:15 Wound Abcess - Right Foot Wound Culture - Preliminary Staphylococcus aureus 08/30/22 11:40 Urine, Clean Catch Urine Culture - Preliminary Staphylococcus aureus 08/30/22 10:10 Blood Culture (Wb) - Anticubital Right Bacteria Detection (PCR) - Final Staphylococcus aureus mecA Resistance Marker 08/30/22 10:10 Blood Culture (Wb) - Anticubital Right Blood Culture - Preliminary 08/30/22 10:30 Blood Culture (Wb) - Anticubital Left Blood Culture - Preliminary Weight used for dosin.6 kg Estimated Creatinine Clearance: 61 Goal Trough: 15-20 mcg/mL Pharmacy Plan for Drug Dosing: Vancomycin trough level was 14.7, drawn 12.25hrs post-dose. This is just shy of the target range of 15-20. Will continue dosing at 750mg q12h, and re-draw a level in two days. Pharmacy Service will continue to monitor and adjust dosing as required. Follow-Up Labs: Trough Vancomycin Labs to be done on [date and time ordered]: 09/02/22 @2304
[2022-09-01] VITALS (8 sets, daily range): BP systolic 97–103; BP diastolic 37–52; PULSE 62–93; RESP 16–18; TEMP 36–36.7; O2SAT 94–98
[2022-09-01 02:47] LABS: Bedside Glucose 307 mg/dL (74-106)
[2022-09-01] MEDS: 0.9% Normal Saline 1,000 ML 125 ML IV ×2 (03:28→11:18)
[2022-09-01 04:36] LABS: Bedside Glucose 293 mg/dL (74-106)
[2022-09-01] MEDS: Clindamycin 600 MG/50 ML BAG 100 MG IV ×3 (05:08→21:06)
[2022-09-01 06:01] LABS: Absolute Lymphocyte Count 1.08 X10^3/uL (0.83-4.51); Absolute Neutrophil Count 5.4 X10^3/uL (2.0-7.7); Basophil# 0.03 X10^3/uL; Basophil% 0.4 % (0-1); Eosinophil# 0.13 X10^3/uL; Eosinophils% 1.7 % (0-5); Hematocrit 26.5 % (37-47); Hemoglobin 8.7 g/dL (12.0-15.0); Lymphocyte # 1.08 X10^3/ul (0.83-4.51); Lymphocyte % 14.5 % (19-41); Mean Corp Hgb Conc 32.8 g/dL (32-36); Mean Corpuscular Hgb 27.1 pg (27.0-32.0); Mean Corpuscular Volume 82.6 fL (81-99); Mean Platelet Vol. 9.1 fl (6.2-12.0); Monocyte# 0.72 X10^3/uL; Monocyte% 9.6 % (0-10); NRBC Flagged by Analyzer 0 % (0-5); Neutrophil # 5.41 X10^3/uL (2.7-7.7); Neutrophil % 72.5 % (47-70); Platelet Count 239 K/mm3 (150-450); RBC Distribution Width CV 11.8 % (11.6-14.6); RBC Distribution Width SD 35.8 fl (35.1-43.9); Red Blood Count 3.21 M/mm3 (4.2-5.4); White Blood Count 7.5 K/mm3 (4.4-11.0)
[2022-09-01] MEDS: Acetaminophen 500 MG Tablet 1000 MG PO ×3 (06:23→21:05)
[2022-09-01] MEDS: Levothyroxine 50 MCG Tablet PO (06:23)
[2022-09-01 06:39] LABS: Anion Gap 6 (5-15); BUN 10 mg/dL (7-18); BUN/Creat Ratio 10.1 RATIO (10-20); Calcium,Total 8.1 mg/dL (8.5-10.1); Chloride 102 mmol/L (98-107); EST Glomerular Filtration Rate 58 mL/min (>60); Est Glom Filt Rate - Afr Amer 70 mL/min (>60); Glucose 297 mg/dL (74-106); Potassium 3.9 mmol/L (3.5-5.1); Sodium Level 132 mmol/L (136-145)
[2022-09-01] MEDS: Insulin Lispro 100 UNIT/ML INSULN.PEN SC ×7 (08:20→21:06)
[2022-09-01] MEDS: Insulin Glargine-YFGN 100 UNIT/ML Pen 15 UNIT SC ×2 (08:21→16:45)
[2022-09-01] MEDS: Enoxaparin 40 MG/0.4 ML Syringe SC (08:23)
[2022-09-01] MEDS: FLUoxetine 20 MG Capsule 40 MG PO (08:23)
[2022-09-01] MEDS: Aspirin 81 MG TAB.CHEW PO (08:23)
[2022-09-01] MEDS: Famotidine 20 MG Tablet PO ×2 (08:23→21:06)
--- NOTE | 2022-09-01 08:25 | PN.HOSP_ITS ---
Subjective Subjective Follow-up diabetic foot ulcer Patient underwent incision, drainage, debridement of right foot - removing all nonviable soft tissue and bone - 2nd toe amputation, partial 2nd metatarsal resection - all right foot Objective Data Objective Data Vital Signs: Vital Signs Temp Pulse Resp BP Pulse Ox O2 Del Method 98.1 F 79 18 103/51 L 94 Room Air 09/01/22 03:39 09/01/22 03:39 09/01/22 03:39 09/01/22 03:39 09/01/22 03:39 09/01/22 06:55 Oxygen Delivery Method Room Air Weight: 87.6 kg Body Mass Index (BMI) 31.1 Intake & Output: Intake and Output for Last 24 Hours 08/30/22 08/31/22 09/01/22 23:59 23:59 23:59 Intake Total 3245.83 / 3245.83 2680 / 2680 1365 / 1365 Output Total 600 / 600 400 / 400 Balance 3245.83 / 3245.83 2080 / 2080 965 / 965 Lab / Micro Data Result Diagrams: 09/01/22 05:49 09/01/22 05:49 Labs: Laboratory Results - last 24 hr 08/31/22 05:19: Troponin I High Sens 14 08/31/22 08:05: POC Glucose 248 H 08/31/22 12:40: Troponin I High Sens 12 08/31/22 22:13: POC Glucose 307 H 08/31/22 23:05: Vancomycin Trough 14.7 09/01/22 03:26: POC Glucose 293 H 09/01/22 05:49: WBC 7.5, RBC 3.21 L, Hgb 8.7 L, Hct 26.5 L, MCV 82.6, MCH 27.1, MCHC 32.8, RDW Std Deviation 35.8, RDW Coeff of Hilda 11.8, Plt Count 239, MPV 9.1, Immature Gran % (Auto) 1.300 H, Neut % (Auto) 72.5 H, Lymph % (Auto) 14.5 L , Mayes % (Auto) 9.6, Eos % (Auto) 1.7, Baso % (Auto) 0.4, Absolute Neuts (auto) 5.4, Absolute Lymphs (auto) 1.08, Nucleated RBC % 0 09/01/22 05:49: Sodium 132 L, Potassium 3.9, Chloride 102, Carbon Dioxide 24.0, Anion Gap 6, BUN 10, Creatinine 1.00, Estim Creat Clear Calc 45.50, Est GFR (MDRD) Af Amer 70, Est GFR (MDRD) Non-Af 58 L, BUN/Creatinine Ratio 10.1, Glucose 297 H, Calcium 8.1 L Micro: Microbiology 08/30/22 14:15 Wound Abcess - Right Foot Gram Stain - Final 08/30/22 14:15 Wound Abcess - Right Foot Wound Culture - Preliminary Meth. resistant Staph. aureus Alpha hemolytic organism 08/30/22 11:40 Urine, Clean Catch Urine Culture - Final Meth. resistant Staph. aureus 08/30/22 10:30 Blood Culture (Wb) - Anticubital Left Blood Culture - Preliminary Staphylococcus aureus 08/30/22 10:10 Blood Culture (Wb) - Anticubital Right Bacteria Detection (PCR) - Final Staphylococcus aureus mecA Resistance Marker 08/30/22 10:10 Blood Culture (Wb) - Anticubital Right Blood Culture - Pr eliminary Meth. resistant Staph. aureus Radiography Diagnostic Testing: Radiology Impression Echocardiogram 08/31/22 09:43 Interpretation Summary The study was technically difficult. Contrast injection was performed. Based upon the 2D echocardiographic and contrast enhanced images obtained there appears to be grossly normal left ventricular size, wall motion, and systolic function. The estimated ejection fraction is 65 %. Trivial mitral valve insufficiency. Trivial tricuspid valve insufficiency. Mild focal aortic valve calcification. Trivial pulmonic valve insufficiency. Calcified aortic root. Epicardial fat. Right ventricular systolic pressure estimated to be 35 mmHg. Diastolic function is indeterminate. Ordering Physician: Moses Forbes Performed By: Fam Marin RCS Foot X-Ray 08/31/22 17:50 IMPRESSION: Amputation of the second toe. Electronically Signed: Joel Cheek MD at 20:02 EST , Rhythm Strip Rhythm Strip: Sinus Tach Rate: 108 Ectopy: None Physical Exam Narrative GENERAL: Very slow to respond HEENT: Atraumatic; normocephalic EYES; Anicteric, Normal Conjunctiva NECK; supple, normal thyroid, RESPIRATORY: Diminished to auscultation CARDIOVASCULAR: Regular S1 S2, GI: soft, normoactive bowel sounds, : No Renal angle tenderness; EXTREMITIES: Both feet in dressing MUSCULOSKELETAL: no muscle wasting NEURO: Awake; no lateralizing signs. SKIN: As described above PSYCH; Flat affect Assessment & Plan Assessment/Plan (1) Diabetic wet gangrene of the foot: (2) Acute osteomyelitis of toe of right foot: PLAN: Plan Patient is a 77-year-old lady with multiple comorbidities admitted with diabetic foot ulceration involving both feet with concern for osteomyelitis involving the second and toe of the right foot 1. Diabetic foot ulceration involving both feet with concern for osteomyelitis involving the second and 2 of the right foot secondary to MRSA infection. ? Patient has been admitted to a monitored bed managed with broad-spectrum antibiotic therapy with Zosyn and vancomycin. As part of her management CT of the foot was ordered results reviewed. Consult placed to podiatry and infectious disease. Response to therapy being monitored with daily CBC with differential - Cultures obtained so far came back positive for MRSA in the blood as well as i n the wound. Patient has been seen by both infectious disease and podiatry. Clindamycin added to patient's therapy. Plan is for patient to undergo right second toe amputation and debridement of right foot of all nonviable infected and necrotic tissue and bone 09/01/2022; patient underwent incision, drainage, debridement of right foot - removing all nonviable soft tissue and bone - 2nd toe amputation, partial 2nd metatarsal resection - all right foot 2. Chronic A-flutter ? Rate controlled patient placed on a monitored bed 3. Coronary artery disease ? Patient has history of CABG. Patient remained stable 4. Diabetes mellitus type 2 ? Uncontrolled with hyperglycemia. Patient was placed on long-acting insulin in addition to scheduled short acting insulin as well as Accu-Cheks before meals and at bedtime with sliding scale coverage was also placed on 1800 ADA diet 5. Hypothyroidism ? Patient is on levothyroxine did continue home dose 6. Hyponatremia ? Multifactorial including possible dehydration as well as patient hyperglycemia started on IV fluids daily monitoring with BMPs ordered 7. Dyslipidemia ? Patient is on simvastatin substituted with atorvastatin in the hospital 8. Depression ? Patient is on fluoxetine did continue 9. Class I obesity with BMI of 31.2 ? Weight loss advised 10. Anemia - Secondary to chronic disorder follows acute blood loss anemia following surgery. Monitoring H&H and transfuse if patient becomes symptomatic or hemoglobin falls below 7 11. DVT prophylaxis ? On Lovenox Time spent in the patient's overall evaluation,decision-making process, review of diagnostic data, adjustment of management, discussion with other providers, nursing nursing and ancillary staff involved in patient's care documentation, 36-minute minutes Charges/Coding Visit Charges Inpatient E&M: 05466 Subs Hosp L2
[2022-09-01 08:45] LABS: Bedside Glucose 291 mg/dL (74-106)
[2022-09-01] MEDS: oxyCODONE 5 MG Tablet PO (10:03)
--- NOTE | 2022-09-01 11:55 | CASEMGMT ---
RN CM Face to Face with patient for initial transition planning/care coordination assessment. RN CM introduced self and role at [facility]. Patient sitting in chair, alert and oriented. Patient willing to participate in assessment and is able to answer all questions appropriately. Care providers, pharmacy, and demographics verified. Patient wishes to discharge home, but is willing to go to SNF if recommended. RN CM reivewed therapy note and course of treatment with patient recommending short term SNF at discharge. Patient agreeable and SW updated. Patient states he has no further needs or concerns at this time. CM to follow for discharge planning needs that may arise. PCP: Eugenia Watson [facility] H[facility]DER Specialists: none Preferred Pharmacy: [facility] Insurance: [employer] [facility] Prescription Benefit: Yes Living Will/HPOA: Patient believe she does but is not sure who she has listed LNOK: friend Living Arrangements: Patient lives alone in a first floor apartment with no steps to enter. Patient states she has aide that assist her with ADLs at home. Transportation: insurance DME/HHC: Patient has shower chair, raised toilet, lift chair, grab bars, walker, wheelchair, hospital bed at home. NO previous HHC or SNF. Patient has aide services through [facility] 5days/week 7 hrs per day. Patient is active with [employer] [facility] [employer] services and [facility] as her CM. Disposition Plan: SNF pending acceptance and precert. Tameka DUFFY, RN, CM
[2022-09-01 12:10] LABS: Bedside Glucose 207 mg/dL (74-106)
--- NOTE | 2022-09-01 13:42 | PCM.PN.ID ---
Physical Exam Narrative Feeling better today, pain controlled, no fever. Const alert and no apparent distress Resp normal air movement and clear to auscultation bilaterally Cardio regular rate and regular rhythm GI soft to palpation, non-tender and non-distended Skin Skin Narrative: foot wrapped ID ID: Route of nutrition/ use of supplements: [] Nutritional Intake: [] IV Site: [] Zapata Catheter: [] Assessment & Plan Assessment/Plan (1) Diabetic wet gangrene of the foot: (2) Diabetes mellitus with diabetic polyneuropathy: (3) MRSA bacteremia: PLAN: MRSA bacteremia per PCR due to R foot gangrene - bcx, ucx, and wound cx with staph aureus. On vanc/zosyn, plus clinda for anti-toxin effect. OR 08/[address] Dee for source control. Will repeat bcx. No veg seen on TTE. No signs of metastatic infection on exam at this point. Will follow
--- NOTE | 2022-09-01 15:42 | CASEMGMT ---
Per RN CM patient is agreeable to placement short term at discharge. SW met with patient, introduced self and role at [facility]. Patient confirmed she is agreeable to going to a retirement facility. SW provided patient with?a list of retirement?providers including quality and resource use data and consistent with patient?s preferred geographic region, medical needs, and insurance network were provided from the [employer] Guide. [facility] choices were [facility]. SW told patient SW will make referrals and let her know when SW hears back. SW sent referral to [facility] via [employer]. Daniela Parker KAYAK MAKER THANH
--- NOTE | 2022-09-01 16:13 | WOUNDNOTE ---
wound photo: right foot
--- NOTE | 2022-09-01 16:13 | WOUNDNOTE ---
wound photo: right foot
--- NOTE | 2022-09-01 16:14 | WOUNDNOTE ---
wound photo: left foot
[2022-09-01 17:05] LABS: Bedside Glucose 178 mg/dL (74-106)
[2022-09-01] MEDS: Atorvastatin Calcium 20 MG Tablet PO (21:06)
[2022-09-01 23:21] LABS: Bedside Glucose 165 mg/dL (74-106)
--- NOTE | 2022-09-01 23:37 | PN_ITS ---
Subjective Subjective Patient was seen today for follow up on right foot. She relates the foot is feeling better. No complaints of f/c/n/v. Objective Data Objective Data Vital Signs: Vital Signs Temp Pulse Resp BP Pulse Ox O2 Del Method 97.1 F L 64 18 103/37 L 97 Room Air 09/01/22 20:57 09/01/22 20:57 09/01/22 20:57 09/01/22 20:57 09/01/22 20:57 09/01/22 20:57 Oxygen Delivery Method Room Air Weight: 87.6 kg Body Mass Index (BMI) 31.1 Intake & Output: Intake and Output for Last 24 Hours 08/30/22 08/31/22 09/01/22 23:59 23:59 23:59 Intake Total 3245.83 / 3245.83 2680 / 2680 3227.92 / 3227.92 Output Total 600 / 600 800 / 800 Balance 3245.83 / 3245.83 2080 / 2080 2427.92 / 2427.92 Lab / Micro Data Result Diagrams: 09/01/22 05:49 09/01/22 05:49 Labs: Laboratory Results - last 24 hr 08/31/22 22:13: POC Glucose 307 H 08/31/22 23:05: Vancomycin Trough 14.7 09/01/22 03:26: POC Glucose 293 H 09/01/22 05:49: WBC 7.5, RBC 3.21 L, Hgb 8.7 L, Hct 26.5 L, MCV 82.6, MCH 27.1, MCHC 32.8, RDW Std Deviation 35.8, RDW Coeff of Hilda 11.8, Plt Count 239, MPV 9.1, Immature Gran % (Auto) 1.300 H, Neut % (Auto) 72.5 H, Lymph % (Auto) 14.5 L , Roosevelt % (Auto) 9.6, Eos % (Auto) 1.7, Baso % (Auto) 0.4, Absolute Neuts (auto) 5.4, Absolute Lymphs (auto) 1.08, Nucleated RBC % 0 09/01/22 05:49: Sodium 132 L, Potassium 3.9, Chloride 102, Carbon Dioxide 24.0, Anion Gap 6, BUN 10, Creatinine 1.00, Estim Creat Clear Calc 45.50, Est GFR (MDRD) Af Amer 70, Est GFR (MDRD) Non-Af 58 L, BUN/Creatinine Ratio 10.1, Gluco se 297 H, Calcium 8.1 L 09/01/22 08:19: POC Glucose 291 H 09/01/22 11:16: POC Glucose 207 H 09/01/22 16:43: POC Glucose 178 H 09/01/22 21:05: POC Glucose 165 H Micro: Microbiology 08/31/22 17:14 Bone - 2nd Metatarsal Bone Gram Stain - Final 08/31/22 17:14 Bone - 2nd Metatarsal Bone Wound Culture - Preliminary Beta hemolytic organism 08/31/22 17:14 Tissue - 2nd Metatarsal Bone Gram Stain - Final 08/31/22 17:14 Tissue - 2nd Metatarsal Bone Wound Culture - Preliminary GNR non tube builder airplane Staphylococcus aureus 08/30/22 11:40 Urine, Clean Catch Urine Culture - Final Meth. resistant Staph. aureus 08/30/22 14:15 Wound Abcess - Right Foot Gram Stain - Final 08/30/22 14:15 Wound Abcess - Right Foot Wound Culture - Preliminary Meth. resistant Staph. aureus Alpha hemolytic organism 08/30/22 14:15 Wound Abcess - Right Foot Anaerobic Culture - Preliminary 08/30/22 10:30 Blood Culture (Wb) - Anticubital Left Blood Culture - Preliminary Staphylococcus aureus 08/30/22 10:10 Blood Culture (Wb) - Anticubital Right Bacteria Detection (PCR) - Final Staphylococcus aureus mecA Resistance Marker 08/30/22 10:10 Blood Culture (Wb) - Anticubital Right Blood Culture - Preliminary Meth. resistant Staph. aureus Radiography Diagnostic Testing: Radiology Impression Extremity Arterial Study 08/30/22 21:48 Interpretation Summary Triphasic Doppler waveforms are noted at ankle level bilaterally. Pulse-volume recordings appear satisfactory bilaterally. Resting ankle-brachial indices are normal bilaterally. There is no evidence of significant arterial occlusive disease in the lower extremities bilaterally. Ordering Physician: Van Dee Referring Physician: Eugenia Watson Performed By: Cheryl Gonsalez RDCS/RVT Rhythm Strip Rhythm Strip: Sinus Tach Rate: 108 Ectopy: None Physical Exam Const alert, oriented x3 and no apparent distress Constitutional Narrative: s/p debridement right foot. Dressing clean, dry and intact. No evidence of ischemia. Assessment & Plan Assessment/Plan (1) Acute osteomyelitis of toe of right foot: (2) Diabetes mellitus with diabetic polyneuropathy: (3) Type 2 diabetes mellitus with foot ulcer: (4) Cellulitis of right lower limb: PLAN: Plan Evaluation performed. Reviewed diagnostic data. s/p debridement right foot on 08/31/22. Follow culture culturs. Continue with antibiotic therapy - ID service following patient. Continue with ddaily wound care. Ordered LEAS to better assess vascular flow. Patient will need nursing facility placement. Podiatry will continue to follow.
[2022-09-02 03:58] VITALS: BP 98/35; PULSE 68; RESP 18; TEMP 36.4; O2SAT 96
[2022-09-02 04:00] VITALS: BP 98/35; PULSE 68; RESP 18; TEMP 36.4; O2SAT 97
[2022-09-02 05:29] LABS: Absolute Lymphocyte Count 0.82 X10^3/uL (0.83-4.51); Absolute Neutrophil Count 2.8 X10^3/uL (2.0-7.7); Basophil# 0.04 X10^3/uL; Basophil% 0.9 % (0-1); Eosinophils% 4.5 % (0-5); Hematocrit 27.6 % (37-47); Hemoglobin 8.9 g/dL (12.0-15.0); Lymphocyte # 0.82 X10^3/ul (0.83-4.51); Lymphocyte % 18.5 % (19-41); Mean Corp Hgb Conc 32.2 g/dL (32-36); Mean Corpuscular Hgb 27.1 pg (27.0-32.0); Mean Corpuscular Volume 84.1 fL (81-99); Mean Platelet Vol. 9.3 fl (6.2-12.0); Monocyte# 0.46 X10^3/uL; Monocyte% 10.4 % (0-10); NRBC Flagged by Analyzer 0 % (0-5); Neutrophil # 2.75 X10^3/uL (2.7-7.7); Neutrophil % 62.1 % (47-70); Platelet Count 253 K/mm3 (150-450); RBC Distribution Width CV 11.9 % (11.6-14.6); RBC Distribution Width SD 36.6 fl (35.1-43.9); Red Blood Count 3.28 M/mm3 (4.2-5.4); White Blood Count 4.4 K/mm3 (4.4-11.0)
[2022-09-02] MEDS: Acetaminophen 500 MG Tablet 1000 MG PO ×3 (06:00→21:02)
[2022-09-02] MEDS: Clindamycin 600 MG/50 ML BAG 100 MG IV ×3 (06:00→22:27)
[2022-09-02] MEDS: Levothyroxine 50 MCG Tablet PO (06:00)
[2022-09-02 06:11] LABS: Anion Gap 6 (5-15); BUN 10 mg/dL (7-18); BUN/Creat Ratio 9.2 RATIO (10-20); Calcium,Total 7.9 mg/dL (8.5-10.1); Chloride 106 mmol/L (98-107); Creatinine, Serum 1.09 mg/dL (0.55-1.02); EST Glomerular Filtration Rate 52 mL/min (>60); Est Glom Filt Rate - Afr Amer 63 mL/min (>60); Estimated Creatinine Clearance 41.75 ml/min; Glucose 272 mg/dL (74-106); Potassium 3.7 mmol/L (3.5-5.1); Sodium Level 134 mmol/L (136-145)
--- NOTE | 2022-09-02 08:06 | CASEMGMT ---
SW received a message via [employer] that patient was accepted at [facility]. Plan: [facility] when patient medically ready and insurance approves. Daniela LAW
[2022-09-02] MEDS: Insulin Lispro 100 UNIT/ML INSULN.PEN SC ×6 (09:03→17:20)
[2022-09-02] MEDS: Insulin Glargine-YFGN 100 UNIT/ML Pen 15 UNIT SC ×2 (09:05→17:23)
[2022-09-02] MEDS: Enoxaparin 40 MG/0.4 ML Syringe SC (09:10)
[2022-09-02] MEDS: FLUoxetine 20 MG Capsule 40 MG PO (09:11)
[2022-09-02] MEDS: Famotidine 20 MG Tablet PO ×2 (09:11→22:29)
[2022-09-02] MEDS: Aspirin 81 MG TAB.CHEW PO (09:11)
[2022-09-02 09:35] LABS: Bedside Glucose 280 mg/dL (74-106)
--- NOTE | 2022-09-02 09:59 | PCM.PN.ID ---
Physical Exam Narrative Feeling better, no fever, no abd pain Const alert and no apparent distress Resp normal air movement and clear to auscultation bilaterally Cardio regular rate and regular rhythm GI soft to palpation, non-tender and non-distended Skin Skin Narrative: foot wrapped ID ID: Route of nutrition/ use of supplements: [] Nutritional Intake: [] IV Site: [] Zapata Catheter: [] Assessment & Plan Assessment/Plan (1) Diabetic wet gangrene of the foot: (2) Diabetes mellitus with diabetic polyneuropathy: (3) MRSA bacteremia: PLAN: MRSA bacteremia per PCR due to R foot gangrene - bcx, ucx, and wound cx with MRSA. Surg cx also with enterobacter. On vanc/zosyn, plus clinda for anti-toxin effect. OR 08/[address] Dee for source control. Will repeat bcx. No veg seen on TTE. No signs of metastatic infection on exam at this point. Will follow
[2022-09-02 10:00] VITALS: BP 111/55; PULSE 69; RESP 17; TEMP 36.4; O2SAT 95
--- NOTE | 2022-09-02 10:22 | PCM.PN.HOSP ---
Subjective Subjective Follow-up diabetic foot ulcers Patient wound cultures so far positive for staph aureus as well as Enterobacter. Patient underwent TTE for his staph bacteremia negative for any vegetations. Objective Data Objective Data Vital Signs: Vital Signs Temp Pulse Resp BP Pulse Ox O2 Del Method 97.6 F L 68 18 98/35 L 97 Room Air 09/02/22 04:00 09/02/22 04:00 09/02/22 04:00 09/02/22 04:00 09/02/22 04:00 09/02/22 04:00 Oxygen Delivery Method Room Air Weight: 87.6 kg Body Mass Index (BMI) 31.1 Intake & Output: Intake and Output for Last 24 Hours 08/31/22 09/01/22 09/02/22 23:59 23:59 23:59 Intake Total 2680 / 2680 3227.92 / 3467.92 1186.25 / 1186.25 Output Total 600 / 600 800 / 800 Balance 2080 / 2080 2427.92 / 2667.92 1186.25 / 1186.25 Lab / Micro Data Result Diagrams: 09/02/22 05:04 09/02/22 05:04 Labs: Laboratory Results - last 24 hr 09/01/22 11:16: POC Glucose 207 H 09/01/22 16:43: POC Glucose 178 H 09/01/22 21:05: POC Glucose 165 H 09/02/22 05:04: WBC 4.4, RBC 3.28 L, Hgb 8.9 L, Hct 27.6 L, MCV 84.1, MCH 27.1, MCHC 32.2, RDW Std Deviation 36.6, RDW Coeff of Hilda 11.9, Plt Count 253, MPV 9.3, Immature Gran % (Auto) 3.600 H, Neut % (Auto) 62.1, Lymph % (Auto) 18.5 L, [place] % (Auto) 10.4 H, Eos % (Auto) 4.5, Baso % (Auto) 0.9, Absolute Neuts (auto) 2.8, Absolute Lymphs (auto) 0.82 L, Nucleated RBC % 0 09/02/22 05:04: Sodium 134 L, Potassium 3.7, Chloride 106, Carbon Dioxide 22.0, Anion Gap 6, BUN 10, Creatinine 1.09 H, Estim Creat Clear Calc 41.75, Est GFR (MDRD) Af Amer 63, Est GFR (MDRD) Non-Af 52 L, BUN/Creatinine Ratio 9.2 L, Glucose 272 H, Calcium 7.9 L 09/02/22 08:56: POC Glucose 280 H Micro: Microbiology 08/31/22 11:15 Blood Culture (Wb) - Right Wrist Blood Culture - Preliminary No growth in 48 hours. 08/31/22 17:14 Bone - 2nd Metatarsal Bone Gram Stain - Final 08/31/22 17:14 Bone - 2nd Metatarsal Bone Wound Culture - Preliminary Staphylococcus aureus 08/31/22 17:14 Tissue - 2nd Metatarsal Bone Gram Stain - Final 08/31/22 17:14 Tissue - 2nd Metatarsal Bone Wound Culture - Preliminary Enterobacter cloacae complex Staphylococcus aureus 08/30/22 14:15 Wound Abcess - Right Foot Gram Stain - Final 08/30/22 14:15 Wound Abcess - Right Foot Wound Culture - Preliminary Meth. resistant Staph. aureus Alpha hemolytic organism 08/30/22 10:30 Blood Culture (Wb) - Anticubital Left Blood Culture - Preliminary Staphylococcus aureus 08/30/22 10:10 Blood Culture (Wb) - Anticubital Right Bacteria Detection (PCR) - Final Staphylococcus aureus mecA Resistance Marker 08/30/22 10:10 Blood Culture (Wb) - Anticubital Right Blood Culture - Final Meth. resistant Staph. aureus 08/30/22 11:40 Urine, Clean Catch Urine Culture - Final Meth. resistant Staph. aureus Radiography Diagnostic Testing: Radiology Impression Extremity Arterial Study 08/30/22 21:48 Interpretation Summary Triphasic Doppler waveforms are noted at ankle level bilaterally. Pulse-volume recordings appear satisfactory bilaterally. Resting ankle-brachial indices are normal bilaterally. There is no evidence of significant arterial occlusive disease in the lower extremities bilaterally. Ordering Physician: Van Dee Referring Physician: Eugenia Watson Performed By: Cheryl Gonsalez RDCS/RVT Rhythm Strip Rhythm Strip: Sinus Tach Rate: 108 Ectopy: None Physical Exam Narrative GENERAL: Very slow to respond HEENT: Atraumatic; normocephalic EYES; Anicteric, Normal Conjunctiva NECK; supple, normal thyroid, RESPIRATORY: Diminished to auscultation CARDIOVASCULAR: Regular S1 S2, GI: soft, normoactive bowel sounds, : No Renal angle tenderness; EXTREMITIES: Both feet in dressing MUSCULOSKELETAL: no muscle wasting NEURO: Awake; no lateralizing signs. SKIN: As described above PSYCH; Flat affect Assessment & Plan Assessment/Plan (1) Diabetic wet gangrene of the foot: (2) Acute osteomyelitis of toe of right foot: PLAN: Plan Patient is a 77-year-old lady with multiple comorbidities admitted with diabetic foot ulceration involving both feet with concern for osteomyelitis involving the second and toe of the right foot 1. Diabetic foot ulceration involving both feet with concern for osteomyelitis involving the second and 2 of the right foot secondary to MRSA infection. ? Patient has been admitted to a monitored bed managed with broad-spectrum antibiotic therapy with Zosyn and vancomycin. As part of her management CT of the foot was ordered results reviewed. Consult placed to podiatry and infectious disease. Response to therapy being monitored with daily CBC with differential - Cultures obtained so far came back positive for MRSA in the blood as well as in the wound. Patient has been seen by both infectious disease and podiatry. Clindamycin added to patient's therapy. Plan is for patient to undergo right second toe amputation and debridement of right foot of all nonviable infected and necrotic tissue and bone 09/01/2022; patient underwent incision, drainage, debridement of right foot - removing all nonviable soft tissue and bone - 2nd toe amputation, partial 2nd metatarsal resection - all right foot ?09/02/2022;Patient wound cultures so far positive for staph aureus as well as Enterobacter. Patient underwent TTE for his staph bacteremia negative for any vegetations. 2. Chronic A-flutter ? Rate controlled patient placed on a monitored bed 3. Coronary artery disease ? Patient has history of CABG. Patient remained stable 4. Diabetes mellitus type 2 ? Uncontrolled with hyperglycemia. Patient was placed on long-acting insulin in addition to scheduled short acting insulin as well as Accu-Cheks before meals and at bedtime with sliding scale coverage was also placed on 1800 ADA diet 5. Hypothyroidism ? Patient is on levothyroxine did continue home dose 6. Hyponatremia ? Multifactorial including possible dehydration as well as patient hyperglycemia started on IV fluids daily monitoring with BMPs ordered ? 09/02/2022; sodium levels up to 134 7. Dyslipidemia ? Patient is on simvastatin substituted with atorvastatin in the hospital 8. Depression ? Patient is on fluoxetine did continue 9. Class I obesity with BMI of 31.2 ? Weight loss advised 10. Anemia - Secondary to chronic disorder follows acute blood loss anemia following surgery. Monitoring H&H and transfuse if patient becomes symptomatic or hemoglobin falls below 7 11. DVT prophylaxis ? On Lovenox 12. Physical deconditioning - Requested for PT OT eval and director of social media marketing to assist with discharge planning Time spent in the patient's overall evaluation,decision-making process, review of diagnostic data, adjustment of management, discussion with other providers, nursing nursing and ancillary staff involved in patient's care documentation, 36-minute minutes Charges/Coding Visit Charges Inpatient E&M: 56123 Subs Hosp L2
[2022-09-02 11:51] LABS: Bedside Glucose 231 mg/dL (74-106)
--- NOTE | 2022-09-02 12:25 | CASEMGMT ---
Patient was approved by insurance to go to [facility]. LURDES asked Carrie how long the pre-cert is good. Daniela Parker MSW THANH
[2022-09-02] MEDS: 0.9% Normal Saline 1,000 ML 125 ML IV (14:38)
--- NOTE | 2022-09-02 14:48 | CASEMGMT ---
Patient's pre-cert is good for 5 days. Plan: d/c to [facility] [place] when ready. Daniela Parker MSW THANH
--- NOTE | 2022-09-02 15:21 | WOUNDNOTE ---
wound photo: right foot
--- NOTE | 2022-09-02 15:22 | WOUNDNOTE ---
wound photo: right foot
--- NOTE | 2022-09-02 15:22 | WOUNDNOTE ---
wound photo: left foot
--- NOTE | 2022-09-02 15:23 | WOUNDNOTE ---
wound photo: left foot
--- NOTE | 2022-09-02 15:41 | PCM.PROGNOTE ---
Subjective Subjective Patient was seen today. No complaints. WBC normal. Patient afebrile. Objective Data Objective Data Vital Signs: Vital Signs Temp Pulse Resp BP Pulse Ox O2 Del Method 97.6 F L 69 17 111/55 L 95 Room Air 09/02/22 10:00 09/02/22 10:00 09/02/22 10:00 09/02/22 10:00 09/02/22 10:00 09/02/22 10:00 Oxygen Delivery Method Room Air Weight: 87.6 kg Body Mass Index (BMI) 31.1 Intake & Output: Intake and Output for Last 24 Hours 08/31/22 09/01/22 09/02/22 23:59 23:59 23:59 Intake Total 2680 / 2680 3227.92 / 3467.92 1551.25 / 1551.25 Output Total 600 / 600 800 / 800 Balance 2080 / 2080 2427.92 / 2667.92 1551.25 / 1551.25 Lab / Micro Data Result Diagrams: 09/02/22 05:04 09/02/22 05:04 Labs: Laboratory Results - last 24 hr 09/01/22 16:43: POC Glucose 178 H 09/01/22 21:05: POC Glucose 165 H 09/02/22 05:04: WBC 4.4, RBC 3.28 L, Hgb 8.9 L, Hct 27.6 L, MCV 84.1, MCH 27.1, MCHC 32.2, RDW Std Deviation 36.6, RDW Coeff of Hilda 11.9, Plt Count 253, MPV 9.3, Immature Gran % (Auto) 3.600 H, Neut % (Auto) 62.1, Lymph % (Auto) 18.5 L, [place] % (Auto) 10.4 H, Eos % (Auto) 4.5, Baso % (Auto) 0.9, Absolute Neuts (auto) 2.8, Absolute Lymphs (auto) 0.82 L, Nucleated RBC % 0 09/02/22 05:04: Sodium 134 L, Potassium 3.7, Chloride 106, Carbon Dioxide 22.0, Anion Gap 6, BUN 10, Creatinine 1.09 H, Estim Creat Clear Calc 41.75, Est GFR (MDRD) Af Amer 63, Est GFR (MDRD) Non-Af 52 L, BUN/Creatinine Ratio 9.2 L, Glucose 272 H, Calcium 7.9 L 09/02/22 08:56: POC Glucose 280 H 09/02/22 11:28: POC Glucose 231 H Micro: Microbiology 08/31/22 17:14 Tissue - 2nd Metatarsal Bone Gram Stain - Final 08/31/22 17:14 Tissue - 2nd Metatarsal Bone Wound Culture - Preliminary Enterobacter cloacae complex Staphylococcus aureus 08/31/22 11:15 Blood Culture (Wb) - Right Wrist Blood Culture - Preliminary No growth in 48 hours. 08/31/22 17:14 Bone - 2nd Metatarsal Bone Gram Stain - Final 08/31/22 17:14 Bone - 2nd Metatarsal Bone Wound Culture - Preliminary Staphylococcus aureus 08/30/22 14:15 Wound Abcess - Right Foot Gram Stain - Final 08/30/22 14:15 Wound Abcess - Right Foot Wound Culture - Preliminary Meth. resistant Staph. aureus Alpha hemolytic organism 08/30/22 10:30 Blood Culture (Wb) - Anticubital Left Blood Culture - Preliminary Staphylococcus aureus 08/30/22 10:10 Blood Culture (Wb) - Anticubital Right Bacteria Detection (PCR) - Final Staphylococcus aureus mecA Resistance Marker 08/30/22 10:10 Blood Culture (Wb) - Anticubital Right Blood Culture - Final Meth. resistant Staph. aureus 08/30/22 11:40 Urine, Clean Catch Urine Culture - Final Meth. resistant Staph. aureus Radiography Diagnostic Testing: Radiology Impression Extremity Arterial Study 08/30/22 21:48 Interpretation Summary Triphasic Doppler waveforms are noted at ankle level bilaterally. Pulse-volume recordings appear satisfactory bilaterally. Resting ankle-brachial indices are normal bilaterally. There is no evidence of significant arterial occlusive disease in the lower extremities bilaterally. Ordering Physician: Van Dee Referring Physician: Eugenia Watson Performed By: Cheryl Gonsalez RDCS/RVT Rhythm Strip Rhythm Strip: Sinus Tach Rate: 108 Ectopy: None Physical Exam Narrative Dressings bilateral feet clean, dry and intact - reviewed wound photos which were taken today -right foot improved. Left foot stable. Const alert, oriented x3 and no apparent distress Constitutional Narrative: s/p debridement right foot. Dressing clean, dry and intact. No evidence of ischemia. Assessment & Plan Assessment/Plan (1) Acute osteomyelitis of toe of right foot: (2) Diabetes mellitus with diabetic polyneuropathy: (3) Type 2 diabetes mellitus with foot ulcer: (4) Cellulitis of right lower limb: PLAN: Plan Evaluation performed. Reviewed diagnostic data. s/p debridement right foot on 08/31/22. Follow cultures. Continue with antibiotic therapy - ID service following patient. Continue with daily wound care. No weightbearing to right forefoot. Reviewed LEAS - good arterial flow to feet noted. Patient will need nursing facility placement. Podiatry will continue to follow.
[2022-09-02 16:00] VITALS: BP 111/55; PULSE 69; RESP 17; TEMP 36.4; O2SAT 95
[2022-09-02 17:45] LABS: Bedside Glucose 166 mg/dL (74-106)
[2022-09-02 18:01] VITALS: BP 114/54; PULSE 67; RESP 17; TEMP 36.8; O2SAT 99
[2022-09-02 22:15] VITALS: BP 95/48; PULSE 70; RESP 20; TEMP 36.6; O2SAT 99
[2022-09-02] MEDS: Atorvastatin Calcium 20 MG Tablet PO (22:27)
[2022-09-02] MEDS: oxyCODONE 5 MG Tablet PO (22:27)
[2022-09-02 23:00] LABS: Bedside Glucose 140 mg/dL (74-106)
[2022-09-02 23:46] LABS: Vancomycin, Trough Level 20.2 ug/mL (5.0-15.0)
--- NOTE | 2022-09-03 00:20 | PCM.RX.CS ---
Consult Pharmacy has been consulted to manage selected antiobiotic: Vancomycin Type of Consult: Follow-up Labs: Sodium 134 mmol/L (136-145) L 09/02/22 05:04 Potassium 3.7 mmol/L (3.5-5.1) 09/02/22 05:04 Chloride 106 mmol/L (98-107) 09/02/22 05:04 Carbon Dioxide 22.0 mmol/L (21.0-32.0) 09/02/22 05:04 Anion Gap 6 (5-15) 09/02/22 05:04 BUN 10 mg/dL (7-18) 09/02/22 05:04 Creatinine 1.09 mg/dL (0.55-1.02) H 09/02/22 05:04 Est GFR (MDRD) Af Amer 63 mL/min (>60) 09/02/22 05:04 Est GFR (MDRD) Non-Af 52 mL/min (>60) L 09/02/22 05:04 BUN/Creatinine Ratio 9.2 RATIO (10-20) L 09/02/22 05:04 Glucose 272 mg/dL (74-106) H 09/02/22 05:04 Vancomycin Trough 20.2 ug/mL (5.0-15.0) H 09/02/22 23:05 Microbiology: Microbiology 08/31/22 17:14 Tissue - 2nd Metatarsal Bone Gram Stain - Final 08/31/22 17:14 Tissue - 2nd Metatarsal Bone Wound Culture - Preliminary Enterobacter cloacae complex Staphylococcus aureus 08/31/22 11:15 Blood Culture (Wb) - Right Wrist Blood Culture - Preliminary No growth in 48 hours. 08/31/22 17:14 Bone - 2nd Metatarsal Bone Gram Stain - Final 08/31/22 17:14 Bone - 2nd Metatarsal Bone Wound Culture - Preliminary Staphylococcus aureus 08/30/22 14:15 Wound Abcess - Right Foot Gram Stain - Final 08/30/22 14:15 Wound Abcess - Right Foot Wound Culture - Preliminary Meth. resistant Staph. aureus Alpha hemolytic organism 08/30/22 10:30 Blood Culture (Wb) - Anticubital Left Blood Culture - Preliminary Staphylococcus aureus 08/30/22 10:10 Blood Culture (Wb) - Anticubital Right Bacteria Detection (PCR) - Final Staphylococcus aureus mecA Resistance Marker 08/30/22 10:10 Blood Culture (Wb) - Anticubital Right Blood Culture - Final Meth. resistant Staph. aureus 08/30/22 11:40 Urine, Clean Catch Urine Culture - Final Meth. resistant Staph. aureus Goal Trough: 15-20 mcg/mL Pharmacy Plan for Drug Dosing: Pharmacy Service will continue to monitor and adjust dosing as required. TROUGH 20.2 @ 11 HOURS. NO CHANGES, FOLLOW UP TROUGH IN 1 DAY Follow-Up Labs: Trough Vancomycin Labs to be done on [date and time ordered]: 09/03 @ 2300
[2022-09-03] MEDS: oxyCODONE 5 MG Tablet PO (03:57)
[2022-09-03] MEDS: 0.9% Normal Saline 1,000 ML 125 ML IV ×2 (03:58→11:31)
[2022-09-03 04:02] VITALS: BP 120/78; PULSE 61; RESP 18; TEMP 36.6; O2SAT 100
[2022-09-03] MEDS: Clindamycin 600 MG/50 ML BAG 100 MG IV (05:55)
[2022-09-03] MEDS: Acetaminophen 500 MG Tablet 1000 MG PO ×2 (05:56→14:04)
[2022-09-03] MEDS: Levothyroxine 50 MCG Tablet PO (05:56)
--- NOTE | 2022-09-03 06:20 | EKG12_ITS ---
Test Reason : CP Blood Pressure : / mmHG Vent. Rate : 064 BPM Atrial Rate : 000 BPM P-R Int : 000 ms QRS Dur : 080 ms QT Int : 374 ms P-R-T Axes : 000 065 -08 degrees QTc Int : 385 ms Atrial fibrillation Low voltage QRS Septal infarct , age undetermined Abnormal ECG When compared with ECG of 30-AUG-2022 10:11, Significant changes have occurred Confirmed by ION GARZA, JESUS ([id number]), fan mail editor MARTIN MONTES ([id number]) on 09/06/2022 9:26:48 AM Referred By: GLENDY Confirmed By:JESUS LEMON MD
[2022-09-03 06:40] LABS: Absolute Lymphocyte Count 1.49 X10^3/uL (0.83-4.51); Absolute Neutrophil Count 3.2 X10^3/uL (2.0-7.7); Basophil# 0.08 X10^3/uL; Basophil% 1.4 % (0-1); Eosinophils% 3.6 % (0-5); Hematocrit 34.5 % (37-47); Hemoglobin 10.9 g/dL (12.0-15.0); Lymphocyte # 1.49 X10^3/ul (0.83-4.51); Lymphocyte % 26.6 % (19-41); Mean Corp Hgb Conc 31.6 g/dL (32-36); Mean Corpuscular Hgb 27.2 pg (27.0-32.0); Mean Platelet Vol. 9.1 fl (6.2-12.0); Monocyte# 0.39 X10^3/uL; NRBC Flagged by Analyzer 0 % (0-5); Neutrophil # 3.23 X10^3/uL (2.7-7.7); Neutrophil % 57.5 % (47-70); Platelet Count 303 K/mm3 (150-450); RBC Distribution Width CV 12.3 % (11.6-14.6); RBC Distribution Width SD 38.5 fl (35.1-43.9); Red Blood Count 4.01 M/mm3 (4.2-5.4); White Blood Count 5.6 K/mm3 (4.4-11.0)
--- NOTE | 2022-09-03 06:47 | NURSING ---
pt c/o chest pain. initially told this rn it was positional from how she was laying in bed. later pt said the pain was persistent. ekg obtained. nitro offered and pt refused.
[2022-09-03 07:14] LABS: Anion Gap 10 (5-15); BUN 8 mg/dL (7-18); BUN/Creat Ratio 6.8 RATIO (10-20); Chloride 113 mmol/L (98-107); Creatinine, Serum 1.18 mg/dL (0.55-1.02); EST Glomerular Filtration Rate 48 mL/min (>60); Est Glom Filt Rate - Afr Amer 57 mL/min (>60); Estimated Creatinine Clearance 38.56 ml/min; Glucose 100 mg/dL (74-106); Potassium 3.3 mmol/L (3.5-5.1); Sodium Level 140 mmol/L (136-145)
[2022-09-03 07:15] LABS: Calcium,Total 8.3 mg/dL (8.5-10.1)
--- NOTE | 2022-09-03 07:41 | PN_ITS ---
Subjective Subjective Patient was seen this morning for follow up on foot ulcers. She is resting in bed. No new complaints. Possible d/c to nursing facility today. No f/c/n/v. Objective Data Objective Data Vital Signs: Vital Signs Temp Pulse Resp BP Pulse Ox O2 Del Method 97.9 F 61 18 120/78 100 Room Air 09/03/22 04:02 09/03/22 04:02 09/03/22 04:02 09/03/22 04:02 09/03/22 04:02 09/03/22 04:02 Oxygen Delivery Method Room Air Weight: 87.6 kg Body Mass Index (BMI) 31.1 Intake & Output: Intake and Output for Last 24 Hours 09/01/22 09/02/22 09/03/22 23:59 23:59 23:59 Intake Total 3227.92 / 3467.92 2447.08 / 2687.08 919.58 / 919.58 Output Total 800 / 800 Balance 2427.92 / 2667.92 2447.08 / 2687.08 919.58 / 919.58 Lab / Micro Data Result Diagrams: 09/03/22 06:30 09/03/22 06:30 Labs: Laboratory Results - last 24 hr 09/02/22 08:56: POC Glucose 280 H 09/02/22 11:28: POC Glucose 231 H 09/02/22 17:16: POC Glucose 166 H 09/02/22 22:31: POC Glucose 140 H 09/02/22 23:05: Vancomycin Trough 20.2 H 09/03/22 06:30: WBC 5.6, RBC 4.01 L, Hgb 10.9 L, Hct 34.5 L, MCV 86.0, MCH 27.2, MCHC 31.6 L, RDW Std Deviation 38.5, RDW Coeff of [place] 12.3, Plt Count 303, MPV 9.1, Immature Gran % (Auto) 3.900 H, Neut % (Auto) 57.5, Lymph % (Auto) 26.6, [place] % (Auto) 7.0, Eos % (Auto) 3.6, Baso % (Auto) 1.4 H, Absolute Neuts (auto) 3.2, Absolute Lymphs (auto) 1.49, Nucleated RBC % 0 09/03/22 06:30: Sodium 140, Potassium 3.3 L, Chloride 113 H, Carbon Dioxide 17.0 L, Anion Gap 10, BUN 8, Creatinine 1.18 H, Estim Creat Clear Calc 38.56, Est GFR (MDRD) Af Amer 57 L, Est GFR (MDRD) Non-Af 48 L, BUN/Creatinine Ratio 6.8 L, Glucose 100, Calcium 8.3 L Micro: Microbiology 08/31/22 17:14 Tissue - 2nd Metatarsal Bone Gram Stain - Final 08/31/22 17:14 Tissue - 2nd Metatarsal Bone Wound Culture - Final Enterobacter cloacae complex Meth. resistant Staph. aureus 08/31/22 17:14 Bone - 2nd Metatarsal Bone Gram Stain - Final 08/31/22 17:14 Bone - 2nd Metatarsal Bone Wound Culture - Final Meth. resistant Staph. aureus Pseudomonas aeroginosa 08/31/22 11:15 Blood Culture (Wb) - Right Wrist Blood Culture - Preliminary No growth in 48 hours. 08/30/22 14:15 Wound Abcess - Right Foot Gram Stain - Final 08/30/22 14:15 Wound Abcess - Right Foot Wound Culture - Preliminary Meth. resistant Staph. aureus Alpha hemolytic organism 08/30/22 10:30 Blood Culture (Wb) - Anticubital Left Blood Culture - Preliminary Staphylococcus aureus 08/30/22 10:10 Blood Culture (Wb) - Anticubital Right Bacteria Detection (PCR) - Final Staphylococcus aureus mecA Resistance Marker 08/30/22 10:10 Blood Culture (Wb) - Anticubital Right Blood Culture - Final Meth. resistant Staph. aureus 08/30/22 11:40 Urine, Clean Catch Urine Culture - Final Meth. resistant Staph. aureus Rhythm Strip Rhythm Strip: Sinus Tach Rate: 108 Ectopy: None Physical Exam Narrative Right foot - s/p forefoot debridement with 2nd toe amputation - tissues healthy and viable, no purulence, no fluctuance, no crepitus, erythema significantly improved - site healing. Left foot with ulcer 1st and 2nd toes - healing and stable with no evidence of infection. Const alert, oriented x3 and no apparent distress Assessment & Plan Assessment/Plan (1) Acute osteomyelitis of toe of right foot: (2) Diabetes mellitus with diabetic polyneuropathy: (3) Type 2 diabetes mellitus with foot ulcer: (4) Cellulitis of right lower limb: PLAN: Plan Evaluation performed. Reviewed diagnostic data. s/p debridement right foot on 08/31/22. Improvement noted. Continue with antibiotic therapy - ID service following patient. Continue with daily wound care. No weightbearing to right forefoot. Reviewed LEAS - good arterial flow to feet noted. Patient will need nursing facility placement. Podiatry will continue to follow.
[2022-09-03] MEDS: Aspirin 81 MG TAB.CHEW PO (07:56)
[2022-09-03] MEDS: FLUoxetine 20 MG Capsule 40 MG PO (07:56)
[2022-09-03] MEDS: Famotidine 20 MG Tablet PO (07:57)
[2022-09-03 08:08] VITALS: O2SAT 99
[2022-09-03 08:10] LABS: Bedside Glucose 103 mg/dL (74-106)
--- NOTE | 2022-09-03 09:30 | CASEMGMT ---
Addendum entered by Daniela Parker 09/03/22 09:40: Wound vac order sent to [facility] via [employer]. Original Note: Per wound RN patient will need a wound vac. LURDES sent a message to Carrie at [facility] via [employer] letting her know this information. Carrie said that is fine they have one on hand. will send order for wound vac. Plan: d/c to [facility] [place] when medically ready. Per-cert received. Daniela Parker LINER CHECKER THANH
[2022-09-03] MEDS: Enoxaparin 40 MG/0.4 ML Syringe SC (10:22)
[2022-09-03] MEDS: Insulin Glargine-YFGN 100 UNIT/ML Pen 15 UNIT SC ×2 (10:22→16:13)
[2022-09-03 10:25] VITALS: BP 116/71; PULSE 79; RESP 18; TEMP 36.6; O2SAT 98
[2022-09-03 10:50] LABS: Bedside Glucose 98 mg/dL (74-106)
--- NOTE | 2022-09-03 11:46 | PCM.PN.HOSP ---
Subjective Subjective To be assessed for possible discharge Objective Data Objective Data Vital Signs: Vital Signs Temp Pulse Resp BP Pulse Ox O2 Del Method 97.9 F 79 18 116/71 98 Room Air 09/03/22 10:25 09/03/22 10:25 09/03/22 10:25 09/03/22 10:25 09/03/22 10:25 09/03/22 10:25 Oxygen Delivery Method Room Air Weight: 87.6 kg Body Mass Index (BMI) 31.1 Intake & Output: Intake and Output for Last 24 Hours 09/01/22 09/02/22 09/03/22 23:59 23:59 23:59 Intake Total 3227.92 / 3467.92 2447.08 / 2687.08 1471.66 / 1471.66 Output Total 800 / 800 Balance 2427.92 / 2667.92 2447.08 / 2687.08 1471.66 / 1471.66 Lab / Micro Data Result Diagrams: 09/03/22 06:30 09/03/22 06:30 Labs: Laboratory Results - last 24 hr 09/02/22 11:28: POC Glucose 231 H 09/02/22 17:16: POC Glucose 166 H 09/02/22 22:31: POC Glucose 140 H 09/02/22 23:05: Vancomycin Trough 20.2 H 09/03/22 06:30: WBC 5.6, RBC 4.01 L, Hgb 10.9 L, Hct 34.5 L, MCV 86.0, MCH 27.2, MCHC 31.6 L, RDW Std Deviation 38.5, RDW Coeff of Hilda 12.3, Plt Count 303, MPV 9.1, Immature Gran % (Auto) 3.900 H, Neut % (Auto) 57.5, Lymph % (Auto) 26.6, Geary % (Auto) 7.0, Eos % (Auto) 3.6, Baso % (Auto) 1.4 H, Absolute Neuts (auto) 3.2, Absolute Lymphs (auto) 1.49, Nucleated RBC % 0 09/03/22 06:30: Sodium 140, Potassium 3.3 L, Chloride 113 H, Carbon Dioxide 17.0 L, Anion Gap 10, BUN 8, Creatinine 1.18 H, Estim Creat Clear Calc 38.56, Est GFR (MDRD) Af Amer 57 L, Est GFR (MDRD) Non-Af 48 L, BUN/Creatinine Ratio 6.8 L, Glucose 100, Calcium 8.3 L 09/03/22 07:47: POC Glucose 103 09/03/22 10:30: POC Glucose 98 Micro: Microbiology 08/31/22 17:14 Tissue - 2nd Metatarsal Bone Gram Stain - Final 08/31/22 17:14 Tissue - 2nd Metatarsal Bone Wound Culture - Final Enterobacter cloacae complex Meth. resistant Staph. aureus 08/31/22 17:14 Tissue - 2nd Metatarsal Bone Anaerobic Culture - Preliminary 08/31/22 17:14 Bone - 2nd Metatarsal Bone Gram Stain - Final 08/31/22 17:14 Bone - 2nd Metatarsal Bone Wound Culture - Final Meth. resistant Staph. aureus Pseudomonas aeroginosa 08/31/22 17:14 Bone - 2nd Metatarsal Bone Anaerobic Culture - Preliminary 09/01/22 13:25 Blood Culture (Wb) - Anticubital Right Blood Culture - Preliminary No growth in 48 hours. 08/30/22 14:15 Wound Abcess - Right Foot Gram Stain - Final 08/30/22 14:15 Wound Abcess - Right Foot Wound Culture - Final Meth. resistant Staph. aureus Alpha hemolytic organism 08/31/22 11:15 Blood Culture (Wb) - Right Wrist Blood Culture - Preliminary No growth in 48 hours. 08/30/22 10:30 Blood Culture (Wb) - Anticubital Left Blood Culture - Preliminary Staphylococcus aureus 08/30/22 10:10 Blood Culture (Wb) - Anticubital Right Bacteria Detection (PCR) - Final Staphylococcus aureus mecA Resistance Marker 08/30/22 10:10 Blood Culture (Wb) - Anticubital Right Blood Culture - Final Meth. resistant Staph. aureus 08/30/22 11:40 Urine, Clean Catch Urine Culture - Final Meth. resistant Staph. aureus Rhythm Strip Rhythm Strip: Sinus Tach Rate: 108 Ectopy: None Physical Exam Narrative GENERAL: Very slow to respond HEENT: Atraumatic; normocephalic EYES; Anicteric, Normal Conjunctiva NECK; supple, normal thyroid, RESPIRATORY: Diminished to auscultation CARDIOVASCULAR: Regular S1 S2, GI: soft, normoactive bowel sounds, : No Renal angle tenderness; EXTREMITIES: Both feet in dressing MUSCULOSKELETAL: no muscle wasting NEURO: Awake; no lateralizing signs. SKIN: As described above PSYCH; Flat affect Assessment & Plan Assessment/Plan (1) Diabetic wet gangrene of the foot: (2) Acute osteomyelitis of toe of right foot: PLAN: Plan Patient is a 77-year-old lady with multiple comorbidities admitted with diabetic foot ulceration involving both feet with concern for osteomyelitis involving the second and toe of the right foot 1. Diabetic foot ulceration involving both feet with concern for osteomyelitis involving the second and 2 of the right foot secondary to MRSA infection. ? Patient has been admitted to a monitored bed managed with broad-spectrum antibiotic therapy with Zosyn and vancomycin. As part of her management CT of the foot was ordered results reviewed. Consult placed to podiatry and infectious disease. Response to therapy being monitored with daily CBC with differential - Cultures obtained so far came back positive for MRSA in the blood as well as in the wound. Patient has been seen by both infectious disease and podiatry. Clindamycin added to patient's therapy. Plan is for patient to undergo right second toe amputation and debridement of right foot of all nonviable infected and necrotic tissue and bone 09/01/2022; patient underwent incision, drainage, debridement of right foot - removing all nonviable soft tissue and bone - 2nd toe amputation, partial 2nd metatarsal resection - all right foot ?09/02/2022;Patient wound cultures so far positive for staph aureus as well as Enterobacter. Patient underwent TTE for his staph bacteremia negative for any vegetations. 2. Chronic A-flutter ? Rate controlled patient placed on a monitored bed 3. Coronary artery disease ? Patient has history of CABG. Patient remained stable 4. Diabetes mellitus type 2 ? Uncontrolled with hyperglycemia. Patient was placed on long-acting insulin in addition to scheduled short acting insulin as well as Accu-Cheks before meals and at bedtime with sliding scale coverage was also placed on 1800 ADA diet 5. Hypothyroidism ? Patient is on levothyroxine did continue home dose 6. Hyponatremia ? Multifactorial including possible dehydration as well as patient hyperglycemia started on IV fluids daily monitoring with BMPs ordered ? 09/02/2022; sodium levels up to 134 7. Dyslipidemia ? Patient is on simvastatin substituted with atorvastatin in the hospital 8. Depression ? Patient is on fluoxetine did continue 9. Class I obesity with BMI of 31.2 ? Weight loss advised 10. Anemia - Secondary to chronic disorder follows acute blood loss anemia following surgery. Monitoring H&H and transfuse if patient becomes symptomatic or hemoglobin falls below 7 11. DVT prophylaxis ? On Lovenox 12. Physical deconditioning - Requested for PT OT eval and outreach and education social worker to assist with discharge planning Time spent in the patient's overall evaluation,decision-making process, review of diagnostic data, adjustment of management, discussion with other providers, nursing nursing and ancillary staff involved in patient's care documentation, 36-minute minutes Charges/Coding Visit Charges Inpatient E&M: 52363 Subs Hosp L2
--- NOTE | 2022-09-03 11:46 | CASEMGMT ---
LURDES called Key, patient's outsole caser with [facility]. LURDES left her a voice mail letting her know patient's discharge plan is to go to [facility]. Patient will go today versus over the weekend. Plan: [facility] when medically ready. Daniela LAW
--- NOTE | 2022-09-03 12:54 | PCM.PN.ID ---
Physical Exam Narrative Feeling better, no fever, no n/v/d. Const alert and no apparent distress General Appearance: cooperative Resp normal air movement and clear to auscultation bilaterally Cardio regular rate and regular rhythm GI soft to palpation, non-tender and non-distended Extremity General Extremity: edema Skin Skin Narrative: foot wrapped ID ID: Route of nutrition/ use of supplements: [] Nutritional Intake: [] IV Site: [] Zapata Catheter: [] Assessment & Plan Assessment/Plan (1) Diabetic wet gangrene of the foot: (2) Diabetes mellitus with diabetic polyneuropathy: (3) MRSA bacteremia: PLAN: MRSA bacteremia due to R foot gangrene - bcx, ucx, and wound cx with MRSA. Surg cx also with enterobacter and pseudomonas. On vanc/zosyn, plus clinda for anti-toxin effect. OR 08/[address] Dee for source control. At 48h, negative repeat bcx. No veg seen on TTE. No signs of metastatic infection on exam at this point. Will stop clinda. Will order picc. Plan is for 6 weeks iv vanc/cefepime with stop date 10/12/22. Will do short course po flagyl. Weekly labs and ID followup in 2-3 weeks. Wrote rx, d/w field nurse case manager. Will follow
--- NOTE | 2022-09-03 13:10 | TREXTCAR_ITS ---
Diet Diet Order/Speech Therapy: 09/02/22 14:32 Diet: Carbohydrate Controlled Is pt able to select menu?: Yes Wound(s) TOES: Wound Type: NECROTIC TOES left foot (toes): Wound Type: Neuropathic/Diabetic Foot Ulcer Dressing Change: betadine moistened gauze right foot (toes): Wound Type: Surgical Incision Dressing Change: betadine with dry dressings right foot: Wound Type: Neuropathic/Diabetic Foot Ulcer Dressing Change: betadine moistened gauze Therapies Weight Bearing: Non weight bearing Problem/Diagnosis (1) Diabetic wet gangrene of the foot: Status: Acute Code(s): E11.52 - Type 2 diabetes mellitus with diabetic peripheral angiopathy with gangrene (2) Diabetes mellitus with diabetic polyneuropathy: Status: Acute Code(s): E11.42 - Type 2 diabetes mellitus with diabetic polyneuropathy (3) MRSA bacteremia: Status: Acute Code(s): R78.81 - Bacteremia; B95.62 - Methicillin resistant Staphylococcus aureus infection as the cause of diseases classified elsewhere Plan Patient is a 77-year-old lady with multiple comorbidities admitted with diabetic foot ulceration involving both feet with concern for osteomyelitis involving the second and toe of the right foot 1. Diabetic foot ulceration involving both feet with concern for osteomyelitis involving the second and 2 of the right foot secondary to MRSA infection. ? Patient has been admitted to a monitored bed managed with broad-spectrum antibiotic therapy with Zosyn and vancomycin. As part of her management CT of the foot was ordered results reviewed. Consult placed to podiatry and infectious disease. Response to therapy being monitored with daily CBC with differential - Cultures obtained so far came back positive for MRSA in the blood as well as in the wound. Patient has been seen by both infectious disease and podiatry. Clindamycin added to patient's therapy. Plan is for patient to undergo right second toe amputation and debridement of right foot of all nonviable infected and necrotic tissue and bone 09/01/2022; patient underwent incision, drainage, debridement of right foot - removing all nonviable soft tissue and bone - 2nd toe amputation, partial 2nd metatarsal resection - all right foot ?09/02/2022;Patient wound cultures so far positive for staph aureus as well as Enterobacter. Patient underwent TTE for his staph bacteremia negative for any vegetations. 2. Chronic A-flutter ? Rate controlled patient placed on a monitored bed 3. Coronary artery disease ? Patient has history of CABG. Patient remained stable 4. Diabetes mellitus type 2 ? Uncontrolled with hyperglycemia. Patient was placed on long-acting insulin in addition to scheduled short acting insulin as well as Accu-Cheks before meals and at bedtime with sliding scale coverage was also placed on 1800 ADA diet 5. Hypothyroidism ? Patient is on levothyroxine did continue home dose 6. Hyponatremia ? Multifactorial including possible dehydration as well as patient hyperglycemia started on IV fluids daily monitoring with BMPs ordered ? 09/02/2022; sodium levels up to 134 7. Dyslipidemia ? Patient is on simvastatin substituted with atorvastatin in the hospital 8. Depression ? Patient is on fluoxetine did continue 9. Class I obesity with BMI of 31.2 ? Weight loss advised 10. Anemia - Secondary to chronic disorder follows acute blood loss anemia following surgery. Monitoring H&H and transfuse if patient becomes symptomatic or hemoglobin falls below 7 11. DVT prophylaxis ? On Lovenox 12. Physical deconditioning - Requested for PT OT eval and social studies department chair to assist with discharge planning Time spent in the patient's overall evaluation,decision-making process, review of diagnostic data, adjustment of management, discussion with other providers, nursing nursing and ancillary staff involved in patient's care documentation, 36-minute minutes Allergies/Procedures Done in Hospital Allergies pregabalin [From Lyrica] Adverse Reaction (Verified 08/30/22 09:51) suicidal thoughts Type of Care/Length of Stay Estimated LOS: Convalescent Care Less Than 30 days Type of Care Needed: Skilled Rehab Potential: Good Prognosis: Good Additional Orders/Day of Discharge Day of Discharge: 09/03/22 Dietary and Speech Recommendations Dietitian Recommendations/Changes: Will liberalize diet to carbohydrate controlled as pt is refusing protein supplements and cardiac diet will limit protein choices; will provide milk w/ breakfast and cottage cheese at dinner for additional protein if consumed. Discharge Plan Admission Admit Date/Time: 08/30/22 12:44 Attending Provider: Prem Espino Primary Care Provider: Eugenia Watson [employer] Consulting Providers: Van Dee ; Moses Forbes Discharge Orders/Prescriptions Prescriptions: New cefepime 2 gram Recon Soln 2 g IV Q12 40 Days Qty: 80 0RF Rx Instructions: stop date 10/12/22 dx: foot osteo weekly bmp, cbc, esr, and vanc trough. Fax to [phone] routine picc care metronidazole 500 mg Tablet 500 mg PO TID 14 Days Qty: 42 0RF vancomycin 750 mg recon soln 750 mg IV Q12H 40 Days Qty: 80 0RF Rx Instructions: stop date 10/12/22 dx: foot osteo weekly bmp, cbc, esr, and vanc trough. Fax to [phone] routine picc care acetaminophen 500 mg Tablet 1,000 mg PO Q8 Qty: 0 0RF sennosides-docusate sodium [Stool Softener-Stimulant Laxat] 8.6-50 mg Tablet 2 tab PO BID PRN PRN (Reason: Constipation) Qty: 0 0RF famotidine 20 mg Tablet 20 mg PO BID Qty: 0 0RF oxycodone 5 mg Tablet 5 mg PO Q4H PRN PRN (Reason: Pain Score 4-10) 3 Days Qty: 12 0RF enoxaparin 40 mg/0.4 mL Syringe 40 mg subcut DAILY 30 Days Qty: 0 0RF insulin lispro [Humalog KwikPen Insulin] 100 unit/mL Insulin Pen See Protocol subcut ACHS Qty: 0 0RF Protocol: 4. Sliding Scale Insulin High-Med Dosing Condition: 150-199 mg/dl = 2 units Condition: 200-259 mg/dl = 4 units Condition: 260-324 mg/dl = 6 units Condition: 325-374 mg/dl = 8 units Condition: 375-409 mg/dl = 10 units Condition: 410-449 mg/dl = 11 units Condition: Greater than 449 call physician Protocol Text: - Use for Total Daily Dose of Insulin 56-80 units - Patient who are insulin resistant or septic HIGH MEDIUM DOSING ALGORITHM insulin lispro [Humalog KwikPen Insulin] 100 unit/mL Insulin Pen 5 unit subcut TIDAC Qty: 0 0RF insulin glargine-yfgn 100 unit/mL (3 mL) Insulin Pen 15 unit subcut BIDAC Qty: 0 0RF Continued aspirin 81 MG tablet,chewable 81 mg PO DAILY Label Comments: BLOOD THINNER/HEART torsemide 20 MG tablet 20 mg PO DAILY Label Comments: WATER PILL simvastatin 40 MG tablet 40 mg PO DINNER Label Comments: CHOLESTEROL losartan 100 MG tablet 100 mg PO DAILY levothyroxine 50 MCG tablet 50 mcg PO DAILY Multiple Vitamin-Minerals 1 EACH tablet 1 tab PO DAILY fluoxetine 20 MG capsule 40 mg PO DAILY Label Comments: TAKE 2 CAPSULE (20 MG) BY MOUTH DAILY omega-3 fatty acids-fish oil 1 EACH capsule 1 cap PO BID cholecalciferol (vitamin D3) [D3-2000] 2,000 UNIT capsule 3,000 unit PO DAILY Discontinued Humulin R U-500 (Conc) Insulin 20 ML solution 0.24 ml SQ BIDAC Label Comments: BLOOD SUGAR oxycodone-acetaminophen [oxycodone-acetaminophen] 1 TABLET tablet 1 tab PO Q6H PRN PRN (Reason: Pain) 3 Days Qty: 12 0RF Referrals / Follow Up: Eugenia Watson [employer], [employer] [Primary Care Provider] - Disposition Disposition (needs filled in before D/C Order can be placed): [facility]
--- NOTE | 2022-09-03 13:24 | PCM.DC.SUM ---
Providers Date of Admission: 08/30/22 Date of Discharge: 09/03/22 Primary Care Physician: NATHAN Valenzuela Consultations 08/30/22 13:50 Consult: Infectious Disease Routine Consulting Provider: Moses Forbes Reason for Consult: DFU EMERGENT Consult: No Notified: Yes Date Notified: 08/30/22 Time Notified: 14:54 Method of Notification: Answering Service Consult: Onc/Wound/airplane first officer Routine Comment: Consult: Podiatry Routine Consulting Provider: Van Dee Reason for Consult: DFU EMERGENT Consult: No Notified: Yes Date Notified: 08/30/22 Time Notified: 13:40 Method of Notification: ED Physician Initiated Reason For Visit: DIABETIC FOOT ULCER Diagnosis Discharge Diagnosis (1) Diabetic wet gangrene of the foot: Status: Acute Code(s): E11.52 - Type 2 diabetes mellitus with diabetic peripheral angiopathy with gangrene (2) Diabetes mellitus with diabetic polyneuropathy: Status: Acute Code(s): E11.42 - Type 2 diabetes mellitus with diabetic polyneuropathy (3) MRSA bacteremia: Status: Acute Code(s): R78.81 - Bacteremia; B95.62 - Methicillin resistant Staphylococcus aureus infection as the cause of diseases classified elsewhere Plan Patient is a 77-year-old lady with multiple comorbidities admitted with diabetic foot ulceration involving both feet with concern for osteomyelitis involving the second and toe of the right foot 1. Diabetic foot ulceration involving both feet with concern for osteomyelitis involving the second and 2 of the right foot secondary to MRSA infection. ? Patient has been admitted to a monitored bed managed with broad-spectrum antibiotic therapy with Zosyn and vancomycin. As part of her management CT of the foot was ordered results reviewed. Consult placed to podiatry and infectious disease. Response to therapy being monitored with daily CBC with differential - Cultures obtained so far came back positive for MRSA in the blood as well as in the wound. Patient has been seen by both infectious disease and podiatry. Clindamycin added to patient's therapy. Plan is for patient to undergo right second toe amputation and debridement of right foot of all nonviable infected and necrotic tissue and bone 09/01/2022; patient underwent incision, drainage, debridement of right foot - removing all nonviable soft tissue and bone - 2nd toe amputation, partial 2nd metatarsal resection - all right foot ?09/02/2022;Patient wound cultures so far positive for staph aureus as well as Enterobacter. Patient underwent TTE for his staph bacteremia negative for any vegetations. 2. Chronic A-flutter ? Rate controlled patient placed on a monitored bed 3. Coronary artery disease ? Patient has history of CABG. Patient remained stable 4. Diabetes mellitus type 2 ? Uncontrolled with hyperglycemia. Patient was placed on long-acting insulin in addition to scheduled short acting insulin as well as Accu-Cheks before meals and at bedtime with sliding scale coverage was also placed on 1800 ADA diet 5. Hypothyroidism ? Patient is on levothyroxine did continue home dose 6. Hyponatremia ? Multifactorial including possible dehydration as well as patient hyperglycemia started on IV fluids daily monitoring with BMPs ordered ? 09/02/2022; sodium levels up to 134 7. Dyslipidemia ? Patient is on simvastatin substituted with atorvastatin in the hospital 8. Depression ? Patient is on fluoxetine did continue 9. Class I obesity with BMI of 31.2 ? Weight loss advised 10. Anemia - Secondary to chronic disorder follows acute blood loss anemia following surgery. Monitoring H&H and transfuse if patient becomes symptomatic or hemoglobin falls below 7 11. DVT prophylaxis ? On Lovenox 12. Physical deconditioning - Requested for PT OT eval and psychotherapist social worker to assist with discharge planning Time spent in the patient's overall evaluation,decision-making process, review of diagnostic data, adjustment of management, discussion with other providers, nursing nursing and ancillary staff involved in patient's care documentation, 36-minute minutes Medications at Discharge Home Medications aspirin 81 mg chewable tablet 81 mg PO DAILY heart health 04/06/16 torsemide 20 mg tablet 20 mg PO DAILY Check with primary doctor 04/06/16 simvastatin 40 mg tablet 40 mg PO DINNER cholesterol 04/09/16 losartan 100 mg tablet 100 mg PO DAILY Check with primary doctor 09/27/17 cholecalciferol (vitamin D3) 50 mcg (2,000 unit) capsule (D3-2000) 3,000 unit PO DAILY supplement 01/05/19 fluoxetine 20 mg capsule 40 mg PO DAILY depression 01/05/19 levothyroxine 50 mcg tablet 50 mcg PO DAILY thyroid 01/05/19 multivitamin with minerals (Multiple Vitamin-Minerals tablet) 1 tab PO DAILY supplement 01/05/19 omega-3 fatty acids-fish oil 300 mg-1,000 mg capsule 1 cap PO BID supplement 01/05/19 acetaminophen 500 mg tablet 1,000 mg PO Q8 #0 tabs 09/03/22 cefepime 2 gram solution for injection 2 g IV Q12 40 days #80 ea 09/03/22 enoxaparin 40 mg/0.4 mL subcutaneous syringe 40 mg (0.4 mL) subcut DAILY 30 days #0 mL 09/03/22 famotidine 20 mg tablet 20 mg PO BID #0 tabs 09/03/22 insulin glargine-yfgn 100 unit/mL (3 mL) subcutaneous pen 15 unit (0.15 mL) subcut BIDAC #0 mL 09/03/22 insulin lispro 100 unit/mL subcutaneous pen (Humalog KwikPen (U-100) Insulin) 5 unit (0.05 mL) subcut TIDAC #0 mL 09/03/22 insulin lispro 100 unit/mL subcutaneous pen (Humalog KwikPen (U-100) Insulin) See Protocol subcut ACHS #0 mL 09/03/22 metronidazole 500 mg tablet 500 mg PO TID 14 days #42 tabs 09/03/22 oxycodone 5 mg tablet 5 mg PO Q4H PRN PRN Pain Score 4-10 3 days #12 tabs 09/03/22 sennosides 8.6 mg-docusate sodium 50 mg tablet (Stool Softener-Stimulant Laxative) 2 tab PO BID PRN PRN Constipation #0 tabs 09/03/22 vancomycin 750 mg intravenous solution 750 mg IV Q12H 40 days #80 ea 09/03/22 Hospital Course Summary of Care Provided Minutes Spent on Discharge: 36 Physical Exam Narrative GENERAL: Very slow to respond HEENT: Atraumatic; normocephalic EYES; Anicteric, Normal Conjunctiva NECK; supple, normal thyroid, RESPIRATORY: Diminished to auscultation CARDIOVASCULAR: Regular S1 S2, GI: soft, normoactive bowel sounds, : No Renal angle tenderness; EXTREMITIES: Both feet in dressing MUSCULOSKELETAL: no muscle wasting NEURO: Awake; no lateralizing signs. SKIN: As described above PSYCH; Flat affect Weight / BMI Weight Weight: 87.6 kg Body Mass Index (BMI) 31.1 ABG / Lab / Microbiology Data Result Diagrams: 09/03/22 06:30 09/03/22 06:30 Laboratory: Laboratory Results - last 24 hr 09/02/22 17:16: POC Glucose 166 H 09/02/22 22:31: POC Glucose 140 H 09/02/22 23:05: Vancomycin Trough 20.2 H 09/03/22 06:30: WBC 5.6, RBC 4.01 L, Hgb 10.9 L, Hct 34.5 L, MCV 86.0, MCH 27.2, MCHC 31.6 L, RDW Std Deviation 38.5, RDW Coeff of Hilda 12.3, Plt Count 303, MPV 9.1, Immature Gran % (Auto) 3.900 H, Neut % (Auto) 57.5, Lymph % (Auto) 26.6, Evangeline % (Auto) 7.0, Eos % (Auto) 3.6, Baso % (Auto) 1.4 H, Absolute Neuts (auto) 3.2, Absolute Lymphs (auto) 1.49, Nucleated RBC % 0 09/03/22 06:30: Sodium 140, Potassium 3.3 L, Chloride 113 H, Carbon Dioxide 17.0 L, Anion Gap 10, BUN 8, Creatinine 1.18 H, Estim Creat Clear Calc 38.56, Est GFR (MDRD) Af Amer 57 L, Est GFR (MDRD) Non-Af 48 L, BUN/Creatinine Ratio 6.8 L, Glucose 100, Calcium 8.3 L 09/03/22 07:47: POC Glucose 103 09/03/22 10:30: POC Glucose 98 Microbiology: Microbiology 08/31/22 17:14 Tissue - 2nd Metatarsal Bone Gram Stain - Final 08/31/22 17:14 Tissue - 2nd Metatarsal Bone Wound Culture - Final Enterobacter cloacae complex Meth. resistant Staph. aureus 08/31/22 17:14 Tissue - 2nd Metatarsal Bone Anaerobic Culture - Preliminary 08/31/22 17:14 Bone - 2nd Metatarsal Bone Gram Stain - Final 08/31/22 17:14 Bone - 2nd Metatarsal Bone Wound Culture - Final Meth. resistant Staph. aureus Pseudomonas aeroginosa 08/31/22 17:14 Bone - 2nd Metatarsal Bone Anaerobic Culture - Preliminary 09/01/22 13:25 Blood Culture (Wb) - Anticubital Right Blood Culture - Preliminary No growth in 48 hours. 08/30/22 14:15 Wound Abcess - Right Foot Gram Stain - Final 08/30/22 14:15 Wound Abcess - Right Foot Wound Culture - Final Meth. resistant Staph. aureus Alpha hemolytic organism 08/31/22 11:15 Blood Culture (Wb) - Right Wrist Blood Culture - Preliminary No growth in 48 hours. 08/30/22 10:30 Blood Culture (Wb) - Anticubital Left Blood Culture - Preliminary Staphylococcus aureus 08/30/22 10:10 Blood Culture (Wb) - Anticubital Right Bacteria Detection (PCR) - Final Staphylococcus aureus mecA Resistance Marker 08/30/22 10:10 Blood Culture (Wb) - Anticubital Right Blood Culture - Final Meth. resistant Staph. aureus 08/30/22 11:40 Urine, Clean Catch Urine Culture - Final Meth. resistant Staph. aureus D/C Instructions Discharge Diet: 1800 Calorie Control Diet Discharge Activity: Return to Normal Activity Call your doctor if you observe: Fever of 101 or Higher, Shortness of breath, Fainting spells and Chest pain Meaningful Use Info Meaningful Use Diagnoses (Choose all that apply): None applicable Discharge Plan Admission Admit Date/Time: 08/30/22 12:44 Attending Provider: Prem Espino Primary Care Provider: Eugenia Watson GLASS CRUSHER Consulting Providers: Van Dee ; Moses Forbes Discharge Orders/Prescriptions Prescriptions: New cefepime 2 gram Recon Soln 2 g IV Q12 40 Days Qty: 80 0RF Rx Instructions: stop date 10/12/22 dx: foot osteo weekly bmp, cbc, esr, and vanc trough. Fax to [phone] routine picc care metronidazole 500 mg Tablet 500 mg PO TID 14 Days Qty: 42 0RF vancomycin 750 mg recon soln 750 mg IV Q12H 40 Days Qty: 80 0RF Rx Instructions: stop date 10/12/22 dx: foot osteo weekly bmp, cbc, esr, and vanc trough. Fax to [phone] routine picc care acetaminophen 500 mg Tablet 1,000 mg PO Q8 Qty: 0 0RF sennosides-docusate sodium [Stool Softener-Stimulant Laxat] 8.6-50 mg Tablet 2 tab PO BID PRN PRN (Reason: Constipation) Qty: 0 0RF famotidine 20 mg Tablet 20 mg PO BID Qty: 0 0RF oxycodone 5 mg Tablet 5 mg PO Q4H PRN PRN (Reason: Pain Score 4-10) 3 Days Qty: 12 0RF enoxaparin 40 mg/0.4 mL Syringe 40 mg subcut DAILY 30 Days Qty: 0 0RF insulin lispro [Humalog KwikPen Insulin] 100 unit/mL Insulin Pen See Protocol subcut ACHS Qty: 0 0RF Protocol: 4. Sliding Scale Insulin High-Med Dosing Condition: 150-199 mg/dl = 2 units Condition: 200-259 mg/dl = 4 units Condition: 260-324 mg/dl = 6 units Condition: 325-374 mg/dl = 8 units Condition: 375-409 mg/dl = 10 units Condition: 410-449 mg/dl = 11 units Condition: Greater than 449 call physician Protocol Text: - Use for Total Daily Dose of Insulin 56-80 units - Patient who are insulin resistant or septic HIGH MEDIUM DOSING ALGORITHM insulin lispro [Humalog KwikPen Insulin] 100 unit/mL Insulin Pen 5 unit subcut TIDAC Qty: 0 0RF insulin glargine-yfgn 100 unit/mL (3 mL) Insulin Pen 15 unit subcut BIDAC Qty: 0 0RF Continued aspirin 81 MG tablet,chewable 81 mg PO DAILY Label Comments: BLOOD THINNER/HEART torsemide 20 MG tablet 20 mg PO DAILY Label Comments: WATER PILL simvastatin 40 MG tablet 40 mg PO DINNER Label Comments: CHOLESTEROL losartan 100 MG tablet 100 mg PO DAILY levothyroxine 50 MCG tablet 50 mcg PO DAILY Multiple Vitamin-Minerals 1 EACH tablet 1 tab PO DAILY fluoxetine 20 MG capsule 40 mg PO DAILY Label Comments: TAKE 2 CAPSULE (20 MG) BY MOUTH DAILY omega-3 fatty acids-fish oil 1 EACH capsule 1 cap PO BID cholecalciferol (vitamin D3) [D3-2000] 2,000 UNIT capsule 3,000 unit PO DAILY Discontinued Humulin R U-500 (Conc) Insulin 20 ML solution 0.24 ml SQ BIDAC Label Comments: BLOOD SUGAR oxycodone-acetaminophen [oxycodone-acetaminophen] 1 TABLET tablet 1 tab PO Q6H PRN PRN (Reason: Pain) 3 Days Qty: 12 0RF Referrals / Follow Up: Eugenia aWtson GLASS CRUSHER, GLASS CRUSHER-C [Primary Care Provider] - Moses Forbes MD [Med Staff - Active Staff] - Within 2 Weeks Van Dee DPM [Med Staff - Active Staff] - In 1 Week Disposition Disposition (needs filled in before D/C Order can be placed): Half-Way Facility Charges/Coding Visit Charges Inpatient E&M: 30780 Disch Hosp >30min
--- NOTE | 2022-09-03 13:51 | CASEMGMT ---
[facility] [place] [facility] Await [facility] test and picc line placement. Plan: d/c to [place] under skilled level of care. Daniela Parker ACADEMIC SUPPORT SPECIALIST THANH
[2022-09-03] MEDS: metroNIDAZOLE 500 MG Tablet PO (13:53)
[2022-09-03 14:00] VITALS: BP 126/63; PULSE 67; RESP 16; TEMP 36.6; O2SAT 99
--- NOTE | 2022-09-03 14:26 | CASEMGMT ---
Addendum entered by Daniela Parker 09/03/22 14:55: [facility] is unable to transport patient. LURDES called [facility] and spoke with Misti. SW requested wheelchair transport. SW expressed patient will need a wheelchair provided and the preferred provider is [facility]. The confirmation number is [id number]. Await response. Daniela LAW Original Note: LURDES spoke with patient's friend/social contact worker and let her know patient will be going to [facility] today after her picc line is placed. LURDES inquired if [facility] would be able to seed cone picker patient. Carrie is checking. Plan: d/c to [facility] under skilled level of care on a 7000. Daniela LAW
--- NOTE | 2022-09-03 15:30 | RAD_ITS ---
STUDY: X-RAY CHEST REASON FOR EXAM: Female, 77 years old. Picc line placement- afib TECHNIQUE: AP portable COMPARISON: August 30, 2022 FINDINGS: Mild subsegmental atelectasis in left lower lobe. Probable tiny left pleural effusion. Postop change status post median sternotomy and CABG. Normal size heart. Normal mediastinum and baldemar. Normal visualized pulmonary arteries. Mild calcification of aortic arch and descending thoracic aorta. PICC line noted on the left with tip in distal superior vena cava. Normal visualized thoracic spine. Normal visualized ribs, clavicles, and shoulders. There is no demonstrated abnormality of the visualized soft tissue structures of the upper abdomen. RAD/CXR for Line Placement IMPRESSION: PICC line placement on the left with tip in distal superior vena cava Mild subsegmental atelectasis left lower lobe and tiny pleural effusion status post CABG. Electronically Signed: Van Samuels MD at 16:08 EST ,
--- NOTE | 2022-09-03 15:45 | CASEMGMT ---
LURDES called [facility] to check on and update. LURDES was told that [facility] will mixing picker tender patient at 4:15. LURDES called [facility] and spoke with Prem. He did not see it in the system. Prem was able to arrange trip for 5p. LURDES notified elementary secretary and charge lpn. LURDES will notify RN and patient as well as Carrie at [facility]. LURDES will also send COVID test via [facility]. Plan: d/c to [facility] at [place] under skilled level of care on a convalescent stay. [facility] will transport via wheelchair. Daniela Parker NANOTECHNOLOGY TECHNICIAN LICENSED VOCATIONAL NURSE
[2022-09-03] MEDS: Insulin Lispro 100 UNIT/ML INSULN.PEN SC ×2 (16:13)
--- NOTE | 2022-09-03 16:45 | NURSING ---
Report called to Nicolas at [facility]. Transport here to fruit or nut picker patient, expecting patient soon.
[2022-09-03 16:50] LABS: Bedside Glucose 202 mg/dL (74-106)
== END 2022-09-03 16:50 | disposition skilled nursing facility (03) | DRG 255 ==
LOC: ED 12:45 → PCU 13:56
PROVIDERS: Anesthesiology; Family Medicine; Podiatrist; Admitting Provider Internal Medicine; Emergency Provider Emergency Medicine; PCP Nurse Practitioner Adult Health; Visit Provider Internal Medicine
PROC: 0Y6R0Z0 Detachment at Right 2nd Toe, Complete, Open Approach (ICD-10-PCS; principal; 2022-08-31 12:45)
DX: E11.52 Type 2 diabetes mellitus with diabetic peripheral angiopathy with gangrene (principal); A48.0 Gas gangrene; M86.171 Other acute osteomyelitis, right ankle and foot; R78.81 Bacteremia; I48.92 Unspecified atrial flutter; D62 Acute posthemorrhagic anemia; E87.1 Hypo-osmolality and hyponatremia; L03.115 Cellulitis of right lower limb; D63.1 Anemia in chronic kidney disease; E11.22 Type 2 diabetes mellitus with diabetic chronic kidney disease; E11.42 Type 2 diabetes mellitus with diabetic polyneuropathy; E11.621 Type 2 diabetes mellitus with foot ulcer; N18.30 Chronic kidney disease, stage 3 unspecified; Z79.4 Long term (current) use of insulin; E66.01 Morbid (severe) obesity due to excess calories; E11.65 Type 2 diabetes mellitus with hyperglycemia; L97.514 Non-pressure chronic ulcer of other part of right foot with necrosis of bone; E11.69 Type 2 diabetes mellitus with other specified complication; I25.10 Atherosclerotic heart disease of native coronary artery without angina pectoris; I12.9 Hypertensive chronic kidney disease with stage 1 through stage 4 chronic kidney disease, or unspecified chronic kidney disease; E03.9 Hypothyroidism, unspecified; E78.5 Hyperlipidemia, unspecified; Z68.31 Body mass index [BMI] 31.0-31.9, adult; R82.81 Pyuria; B95.62 Methicillin resistant Staphylococcus aureus infection as the cause of diseases classified elsewhere; B95.2 Enterococcus as the cause of diseases classified elsewhere; B96.5 Pseudomonas (aeruginosa) (mallei) (pseudomallei) as the cause of diseases classified elsewhere; F32.A Depression, unspecified; R53.81 Other malaise; Z95.1 Presence of aortocoronary bypass graft; Z79.01 Long term (current) use of anticoagulants; Z79.82 Long term (current) use of aspirin; Z79.899 Other long term (current) drug therapy; Z87.891 Personal history of nicotine dependence
CPT/HCPCS: 36415; 36569; 71045; 73610; 73630; 73700; 80048; 80053; 80202; 81001; 82550; 82962; 83036; 83605; 83735; 84100; 84484; 85025; 85610; 85652; 85730; 86140; 87015; 87040; 87070; 87075; 87077; 87086; 87088; 87116; 87149; 87186; 87205; 87206; 87426; 87640; 88305; 88311; 93005; 93306; 93923; 97110; 97162; 97166; 97530; 97535; 97802; 97803; 99252; 99285; 99406; J7030; J7040; J7050; Q9957; A4216; C8929; G0463; J2405

== ENCOUNTER 2022-09-06 13:17 | Emergency (ER) | payer MEDICARE, MEDICAID, SELFPAY ==
[2022-09-06 13:19] VITALS: BP 145/73; PULSE 60; RESP 18; TEMP 36.3; O2SAT 97; BMI 34.0
--- NOTE | 2022-09-06 13:28 | EX.ED.DYSGE1 ---
HPI History of Present Illness Chief Complaint: Wound Narrative Narrative: 77-year-old female here with concern for bleeding of right toe after recent amputation from [facility] facility. Patient has no symptoms. Is not concerned about bleeding. States he did not need to come to the emergency department. States she has no lightheadedness, dizziness, chest pain, fatigue or diffuse weakness. [facility] Medical History Back pain CAD (coronary artery disease) Chronic renal failure, stage 3 (moderate) Depression Diabetes mellitus, type II Diabetic peripheral neuropathy associated with type 2 diabetes mellitus Diastolic dysfunction Hypertension Morbid obesity Tobacco dependence Vertigo Home Medications aspirin 81 mg chewable tablet 81 mg PO DAILY heart health 04/06/16 [History Last Taken 01/05/19 81 mg] torsemide 20 mg tablet 20 mg PO DAILY diuretic 04/06/16 [History Last Taken 01/05/19 20 mg] simvastatin 40 mg tablet 40 mg PO DINNER cholesterol 04/09/16 [History Last Taken 01/05/19] losartan 100 mg tablet 100 mg PO DAILY blood pressure 09/27/17 [History Last Taken 01/05/19] cholecalciferol (vitamin D3) 50 mcg (2,000 unit) capsule (D3-2000) 3,000 unit PO DAILY supplement 01/05/19 [History Last Taken 01/05/19] fluoxetine 20 mg capsule 40 mg PO DAILY depression 01/05/19 [History Last Taken 01/05/19] levothyroxine 50 mcg tablet 50 mcg PO DAILY thyroid 01/05/19 [History Last Taken 01/05/19] multivitamin with minerals (Multiple Vitamin-Minerals tablet) 1 tab PO DAILY supplement 01/05/19 [History Last Taken 01/05/19] omega-3 fatty acids-fish oil 300 mg-1,000 mg capsule 1 cap PO BID supplement 01/05/19 [History Last Taken 01/05/19] acetaminophen 500 mg tablet 1,000 mg PO Q8 #0 tabs 09/03/22 [Rx Last Taken Unknown] cefepime 2 gram solution for injection 2 g IV Q12 40 days #80 ea 09/03/22 [Rx Last Taken Unknown] enoxaparin 40 mg/0.4 mL subcutaneous syringe 40 mg (0.4 mL) subcut DAILY 30 days #0 mL 09/03/22 [Rx Last Taken Unknown] famotidine 20 mg tablet 20 mg PO BID #0 tabs 09/03/22 [Rx Last Taken Unknown] insulin glargine-yfgn 100 unit/mL (3 mL) subcutaneous pen 15 unit (0.15 mL) subcut BIDAC #0 mL 09/03/22 [Rx Last Taken Unknown] insulin lispro 100 unit/mL subcutaneous pen (Humalog KwikPen (U-100) Insulin) 5 unit (0.05 mL) subcut TIDAC #0 mL 09/03/22 [Rx Last Taken Unknown] insulin lispro 100 unit/mL subcutaneous pen (Humalog KwikPen (U-100) Insulin) See Protocol subcut ACHS #0 mL 09/03/22 [Rx Last Taken Unknown] metronidazole 500 mg tablet 500 mg PO TID 14 days #42 tabs 09/03/22 [Rx Last Taken Unknown] oxycodone 5 mg tablet 5 mg PO Q4H PRN PRN Pain Score 4-10 3 days #12 tabs 09/03/22 [Rx Last Taken Unknown] sennosides 8.6 mg-docusate sodium 50 mg tablet (Stool Softener-Stimulant Laxative) 2 tab PO BID PRN PRN Constipation #0 tabs 09/03/22 [Rx Last Taken Unknown] vancomycin 750 mg intravenous solution 750 mg IV Q12H 40 days #80 ea 09/03/22 [Rx Last Taken Unknown] Allergy/AdvReac Type Severity Reaction Status Date / Time pregabalin [From Lyrica] AdvReac suicidal Verified 09/06/22 13:22 thoughts Surgical History History of cholecystectomy S/P CABG x 4 Social History household members: none Smoking Status: Former smoker substance use type: does not use ROS ROS ED ROS Narrative Constitutional: Denies fever HEENT: Denies sore throat Neck: Denies neck pain Cardiovascular: Denies chest pain, syncope Respiratory: Denies shortness of breath GI: Denies nausea vomiting or abdominal pain : Denies changes in urinary habits Musculoskeletal: Denies muscle or joint pain Neurologic: Denies numbness weakness or loss of sensation Skin: Endorses bleeding from surgical site EXAM Physical Exam Narrative Exam Narrative: Nursing triage notes reviewed, Vital signs reviewed Constitutional: please see [facility] HENT: MMM Eyes: Pupils equal round and reactive to light, Extraocular muscles intact Neck: No stridor, no JVD, full neck ROM Lungs: Clear to auscultation, No wheezing or rales. No increased work of breathing, no conversational dyspnea, no accessory muscle use, no nasal flaring. No respiratory distress noted Heart: Regular rate and rhythm, No murmurs, No rubs and No gallops, 2+ distal pulses (radial, femoral, posterior tibial) in all extremities Abdomen: Soft, there is no tenderness, rigidity, rebound or guarding, no obvious peritoneal signs, no palpable pulsatile abdominal masses, no auscultated abdominal bruit : No CVAT Extremities: No edema, right foot with well-appearing postsurgical changes, second toe amputation, there is venous oozing from 2 foci on the plantar surface of the right foot, no pulsatile bleeding Neuro: No focal neurological deficits, cranial nerves II through XII intact, 5/5 strength in all extremities. Intact sensation to light touch in all extremities, 2+ reflexes bilateral patella dens. Normal gait. No ataxia. Skin: No crepitus, bullae, no purulent discharge or drainage Const Vital Signs: 09/06/22 13:19 Temperature 97.3 F L Temperature Source Temporal Pulse Rate 60 Respiratory Rate 18 Blood Pressure 145/73 H Blood Pressure Mean 97 Pulse Ox 97 Oxygen Delivery Method Room Air [facility] Narrative Medical decision making narrative: Chief Complaint: bleeding, wound check External records reviewed: Recently hospitalized for right toe osteomyelitis, MRSA infection underwent podiatry and infectious disease consults. Underwent incision drainage and debridement of foot, second toe amputation was discharged on 09/03/[address]? 08/30/22 12:38 IMPRESSION: Soft tissue swelling overlying the posterolateral aspect of the distal leg as well as the foot with air in the soft tissues. Diffuse soft tissue swelling of the foot with the ulcerated lesion and air in the soft tissues surrounding the distal portion of the second toe with findings suggestive of a erosive changes of the distal phalanx of the second toe suggestive of osteomyelitis. I considered: Postop bleeding, post op infection The patient was hemodynamically stable, afebrile, nontoxic-appearing. Wound did not appear acutely infected, no crepitus or bullae noted. Exam with slow oozing sites on the plantar surface of the right foot they are not associated the recent operation. Surgicel was applied. Patient was observed for approximately 1 hour with no evidence of significant bleeding. Bandages remain clean dry and intact not evidence of blood leaking through. She is not having severe bleeding she has no symptoms are requested be discharged. Patient was discharged home with close podiatry and PCP follow-up. Factors affecting care: Recent toe amputation, history of osteomyelitis, wet gangrene and type 2 diabetes Social determinants of health: History obtained from others: senior living facility Shared decision making: I will have a discussion with the patient and or visitors regarding risk/benefits of further testing or admission. They will be made aware of of the risk/benefits inherent in this decision they will be given the opportunity to voice understanding. Consults: None Discharge Plan Triage Chief Complaint: Wound ED Provider: Michael Hunter Dx/Rx/DC Orders Clinical Impression: Post-op bleeding Prescriptions: No Action aspirin 81 MG tablet,chewable 81 mg PO DAILY Label Comments: BLOOD THINNER/HEART torsemide 20 MG tablet 20 mg PO DAILY Label Comments: WATER PILL simvastatin 40 MG tablet 40 mg PO DINNER Label Comments: CHOLESTEROL losartan 100 MG tablet 100 mg PO DAILY levothyroxine 50 MCG tablet 50 mcg PO DAILY Multiple Vitamin-Minerals 1 EACH tablet 1 tab PO DAILY fluoxetine 20 MG capsule 40 mg PO DAILY Label Comments: TAKE 2 CAPSULE (20 MG) BY MOUTH DAILY omega-3 fatty acids-fish oil 1 EACH capsule 1 cap PO BID cholecalciferol (vitamin D3) [D3-2000] 2,000 UNIT capsule 3,000 unit PO DAILY cefepime 2 gram Recon Soln 2 g IV Q12 40 Days Qty: 80 0RF Rx Instructions: stop date 10/12/22 dx: foot osteo weekly bmp, cbc, esr, and vanc trough. Fax to [phone] routine picc care metronidazole 500 mg Tablet 500 mg PO TID 14 Days Qty: 42 0RF vancomycin 750 mg recon soln 750 mg IV Q12H 40 Days Qty: 80 0RF Rx Instructions: stop date 10/12/22 dx: foot osteo weekly bmp, cbc, esr, and vanc trough. Fax to [phone] routine picc care acetaminophen 500 mg Tablet 1,000 mg PO Q8 Qty: 0 0RF sennosides-docusate sodium [Stool Softener-Stimulant Laxat] 8.6-50 mg Tablet 2 tab PO BID PRN PRN (Reason: Constipation) Qty: 0 0RF famotidine 20 mg Tablet 20 mg PO BID Qty: 0 0RF oxycodone 5 mg Tablet 5 mg PO Q4H PRN PRN (Reason: Pain Score 4-10) 3 Days Qty: 12 0RF enoxaparin 40 mg/0.4 mL Syringe 40 mg subcut DAILY 30 Days Qty: 0 0RF insulin lispro [Humalog KwikPen Insulin] 100 unit/mL Insulin Pen See Protocol subcut ACHS Qty: 0 0RF Protocol: 4. Sliding Scale Insulin High-Med Dosing Condition: 150-199 mg/dl = 2 units Condition: 200-259 mg/dl = 4 units Condition: 260-324 mg/dl = 6 units Condition: 325-374 mg/dl = 8 units Condition: 375-409 mg/dl = 10 units Condition: 410-449 mg/dl = 11 units Condition: Greater than 449 call physician Protocol Text: - Use for Total Daily Dose of Insulin 56-80 units - Patient who are insulin resistant or septic HIGH MEDIUM DOSING ALGORITHM insulin lispro [Humalog KwikPen Insulin] 100 unit/mL Insulin Pen 5 unit subcut TIDAC Qty: 0 0RF insulin glargine-yfgn 100 unit/mL (3 mL) Insulin Pen 15 unit subcut BIDAC Qty: 0 0RF Primary Care Provider: Eugenia Watson PSYCHOMETRICIAN Referrals: Van Dee DPM [Med Staff - Active Staff] - Activity Restrictions/Additional Instructions: Please return if bleeding is heavy, constant and is not alleviated by pressure or bandaging. Please return to the weakness, numbness, loss of consciousness, chest pain, pallor. Please follow-up with your pensions retirement plan specialist (Dr. Dee) at the next available appointment. Disposition Disposition: Home, Self Care
--- NOTE | 2022-09-06 13:55 | ED.RN ---
THIS RN ASSISTED PHYSICIAN WITH APPLYING SURGIFOAM AND PRESSURE WRAP. WILL MONITOR FOR BLEEDING
== END 2022-09-06 16:06 | disposition home or self-care (01) ==
PROVIDERS: Emergency Provider Emergency Medicine; PCP Nurse Practitioner Adult Health; Visit Provider Emergency Medicine
DX: T81.89XA Other complications of procedures, not elsewhere classified, initial encounter (principal); Z89.421 Acquired absence of other right toe(s); N18.30 Chronic kidney disease, stage 3 unspecified; T81.40XA Infection following a procedure, unspecified, initial encounter; Z87.891 Personal history of nicotine dependence; X58.XXXA Exposure to other specified factors, initial encounter
CPT/HCPCS: 99284

== ENCOUNTER 2022-09-16 15:42 | Inpatient (IN) | payer MEDICARE, MEDICAID, SELFPAY ==
[2022-09-16 15:45] VITALS: BP 140/74; PULSE 90; RESP 16; TEMP 36.8; O2SAT 98; BMI 36.3
--- NOTE | 2022-09-16 16:13 | EKG12_ITS ---
Test Reason : CONFUSION Blood Pressure : / mmHG Vent. Rate : 085 BPM Atrial Rate : 085 BPM P-R Int : 140 ms QRS Dur : 070 ms QT Int : 404 ms P-R-T Axes : 000 015 239 degrees QTc Int : 480 ms Sinus rhythm with Premature atrial complexes Prolonged QT Abnormal ECG Confirmed by ION GARZA, JESUS ([id number]), editor index MARTIN MONTES ([id number]) on 09/17/2022 9:58:37 AM Referred By: Confirmed By:JESUS LEMON MD
--- NOTE | 2022-09-16 16:17 | EDS_ITS ---
HPI History of Present Illness Chief Complaint: Confusion Informant: patient, family and SNF Narrative Narrative: History is from the patient, her niece, and from the correction facility staff. detention facility sent the patient in because she has been less energetic slightly confused and rising creatinine. Patient just states that she is tired and worn out and has no energy. She states she is kind of aching all over. She denies shortness of breath coughing or abdominal pain. She denies nausea and vomiting. However, she states she has no appetite and just is not eating or drinking. But eating and drinking does not cause discomfort or nausea. She has not had diarrhea. She denies urinary symptoms. [facility] she cannot bear weight after having toe amputations. Yet she denies fevers or problems with the feet. Her niece states that she just has no energy. She seems to be getting worse every day that she is [facility]. She is more tired and sleeping all the time. Occasionally she seems confused or just a little bit slower to answer questions. But there is no focal deficit. [facility] Medical History (Updated 09/16/22 @ 18:[address] Frederick Alonso MD) Back pain CAD (coronary artery disease) Chronic renal failure, stage 3 (moderate) Depression Diabetes mellitus, type II Diabetic peripheral neuropathy associated with type 2 diabetes mellitus Diastolic dysfunction Hypertension Obesity Tobacco dependence Home Medications aspirin 81 mg chewable tablet 81 mg PO DAILY heart health 04/06/16 [History Last Taken 01/05/19 81 mg] torsemide 20 mg tablet 20 mg PO DAILY diuretic 04/06/16 [History Last Taken 01/05/19 20 mg] simvastatin 40 mg tablet 40 mg PO DINNER cholesterol 04/09/16 [History Last Taken 01/05/19] losartan 100 mg tablet 100 mg PO DAILY blood pressure 09/27/17 [History Last Taken 01/05/19] cholecalciferol (vitamin D3) 50 mcg (2,000 unit) capsule (D3-2000) 3,000 unit PO DAILY supplement 01/05/19 [History Last Taken 01/05/19] fluoxetine 20 mg capsule 40 mg PO DAILY depression 01/05/19 [History Last Taken 01/05/19] levothyroxine 50 mcg tablet 50 mcg PO DAILY thyroid 01/05/19 [History Last Taken 01/05/19] multivitamin with minerals (Multiple Vitamin-Minerals tablet) 1 tab PO DAILY supplement 01/05/19 [History Last Taken 01/05/19] omega-3 fatty acids-fish oil 300 mg-1,000 mg capsule 1 cap PO BID supplement 01/05/19 [History Last Taken 01/05/19] acetaminophen 500 mg tablet 1,000 mg PO Q8 #0 tabs 09/03/22 [Rx Last Taken Unknown] cefepime 2 gram solution for injection 2 g IV Q12 40 days #80 ea 09/03/22 [Rx Last Taken Unknown] enoxaparin 40 mg/0.4 mL subcutaneous syringe 40 mg (0.4 mL) subcut DAILY 30 days #0 mL 09/03/22 [Rx Last Taken Unknown] famotidine 20 mg tablet 20 mg PO BID #0 tabs 09/03/22 [Rx Last Taken Unknown] insulin glargine-yfgn 100 unit/mL (3 mL) subcutaneous pen 15 unit (0.15 mL) subcut BIDAC #0 mL 09/03/22 [Rx Last Taken Unknown] insulin lispro 100 unit/mL subcutaneous pen (Humalog KwikPen (U-100) Insulin) 5 unit (0.05 mL) subcut TIDAC #0 mL 09/03/22 [Rx Last Taken Unknown] insulin lispro 100 unit/mL subcutaneous pen (Humalog KwikPen (U-100) Insulin) See Protocol subcut ACHS #0 mL 09/03/22 [Rx Last Taken Unknown] metronidazole 500 mg tablet 500 mg PO TID 14 days #42 tabs 09/03/22 [Rx Last Taken Unknown] oxycodone 5 mg tablet 5 mg PO Q4H PRN PRN Pain Score 4-10 3 days #12 tabs 09/03/22 [Rx Last Taken Unknown] sennosides 8.6 mg-docusate sodium 50 mg tablet (Stool Softener-Stimulant Laxative) 2 tab PO BID PRN PRN Constipation #0 tabs 09/03/22 [Rx Last Taken Unknown] vancomycin 750 mg intravenous solution 750 mg IV Q12H 40 days #80 ea 09/03/22 [Rx Last Taken Unknown] Allergy/AdvReac Type Severity Reaction Status Date / Time pregabalin [From Lyrica] AdvReac suicidal Verified 09/16/22 15:44 thoughts Family History (Updated 09/16/22 @ 17:[address] Kaia Padilla MD) Mother Cancer Diabetes Dementia Father No problems noted. Surgical History (Updated 09/16/22 @ 17:[address] Kaia Padilla MD) History of back surgery History of bowel resection History of carpal tunnel release of both wrists History of cholecystectomy History of hysterectomy Hx of appendectomy Hx of eye surgery S/P CABG x 4 S/P foot surgery Social History (Updated 09/16/22 @ 17:[address] Kaia Padilla MD) household members: none housing: assisted Smoking Status: Former smoker alcohol intake: current alcohol intake frequency: holidays/special occasions only substance use type: does not use ROS ROS ED Constitutional Constitutional ED: Denies chills or fever(s) Eyes Eyes: Denies change in vision ENT ENT ED: Denies rhinorrhea Cardiovascular Cardiovascular: Denies chest pain, palpitations or racing heartbeat Respiratory/Chest Respiratory/Chest: Denies cough or dyspnea Gastrointestinal Gastrointestinal: Denies abdominal pain, constipation, diarrhea, nausea or vomiting Genitourinary Genitourinary ED: Denies dysuria or hematuria Musculoskeletal Musculoskeletal: Reports myalgias Integumentary Denies rash Neurologic Neurologic: Denies headache(s), paresthesias or weakness Endocrine Endocrinology: Denies polydipsia or polyuria Hematologic/Lymphatic Hematologic/Lymphatic: Denies lymphadenopathy Allergic/Immunologic Allergic/Immunologic ED: Denies urticaria EXAM Physical Exam Narrative Exam Narrative: Patient is awake and alert. She does carry on relatively normal conversation but does not volunteer a lot of information. She is nontoxic in appearance. HEENT: Mucous membranes are dry. No sinus tenderness. Eyes show no subconjunctival hemorrhage or icterus Neck shows no JVD or stridor Lungs are clear and there is no pain with a deep breath. Oxygen saturation is 98% on room air showing normal levels. Heart shows a regular rate with about 90 without ectopy. I hear no murmur. Pulses are normal. Abdomen is soft and nontender. She has some small bruising from Lovenox injections. She has prior scars. : No CVA tenderness. No suprapubic tenderness Extremities show no edema. No swelling or erythema. She does have reportedly specialized wraps on her feet so these were not taken down. They report is that these are healing well. Neurologically patient has no focal deficit. She just seems a little bit tired. She is oriented. Const Vital Signs: 09/16/22 15:45 09/16/22 17:49 Temperature 98.2 F Temperature Source Oral Pulse Rate 90 87 Respiratory Rate 16 15 Blood Pressure 140/74 H Blood Pressure Mean 96 Pulse Ox 98 Oxygen Delivery Method Room Air Room Air MDM MDM MDM Narrative Medical decision making narrative: My independent interpretation of the patient's single view but to image chest x- ray shows prior sternotomy but no acute infiltrative process. Final reading by radiology as no radiographic evidence of acute coronary or pulmonary disease. Patient does have a very slight bump of her white count. She has anemia which she has had before. Electrolytes show minimally low potassium. She does have a acute kidney injury with significant creatinine elevation now at 3.5. Glucose is up at 346. She is given IV fluids to help both of these. Urine shows 50-100 white cells with cloudy urine, leukocyte esterase. This is consistent with a UTI. Urine cultures were sent. I have added blood cultures and lactate which are pending. Patient is on Vanco and cefepime already for her feet. For this reason I have added Levaquin. I discussed the case directly with the hospitalist who had reviewed her chart. Lab Data Attestation: I reviewed the patient's lab results. Labs: Laboratory Results - last 24 hr 09/16/22 09/16/22 09/16/22 16:35 16:35 17:21 WBC 11.9 H RBC 3.04 L Hgb 8.4 L Hct 26.4 L MCV 86.8 MCH 27.6 MCHC 31.8 L RDW Std Deviation 50.2 H RDW Coeff of Hilda 16.0 H Plt Count 188 MPV 10.0 Immature Gran % (Auto) 0.600 Neut % (Auto) 71.8 H Lymph % (Auto) 19.8 [place] % (Auto) 7.0 Eos % (Auto) 0.3 Baso % (Auto) 0.5 Absolute Neuts (auto) 8.6 H Absolute Lymphs (auto) 2.36 Nucleated RBC % 0 Sodium 145 Potassium 3.4 L Chloride 113 H Carbon Dioxide 20.0 L Anion Gap 12 BUN 50 H Creatinine 3.51 H Estim Creat Clear Calc 12.96 Est GFR (MDRD) Af Amer 16 L Est GFR (MDRD) Non-Af 14 L BUN/Creatinine Ratio 14.2 Glucose 346 H Calcium 9.5 Total Bilirubin 0.60 AST 45 H ALT 20 Alkaline Phosphatase 65 Total Protein 6.3 L Albumin 2.5 L Globulin 3.8 Albumin/Globulin Ratio 0.7 L Urine Color Yellow Urine Clarity Cloudy Urine pH 6.0 Ur Specific [place] 1.015 Urine Protein 100 H Urine Glucose (UA) 250 H Urine Ketones 15 H Urine Occult Blood 250 H Urine Nitrite Negative Urine Bilirubin Negative Urine Urobilinogen Normal Ur Leukocyte Esterase 500 H Urine RBC 0-5 SEEN Urine WBC 50-100 SEEN Ur Squamous Epith Cells 0-5 SEEN Urine Bacteria 0 SEEN Urine Mucus 0 SEEN Urine Yeast 3+ Radiography Diagnostic Testing: Clinical Impression(s) from Imaging Studies Chest X-Ray 09/16/22 16:35 IMPRESSION: No radiographic evidence of acute cardiopulmonary disease. Electronically Signed: Maldonado Hickman MD at 16:52 EST Reading Location ID and State: [facility] / [place] Tel , Service support , EKG Initial EKG: Comments: My independent interpretation of the patient's EKG done for generalized weakness shows sinus rhythm with occasional PACs and compensatory pause. Diffuse nonspecific ST and T wave changes but no sign of acute infarct or ischemia. VA interval, QRS duration are normal. QTc is mildly long at 480 ms. Discharge Plan Triage Chief Complaint: Confusion ED Provider: Frederick Alonso Dx/Rx/DC Orders Clinical Impression: Acute kidney injury, Generalized weakness, Inability to ambulate due to multiple joints, Anemia Prescriptions: No Action aspirin 81 MG tablet,chewable 81 mg PO DAILY Label Comments: BLOOD THINNER/HEART torsemide 20 MG tablet 20 mg PO DAILY Label Comments: WATER PILL simvastatin 40 MG tablet 40 mg PO DINNER Label Comments: CHOLESTEROL losartan 100 MG tablet 100 mg PO DAILY levothyroxine 50 MCG tablet 50 mcg PO DAILY Multiple Vitamin-Minerals 1 EACH tablet 1 tab PO DAILY fluoxetine 20 MG capsule 40 mg PO DAILY Label Comments: TAKE 2 CAPSULE (20 MG) BY MOUTH DAILY omega-3 fatty acids-fish oil 1 EACH capsule 1 cap PO BID cholecalciferol (vitamin D3) [D3-2000] 2,000 UNIT capsule 3,000 unit PO DAILY cefepime 2 gram Recon Soln 2 g IV Q12 40 Days Qty: 80 0RF Rx Instructions: stop date 10/12/22 dx: foot osteo weekly bmp, cbc, esr, and vanc trough. Fax to [phone] routine picc care metronidazole 500 mg Tablet 500 mg PO TID 14 Days Qty: 42 0RF vancomycin 750 mg recon soln 750 mg IV Q12H 40 Days Qty: 80 0RF Rx Instructions: stop date 10/12/22 dx: foot osteo weekly bmp, cbc, esr, and vanc trough. Fax to [phone] routine picc care acetaminophen 500 mg Tablet 1,000 mg PO Q8 Qty: 0 0RF sennosides-docusate sodium [Stool Softener-Stimulant Laxat] 8.6-50 mg Tablet 2 tab PO BID PRN PRN (Reason: Constipation) Qty: 0 0RF famotidine 20 mg Tablet 20 mg PO BID Qty: 0 0RF oxycodone 5 mg Tablet 5 mg PO Q4H PRN PRN (Reason: Pain Score 4-10) 3 Days Qty: 12 0RF enoxaparin 40 mg/0.4 mL Syringe 40 mg subcut DAILY 30 Days Qty: 0 0RF insulin lispro [Humalog KwikPen Insulin] 100 unit/mL Insulin Pen See Protocol subcut ACHS Qty: 0 0RF Protocol: 4. Sliding Scale Insulin High-Med Dosing Condition: 150-199 mg/dl = 2 units Condition: 200-259 mg/dl = 4 units Condition: 260-324 mg/dl = 6 units Condition: 325-374 mg/dl = 8 units Condition: 375-409 mg/dl = 10 units Condition: 410-449 mg/dl = 11 units Condition: Greater than 449 call physician Protocol Text: - Use for Total Daily Dose of Insulin 56-80 units - Patient who are insulin resistant or septic HIGH MEDIUM DOSING ALGORITHM insulin lispro [Humalog KwikPen Insulin] 100 unit/mL Insulin Pen 5 unit subcut TIDAC Qty: 0 0RF insulin glargine-yfgn 100 unit/mL (3 mL) Insulin Pen 15 unit subcut BIDAC Qty: 0 0RF Primary Care Provider: Maldonado Horn Referrals: Maldonado Horn MD [Primary Care Provider] - Disposition Disposition: Acute Care [facility]
--- NOTE | 2022-09-16 16:35 | RAD_ITS ---
INDICATION: Increased confusion and weakness, abnormal labs, ?Pneumonia EXAMINATION/TECHNIQUE: X-RAY - XR Chest 1 View COMPARISON: 09/03/2022 FINDINGS: LINES/DEVICES: Left upper extremity PICC remains. LUNGS: No consolidation, edema or effusion. No pneumothorax. MEDIASTINUM AND CARDIOVASCULAR STRUCTURES: Sternal wires and CABG. Central airways and mediastinal contour are unremarkable. RAD/Chest 1 View (Portable) IMPRESSION: No radiographic evidence of acute cardiopulmonary disease. Electronically Signed: Maldonado Hickman MD at 16:52 EST ,
[2022-09-16 16:50] LABS: Absolute Lymphocyte Count 2.36 X10^3/uL (0.83-4.51); Absolute Neutrophil Count 8.6 X10^3/uL (2.0-7.7); Basophil# 0.06 X10^3/uL; Basophil% 0.5 % (0-1); Eosinophil# 0.04 X10^3/uL; Eosinophils% 0.3 % (0-5); Hematocrit 26.4 % (37-47); Hemoglobin 8.4 g/dL (12.0-15.0); Lymphocyte # 2.36 X10^3/ul (0.83-4.51); Lymphocyte % 19.8 % (19-41); Mean Corp Hgb Conc 31.8 g/dL (32-36); Mean Corpuscular Hgb 27.6 pg (27.0-32.0); Mean Corpuscular Volume 86.8 fL (81-99); Monocyte# 0.84 X10^3/uL; NRBC Flagged by Analyzer 0 % (0-5); Neutrophil # 8.57 X10^3/uL (2.7-7.7); Neutrophil % 71.8 % (47-70); Platelet Count 188 K/mm3 (150-450); RBC Distribution Width SD 50.2 fl (35.1-43.9); Red Blood Count 3.04 M/mm3 (4.2-5.4); White Blood Count 11.9 K/mm3 (4.4-11.0)
[2022-09-16 17:05] LABS: ALB/GLOB Ratio 0.7 RATIO (0.9-2.4); AST(SGOT) 45 U/L (15-37); Alanine Aminotransfer ALT/SGPT 20 U/L (13-56); Albumin, Serum 2.5 g/dL (3.2-5.0); Alkaline Phosphatase 65 U/L (45-117); Anion Gap 12 (5-15); BUN 50 mg/dL (7-18); BUN/Creat Ratio 14.2 RATIO (10-20); Calcium,Total 9.5 mg/dL (8.5-10.1); Chloride 113 mmol/L (98-107); Creatinine, Serum 3.51 mg/dL (0.55-1.02); EST Glomerular Filtration Rate 14 mL/min (>60); Est Glom Filt Rate - Afr Amer 16 mL/min (>60); Estimated Creatinine Clearance 12.96 ml/min; Globulin 3.8 g/dL (2.2-4.2); Glucose 346 mg/dL (74-106); Potassium 3.4 mmol/L (3.5-5.1); Protein, Total 6.3 g/dL (6.4-8.2); Sodium Level 145 mmol/L (136-145)
[2022-09-16 17:31] LABS: Bacteria 0 SEEN /hpf (None Seen); Mucous, Urine 0 SEEN /hpf (<or=2+)
[2022-09-16 17:49] VITALS: PULSE 87; RESP 15
[2022-09-16 17:49] LABS: Color, Urine Yellow (Yellow); Glucose, Dipstick 250 mg/dl (Normal); Ketone-Dipstick 15 mg/dl (Negative); Leukocyte Esterase-Dipstick 500 /ul (Negative); Nitrite-Dipstick Negative (Negative); Occult Blood-Urine 250 /ul (Negative); Protein-Dipstick 100 mg/dl (Negative); Specific Gravity, Urine 1.015 (1.002-1.030); Urine Bilirubin Dipstick Negative (Negative); Urine Clarity Cloudy (Clear); Urine Urobilinogen Normal (Normal)
--- NOTE | 2022-09-16 17:53 | PCM.HP.STD ---
HPI - General General Date of Admission: 09/16/22 Date of Service: 09/16/22 Chief Complaint: Fatigued, lethargy, worsening renal function. HPI Narrative The patient is a 77 y/o F w/ PMHx: Chronic normocytic anemia, Obesity, CAD s/p CABG x 4, CKD stage III unclear subtype, Anxiety and Depression, PAF/Flutter, Tobacco use, HTN, HLD, Diabetes mellitus type II w/ chronic neuropathy and history of diabetic foot wounds/osteomyelitis w/ prior MRSA bacteremia recently discharged on 09/03/22 secondary to MRSA bacteremia associated with diabetic wet gangrene of the foot with ulcerations to both feet concerning for osteomyelitis and specifically the right foot with MRSA infection noted with eventual cultures with Staph aureus and Enterobacter with I&D and debridement of the right foot per podiatry as well as a second toe amputation and a partial second metatarsal resection with also TTE given the staph bacteremia performed which was unremarkable for any vegetations who now re-presents to the [facility] ED on 09/16/22 with history of increased confusion and lethargy as well as increasing creatinine at the skilled facility with diffuse body aches reported and significantly decreased appetite as well as poor oral intake as far as fluids are concerned with no recent fevers or chills prompting ED evaluation. Work-up in the ED included T98.2, heart rate 90, BP 140/74, respiratory rate 16, 98% on room air, CBC with WC 11.9, hemoglobin 8.4, MCV 86.8, platelet 188 with left shift, CMP with potassium 3.4, chloride 113, carbon oxide 20, BUN/creatinine 50/3.51, glucose 346, hepatic profile with AST 45 otherwise not marked appearing, urinalysis pending upon requested evaluation of patient, chest x-ray with no acute cardiopulmonary findings, rapid COVID and influenza antigen pending upon requested evaluation, urine culture pending per ED. in the ED patient ministered 1 L normal saline as is Levaquin 500 mg as initial loading dose. [facility] Medical History (Updated 09/16/22 @ 18:[address] Frederick Alonso MD) Back pain CAD (coronary artery disease) Chronic renal failure, stage 3 (moderate) Depression Diabetes mellitus, type II Diabetic peripheral neuropathy associated with type 2 diabetes mellitus Diastolic dysfunction Hypertension Obesity Tobacco dependence Home Medications aspirin 81 mg chewable tablet 81 mg PO DAILY heart health 04/06/16 [History Last Taken 01/05/19 81 mg] torsemide 20 mg tablet 20 mg PO DAILY diuretic 04/06/16 [History Last Taken 01/05/19 20 mg] simvastatin 40 mg tablet 40 mg PO DINNER cholesterol 04/09/16 [History Last Taken 01/05/19] losartan 100 mg tablet 100 mg PO DAILY blood pressure 09/27/17 [History Last Taken 01/05/19] cholecalciferol (vitamin D3) 50 mcg (2,000 unit) capsule (D3-2000) 3,000 unit PO DAILY supplement 01/05/19 [History Last Taken 01/05/19] fluoxetine 20 mg capsule 40 mg PO DAILY depression 01/05/19 [History Last Taken 01/05/19] levothyroxine 50 mcg tablet 50 mcg PO DAILY thyroid 01/05/19 [History Last Taken 01/05/19] multivitamin with minerals (Multiple Vitamin-Minerals tablet) 1 tab PO DAILY supplement 01/05/19 [History Last Taken 01/05/19] omega-3 fatty acids-fish oil 300 mg-1,000 mg capsule 1 cap PO BID supplement 01/05/19 [History Last Taken 01/05/19] acetaminophen 500 mg tablet 1,000 mg PO Q8 #0 tabs 09/03/22 [Rx Last Taken Unknown] cefepime 2 gram solution for injection 2 g IV Q12 40 days #80 ea 09/03/22 [Rx Last Taken Unknown] enoxaparin 40 mg/0.4 mL subcutaneous syringe 40 mg (0.4 mL) subcut DAILY 30 days #0 mL 09/03/22 [Rx Last Taken Unknown] famotidine 20 mg tablet 20 mg PO BID #0 tabs 09/03/22 [Rx Last Taken Unknown] insulin glargine-yfgn 100 unit/mL (3 mL) subcutaneous pen 15 unit (0.15 mL) subcut BIDAC #0 mL 09/03/22 [Rx Last Taken Unknown] insulin lispro 100 unit/mL subcutaneous pen (Humalog KwikPen (U-100) Insulin) 5 unit (0.05 mL) subcut TIDAC #0 mL 09/03/22 [Rx Last Taken Unknown] insulin lispro 100 unit/mL subcutaneous pen (Humalog KwikPen (U-100) Insulin) See Protocol subcut ACHS #0 mL 09/03/22 [Rx Last Taken Unknown] metronidazole 500 mg tablet 500 mg PO TID 14 days #42 tabs 09/03/22 [Rx Last Taken Unknown] oxycodone 5 mg tablet 5 mg PO Q4H PRN PRN Pain Score 4-10 3 days #12 tabs 09/03/22 [Rx Last Taken Unknown] sennosides 8.6 mg-docusate sodium 50 mg tablet (Stool Softener-Stimulant Laxative) 2 tab PO BID PRN PRN Constipation #0 tabs 09/03/22 [Rx Last Taken Unknown] vancomycin 750 mg intravenous solution 750 mg IV Q12H 40 days #80 ea 09/03/22 [Rx Last Taken Unknown] Allergy/AdvReac Type Severity Reaction Status Date / Time pregabalin [From Lyrica] AdvReac suicidal Verified 09/16/22 15:44 thoughts Family History (Updated 09/16/22 @ 17:[address] Kaia Padilla MD) Mother Cancer Diabetes Dementia Father No problems noted. Surgical History (Updated 09/16/22 @ 17:[address] Kaia Padilla MD) History of back surgery History of bowel resection History of carpal tunnel release of both wrists History of cholecystectomy History of hysterectomy Hx of appendectomy Hx of eye surgery S/P CABG x 4 S/P foot surgery Social History (Updated 09/16/22 @ 17:[address] Kaia Padilla MD) household members: none housing: group home Smoking Status: Former smoker alcohol intake: current alcohol intake frequency: holidays/special occasions only substance use type: does not use ROS Review of Systems ROS Unobtainable: due to encephalopathy Vital Signs Vital Signs Vital Signs: 09/16/22 15:45 09/16/22 17:49 Temperature 98.2 F Temperature Source Oral Pulse Rate 90 87 Respiratory Rate 16 15 Blood Pressure 140/74 H Blood Pressure Mean 96 Pulse Ox 98 Oxygen Delivery Method Room Air Room Air Weight Weight: 225 lb Body Mass Index (BMI) 36.3 Physical Exam Narrative Physical Examination: General: Awake, alert, oriented to self and place but cannot give appropriate year or month, following commands, labile mood, crying when she is alerted that she will be admitted and immediately stating she will attempt to eat more and drink more, anxious and tearful. Skin: Normal color, normal turgor, no icterus, no cyanosis except for bilateral diabetic foot wounds, dressings in place, recent 08/31/2022 right forefoot debridement with second toe amputation, chronic left foot ulcer of the first and second toes. HEENT: AT/NC, EOMI, PERRLA, dry MM, significantly poor dentition, no carotid bruits or JVD noted. Lungs: Diminished, greater bases, appropriate effort although not following commands well given anxious, tearful, no rales, ronchi or wheezing. Heart: Currently regular rate and rhythm; no gallop, rub audible. Abdomen: Soft, obese, NTTP, ND, hyperactive BS, no obvious evidence of HSM. Extremities: No cyanosis, no clubbing, see skin. Neurological: Patient awake, alert, oriented as noted, cognitive function not baseline intact; pupils equally reactive to light and accommodation, cranial nerves II-XII grossly normal, moving all 4 extremities, no focal deficits, strength moderately to severely global decrease secondary to acute presentation with confusion and recent surgeries with limited ambulatory ability Psychiatric: Affect appears anxious, tearful, fatigue, does have underlying history of anxiety and depression. Results Lab / Micro Data Result Diagrams: 09/16/22 16:35 09/16/22 16:35 Labs: Laboratory Results - last 24 hr 09/16/22 16:35: WBC 11.9 H, RBC 3.04 L, Hgb 8.4 L, Hct 26.4 L, MCV 86.8, MCH 27.6, MCHC 31.8 L, RDW Std Deviation 50.2 H, RDW Coeff of Hilda 16.0 H, Plt Count 188, MPV 10.0, Immature Gran % (Auto) 0.600, Neut % (Auto) 71.8 H, Lymph % (Auto) 19.8, Cooke % (Auto) 7.0, Eos % (Auto) 0.3, Baso % (Auto) 0.5, Absolute Neuts (auto) 8.6 H, Absolute Lymphs (auto) 2.36, Nucleated RBC % 0 09/16/22 16:35: Sodium 145, Potassium 3.4 L, Chloride 113 H, Carbon Dioxide 20.0 L, Anion Gap 12, BUN 50 H, Creatinine 3.51 H, Estim Creat Clear Calc 12.96, Est GFR (MDRD) Af Amer 16 L, Est GFR (MDRD) Non-Af 14 L, BUN/Creatinine Ratio 14.2, Glucose 346 H, Calcium 9.5, Total Bilirubin 0.60, AST 45 H, ALT 20, Alkaline Phosphatase 65, Total Protein 6.3 L, Albumin 2.5 L, Globulin 3.8, Albumin/Globulin Ratio 0.7 L Radiology Impression Chest X-Ray 09/16/22 16:35 IMPRESSION: No radiographic evidence of acute cardiopulmonary disease. Electronically Signed: Maldonado Hickman MD at 16:52 EST , Assessment & Plan Assessment/Plan (1) Acute kidney injury: PLAN: Plan The patient is a 77 y/o F w/ PMHx: Chronic normocytic anemia, Obesity, CAD s/p CABG x 4, CKD stage III unclear subtype, Anxiety and Depression, PAF/Flutter, Tobacco use, HTN, HLD, Diabetes mellitus type II w/ chronic neuropathy and history of diabetic foot wounds/osteomyelitis w/ prior MRSA bacteremia recently discharged on 09/03/22 secondary to MRSA bacteremia associated with diabetic wet gangrene of the foot with ulcerations to both feet concerning for osteomyelitis and specifically the right foot with MRSA infection noted with eventual cultures with Staph aureus and Enterobacter with I&D and debridement of the right foot per podiatry as well as a second toe amputation and a partial second metatarsal resection with also TTE given the staph bacteremia performed which was unremarkable for any vegetations who now re-presents to the [facility] ED on 09/16/22 with history of increased confusion and lethargy as well as increasing creatinine at the skilled facility with diffuse body aches reported and significantly decreased appetite as well as poor oral intake as far as fluids are concerned with no recent fevers or chills. #1. Acute encephalopathy, suspect multifactorial, secondary to primarily acute kidney injury with worsening function #2 with concern for Complicated Acute UTI (UA marked, UCx pending but is on notable abx therapy agents already, no urinary symptoms) and suspect component of underlying depression, still running out infectious etiology: We will admit to medical surgical floor, maintain on judicious IV fluids as noted, urinalysis as noted is concerning for possible acute urinary tract infection with urine culture pending although patient is denying any specific urinary type symptoms therefore we will hold on an additional antibiotic therapy until urine culture is resulted and will continue her recent initiated antibiotics at her prior admission discharge per infectious disease with renal dosing per pharmacy and continue aggressive wound care as well as offloading, will request case management evaluation especially given depression concerns, will resume patient's antidepressant medications once renal function has improved, maintain on fall precautions, PT and OT assessment for discharge planning, continue treatment for YANET as noted below, repeat blood cultures pending per ED. if urine culture does return with significant findings and the current agents she is on are not appropriately sensitive then certainly would add additional regimen, procalcitonin requested, to be cautious also as patient is a poor historian and cannot give any recent history of falls will obtain CT head in addition. #2. Acute kidney injury on CKD stage III unclear subtype: Poor oral intake, nephrotoxic medications, admission BUN/Cr 50/3.51, prior baseline creatinine noted to be 0.9-1.3 with most recent prior 09/03/2022 creatinine 1.18. Will hydrate, hold nephrotoxic medications and repeat chemistry in AM. If no improvement would plan FeNa as well as renal ultras assessment. Urinalysis and urine culture pending upon request evaluation of patient. #3. Hypokalemia: Admission K+ 3.4, magnesium level request, supplementation given, repeat level in AM. #4. Recent MRSA bacteremia with bilateral lower extremity diabetic foot wounds and right Enterobacter/Pseudomonas: s/p recent I&D and debridement of the right foot per podiatry as well as a second toe amputation and a partial second metatarsal resection 08/31/2022, will continue daily wound care with left foot with daily Betadine moistened gauze, right foot toes/surgical incision with Betadine with dry dressings and right foot diabetic ulcer with Betadine moistened gauze, nonweightbearing to the right forefoot, encouraged continued follow-up with podiatry, per infectious disease upon discharge plan 6 weeks of IV vancomycin and cefepime with a stop date of 10/12/2022 as well as a short course of p.o. Flagyl concurrently (14 days) with planned ongoing outpatient labs and ID follow-up in 2 to 3 weeks. Given acute kidney injury is noted we will request pharmacy to renally dose her medications #5. Diabetes mellitus type II, uncontrolled with significant neuropathy and diabetic foot wounds as noted: Hold oral home regimen, continue home insulin regimen with adjustments as needed given recent poor oral intake, ADA diet, accu checks w/ ISS, request nutrition consultation for education and teaching to convey the importance of oral intake especially given her underlying diabetes. #6. Chronic normocytic anemia: Admission hemoglobin 8.4, baseline prior appears 8-9 although patient previously on 09/03/2022 had been 10.9 at discharge however suspect this was falsely mildly elevated, will continue to trend CBC. #7. PAF/flutter: Patient is not on any rate or rhythm agent per review of current list, also not chronically anticoagulated, will transition from Lovenox to heparin given significant creatinine clearance decrease with acute kidney injuries noted #8. Anxiety and depression: Given significant acute kidney injury we will temporarily hold patient fluoxetine regimen but as soon as it is more appropriate would not immediately restart as suspect current presentation is partly secondary to depression with recent skilled facility placement and wounds with decreased mobility. #9. CAD: Status post CABG x4, will continue aspirin, statin, not on beta-ritika therapy, holding ARB given acute kidney injury is noted, resume once appropriate #10. Hypothyroidism: We will continue patient home levothyroxine regimen. #11. Hypertension: Holding currently patient's torsemide as well as losartan given acute kidney injury, in the interim we will place on IV hydralazine. #12. Hyperlipidemia: We will continue patient on statin therapy. #13. Tobacco Abuse: Encouraged cessation, inpatient consultation per RT, NR if desired. #14. Obesity: Weight loss and lifestyle changes encouraged. #15. DVT prophylaxis: SCDs, heparin. Admission Evaluation Time spent evaluating chart, patient history, patient evaluation, care planning and discussion with specialists: 77 minutes. Charges/Coding Visit Charges Inpatient E&M: 07274 Init Hosp L3
[2022-09-16 17:55] LABS: Squamous Epithelial Cells - UA 0-5 SEEN /hpf (5-10); White Blood Cells 50-100 SEEN /hpf (0-5); Yeast-Urine 3+ /hpf (None Seen)
[2022-09-16 17:56] LABS: Red Blood Cells-Urine 0-5 SEEN /hpf (0-5)
--- NOTE | 2022-09-16 18:21 | CT_ITS ---
INDICATION: Encephalopathy EXAMINATION: CT BRAIN - CT Head or Brain W/O Contrast Injection TECHNIQUE: Multiple axial images were obtained of the head without intravenous contrast. A radiation dose optimization technique was used for this scan. IV Contrast dosage and agent: None. COMPARISON: 04/26/2022 FINDINGS: BRAIN PARENCHYMA: No intra- or extra-axial hemorrhage. No evidence of acute infarct. No intracranial mass or mass effect. There is preservation of the smith/white matter interface. Posterior fossa structures are unremarkable. CSF SPACES: Appropriate for age. No hydrocephalus. Basal cisterns are patent. CALVARIUM, SKULL BASE, PARANASAL SINUSES AND MASTOID AIR CELLS: Clear. No discrete lytic or blastic abnormalities. ORBITS: Both globes, extraocular muscles, optic nerves and retrobulbar fat appear unremarkable. ASPECTS Score for Acute Strokes: 10 CT/Brain/Head without Contrast IMPRESSION: Negative Brain CT without contrast. Electronically Signed: Maldonado Hickman MD at 19:11 EST ,
[2022-09-16] MEDS: 0.9% Normal Saline 1,000 ML 999 ML IV ×2 (18:47→20:27)
[2022-09-16 18:51] VITALS: BP 136/85; PULSE 94; RESP 16; TEMP 36.9; O2SAT 99
[2022-09-16 19:21] LABS: Lactic Acid 1.2 mmol/L (0.4-1.9)
[2022-09-16] MEDS: levoFLOXacin IV 500 MG/100 ML BAG 100 MG IV (19:26)
[2022-09-16 19:45] VITALS: BMI 30.2
[2022-09-16 19:50] VITALS: BP 132/74; PULSE 81; RESP 18; TEMP 36.6; O2SAT 99
[2022-09-16 19:53] LABS: Procalcitonin 0.22 ng/mL (0.00-0.09)
[2022-09-16] MEDS: 0.9% Normal Saline 1,000 ML 125 ML IV (20:27)
[2022-09-16] MEDS: Acetaminophen 325 MG Tablet 650 MG PO (21:01)
[2022-09-16] MEDS: Nystatin Powder 15gm Bottle 1 APPLIC TOPICAL (21:02)
[2022-09-16] MEDS: Heparin Injection (Vial) 5,000 UNIT/ML VIAL 5000 UNIT SC (21:02)
[2022-09-16] MEDS: oxyCODONE 5 MG Tablet PO (21:02)
[2022-09-16] MEDS: metroNIDAZOLE 500 MG Tablet PO (21:02)
[2022-09-16] MEDS: MELATONIN 3 MG TABLET PO (21:02)
[2022-09-16] MEDS: Menthol/Lanolin/Calamine/Znox 113 GM Tube 1 APPLIC TOPICAL (21:02)
[2022-09-16] MEDS: Potassium Chloride Oral Tablet 20 MEQ 40 MEQ PO (21:10)
[2022-09-16] MEDS: Insulin Lispro 100 UNIT/ML INSULN.PEN SC (21:19)
[2022-09-16] MEDS: Ondansetron 4 MG/2 ML Vial IV (21:23)
[2022-09-16] MEDS: 0.9% Saline Lock 10 ML Syringe IV (21:23)
[2022-09-16 23:06] LABS: Bedside Glucose 266 mg/dL (74-106)
[2022-09-17 02:36] VITALS: BP 113/61; PULSE 77; RESP 16; TEMP 36.6; O2SAT 100
[2022-09-17] MEDS: oxyCODONE 5 MG Tablet PO ×2 (02:51→10:41)
[2022-09-17] MEDS: Acetaminophen 325 MG Tablet 650 MG PO (02:51)
[2022-09-17] MEDS: 0.9% Normal Saline 1,000 ML 125 ML IV ×3 (03:39→19:49)
[2022-09-17 05:35] LABS: Absolute Lymphocyte Count 1.48 X10^3/uL (0.83-4.51); Absolute Neutrophil Count 3.8 X10^3/uL (2.0-7.7); Basophil# 0.04 X10^3/uL; Basophil% 0.7 % (0-1); Eosinophil# 0.14 X10^3/uL; Eosinophils% 2.4 % (0-5); Hematocrit 23.6 % (37-47); Hemoglobin 7.1 g/dL (12.0-15.0); Lymphocyte # 1.48 X10^3/ul (0.83-4.51); Lymphocyte % 24.9 % (19-41); Mean Corp Hgb Conc 30.1 g/dL (32-36); Mean Corpuscular Hgb 26.8 pg (27.0-32.0); Mean Corpuscular Volume 89.1 fL (81-99); Mean Platelet Vol. 10.3 fl (6.2-12.0); Monocyte# 0.49 X10^3/uL; Monocyte% 8.2 % (0-10); NRBC Flagged by Analyzer 0 % (0-5); Neutrophil # 3.76 X10^3/uL (2.7-7.7); Neutrophil % 63.3 % (47-70); Platelet Count 136 K/mm3 (150-450); RBC Distribution Width SD 50.5 fl (35.1-43.9); Red Blood Count 2.65 M/mm3 (4.2-5.4); White Blood Count 5.9 K/mm3 (4.4-11.0)
[2022-09-17] MEDS: Levothyroxine 50 MCG Tablet PO ×2 (05:37)
[2022-09-17] MEDS: Nystatin Powder 15gm Bottle 1 APPLIC TOPICAL ×3 (05:37→19:50)
[2022-09-17] MEDS: metroNIDAZOLE 500 MG Tablet PO ×3 (05:38→20:01)
[2022-09-17 06:18] LABS: ALB/GLOB Ratio 0.6 RATIO (0.9-2.4); AST(SGOT) 35 U/L (15-37); Alanine Aminotransfer ALT/SGPT 17 U/L (13-56); Albumin, Serum 1.8 g/dL (3.2-5.0); Alkaline Phosphatase 54 U/L (45-117); Anion Gap 8 (5-15); BUN 47 mg/dL (7-18); BUN/Creat Ratio 14.2 RATIO (10-20); Calcium,Total 8.3 mg/dL (8.5-10.1); Chloride 118 mmol/L (98-107); EST Glomerular Filtration Rate 15 mL/min (>60); Est Glom Filt Rate - Afr Amer 18 mL/min (>60); Estimated Creatinine Clearance 13.79 ml/min; Globulin 3.1 g/dL (2.2-4.2); Glucose 238 mg/dL (74-106); Potassium 3.4 mmol/L (3.5-5.1); Protein, Total 4.9 g/dL (6.4-8.2); Sodium Level 147 mmol/L (136-145)
--- NOTE | 2022-09-17 06:55 | CASEMGMT ---
MARIANA CORMIER Readmission Review: Index: 08/30/22 thru 09/03/22, Dx: DM foot ulcers bilat feet with wet gangrene on right, and MRSA bacteremia. Underwent incision and drainage, debridement, 2nd toe amputation, and partial 2nd metatarsal resection of right foot. Readmission: 09/16/22, Dx: acute encephalopathy and YANET Pt was admitted on the above dates for the above diagnoses. Pt was seen by ID on index and was discharged to the [facility] for skilled services at discharge including IV antibiotics, wound care, and PT/OT. Pt returned from the [facility] with confusion and noted YANET. Continued tx of pt's DM ulcers and MRSA infection/bacteremia also noted on this admission. Will monitor for any change in treatment plan. Marcia Haskins RN CM
[2022-09-17 07:04] LABS: Vancomycin, Random Level 22.5 ug/mL (0.0-15.0)
--- NOTE | 2022-09-17 08:04 | PCM.RX.CS ---
Consult Pharmacy has been consulted to manage selected antiobiotic: Vancomycin Type of Consult: Follow-up Labs: Sodium 147 mmol/L (136-145) H 09/17/22 04:32 Potassium 3.4 mmol/L (3.5-5.1) L 09/17/22 04:32 Chloride 118 mmol/L (98-107) H 09/17/22 04:32 Carbon Dioxide 21.0 mmol/L (21.0-32.0) 09/17/22 04:32 Anion Gap 8 (5-15) 09/17/22 04:32 BUN 47 mg/dL (7-18) H 09/17/22 04:32 Creatinine 3.30 mg/dL (0.55-1.02) H 09/17/22 04:32 Est GFR (MDRD) Af Amer 18 mL/min (>60) L 09/17/22 04:32 Est GFR (MDRD) Non-Af 15 mL/min (>60) L 09/17/22 04:32 BUN/Creatinine Ratio 14.2 RATIO (10-20) 09/17/22 04:32 Glucose 238 mg/dL (74-106) H 09/17/22 04:32 Random Vancomycin 22.5 ug/mL (0.0-15.0) H 09/17/22 06:10 Microbiology: Microbiology 09/16/22 17:20 Nasal Secretion SARS-CoV-2 & FLU Antigen (Rapid) - Final Weight used for dosin kg Goal Trough: 15-20 mcg/mL Pharmacy Plan for Drug Dosing: Patient was on vancomycin 750mg IV q12h as an outpatient, arrived with elevated SCr. Held vancomycin and checked random level that returned high. Random level was again elevated this morning. Recommend to re-check random level again tomorrow morning. Unclear when last outpatient dose was given. Will try to determine this with nursing. Original vancomycin stop date of 10/12/22 was added to the pharmacy to dose order. Pharmacy Service will continue to monitor and adjust dosing as required. Follow-Up Labs: Trough Vancomycin - 09/18 @ 0600
[2022-09-17 08:09] VITALS: BP 140/78; PULSE 67; RESP 18; TEMP 36.6; O2SAT 97
[2022-09-17] MEDS: Insulin Lispro 100 UNIT/ML INSULN.PEN SC ×4 (08:31→20:12)
[2022-09-17] MEDS: Menthol/Lanolin/Calamine/Znox 113 GM Tube 1 APPLIC TOPICAL ×4 (08:31→19:50)
[2022-09-17 08:40] LABS: Bedside Glucose 189 mg/dL (74-106)
[2022-09-17 09:27] VITALS: RESP 16; O2SAT 97
--- NOTE | 2022-09-17 09:59 | PN.HOSP_ITS ---
Reason for Visit Reason for Visit: Diagnoses Acute kidney failure, unspecified (09/16/22) Subjective Subjective Patient seen and examined. She still remains a bit confused today but is able to answer questions. She denies any fever, chills, cough, chest pain, palpitations, dizziness, nausea, vomiting or diarrhea. Review of systems is otherwise n egative. Objective Data Objective Data Vital Signs: Vital Signs Temp Pulse Resp BP Pulse Ox O2 Del Method 97.8 F 67 16 140/78 H 97 Room Air 09/17/22 08:09 09/17/22 08:09 09/17/22 09:27 09/17/22 08:09 09/17/22 09:27 09/17/22 09:27 Oxygen Delivery Method Room Air Weight: 193 lb 1.999 oz Body Mass Index (BMI) 30.2 Intake & Output: Intake and Output for Last 24 Hours 09/15/22 09/16/22 09/17/22 23:59 23:59 23:59 Intake Total 2266 / 2266 950 / 950 Balance 2266 / 2266 950 / 950 Lab / Micro Data Result Diagrams: 09/17/22 04:32 09/17/22 04:32 Labs: Laboratory Results - last 24 hr 09/16/22 16:35: WBC 11.9 H, RBC 3.04 L, Hgb 8.4 L, Hct 26.4 L, MCV 86.8, MCH 27.6, MCHC 31.8 L, RDW Std Deviation 50.2 H, RDW Coeff of Hilda 16.0 H, Plt Count 188, MPV 10.0, Immature Gran % (Auto) 0.600, Neut % (Auto) 71.8 H, Lymph % (Auto) 19.8, [place] % (Auto) 7.0, Eos % (Auto) 0.3, Baso % (Auto) 0.5, Absolute Neuts (auto) 8.6 H, Absolute Lymphs (auto) 2.36, Nucleated RBC % 0 09/16/22 16:35: Sodium 145, Potassium 3.4 L, Chloride 113 H, Carbon Dioxide 20.0 L, Anion Gap 12, BUN 50 H, Creatinine 3.51 H, Estim Creat Clear Calc 12.96, Est GFR (MDRD) Af Amer 16 L, Est GFR (MDRD) Non-Af 14 L, BUN/Creatinine Ratio 14.2, Glucose 346 H, Calcium 9.5, Total Bilirubin 0.60, AST 45 H, ALT 20, Alkaline Phosphatase 65, Total Protein 6.3 L, Albumin 2.5 L, Globulin 3.8, Albumin/Globulin Ratio 0.7 L 09/16/22 16:35: Magnesium 2.0 09/16/22 17:21: Urine Color Yellow, Urine Clarity Cloudy, Urine pH 6.0, Ur Specific [place] 1.015, Urine Protein 100 H, Urine Glucose (UA) 250 H, Urine Ketones 15 H, Urine Occult Blood 250 H, Urine Nitrite Negative, Urine Bilirubin Negative, Urine Urobilinogen Normal, Ur Leukocyte Esterase 500 H, Urine RBC 0-5 SEEN, Urine WBC 50-100 SEEN, Ur Squamous Epith Cells 0-5 SEEN, Urine Bacteria 0 SEEN, Urine Mucus 0 SEEN, Urine Yeast 3+ 09/16/22 18:38: Lactic Acid 1.2 09/16/22 19:16: Procalcitonin 0.22 H 09/16/22 20:18: Random Vancomycin 25.0 H 09/16/22 21:18: POC Glucose 266 H 09/17/22 04:32: WBC 5.9, RBC 2.65 L, Hgb 7.1 L, Hct 23.6 L, MCV 89.1, MCH 26.8 L , MCHC 30.1 L D, RDW Std Deviation 50.5 H, RDW Coeff of Hilda 16.0 H, Plt Count 136 L, MPV 10.3, Immature Gran % (Auto) 0.500, Neut % (Auto) 63.3, Lymph % (Auto) 24.9, [place] % (Auto) 8.2, Eos % (Auto) 2.4, Baso % (Auto) 0.7, Absolute Neuts (auto) 3.8, Absolute Lymphs (auto) 1.48, Nucleated RBC % 0 09/17/22 04:32: Sodium 147 H, Potassium 3.4 L, Chloride 118 H, Carbon Dioxide 21.0, Anion Gap 8, BUN 47 H, Creatinine 3.30 H, Estim Creat Clear Calc 13.79, Est GFR (MDRD) Af Amer 18 L, Est GFR (MDRD) Non-Af 15 L, BUN/Creatinine Ratio 14.2, Glucose 238 H, Calcium 8.3 L, Total Bilirubin 0.40, AST 35, ALT 17, Alkaline Phosphatase 54, Total Protein 4.9 L, Albumin 1.8 L, Globulin 3.1, Albumin/Globulin Ratio 0.6 L 09/17/22 06:10: Random Vancomycin 22.5 H 09/17/22 08:08: POC Glucose 189 H Micro: Microbiology 09/16/22 17:20 Nasal Secretion SARS-CoV-2 & FLU Antigen (Rapid) - Final Radiography Diagnostic Testing: Radiology Impression Chest X-Ray 09/16/22 16:35 IMPRESSION: No radiographic evidence of acute cardiopulmonary disease. Electronically Signed: Maldonado Hickman MD at 16:52 EST , Brain CT 09/16/22 18:21 IMPRESSION: Negative Brain CT without contrast. Electronically Signed: Maldonado Hickman MD at 19:11 EST , Physical Exam Const alert and no apparent distress Constitutional Narrative: confused. Orientation / Consciousness: confused HEENT head/scalp atraumatic, moist oral mucous membranes and oropharynx normal Head and Scalp: normocephalic Mouth: oral and palatal mucosa normal Eyes PERRL, EOMs intact bilaterally and conjunctivae normal Neck no lymphadenopathy and supple Resp normal respiratory effort, no retractions, no use of accessory muscles and clear to auscultation bilaterally Cardio regular rate, regular rhythm, S1 normal heart sound, S2 normal heart sound and no murmurs GI normal to inspection, nondistended, normoactive bowel sounds, soft to palpation, non-tender and non-distended Extremity normal to inspection, full ROM and no clubbing, cyanosis or edema Neuro CN's II-XII intact bilaterally, moves all extremities and no focal motor deficits Neuro Narrative: confusion Sensorium / Orientation: awake and alert Assessment & Plan Assessment/Plan (1) Acute kidney injury: (2) Generalized weakness: (3) Encephalopathy acute: PLAN: Plan #Acute encephalopathy due to UTI * on IV vancomycin, cefepime and levaquin * urine culture pending * patient still a bit confused today * blood cultures pending * of note, she was already on vancomycin and cefepime prior to admission for MRSA bacteremia and right diabetic foot infection. * #YANET * Cr is trending downwards and is 3.3 today; was 3.51 yesterday. * baseline Cr is ~ 1. * continue gentle hydration with iVF * may be due to vancomycin which she is on for diabetic foot infection from MRSA. * #TYpe 2 diabetes mellitus with neuropathy * was recently discharged for right diabetic foot infection. * on ISS. accuchecks ACHS * on lantus 1 * #Acute on Chronic anemia: * Hb is down to 7.1 from 9.5 yesterday * no clear evidence of bleeding * check stool for occult blood. * hold heparin. * transfuse if Hb <7 * start on pantoprazole #Hypokalemia: K is 3.4. Will replace and trend. #Hypernatremia: na is 147. This is likely due to IVF administration. Will trend sodium #Paroxysmal afib: not chronically anticoagulated. On heparin, which will be held due to acute on chronic anemia. #Anxiety and depression * fluoxetine on hold due to confusion * #CAD s/p CABG: on aspirin, statin. ARB on hold due to kidney injury. Hld aspiriin due to acute on chronic anemia. #Hypothyroidism: on synthroid #Hypertension; losartan and torsemide on hold due to YANET. IV hydralazine prn #Hyperlipidemia: on statin DVT prophylaxis: SCDs. heparin held. Charges/Coding Visit Charges Inpatient E&M: 26915 Subs Hosp L3
--- NOTE | 2022-09-17 10:57 | CASEMGMT ---
Social Work SW met with pt and pt confirms that she was at [facility] and plans to return there upon discharge. With pt permission, phone call to shani Cervantes who also confirms plan to return to [facility]. Clinical updates sent to [facility] via [facility]. [facility] is able to accept pt but pt will need precert prior to return. SW will fax therapy evals when available and request precert be started at that time. Plan: [facility], pending precert JULIEN Brian
[2022-09-17 12:26] LABS: Bedside Glucose 195 mg/dL (74-106)
[2022-09-17 15:12] VITALS: BP 107/68; PULSE 74; RESP 18; TEMP 36.7; O2SAT 96
[2022-09-17 17:40] LABS: Bedside Glucose 220 mg/dL (74-106)
[2022-09-17 19:45] VITALS: O2SAT 98
[2022-09-17 19:47] VITALS: BP 122/51; PULSE 62; RESP 18; TEMP 36.6; O2SAT 98
[2022-09-17 22:06] LABS: Bedside Glucose 192 mg/dL (74-106)
[2022-09-18 01:55] VITALS: BP 145/75; PULSE 64; RESP 18; TEMP 36.6; O2SAT 94
[2022-09-18] MEDS: 0.9% Normal Saline 1,000 ML 125 ML IV ×3 (03:48→21:20)
[2022-09-18] MEDS: Nystatin Powder 15gm Bottle 1 APPLIC TOPICAL ×3 (06:57→22:52)
[2022-09-18] MEDS: metroNIDAZOLE 500 MG Tablet PO ×3 (06:57→22:51)
[2022-09-18 07:01] VITALS: BP 127/54; PULSE 68; RESP 20; TEMP 36.5; O2SAT 97
[2022-09-18 07:24] VITALS: O2SAT 96
[2022-09-18 07:50] LABS: Absolute Lymphocyte Count 1.47 X10^3/uL (0.83-4.51); Absolute Neutrophil Count 3.1 X10^3/uL (2.0-7.7); Basophil# 0.03 X10^3/uL; Basophil% 0.6 % (0-1); Eosinophil# 0.17 X10^3/uL; Eosinophils% 3.3 % (0-5); Hematocrit 23.5 % (37-47); Hemoglobin 7.4 g/dL (12.0-15.0); Lymphocyte # 1.47 X10^3/ul (0.83-4.51); Lymphocyte % 28.5 % (19-41); Mean Corp Hgb Conc 31.5 g/dL (32-36); Monocyte# 0.35 X10^3/uL; Monocyte% 6.8 % (0-10); NRBC Flagged by Analyzer 0 % (0-5); Neutrophil % 60.2 % (47-70); Platelet Count 115 K/mm3 (150-450); RBC Distribution Width CV 16.5 % (11.6-14.6); RBC Distribution Width SD 52.7 fl (35.1-43.9); Red Blood Count 2.64 M/mm3 (4.2-5.4); White Blood Count 5.2 K/mm3 (4.4-11.0)
[2022-09-18 08:21] LABS: Vancomycin, Random Level 21.2 ug/mL (0.0-15.0)
[2022-09-18 08:25] LABS: BUN 43 mg/dL (7-18); BUN/Creat Ratio 12.1 RATIO (10-20); Calcium,Total 8.4 mg/dL (8.5-10.1); Chloride 119 mmol/L (98-107); Creatinine, Serum 3.55 mg/dL (0.55-1.02); EST Glomerular Filtration Rate 13 mL/min (>60); Est Glom Filt Rate - Afr Amer 16 mL/min (>60); Estimated Creatinine Clearance 12.82 ml/min; Glucose 199 mg/dL (74-106); Potassium 3.7 mmol/L (3.5-5.1); Sodium Level 145 mmol/L (136-145)
[2022-09-18 08:26] LABS: Anion Gap 6 (5-15)
--- NOTE | 2022-09-18 08:32 | PCM.RX.CS ---
Consult Pharmacy has been consulted to manage selected antiobiotic: Vancomycin Type of Consult: Follow-up Prior Doses of Antibiotics Received/Current Regimen: Previously on 750mg iv prior to admission. Labs: Sodium 145 mmol/L (136-145) 09/18/22 06:26 Potassium 3.7 mmol/L (3.5-5.1) 09/18/22 06:26 Chloride 119 mmol/L (98-107) H 09/18/22 06:26 Carbon Dioxide 20.0 mmol/L (21.0-32.0) L 09/18/22 06:26 Anion Gap 6 (5-15) 09/18/22 06:26 BUN 43 mg/dL (7-18) H 09/18/22 06:26 Creatinine 3.55 mg/dL (0.55-1.02) H 09/18/22 06:26 Est GFR (MDRD) Af Amer 16 mL/min (>60) L 09/18/22 06:26 Est GFR (MDRD) Non-Af 13 mL/min (>60) L 09/18/22 06:26 BUN/Creatinine Ratio 12.1 RATIO (10-20) 09/18/22 06:26 Glucose 199 mg/dL (74-106) H 09/18/22 06:26 Random Vancomycin 21.2 ug/mL (0.0-15.0) H 09/18/22 06:26 Microbiology: Microbiology 09/16/22 17:20 Nasal Secretion SARS-CoV-2 & FLU Antigen (Rapid) - Final Weight used for dosin.8 kg Estimated Creatinine Clearance: 13 ml/min Goal Trough: 15-20 mcg/mL Pharmacy Plan for Drug Dosing: Vancomycin level continues to remain high @21.2. Renal Cr increase to 3.55 from 3.3 yesterday. Continue to hold any dosing. Random level ordered to be repeated in AM tomorrow. Pharmacy Service will continue to monitor and adjust dosing as required. Follow-Up Labs: Trough Vancomycin - random 09.19.22 0600
[2022-09-18] MEDS: Insulin Lispro 100 UNIT/ML INSULN.PEN SC ×3 (09:02→22:57)
[2022-09-18] MEDS: Menthol/Lanolin/Calamine/Znox 113 GM Tube 1 APPLIC TOPICAL ×3 (09:03→22:51)
[2022-09-18] MEDS: Aspirin 81 MG TAB.CHEW PO (09:03)
[2022-09-18 09:37] VITALS: BP 141/60; PULSE 72; RESP 18; TEMP 37.1; O2SAT 100
--- NOTE | 2022-09-18 11:48 | PN.HOSP_ITS ---
Reason for Visit Reason for Visit: Diagnoses Encephalopathy, unspecified (09/16/22) Acute kidney failure, unspecified (09/16/22) Weakness (09/16/22) Subjective Subjective Patient seen and examined. She had no active complaints and was waiting on her breakfast. She denied any fever, chills, cough, chest pain, palpitations, dizziness, nausea, vomiting or diarrhea. Review of systems is otherwise negative. Her hb is 7.4 today. Objective Data Objective Data Vital Signs: Vital Signs Temp Pulse Resp BP Pulse Ox O2 Del Method 98.7 F 72 18 141/60 H 100 Room Air 09/18/22 09:37 09/18/22 09:37 09/18/22 09:37 09/18/22 09:37 09/18/22 09:37 09/18/22 09:37 Oxygen Delivery Method Room Air Weight: 200 lb 2.876 oz Body Mass Index (BMI) 30.2 Intake & Output: Intake and Output for Last 24 Hours 09/16/22 09/17/22 09/18/22 23:59 23:59 23:59 Intake Total 2266 / 2266 3630.41 / 3630.41 3598.42 / 3598.42 Output Total 550 / 775 725 / 725 Balance 2266 / 2266 3080.41 / 2855.41 2873.42 / 2873.42 Lab / Micro Data Result Diagrams: 09/18/22 06:26 09/18/22 06:26 Labs: Laboratory Results - last 24 hr 09/17/22 11:49: POC Glucose 195 H 09/17/22 17:18: POC Glucose 220 H 09/17/22 20:10: POC Glucose 192 H 09/18/22 06:26: Random Vancomycin 21.2 H 09/18/22 06:26: WBC 5.2, RBC 2.64 L, Hgb 7.4 L, Hct 23.5 L, MCV 89.0, MCH 28.0, MCHC 31.5 L, RDW Std Deviation 52.7 H, RDW Coeff of Hilda 16.5 H, Plt Count 115 L, MPV 11.0, Immature Gran % (Auto) 0.600, Neut % (Auto) 60.2, Lymph % (Auto) 28.5, [place] % (Auto) 6.8, Eos % (Auto) 3.3, Baso % (Auto) 0.6, Absolute Neuts (auto) 3.1, Absolute Lymphs (auto) 1.47, Nucleated RBC % 0 09/18/22 06:26: Sodium 145, Potassium 3.7, Chloride 119 H, Carbon Dioxide 20.0 L , Anion Gap 6, BUN 43 H, Creatinine 3.55 H, Estim Creat Clear Calc 12.82, Est GFR (MDRD) Af Amer 16 L, Est GFR (MDRD) Non-Af 13 L, BUN/Creatinine Ratio 12.1, Glucose 199 H, Calcium 8.4 L Micro: Microbiology 09/16/22 17:20 Nasal Secretion SARS-CoV-2 & FLU Antigen (Rapid) - Final Physical Exam Const alert and no apparent distress Constitutional Narrative: confused. Orientation / Consciousness: confused HEENT head/scalp atraumatic, moist oral mucous membranes and oropharynx normal Head and Scalp: normocephalic Mouth: oral and palatal mucosa normal Eyes PERRL, EOMs intact bilaterally and conjunctivae normal Neck no lymphadenopathy and supple Resp normal respiratory effort, no retractions, no use of accessory muscles and clear to auscultation bilaterally Cardio regular rate, regular rhythm, S1 normal heart sound, S2 normal heart sound and no murmurs GI normal to inspection, nondistended, normoactive bowel sounds, soft to palpation, non-tender and non-distended Extremity normal to inspection, full ROM and no clubbing, cyanosis or edema Neuro CN's II-XII intact bilaterally, moves all extremities and no focal motor deficits Neuro Narrative: confusion Sensorium / Orientation: awake and alert Assessment & Plan Assessment/Plan (1) Acute kidney injury: (2) Generalized weakness: (3) Encephalopathy acute: PLAN: Plan #Acute encephalopathy due to UTI * on IV vancomycin, cefepime and levaquin * urine culture pending * patient more alert and oriented today. * of note, she was already on vancomycin and cefepime prior to admission for MRSA bacteremia and right diabetic foot infection. * #YANET * Cr has trended upwards to 3.55 today * baseline Cr is ~ 1. * continue gentle hydration with iVF * may be due to vancomycin which she is on for diabetic foot infection from MRSA. * get renal USG, and check FeUrea. * consult nephrology if there is no improvement by tomorrow * #TYpe 2 diabetes mellitus with neuropathy * was recently discharged for right diabetic foot infection. * on ISS. accuchecks ACHS * on lantus * #Acute on Chronic anemia: * hb today is 7.4; was 7.1 yesterday * stool for occult blood pending * heparin and aspirin on hold * on IV PPI * iron panel pending * consult GI * * #Hypokalemia: K is 3.7. Resolved. #Hypernatremia: resolved. Na is 145. #Paroxysmal afib: not chronically anticoagulated. On heparin, which will be held due to acute on chronic anemia. #Anxiety and depression * fluoxetine on hold due to confusion * #CAD s/p CABG: on aspirin, statin. ARB on hold due to kidney injury. aspirin held due to acute on chronic anemia. #Hypothyroidism: on synthroid #Hypertension; losartan and torsemide on hold due to YANET. IV hydralazine prn #Hyperlipidemia: on statin DVT prophylaxis: SCDs. heparin held. Charges/Coding Visit Charges Inpatient E&M: 62508 Subs Hosp L3
[2022-09-18 12:36] LABS: Bedside Glucose 192 mg/dL (74-106)
[2022-09-18 12:51] LABS: Ferritin 219 ng/mL (8-252); Iron 67 ug/dL (50-170); Iron Binding Capacity,Total 157 ug/dL (250-450); PERCENT IRON SATURATION 42.7 % (15.0-55.0)
[2022-09-18 14:39] VITALS: BP 131/66; PULSE 78; RESP 18; TEMP 36.6; O2SAT 98
[2022-09-18 17:30] LABS: Bedside Glucose 224 mg/dL (74-106)
[2022-09-18 22:46] VITALS: BP 141/88; PULSE 84; RESP 20; TEMP 36.7; O2SAT 96
[2022-09-18] MEDS: MELATONIN 3 MG TABLET PO (22:51)
[2022-09-18 23:20] LABS: Bedside Glucose 200 mg/dL (74-106)
[2022-09-19] VITALS (7 sets, daily range): BP systolic 129–156; BP diastolic 59–80; PULSE 71–87; RESP 18–20; TEMP 36.7–37.2; O2SAT 95–100
[2022-09-19 06:06] LABS: Absolute Lymphocyte Count 1.31 X10^3/uL (0.83-4.51); Absolute Neutrophil Count 2.9 X10^3/uL (2.0-7.7); Basophil# 0.01 X10^3/uL; Basophil% 0.2 % (0-1); Eosinophil# 0.14 X10^3/uL; Hematocrit 23.3 % (37-47); Hemoglobin 7.4 g/dL (12.0-15.0); Lymphocyte # 1.31 X10^3/ul (0.83-4.51); Lymphocyte % 27.8 % (19-41); Mean Corp Hgb Conc 31.8 g/dL (32-36); Mean Corpuscular Hgb 27.7 pg (27.0-32.0); Mean Corpuscular Volume 87.3 fL (81-99); Mean Platelet Vol. 10.8 fl (6.2-12.0); Monocyte# 0.36 X10^3/uL; Monocyte% 7.6 % (0-10); NRBC Flagged by Analyzer 0 % (0-5); Neutrophil # 2.88 X10^3/uL (2.7-7.7); Platelet Count 122 K/mm3 (150-450); RBC Distribution Width CV 16.4 % (11.6-14.6); RBC Distribution Width SD 50.7 fl (35.1-43.9); Red Blood Count 2.67 M/mm3 (4.2-5.4); White Blood Count 4.7 K/mm3 (4.4-11.0)
[2022-09-19] MEDS: Nystatin Powder 15gm Bottle 1 APPLIC TOPICAL ×3 (06:22→22:07)
[2022-09-19] MEDS: Levothyroxine 50 MCG Tablet PO (06:22)
[2022-09-19] MEDS: 0.9% Normal Saline 1,000 ML 125 ML IV (06:22)
[2022-09-19] MEDS: metroNIDAZOLE 500 MG Tablet PO ×2 (06:22→13:45)
[2022-09-19 06:28] LABS: Anion Gap 6 (5-15); BUN 39 mg/dL (7-18); Calcium,Total 8.4 mg/dL (8.5-10.1); Chloride 123 mmol/L (98-107); Creatinine, Serum 3.54 mg/dL (0.55-1.02); EST Glomerular Filtration Rate 13 mL/min (>60); Est Glom Filt Rate - Afr Amer 16 mL/min (>60); Estimated Creatinine Clearance 12.85 ml/min; Glucose 227 mg/dL (74-106); Potassium 3.8 mmol/L (3.5-5.1); Sodium Level 148 mmol/L (136-145)
[2022-09-19 06:39] LABS: Vancomycin, Random Level 20.8 ug/mL (0.0-15.0)
--- NOTE | 2022-09-19 07:00 | PCM.RX.CS ---
Consult Pharmacy has been consulted to manage selected antiobiotic: Vancomycin Type of Consult: Follow-up Labs: Sodium 148 mmol/L (136-145) H 09/19/22 05:41 Potassium 3.8 mmol/L (3.5-5.1) 09/19/22 05:41 Chloride 123 mmol/L (98-107) H 09/19/22 05:41 Carbon Dioxide 19.0 mmol/L (21.0-32.0) L 09/19/22 05:41 Anion Gap 6 (5-15) 09/19/22 05:41 BUN 39 mg/dL (7-18) H 09/19/22 05:41 Creatinine 3.54 mg/dL (0.55-1.02) H 09/19/22 05:41 Est GFR (MDRD) Af Amer 16 mL/min (>60) L 09/19/22 05:41 Est GFR (MDRD) Non-Af 13 mL/min (>60) L 09/19/22 05:41 BUN/Creatinine Ratio 11.0 RATIO (10-20) 09/19/22 05:41 Glucose 227 mg/dL (74-106) H 09/19/22 05:41 Random Vancomycin 20.8 ug/mL (0.0-15.0) H 09/19/22 05:41 Microbiology: Microbiology 09/16/22 17:21 Urine, Catheterized Urine Culture - Preliminary Yeast Like Organism 09/16/22 17:20 Nasal Secretion SARS-CoV-2 & FLU Antigen (Rapid) - Final Pharmacy Plan for Drug Dosing: Pharmacy Service will continue to monitor and adjust dosing as required. RANDOM LEVEL 20.8, REDRAW RANDOM LEVEL IN 8 HOURS Follow-Up Labs: Trough Vancomycin Labs to be done on [date and time ordered]: 09/19 @ 1400 RANDOM
[2022-09-19] MEDS: Insulin Lispro 100 UNIT/ML INSULN.PEN SC ×2 (07:55→22:14)
[2022-09-19] MEDS: Menthol/Lanolin/Calamine/Znox 113 GM Tube 1 APPLIC TOPICAL ×4 (07:56→22:08)
--- NOTE | 2022-09-19 10:09 | PN.HOSP_ITS ---
Reason for Visit Reason for Visit: Diagnoses Encephalopathy, unspecified (09/16/22) Acute kidney failure, unspecified (09/16/22) Weakness (09/16/22) Subjective Subjective Patient seen and examined. She had no active complaints. She had an uneventful night. Cr is not trending downwards and is 3.54 today. Sodium is 148, and bicarb of 19. Random vancomycin level is 20.8. Hb is 7.4. Objective Data Objective Data Vital Signs: Vital Signs Temp Pulse Resp BP Pulse Ox O2 Del Method 98.4 F 71 20 H 131/59 H 96 Room Air 09/19/22 06:16 09/19/22 06:16 09/19/22 06:16 09/19/22 06:16 09/19/22 07:17 09/19/22 07:17 Oxygen Delivery Method Room Air Weight: 195 lb 1.745 oz Body Mass Index (BMI) 30.2 Intake & Output: Intake and Output for Last 24 Hours 09/17/22 09/18/22 09/19/22 23:59 23:59 23:59 Intake Total 3630.41 / 3630.41 6075.42 / 6075.42 1100 / 1100 Output Total 550 / 775 1225 / 1225 250 / 250 Balance 3080.41 / 2855.41 4850.42 / 4850.42 850 / 850 Lab / Micro Data Result Diagrams: 09/19/22 05:41 09/19/22 05:41 Labs: Laboratory Results - last 24 hr 09/18/22 06:26: Iron 67, TIBC 157 L, Iron Saturation 42.7, Ferritin 219 09/18/22 11:37: POC Glucose 192 H 09/18/22 17:01: POC Glucose 224 H 09/18/22 22:56: POC Glucose 200 H 09/19/22 05:41: WBC 4.7, RBC 2.67 L, Hgb 7.4 L, Hct 23.3 L, MCV 87.3, MCH 27.7, MCHC 31.8 L, RDW Std Deviation 50.7 H, RDW Coeff of Hilda 16.4 H, Plt Count 122 L, MPV 10.8, Immature Gran % (Auto) 0.400, Neut % (Auto) 61.0, Lymph % (Auto) 27.8, [place] % (Auto) 7.6, Eos % (Auto) 3.0, Baso % (Auto) 0.2, Absolute Neuts (auto) 2.9, Absolute Lymphs (auto) 1.31, Nucleated RBC % 0 09/19/22 05:41: Sodium 148 H, Potassium 3.8, Chloride 123 H, Carbon Dioxide 19.0 L, Anion Gap 6, BUN 39 H, Creatinine 3.54 H, Estim Creat Clear Calc 12.85, Est GFR (MDRD) Af Amer 16 L, Est GFR (MDRD) Non-Af 13 L, BUN/Creatinine Ratio 11.0, Glucose 227 H, Calcium 8.4 L 09/19/22 05:41: Random Vancomycin 20.8 H Micro: Microbiology 09/16/22 17:21 Urine, Catheterized Urine Culture - Preliminary Yeast Like Organism 09/16/22 17:20 Nasal Secretion SARS-CoV-2 & FLU Antigen (Rapid) - Final Physical Exam Const alert and no apparent distress Constitutional Narrative: confused. Orientation / Consciousness: confused HEENT head/scalp atraumatic, moist oral mucous membranes and oropharynx normal Head and Scalp: normocephalic Mouth: oral and palatal mucosa normal Eyes PERRL, EOMs intact bilaterally and conjunctivae normal Neck no lymphadenopathy, supple and no JVD Resp normal respiratory effort, no retractions, no use of accessory muscles and clear to auscultation bilaterally Cardio regular rate, regular rhythm, S1 normal heart sound, S2 normal heart sound and no murmurs GI normal to inspection, nondistended, normoactive bowel sounds, soft to palpation, non-tender and non-distended Extremity normal to inspection, full ROM and no clubbing, cyanosis or edema Neuro CN's II-XII intact bilaterally, moves all extremities and no focal motor deficit s Neuro Narrative: confusion Sensorium / Orientation: awake and alert Assessment & Plan Assessment/Plan (1) Acute kidney injury: (2) Generalized weakness: (3) Encephalopathy acute: PLAN: Plan #Acute encephalopathy due to UTI * on IV vancomycin, cefepime and levaquin * urine culture growing yeast like organism. * patient more alert and oriented today. * of note, she was already on vancomycin and cefepime prior to admission for MRSA bacteremia and right diabetic foot infection. * #YANET * Cr is 3.54 today * baseline Cr is ~ 1. * may be due to vancomycin which she is on for diabetic foot infection from MRSA. * get renal USG, and check FeUrea. * nephro consulted; discussed with ID today, will stop vancomycin and start daptomycin. * #TYpe 2 diabetes mellitus with neuropathy * was recently discharged for right diabetic foot infection. * on ISS. accuchecks ACHS * on lantus * was supposed to be on IV vancomycin and cefepime till 10/12/2022. Discussed with ID; switched to daptomycin every 48 hours till 11/01/2022. * #Acute on Chronic anemia: * Hb remains 7.4 * stool for occult blood pending * heparin and aspirin on hold * on IV PPI * iron panel showed iron level of 67, and TIBC of 157 with ferritin 219. Iron sats is 42.7. * consult GI * #Hypernatremia: * Sodium is 148: may be due to IVF NS. * Will dc and put on D5W at 75cc/hr x 1 bag #Hypokalemia: K is 3.8. Resolved. #Paroxysmal afib: not chronically anticoagulated. On heparin, which will be held due to acute on chronic anemia. #Anxiety and depression * fluoxetine on hold due to confusion * #CAD s/p CABG: on aspirin, statin. ARB on hold due to kidney injury. aspirin held due to acute on chronic anemia. #Hypothyroidism: on synthroid #Hypertension; losartan and torsemide on hold due to YANET. IV hydralazine prn #Hyperlipidemia: on statin DVT prophylaxis: SCDs. heparin held. Charges/Coding Visit Charges Inpatient E&M: 36062 Subs Hosp L2
--- NOTE | 2022-09-19 10:10 | EX.PCM.CON.G ---
HPI Consult Data Date of Consult: 09/19/22 HPI Narrative Reason for Consultation: Anemia HPI Narrative: GREGORY VU, is a 77 F who presented to the ED on 09/16/2022 after recently being discharged from the hospital. She has a complicated medical history of cirrhosis complicated by thrombocytopenia, leukopenia and anemia. She also has a past medical history of, CAD s/p CABG x 4, CKD stage III unclear subtype, PAF/Flutter (not on anticoagulation), Tobacco use, HTN, HLD, Diabetes with osteomyelitis w/ prior MRSA bacteremia recently discharged on 09/03/22 secondary to MRSA bacteremia associated with diabetic wet gangrene of the foot. She arrived back to the hospital with increased confusion and lethargy. As well as increasing creatinine at the skilled facility with diffuse body aches reported and significantly decreased appetite as well as poor oral intake as far as fluids are concerned with no recent fevers or chills prompting ED evaluation.? I was asked to see her due to worsening anemia. I cannot ascertain from the chart whether she has ever had upper endoscopy to evaluate for esophageal, gastric or duodenal varices. I also cannot ascertain from the chart if she is ever had a colonoscopy. She is not able to give a good history. [facility] Medical History (Updated 09/19/22 @ 10:[address] Wild Friend, DO) Back pain CAD (coronary artery disease) Chronic renal failure, stage 3 (moderate) Depression Diabetes mellitus, type II Diabetic peripheral neuropathy associated with type 2 diabetes mellitus Diastolic dysfunction Hypertension Obesity Tobacco dependence Home Medications aspirin 81 mg chewable tablet 81 mg PO DAILY heart health 04/06/16 [History Last Taken 09/16/22] torsemide 20 mg tablet 20 mg PO DAILY diuretic 04/06/16 [History Last Taken 09/14/22] losartan 100 mg tablet 100 mg PO DAILY blood pressure 09/27/17 [History Last Taken 09/15/22] cholecalciferol (vitamin D3) 50 mcg (2,000 unit) capsule (D3-2000) 3,000 unit PO DAILY supplement 01/05/19 [History Last Taken 09/15/22] fluoxetine 20 mg capsule 40 mg PO DAILY depression 01/05/19 [History Last Taken 09/16/22] levothyroxine 50 mcg tablet 50 mcg PO DAILY thyroid 01/05/19 [History Last Taken 09/16/22] multivitamin with minerals (Multiple Vitamin-Minerals tablet) 1 tab PO DAILY supplement 01/05/19 [History Last Taken 09/15/22] omega-3 fatty acids-fish oil 300 mg-1,000 mg capsule 1 cap PO BID supplement 01/05/19 [History Last Taken 01/05/19] cefepime 2 gram solution for injection 2 g IV Q12 40 days #80 ea 09/03/22 [Rx Last Taken 09/16/22] insulin lispro 100 unit/mL subcutaneous pen (Humalog KwikPen (U-100) Insulin) 5 unit (0.05 mL) subcut TIDAC #0 mL 09/03/22 [Rx Last Taken 09/14/22] insulin lispro 100 unit/mL subcutaneous pen (Humalog KwikPen (U-100) Insulin) See Protocol subcut ACHS #0 mL 09/03/22 [Rx Last Taken 09/16/22] metronidazole 500 mg tablet 500 mg PO TID 14 days #42 tabs 09/03/22 [Rx Last Taken 09/16/22] oxycodone 5 mg tablet 5 mg PO Q4H PRN PRN Pain Score 4-10 3 days #12 tabs 09/03/22 [Rx Last Taken Unknown] sennosides 8.6 mg-docusate sodium 50 mg tablet (Stool Softener-Stimulant Laxative) 2 tab PO BID PRN PRN Constipation #0 tabs 09/03/22 [Rx Last Taken Unknown] vancomycin 750 mg intravenous solution 750 mg IV Q12H 40 days #80 ea 09/03/22 [Rx Last Taken 09/13/22] acetaminophen 500 mg tablet 1,000 mg PO Q8 pain 09/16/22 [History Last Taken Unknown] atorvastatin 20 mg tablet 20 mg PO QHS cholesterol 09/16/22 [History Last Taken 09/15/22] enoxaparin 40 mg/0.4 mL subcutaneous syringe 40 mg subcut DAILY dvt prophylaxis 09/16/22 [History Last Taken 09/14/22] famotidine 20 mg tablet 20 mg PO BID gerd 09/16/22 [History Last Taken 09/15/22] insulin glargine-yfgn 100 unit/mL (3 mL) subcutaneous pen 15 unit subcut BIDAC dm 09/16/22 [History Last Taken 09/16/22] omega-3 fatty acids 1,000 mg PO BID supplement 09/16/22 [History Last Taken 09/15/22] potassium chloride 20 mEq tablet,extended release 20 meq PO DAILY supplement 09/16/22 [History Last Taken 09/15/22] Allergy/AdvReac Type Severity Reaction Status Date / Time pregabalin [From Lyrica] AdvReac suicidal Verified 09/16/22 15:44 thoughts Family History (Updated 09/16/22 @ 17:[address] Kaia Padilla MD) Mother Cancer Diabetes Dementia Father No problems noted. Surgical History (Updated 09/16/22 @ 17:[address] Kaia Padilla MD) History of back surgery History of bowel resection History of carpal tunnel release of both wrists History of cholecystectomy History of hysterectomy Hx of appendectomy Hx of eye surgery S/P CABG x 4 S/P foot surgery Social History (Updated 09/16/22 @ 17:[address] Kaia Padilla MD) household members: none housing: care home Smoking Status: Former smoker alcohol intake: current alcohol intake frequency: holidays/special occasions only substance use type: does not use ROS Review of Systems ROS Unobtainable: due to encephalopathy Lab / Micro Data Result Diagrams: 09/19/22 05:41 09/19/22 05:41 Labs: Laboratory Results - last 24 hr 09/18/22 06:26: Iron 67, TIBC 157 L, Iron Saturation 42.7, Ferritin 219 09/18/22 11:37: POC Glucose 192 H 09/18/22 17:01: POC Glucose 224 H 09/18/22 22:56: POC Glucose 200 H 09/19/22 05:41: WBC 4.7, RBC 2.67 L, Hgb 7.4 L, Hct 23.3 L, MCV 87.3, MCH 27.7, MCHC 31.8 L, RDW Std Deviation 50.7 H, RDW Coeff of Hilda 16.4 H, Plt Count 122 L, MPV 10.8, Immature Gran % (Auto) 0.400, Neut % (Auto) 61.0, Lymph % (Auto) 27.8, [place] % (Auto) 7.6, Eos % (Auto) 3.0, Baso % (Auto) 0.2, Absolute Neuts (auto) 2.9, Absolute Lymphs (auto) 1.31, Nucleated RBC % 0 09/19/22 05:41: Sodium 148 H, Potassium 3.8, Chloride 123 H, Carbon Dioxide 19.0 L, Anion Gap 6, BUN 39 H, Creatinine 3.54 H, Estim Creat Clear Calc 12.85, Est GFR (MDRD) Af Amer 16 L, Est GFR (MDRD) Non-Af 13 L, BUN/Creatinine Ratio 11.0, Glucose 227 H, Calcium 8.4 L 09/19/22 05:41: Random Vancomycin 20.8 H Micro: Microbiology 09/16/22 17:21 Urine, Catheterized Urine Culture - Preliminary Yeast Like Organism Assessment & Plan Assessment/Plan (1) Cirrhosis: PLAN: Plan Patient is a 77-year-old lady with cirrhosis and multiple comorbidities recently admitted with diabetic foot ulceration involving both feet with concern for osteomyelitis involving the second and toe of the right foot. 1. Agree with PPI therapy. She should undergo an upper endoscopy to screen for esophageal varices, gastric varices or duodenal varices and other causes of anemia in the cirrhotic patients such as portal gastropathy, peptic ulcer disease. She is on medical high blood pressure. They may need to switch to a beta-1 beta-2 ritika. That will help with the liver better than other medications and helping to prevent problems regarding varices in the upper GI tract. 2. Chronic A-flutter ? Rate controlled patient placed on a monitored bed 3. Cirrhosis-she is a child Live class B at this time. She also has a calculated meld of 16. Recommend lactulose 20 cc every 6 hours [id number], Xifaxan 550 mg p.o. twice daily and further recommendation to follow after she undergoes upper endoscopy. Charges/Coding Visit Charges Inpatient E&M: 40400 Init Hosp L3
[2022-09-19 12:15] LABS: Bedside Glucose 236 mg/dL (74-106)
[2022-09-19 14:46] LABS: Vancomycin, Random Level 19.3 ug/mL (0.0-15.0)
[2022-09-19 17:31] LABS: Bedside Glucose 246 mg/dL (74-106)
--- NOTE | 2022-09-19 22:26 | NURSING ---
Despite repeated attempts, patient refused to take her HS Flagyl.
[2022-09-19 23:26] LABS: Bedside Glucose 259 mg/dL (74-106)
[2022-09-20] VITALS (12 sets, daily range): BP systolic 99–156; BP diastolic 39–72; PULSE 59–81; RESP 16–18; TEMP 36.1–37.2; O2SAT 95–100; BMI 33.8
--- NOTE | 2022-09-20 05:55 | US_ITS ---
STUDY: RENAL ULTRASOUND - COMPLETE REASON FOR EXAM: Female, 77 years old. YANET TECHNIQUE: Ultrasound evaluation of the kidneys was performed with real-time and static jones-scale imaging. COMPARISON: None. FINDINGS: RIGHT KIDNEY: Normal location of the right kidney, which is normal in size. The right kidney measures 10.5 cm x 6.6 x 5.1 cm. There is a normal cortex of the right kidney. The renal cortex measures 1.6 cm. 2 renal cysts are seen. The larger cyst measures 8 mm x 9 mm x 6 mm. There are no right renal calculi. There is no right hydronephrosis. DISTAL RIGHT URETER: There is non-visualization of the distal right ureter. There is no demonstrated right ureterovesical junction calculus. There is a visualized right ureteral jet. LEFT KIDNEY: Normal location of the left kidney, which is normal in size. The left kidney measures 10.9 cm x 6.4 cm x 5.6 cm. There is a normal cortex of the left kidney. The renal cortex measures 1.9 cm. There is a 1.9 cm x 1.8 cm x 1.7 cm cyst. There are no left renal calculi. There is no left hydronephrosis. DISTAL LEFT URETER: There is non-visualization of the distal left ureter. There is no demonstrated left ureterovesical junction calculus. There is a visualized left ureteral jet. BLADDER: The distended urinary bladder has a volume of 258 ml. There is a normal wall thickness of the distended urinary bladder. There is no demonstrated mass within the urinary bladder. There are no demonstrated bladder calculi. US/Kidney and Bladder IMPRESSION: Small bilateral renal cysts. Electronically Signed: Ronen Norris MD at 10:17 EST ,
[2022-09-20 06:23] LABS: Absolute Lymphocyte Count 1.74 X10^3/uL (0.83-4.51); Absolute Neutrophil Count 3.7 X10^3/uL (2.0-7.7); Basophil# 0.02 X10^3/uL; Basophil% 0.3 % (0-1); Eosinophil# 0.26 X10^3/uL; Eosinophils% 4.1 % (0-5); Hematocrit 23.5 % (37-47); Hemoglobin 7.3 g/dL (12.0-15.0); Lymphocyte # 1.74 X10^3/ul (0.83-4.51); Lymphocyte % 27.8 % (19-41); Mean Corp Hgb Conc 31.1 g/dL (32-36); Mean Platelet Vol. 10.6 fl (6.2-12.0); Monocyte# 0.54 X10^3/uL; Monocyte% 8.6 % (0-10); NRBC Flagged by Analyzer 0 % (0-5); Neutrophil # 3.68 X10^3/uL (2.7-7.7); Neutrophil % 58.7 % (47-70); Platelet Count 133 K/mm3 (150-450); RBC Distribution Width CV 16.7 % (11.6-14.6); RBC Distribution Width SD 50.7 fl (35.1-43.9); White Blood Count 6.3 K/mm3 (4.4-11.0)
[2022-09-20 06:49] LABS: Anion Gap 8 (5-15); BUN 34 mg/dL (7-18); BUN/Creat Ratio 9.7 RATIO (10-20); Calcium,Total 8.2 mg/dL (8.5-10.1); Chloride 118 mmol/L (98-107); Creatinine, Serum 3.51 mg/dL (0.55-1.02); EST Glomerular Filtration Rate 14 mL/min (>60); Est Glom Filt Rate - Afr Amer 16 mL/min (>60); Estimated Creatinine Clearance 12.96 ml/min; Glucose 229 mg/dL (74-106); Potassium 3.2 mmol/L (3.5-5.1); Sodium Level 144 mmol/L (136-145)
[2022-09-20] MEDS: metroNIDAZOLE 500 MG Tablet PO ×3 (06:57→20:51)
[2022-09-20] MEDS: Levothyroxine 50 MCG Tablet PO (06:57)
[2022-09-20] MEDS: Nystatin Powder 15gm Bottle 1 APPLIC TOPICAL ×3 (06:57→20:51)
--- NOTE | 2022-09-20 07:33 | NURSING ---
off the unit, went via bed to get her Ultrasound.
[2022-09-20] MEDS: Menthol/Lanolin/Calamine/Znox 113 GM Tube 1 APPLIC TOPICAL ×3 (09:18→20:52)
[2022-09-20] MEDS: Insulin Glargine-YFGN 100 UNIT/ML Pen 15 UNIT SC ×2 (09:18→16:22)
[2022-09-20] MEDS: 0.9% Saline Lock 10 ML Syringe IV ×2 (09:30→14:22)
[2022-09-20 09:41] LABS: Bedside Glucose 197 mg/dL (74-106)
--- NOTE | 2022-09-20 09:46 | PN.HOSP_ITS ---
Reason for Visit Reason for Visit: Diagnoses Encephalopathy, unspecified (09/16/22) Unspecified cirrhosis of liver (09/16/22) Acute kidney failure, unspecified (09/16/22) Weakness (09/16/22) Subjective Subjective Doing well, no issues overnight Objective Data Objective Data Vital Signs: Vital Signs Temp Pulse Resp BP Pulse Ox O2 Del Method 97.0 F L 78 17 156/67 H 100 Room Air 09/20/22 09:05 09/20/22 09:05 09/20/22 09:05 09/20/22 09:05 09/20/22 09:05 09/20/22 09:05 Oxygen Delivery Method Room Air Weight: 209 lb 14.081 oz Body Mass Index (BMI) 30.2 Intake & Output: Intake and Output for Last 24 Hours 09/19/22 09/20/22 09/21/22 03:59 03:59 03:59 Intake Total 5077.5 / 5077.5 4540 / 4540 97.25 / 97.25 Output Total 1000 / 1000 750 / 750 250 / 250 Balance 4077.5 / 4077.5 3790 / 3790 -152.75 / -152.75 Lab / Micro Data Result Diagrams: 09/20/22 05:20 09/20/22 05:20 Labs: Laboratory Results - last 24 hr 09/19/22 11:33: POC Glucose 236 H 09/19/22 13:58: Random Vancomycin 19.3 H 09/19/22 16:40: POC Glucose 246 H 09/19/22 22:12: POC Glucose 259 H 09/20/22 05:20: WBC 6.3, RBC 2.70 L, Hgb 7.3 L, Hct 23.5 L, MCV 87.0, MCH 27.0, MCHC 31.1 L, RDW Std Deviation 50.7 H, RDW Coeff of Hilda 16.7 H, Plt Count 133 L, MPV 10.6, Immature Gran % (Auto) 0.500, Neut % (Auto) 58.7, Lymph % (Auto) 27.8, [place] % (Auto) 8.6, Eos % (Auto) 4.1, Baso % (Auto) 0.3, Absolute Neuts (auto) 3.7, Absolute Lymphs (auto) 1.74, Nucleated RBC % 0 09/20/22 05:20: Sodium 144, Potassium 3.2 L, Chloride 118 H, Carbon Dioxide 18.0 L, Anion Gap 8, BUN 34 H, Creatinine 3.51 H, Estim Creat Clear Calc 12.96, Est GFR (MDRD) Af Amer 16 L, Est GFR (MDRD) Non-Af 14 L, BUN/Creatinine Ratio 9.7 L, Glucose 229 H, Calcium 8.2 L 09/20/22 09:11: POC Glucose 197 H Micro: Microbiology 09/16/22 19:16 Blood Culture (Wb) - Pic Blood Culture - Preliminary No growth in 48 hours. 09/16/22 18:38 Blood Culture (Wb) - Pic Blood Culture - Preliminary No growth in 48 hours. 09/16/22 17:21 Urine, Catheterized Urine Culture - Final Yeast, not Cesilia albicans 09/16/22 17:20 Nasal Secretion SARS-CoV-2 & FLU Antigen (Rapid) - Final Physical Exam Narrative General: Alert, disoriented, Cooperative, No apparent distress HEENT: Atraumatic, PERRLA, EOMI, Normocephalic Oral: Moist Mucosa Neck: Supple, No JVD Lungs: Diminished, Normal air movement, No rhonchi, No wheeze, No rales Cardiovascular: Regular rate, Regular Rhythm, Normal S1, Normal S2, No murmurs Abdomen: Soft, Non Tender, Non-Distended, No Hepato-splenomegaly Extremities: No edema, Capillary Refill Less than 3 Seconds Skin: No rashes, No breakdown Musculoskeletal: No Tenderness to Palpation of Joints or Extremities Neurological: Cranial nerves II-XII grossly intact, Motor Exam 5/5 strength throughout, Sensory exam intact to light touch and pain Psych/Mental Status: Flat affect, Appropriate Assessment & Plan Assessment/Plan (1) Acute kidney injury: (2) Generalized weakness: (3) Encephalopathy acute: PLAN: Plan #Acute encephalopathy due to UTI/YANET due to ATN/chronic diabetic foot infection with MRSA * on IV vancomycin, cefepime and levaquin * urine culture growing yeast like organism. * patient more alert and oriented today. * of note, she was already on vancomycin and cefepime prior to admission for MRSA bacteremia and right diabetic foot infection. * Was changed from vancomycin to daptomycin for foot infection until 11/01/2022 * Creatinine is stable and will be slow to recover consistent with ATN, possibly due to vancomycin, renal ultrasound is pending #TYpe 2 diabetes mellitus with neuropathy * was recently discharged for right diabetic foot infection. * on ISS. accuchecks ACHS * on lantus #Acute on Chronic anemia: * Hb remains 7.3 * stool for occult blood pending * heparin and aspirin on hold * on IV PPI * iron panel showed iron level of 67, and TIBC of 157 with ferritin 219. Iron sats is 42.7. * Pending EGD by GI #Paroxysmal afib #HTN/HLD/CAD status post CABG * not chronically anticoagulated. On heparin, which will be held due to acute on chronic anemia. * Will hold aspirin secondary to possible GI bleed in the setting of her anemia * Will hold her losartan or torsemide secondary to her YANET/ATN * Continue with her statin #Anxiety and depression * fluoxetine on hold due to confusion DVT: SCDs Charges/Coding Visit Charges Inpatient E&M: 79539 Subs Hosp L2
--- NOTE | 2022-09-20 10:02 | PCM.CONS.R ---
Assessment & Plan Assessment/Plan (1) Acute kidney injury: (2) Encephalopathy acute: (3) MRSA bacteremia: (4) Diabetic foot ulcer: PLAN: Plan This is a 77-year-old female with history of diabetes mellitus type 2 with neuropathy, CKD stage III with baseline creatinine around 1.2 to 1.4 mg/dL, and recent history of MRSA bacteremia and right diabetic foot infection who was admitted to the hospital because of confusion and acute kidney injury. We were consulted for YANET. Elevated creatinine since 2015 and possible baseline creatinine has been ranging around 1.2 to 1.4 mg/dL as of August 2022. On September 03, 2022 creatinine 1.18 mg/dL, on 09/16 creatinine 3.51mg/dL, 09/19 creatinine 3.54mg/dL and today patient's creatinine is 3.51 mg/dL. Hopefully serum creatinine has peaked and we will begin to see some improvement in renal function. Last hospitalization patient was on IV antibiotics including vancomycin. At the ECF patient was receiving cefepime and vancomycin. She was also on torsemide and losartan. Patient was noted to have elevated Vanco trough during last hospitalization and during this hospitalization elevated random Vanco levels which could have contributed to YANET as well as poor oral intake with volume depletion and concurrent diuretic and ARB use. It appears serum creatinine has leveled off to around 3.5 mg/dL. At this time there is no acute indication for [employer], potassium and acid-base acceptable, patient is nonoliguric and appears to be near euvolemic. Recommend continue holding vancomycin, torsemide and losartan. Renal ultrasound is pending. Reviewed UA 100 protein, 250 occult blood, urine culture positive for yeast. Patient's urine is straw yellow today. Blood pressures are acceptable. Encouraged patient to try and increase solute and fluid intake. She is on IV antibiotics, cefepime, Dapto and Flagyl. Patient was on IV fluids but these were stopped this morning. Further orders forthcoming as hospitalization evolves. Thank you for allowing us participate in the care of Ms. Shrestha HPI Consult Data Date of Consult: 09/20/22 HPI Narrative HPI Narrative: GREGORY SHRESTHA, is a 77 F who presented to the ER on September 16 with fatigue, lethargy and worsening kidney function. Patient has past medical history significant for coronary artery disease status post CABG x4, chronic anemia, anxiety and depression, atrial fibrillation, diabetes mellitus type 2, hypertension, hyperlipidemia. Patient was admitted to [facility] for recent history diabetic foot ulcer/osteomyelitis with MRSA bacteremia, patient underwent I&D and debridement of right foot per podiatry as well as second toe amputation and partial second metatarsal resection, PRESTON was negative for any vegetations. She was discharged to [facility] on September 03. Work-up in the ED showed slightly elevated white count, patient 98% on room air, creatinine 3.51, potassium 3.4. Chest x-ray did not show any acute cardiopulmonary findings, COVID and influenza were negative. Patient was started on IV fluids normal saline as well as Levaquin 500 mg in the ER and admitted for further evaluation and treatment. We were consulted for acute kidney injury. Prior to hospitalization patient had poor oral intake at the long term. In reviewing recent serum creatinine trends, patient has noted elevated creatinine since 2015 and possible baseline creatinine has been ranging around 1.2 to 1.4 mg/dL as of August 2022. On September 03, 2022 creatinine 1.18 mg/dL, 09/16 creatinine 3.51, 09/19 creatinine 3.54 and today patient's creatinine is 3.51 mg/dL [facility] Medical History (Updated 09/20/22 @ 10:10 by Neha Burton, ZAHRA-Malgorzata) Back pain CAD (coronary artery disease) Chronic renal failure, stage 3 (moderate) Depression Diabetes mellitus, type II Diabetic peripheral neuropathy associated with type 2 diabetes mellitus Diastolic dysfunction Hypertension Obesity Tobacco dependence Home Medications aspirin 81 mg chewable tablet 81 mg PO DAILY heart health 04/06/16 [History Last Taken 09/16/22] torsemide 20 mg tablet 20 mg PO DAILY diuretic 04/06/16 [History Last Taken 09/14/22] losartan 100 mg tablet 100 mg PO DAILY blood pressure 09/27/17 [History Last Taken 09/15/22] cholecalciferol (vitamin D3) 50 mcg (2,000 unit) capsule (D3-2000) 3,000 unit PO DAILY supplement 01/05/19 [History Last Taken 09/15/22] fluoxetine 20 mg capsule 40 mg PO DAILY depression 01/05/19 [History Last Taken 09/16/22] levothyroxine 50 mcg tablet 50 mcg PO DAILY thyroid 01/05/19 [History Last Taken 09/16/22] multivitamin with minerals (Multiple Vitamin-Minerals tablet) 1 tab PO DAILY supplement 01/05/19 [History Last Taken 09/15/22] omega-3 fatty acids-fish oil 300 mg-1,000 mg capsule 1 cap PO BID supplement 01/05/19 [History Last Taken 01/05/19] cefepime 2 gram solution for injection 2 g IV Q12 40 days #80 ea 09/03/22 [Rx Last Taken 09/16/22] insulin lispro 100 unit/mL subcutaneous pen (Humalog KwikPen (U-100) Insulin) 5 unit (0.05 mL) subcut TIDAC #0 mL 09/03/22 [Rx Last Taken 09/14/22] insulin lispro 100 unit/mL subcutaneous pen (Humalog KwikPen (U-100) Insulin) See Protocol subcut ACHS #0 mL 09/03/22 [Rx Last Taken 09/16/22] metronidazole 500 mg tablet 500 mg PO TID 14 days #42 tabs 09/03/22 [Rx Last Taken 09/16/22] oxycodone 5 mg tablet 5 mg PO Q4H PRN PRN Pain Score 4-10 3 days #12 tabs 09/03/22 [Rx Last Taken Unknown] sennosides 8.6 mg-docusate sodium 50 mg tablet (Stool Softener-Stimulant Laxative) 2 tab PO BID PRN PRN Constipation #0 tabs 09/03/22 [Rx Last Taken Unknown] vancomycin 750 mg intravenous solution 750 mg IV Q12H 40 days #80 ea 09/03/22 [Rx Last Taken 09/13/22] acetaminophen 500 mg tablet 1,000 mg PO Q8 pain 09/16/22 [History Last Taken Unknown] atorvastatin 20 mg tablet 20 mg PO QHS cholesterol 09/16/22 [History Last Taken 09/15/22] enoxaparin 40 mg/0.4 mL subcutaneous syringe 40 mg subcut DAILY dvt prophylaxis 09/16/22 [History Last Taken 09/14/22] famotidine 20 mg tablet 20 mg PO BID gerd 09/16/22 [History Last Taken 09/15/22] insulin glargine-yfgn 100 unit/mL (3 mL) subcutaneous pen 15 unit subcut BIDAC dm 09/16/22 [History Last Taken 09/16/22] omega-3 fatty acids 1,000 mg PO BID supplement 09/16/22 [History Last Taken 09/15/22] potassium chloride 20 mEq tablet,extended release 20 meq PO DAILY supplement 09/16/22 [History Last Taken 09/15/22] Allergy/AdvReac Type Severity Reaction Status Date / Time pregabalin [From Lyrica] AdvReac suicidal Verified 09/16/22 15:44 thoughts Family History (Updated 09/16/22 @ 17:[address] Kaia Padilla MD) Mother Cancer Diabetes Dementia Father No problems noted. Surgical History (Updated 09/16/22 @ 17:[address] Kaia Padilla MD) History of back surgery History of bowel resection History of carpal tunnel release of both wrists History of cholecystectomy History of hysterectomy Hx of appendectomy Hx of eye surgery S/P CABG x 4 S/P foot surgery Social History (Updated 09/16/22 @ 17:[address] Kaia Padilla MD) household members: none housing: long term Smoking Status: Former smoker alcohol intake: current alcohol intake frequency: holidays/special occasions only substance use type: does not use ROS ROS Narrative As in HPI and past medical history Lab / Micro Data Result Diagrams: 09/20/22 05:20 09/20/22 05:20 Labs: Laboratory Results - last 24 hr 09/19/22 11:33: POC Glucose 236 H 09/19/22 13:58: Random Vancomycin 19.3 H 09/19/22 16:40: POC Glucose 246 H 09/19/22 22:12: POC Glucose 259 H 09/20/22 05:20: WBC 6.3, RBC 2.70 L, Hgb 7.3 L, Hct 23.5 L, MCV 87.0, MCH 27.0, MCHC 31.1 L, RDW Std Deviation 50.7 H, RDW Coeff of Hilda 16.7 H, Plt Count 133 L, MPV 10.6, Immature Gran % (Auto) 0.500, Neut % (Auto) 58.7, Lymph % (Auto) 27.8, [place] % (Auto) 8.6, Eos % (Auto) 4.1, Baso % (Auto) 0.3, Absolute Neuts (auto) 3.7, Absolute Lymphs (auto) 1.74, Nucleated RBC % 0 09/20/22 05:20: Sodium 144, Potassium 3.2 L, Chloride 118 H, Carbon Dioxide 18.0 L, Anion Gap 8, BUN 34 H, Creatinine 3.51 H, Estim Creat Clear Calc 12.96, Est GFR (MDRD) Af Amer 16 L, Est GFR (MDRD) Non-Af 14 L, BUN/Creatinine Ratio 9.7 L, Glucose 229 H, Calcium 8.2 L 09/20/22 09:11: POC Glucose 197 H Micro: Microbiology 09/16/22 19:16 Blood Culture (Wb) - Pic Blood Culture - Preliminary No growth in 48 hours. 09/16/22 18:38 Blood Culture (Wb) - Pic Blood Culture - Preliminary No growth in 48 hours. 09/16/22 17:21 Urine, Catheterized Urine Culture - Final Yeast, not Cesilia albicans
--- NOTE | 2022-09-20 12:05 | WOUNDNOTE ---
wound photo: left foot
--- NOTE | 2022-09-20 12:05 | WOUNDNOTE ---
wound photo: right foot
--- NOTE | 2022-09-20 12:06 | WOUNDNOTE ---
wound photo: right foot
[2022-09-20] MEDS: Lactated Ringers 1,000 ML 15 ML IV (12:27)
--- NOTE | 2022-09-20 12:29 | NURSING ---
Pt is off the floor at this time. Went down to End[facility] via bed to have EGD.
--- NOTE | 2022-09-20 12:37 | PCM.CONS.GEN ---
Assessment & Plan Assessment/Plan (1) MRSA bacteremia: PLAN: MRSA bacteremia due to R toe gangrene. OR 08/31/[address] Dee for toe amp. Surg cx also with PsA and enterobacter. Discharged 09/03 with vanc/cefepime/flagyl for 6 weeks course, stop date 10/12/22. Now admitted with YANET. Foot doing well. On dapto/cefepime/flagyl. Neph following. Will follow, thank you (2) Acute kidney injury: HPI Consult Data Date of Consult: 09/20/22 HPI Narrative Reason for Consultation: YANET HPI Narrative: GREGORY VU, is a 77 F who was admitted end of August here to [facility] with MRSA bacteremia due to R foot gangrene - bcx, ucx, and wound cx with MRSA.? Surg cx also with enterobacter and pseudomonas.? Given vanc/zosyn, plus clinda for anti-toxin effect.? OR 08/[address] Dee for source control.? Bcx cleared quickly, TTE showed no veg, picc placed, discharged on 6 weeks iv vanc/cefepime with stop date 10/12/22. At F, for several days worsened mental status, confusion, poor appetite, body aches. Cr was up, sent to ED. Admitted, given dose of levaquin, now on dapto/cefepime/flagyl. Feeling ok, EGD planned for this AM. Full ROS performed and neg except as noted above. [facility] Medical History Back pain CAD (coronary artery disease) Chronic renal failure, stage 3 (moderate) Depression Diabetes mellitus, type II Diabetic peripheral neuropathy associated with type 2 diabetes mellitus Diastolic dysfunction Hypertension Obesity Tobacco dependence Home Medications aspirin 81 mg chewable tablet 81 mg PO DAILY heart health 04/06/16 [History Last Taken 09/16/22] torsemide 20 mg tablet 20 mg PO DAILY diuretic 04/06/16 [History Last Taken 09/14/22] losartan 100 mg tablet 100 mg PO DAILY blood pressure 09/27/17 [History Last Taken 09/15/22] cholecalciferol (vitamin D3) 50 mcg (2,000 unit) capsule (D3-2000) 3,000 unit PO DAILY supplement 01/05/19 [History Last Taken 09/15/22] fluoxetine 20 mg capsule 40 mg PO DAILY depression 01/05/19 [History Last Taken 09/16/22] levothyroxine 50 mcg tablet 50 mcg PO DAILY thyroid 01/05/19 [History Last Taken 09/16/22] multivitamin with minerals (Multiple Vitamin-Minerals tablet) 1 tab PO DAILY supplement 01/05/19 [History Last Taken 09/15/22] omega-3 fatty acids-fish oil 300 mg-1,000 mg capsule 1 cap PO BID supplement 01/05/19 [History Last Taken 01/05/19] cefepime 2 gram solution for injection 2 g IV Q12 40 days #80 ea 09/03/22 [Rx Last Taken 09/16/22] insulin lispro 100 unit/mL subcutaneous pen (Humalog KwikPen (U-100) Insulin) 5 unit (0.05 mL) subcut TIDAC #0 mL 09/03/22 [Rx Last Taken 09/14/22] insulin lispro 100 unit/mL subcutaneous pen (Humalog KwikPen (U-100) Insulin) See Protocol subcut ACHS #0 mL 09/03/22 [Rx Last Taken 09/16/22] metronidazole 500 mg tablet 500 mg PO TID 14 days #42 tabs 09/03/22 [Rx Last Taken 09/16/22] oxycodone 5 mg tablet 5 mg PO Q4H PRN PRN Pain Score 4-10 3 days #12 tabs 09/03/22 [Rx Last Taken Unknown] sennosides 8.6 mg-docusate sodium 50 mg tablet (Stool Softener-Stimulant Laxative) 2 tab PO BID PRN PRN Constipation #0 tabs 09/03/22 [Rx Last Taken Unknown] vancomycin 750 mg intravenous solution 750 mg IV Q12H 40 days #80 ea 09/03/22 [Rx Last Taken 09/13/22] acetaminophen 500 mg tablet 1,000 mg PO Q8 pain 09/16/22 [History Last Taken Unknown] atorvastatin 20 mg tablet 20 mg PO QHS cholesterol 09/16/22 [History Last Taken 09/15/22] enoxaparin 40 mg/0.4 mL subcutaneous syringe 40 mg subcut DAILY dvt prophylaxis 09/16/22 [History Last Taken 09/14/22] famotidine 20 mg tablet 20 mg PO BID gerd 09/16/22 [History Last Taken 09/15/22] insulin glargine-yfgn 100 unit/mL (3 mL) subcutaneous pen 15 unit subcut BIDAC dm 09/16/22 [History Last Taken 09/16/22] omega-3 fatty acids 1,000 mg PO BID supplement 09/16/22 [History Last Taken 09/15/22] potassium chloride 20 mEq tablet,extended release 20 meq PO DAILY supplement 09/16/22 [History Last Taken 09/15/22] Allergy/AdvReac Type Severity Reaction Status Date / Time pregabalin [From Lyrica] AdvReac suicidal Verified 09/16/22 15:44 thoughts Family History (Updated 09/16/22 @ 17:[address] Kaia Padilla MD) Mother Cancer Diabetes Dementia Father No problems noted. Surgical History (Updated 09/16/22 @ 17:[address] Kaia Padilla MD) History of back surgery History of bowel resection History of carpal tunnel release of both wrists History of cholecystectomy History of hysterectomy Hx of appendectomy Hx of eye surgery S/P CABG x 4 S/P foot surgery Social History (Updated 09/16/22 @ 17:[address] Kaia Padilla MD) household members: none housing: fdc Smoking Status: Former smoker alcohol intake: current alcohol intake frequency: holidays/special occasions only substance use type: does not use Physical Exam Const alert and no apparent distress General Appearance: cooperative and well developed HEENT normocephalic and head/scalp atraumatic Eyes PERRL and EOMs intact bilaterally Neck supple and No nodes Resp normal air movement and clear to auscultation bilaterally Cardio regular rate and regular rhythm GI soft to palpation, non-tender and non-distended Extremity General Extremity: Negative for edema Skin no rashes or lesions noted Skin Narrative: Reviewed photos, surg site doing well on R foot Neuro CN's II-XII intact bilaterally Lab / Micro Data Attestation: I reviewed the patient's lab results. Result Diagrams: 09/20/22 05:20 09/20/22 05:20 Labs: Laboratory Results - last 24 hr 09/19/22 13:58: Random Vancomycin 19.3 H 09/19/22 16:40: POC Glucose 246 H 09/19/22 22:12: POC Glucose 259 H 09/20/22 05:20: WBC 6.3, RBC 2.70 L, Hgb 7.3 L, Hct 23.5 L, MCV 87.0, MCH 27.0, MCHC 31.1 L, RDW Std Deviation 50.7 H, RDW Coeff of Hilda 16.7 H, Plt Count 133 L, MPV 10.6, Immature Gran % (Auto) 0.500, Neut % (Auto) 58.7, Lymph % (Auto) 27.8, [place] % (Auto) 8.6, Eos % (Auto) 4.1, Baso % (Auto) 0.3, Absolute Neuts (auto) 3.7, Absolute Lymphs (auto) 1.74, Nucleated RBC % 0 09/20/22 05:20: Sodium 144, Potassium 3.2 L, Chloride 118 H, Carbon Dioxide 18.0 L, Anion Gap 8, BUN 34 H, Creatinine 3.51 H, Estim Creat Clear Calc 12.96, Est GFR (MDRD) Af Amer 16 L, Est GFR (MDRD) Non-Af 14 L, BUN/Creatinine Ratio 9.7 L, Glucose 229 H, Calcium 8.2 L 09/20/22 09:11: POC Glucose 197 H Micro: Microbiology 09/16/22 19:16 Blood Culture (Wb) - Pic Blood Culture - Preliminary No growth in 48 hours. 09/16/22 18:38 Blood Culture (Wb) - Pic Blood Culture - Preliminary No growth in 48 hours. 09/16/22 17:21 Urine, Catheterized Urine Culture - Final Yeast, not Cesilia albicans Radiology Impression Renal Ultrasound 09/20/22 05:55 IMPRESSION: Small bilateral renal cysts. Electronically Signed: Ronen Norris MD at 10:17 EST ,
--- NOTE | 2022-09-20 13:15 | IMM_PTH ---
PATIENT: GREGORY VU LOC: MS3 U#:[id number] AGE/SX: 77/F ROOM: [facility] RE09/16/[address]: Dr. Mihir Arceo MD : 1945 BED: 1 DIS: 09/21/2022 SPEC #: [id number] RECD: 09/21/22 09:31 STATUS: GEOVANY REQ #: [id number] TAMMIE: 09/20/22 13:[address]: Juinto Adams DEPT: IMMUNOHISTOCHEMISTRY RECD BY: Echo Herring ENTERED: 09/21/22 09:32 SP TYPE: IMMUNO OTHR DR: MD Dr. Emmanuel Reynoso MD Dr. Nana Yaa Koram, MD Dr. Nicholas F Kotsonis, MD Dr. Paul Nielsen, MD Dr. Robert Leininger, MD Tissues: Stomach, NOS Procedures: H Pylori (initial) PHYSICIAN & [address] [address] SPECIMEN INFORMATION: Tissue Source: Gastric body biopsy Clinical Info: Irina Dodson Specimen Number: [id number] CPT code: 50362 METHODOLOGY: Deparaffinized sections of prefer/formalin-fixed tissue or PAP/DQ stained slides are incubated with monoclonal/polyclonal antibodies/oligonucleotide probes. Localization is made via biotin free immunoperoxidase method. Appropriate controls are performed and reacted as expected. Results on target cell population are indicated in the following table: RESULTS: ANTIBODY / CLONE RESULT H Pylori (polyclonal) negative These tests were developed and their performance characteristics determined by [facility]. They may not have been cleared or approved by the U.S. Food and Drug Administration. The FDA has determined that such clearance or approval is not necessary. The above immunohistochemical/dualISH markers are ordered and reviewed by the Pathologist. INTERPRETATION: Gastric body, biopsy: Negative for Helicobacter pylori organisms. SJ:merlin 09/22/2022
--- NOTE | 2022-09-20 13:15 | EGD_PTH ---
PATIENT: GREGORY VU LOC: MS3 U#:[id number] AGE/SX: 77/F ROOM: [facility] RE09/16/[address]: Dr. Mihir Arceo MD : 1945 BED: 1 DIS: 09/21/2022 SPEC #: [id number] RECD: 09/20/22 13:52 STATUS: GEOVANY REShawna #: [id number] TAMMIE: 09/20/22 13:[address]: Junito Adams DEPT: SURGICAL PATHOLOGY RECD BY: Ewelina Leigh ENTERED: 09/21/22 08:31 SP TYPE: EGD BIOPSY OTHR DR: MD Dr. Emmanuel Reynoso MD Dr. Nana Yaa Koram, MD Dr. Nicholas F Kotsonis, MD Dr. Paul Nielsen, MD Dr. Robert Leininger, MD Tissues: Gastric mucous membrane Procedures: Surgery Specimen Level IV Comments: @ Ordering doctor for SUIV edited from to @ by ZACH at 09/21/22 1441 @ Submitting doctor edited from to @ by RGOOD at 09/21/22 1441 HEADER OPERATION: EGD (MAC), biopsy PRE-OP DIAGNOSIS: Cirrhosis, atrial flutter TISSUE SUBMITTED: Gastric body biopsy MICROSCOPIC DIAGNOSIS Gastric body, biopsy: Mild gastritis. See microscopic description and comment. CARRIE:merlin 09/22/2022 COMMENT The results of immunohistochemistry for Helicobacter pylori will be reported separately ([id number]). MICROSCOPIC DESCRIPTION Slides are reviewed. The specimen shows fragments of gastric mucosa with chronic inflammatory cell infiltrates in the lamina propria consisting of lymphocytes and plasma cells, consistent with mild chronic gastritis. GROSS DESCRIPTION Received in fixative is one container labeled with the patient's name and designated gastric body. The specimen consists of one irregular fragment of light knox soft tissue that measures 0.6 x 0.5 x 0.1 cm. The specimen is totally submitted in one cassette. / AM:merlin 09/21/2022 TC:3 CPT: 54723
--- NOTE | 2022-09-20 13:41 | OP.EGD_ITS ---
Patient Name: Priya Shrestha Procedure Date: 09/20/2022 1:30 PM Date of : 1945 Age: 77 Procedure: Upper GI endoscopy Indications: Iron deficiency anemia Providers: Junito Adams DO Medicines: Monitored Anesthesia Care Patient Profile: This is a 77 year old female. Refer to note in patient chart for documentation of history and physical. Patient has symptoms of chronic nausea and chronic regurgitation. Complications: No immediate complications. Procedure: Pre-Anesthesia Assessment: - Prior to the procedure, a History and Physical was performed, and patient medications and allergies were reviewed. The risks and benefits of the procedure and the sedation options and risks were discussed with the patient. All questions were answered and informed consent was obtained. Patient identification and proposed procedure were verified by the physician. Mental Status Examination: normal. Prophylactic Antibiotics: The patient does not require prophylactic antibiotics. Prior Anticoagulants: The patient has taken no previous anticoagulant or antiplatelet agents. After reviewing the risks and benefits, the patient was deemed in satisfactory condition to undergo the procedure. The anesthesia plan was to use minimal sedation / analgesia (anxiolysis). Immediately prior to administration of medications, the patient was re-assessed for adequacy to receive sedatives. The heart rate, respiratory rate, oxygen saturations, blood pressure, adequacy of pulmonary ventilation, and response to care were monitored throughout the procedure. The physical status of the patient was re-assessed after the procedure. After obtaining informed consent, the endoscope was passed under direct vision. Throughout the procedure, the patient's blood pressure, pulse, and oxygen saturations were monitored continuously. The gastroscope was introduced through the mouth, and advanced to the second part of duodenum. The upper GI endoscopy was accomplished without difficulty. The patient tolerated the procedure well. Scope In: 1:34:29 PM Scope Out: 1:37:39 PM Total Procedure Duration Time 0 hours 3 minutes 10 seconds Findings: The examined esophagus was normal. Moderate portal hypertensive gastropathy was found in the cardia, in the gastric fundus and in the gastric body. Biopsies were taken with a cold forceps for histology. Verification of patient identification for the specimen was done. Estimated blood loss was minimal. One oozing cratered gastric ulcer with a visible vessel was found in the cardia. The lesion was 6 mm in largest dimension. Coagulation for hemostasis using heater probe was successful. Estimated blood loss: none. The second portion of the duodenum was normal. Impression: - Normal esophagus. - Portal hypertensive gastropathy. Biopsied. - Oozing gastric ulcer with a visible vessel. Treated with a heater probe. - Normal second portion of the duodenum. Recommendation: - Return patient to [facility] for ongoing care. - Resume previous diet. - Continue present medications. - Await pathology results. - Repeat upper endoscopy in 4 months for surveillance. Procedure Code(s): --- Professional --- 08095, 59, Esophagogastroduodenoscopy, flexible, transoral; with control of bleeding, any method 64833, Esophagogastroduodenoscopy, flexible, transoral; with biopsy, single or multiple CPT copyright 2017 [employer]. All rights reserved. The codes documented in this report are preliminary and upon state game warden review may be revised to meet current compliance requirements. Junito Adams DO 09/20/2022 1:41:37 PM This report has been signed electronically. Number of Addenda: 0 Note Initiated On: 09/20/2022 1:30 PM
--- NOTE | 2022-09-20 13:42 | OP.CCLET_ITS ---
09/20/2022 Maldonado Horn MD [address] [id number] Re : Upper GI endoscopy procedure for Priya Shrestha Dear Dr. Horn This procedure was performed on Tuesday, September 20, 2022. My impressions and recommendations are as follows: Impressions : - Normal esophagus. - Portal hypertensive gastropathy. Biopsied. - Oozing gastric ulcer with a visible vessel. Treated with a heater probe. - Normal second portion of the duodenum. Recommendations : - Return patient to [facility] for ongoing care. - Resume previous diet. - Continue present medications. - Await pathology results. - Repeat upper endoscopy in 4 months for surveillance. My findings are described in the full procedure note, which is enclosed. If I can be of further assistance, please feel free to contact me at . Sincerely, Junito Adams, 09/20/2022 1:41:37 PM This report has been signed electronically.
--- NOTE | 2022-09-20 13:52 | CASEMGMT ---
Social work Pt's niece, Helen Rodriguez, was just in to discuss pt code status. Helen shared that pt is NOT supposed to be a Full Code and that pt should be DNR. Helen believes this is a mistake made by [facility] prior to pt coming to [facility]. Helen asked that this be changed. LURDES updated MD Arceo of the request to change pt code. JULIEN Barnes
--- NOTE | 2022-09-20 13:59 | CASEMGMT ---
Social Work LURDES spoke to Carrie at [facility] to check on pt precert. Carrie informed insurance is requesting updated notes. LURDES [facility] clinical[facility]. JULIEN Barnes
[2022-09-20] MEDS: Potassium Chloride Oral Tablet 20 MEQ 60 MEQ PO (16:12)
[2022-09-20] MEDS: Insulin Lispro 100 UNIT/ML INSULN.PEN SC ×2 (16:21)
[2022-09-20 16:25] LABS: Bedside Glucose 210 mg/dL (74-106)
[2022-09-20] MEDS: Atorvastatin Calcium 20 MG Tablet PO (16:25)
[2022-09-20 16:40] LABS: Bedside Glucose 162 mg/dL (74-106)
--- NOTE | 2022-09-20 19:05 | NURSING ---
Bladder Scanned at this time for only 1 mod incont this evening. Bladder scanned for 168ml. Attends on and purewick maintained.
[2022-09-20 22:10] LABS: Bedside Glucose 87 mg/dL (74-106)
[2022-09-20 22:10] LABS: Bedside Glucose 66 mg/dL (74-106)
[2022-09-20 22:10] LABS: Bedside Glucose 62 mg/dL (74-106)
[2022-09-21 04:48] LABS: Absolute Lymphocyte Count 1.87 X10^3/uL (0.83-4.51); Absolute Neutrophil Count 4.1 X10^3/uL (2.0-7.7); Basophil# 0.02 X10^3/uL; Basophil% 0.3 % (0-1); Eosinophil# 0.34 X10^3/uL; Eosinophils% 4.8 % (0-5); Hematocrit 23.4 % (37-47); Hemoglobin 7.8 g/dL (12.0-15.0); Lymphocyte # 1.87 X10^3/ul (0.83-4.51); Lymphocyte % 26.6 % (19-41); Mean Corp Hgb Conc 33.3 g/dL (32-36); Mean Corpuscular Hgb 28.5 pg (27.0-32.0); Mean Corpuscular Volume 85.4 fL (81-99); Mean Platelet Vol. 10.4 fl (6.2-12.0); NRBC Flagged by Analyzer 0 % (0-5); Neutrophil # 4.05 X10^3/uL (2.7-7.7); Neutrophil % 57.6 % (47-70); Platelet Count 155 K/mm3 (150-450); RBC Distribution Width CV 17.1 % (11.6-14.6); RBC Distribution Width SD 50.5 fl (35.1-43.9); Red Blood Count 2.74 M/mm3 (4.2-5.4)
[2022-09-21 05:14] VITALS: BP 160/69; PULSE 82; RESP 18; TEMP 36.7; O2SAT 97
[2022-09-21 05:14] LABS: Anion Gap 8 (5-15); BUN 32 mg/dL (7-18); BUN/Creat Ratio 9.4 RATIO (10-20); Calcium,Total 8.4 mg/dL (8.5-10.1); Chloride 119 mmol/L (98-107); EST Glomerular Filtration Rate 14 mL/min (>60); Est Glom Filt Rate - Afr Amer 17 mL/min (>60); Estimated Creatinine Clearance 13.38 ml/min; Glucose 81 mg/dL (74-106); Potassium 3.3 mmol/L (3.5-5.1); Sodium Level 145 mmol/L (136-145)
[2022-09-21] MEDS: Levothyroxine 50 MCG Tablet PO (05:20)
[2022-09-21] MEDS: metroNIDAZOLE 500 MG Tablet PO ×2 (05:20→15:32)
[2022-09-21] MEDS: Nystatin Powder 15gm Bottle 1 APPLIC TOPICAL ×2 (05:21→11:44)
[2022-09-21 06:51] VITALS: O2SAT 98
--- NOTE | 2022-09-21 07:00 | PN_ITS ---
Subjective Subjective Patient underwent an upper endoscopy yesterday. She was discovered to have portal gastropathy with some mild bleeding at the site of gastric ulcer. Objective Data Objective Data Vital Signs: Vital Signs Temp Pulse Resp BP Pulse Ox O2 Del Method 98.5 F 88 18 140/67 H 97 Room Air 09/21/22 16:55 09/21/22 16:55 09/21/22 16:55 09/21/22 16:55 09/21/22 16:55 09/21/22 16:55 Oxygen Delivery Method Room Air Weight: 203 lb 4.259 oz Body Mass Index (BMI) 33.8 Intake & Output: Intake and Output for Last 24 Hours 09/19/22 09/20/22 09/21/22 23:59 23:59 23:59 Intake Total 3340 / 3540 2073.00 / 2473.00 1518.25 / 1518.25 Output Total 250 / 750 1150 / 1250 650 / 650 Balance 3090 / 2790 923.00 / 1223.00 868.25 / 868.25 Lab / Micro Data Result Diagrams: 09/21/22 04:22 09/21/22 04:22 Labs: Laboratory Results - last 24 hr 09/20/22 20:49: POC Glucose 62 L 09/20/22 21:13: POC Glucose 66 L 09/20/22 21:50: POC Glucose 87 09/21/22 04:22: WBC 7.0, RBC 2.74 L, Hgb 7.8 L, Hct 23.4 L, MCV 85.4, MCH 28.5, MCHC 33.3 D, RDW Std Deviation 50.5 H, RDW Coeff of Hilda 17.1 H, Plt Count 155, MPV 10.4, Immature Gran % (Auto) 0.700, Neut % (Auto) 57.6, Lymph % (Auto) 26.6, [place] % (Auto) 10.0, Eos % (Auto) 4.8, Baso % (Auto) 0.3, Absolute Neuts (auto) 4.1, Absolute Lymphs (auto) 1.87, Nucleated RBC % 0 09/21/22 04:22: Sodium 145, Potassium 3.3 L, Chloride 119 H, Carbon Dioxide 18.0 L, Anion Gap 8, BUN 32 H, Creatinine 3.40 H, Estim Creat Clear Calc 13.38, Est GFR (MDRD) Af Amer 17 L, Est GFR (MDRD) Non-Af 14 L, BUN/Creatinine Ratio 9.4 L, Glucose 81, Calcium 8.4 L 09/21/22 08:06: POC Glucose 74 09/21/22 11:42: POC Glucose 122 H 09/21/22 16:22: POC Glucose 125 H Micro: Microbiology 09/21/22 09:45 Nasal Secretion SARS-CoV-2 Antigen (Rapid) - Final 09/16/22 19:16 Blood Culture (Wb) - Pic Blood Culture - Preliminary No growth in 48 hours. 09/16/22 18:38 Blood Culture (Wb) - Pic Blood Culture - Preliminary No growth in 48 hours. 09/16/22 17:21 Urine, Catheterized Urine Culture - Final Yeast, not Cesilia albicans 09/16/22 17:20 Nasal Secretion SARS-CoV-2 & FLU Antigen (Rapid) - Final Physical Exam Narrative General: Alert, disoriented, Cooperative, No apparent distress HEENT: Atraumatic, PERRLA, EOMI, Normocephalic Oral: Moist Mucosa Neck: Supple, No JVD Lungs: Diminished, Normal air movement, No rhonchi, No wheeze, No rales Cardiovascular: Regular rate, Regular Rhythm, Normal S1, Normal S2, No murmurs Abdomen: Soft, Non Tender, Non-Distended, No Hepato-splenomegaly Extremities: No edema, Capillary Refill Less than 3 Seconds Skin: No rashes, No breakdown Musculoskeletal: No Tenderness to Palpation of Joints or Extremities Neurological: Cranial nerves II-XII grossly intact, Motor Exam 5/5 strength throughout, Sensory exam intact to light touch and pain Psych/Mental Status: Flat affect, Appropriate Assessment & Plan Assessment/Plan (1) Acute kidney injury: (2) Generalized weakness: (3) Encephalopathy acute: PLAN: Plan #Acute encephalopathy due to UTI/YANET due to ATN/chronic diabetic foot infection with MRSA * on IV vancomycin, cefepime and levaquin * urine culture growing yeast like organism. * patient more alert and oriented today. * of note, she was already on vancomycin and cefepime prior to admission for MRSA bacteremia and right diabetic foot infection. * Was changed from vancomycin to daptomycin for foot infection until 11/01/2022 * Creatinine is stable and will be slow to recover consistent with ATN, possibly due to vancomycin, renal ultrasound is pending #TYpe 2 diabetes mellitus with neuropathy * was recently discharged for right diabetic foot infection. * on ISS. accuchecks ACHS * on lantus #Acute on Chronic anemia: * Hb remains 7.3 * stool for occult blood pending * heparin and aspirin on hold * on IV PPI * iron panel showed iron level of 67, and TIBC of 157 with ferritin 219. Iron sats is 42.7. * Pending EGD by GI #Paroxysmal afib #HTN/HLD/CAD status post CABG * not chronically anticoagulated. On heparin, which will be held due to acute on chronic anemia. * Will hold aspirin secondary to possible GI bleed in the setting of her anemia * Will hold her losartan or torsemide secondary to her YANET/ATN * Continue with her statin #Anxiety and depression * fluoxetine on hold due to confusion DVT: SCDs Charges/Coding Visit Charges Inpatient E&M: 52430 Subs Hosp L3
[2022-09-21] MEDS: Potassium Chloride Oral Tablet 20 MEQ 60 MEQ PO (08:04)
[2022-09-21 08:05] VITALS: BP 145/88; PULSE 83; RESP 18; TEMP 36.6; O2SAT 97
[2022-09-21] MEDS: Menthol/Lanolin/Calamine/Znox 113 GM Tube 1 APPLIC TOPICAL (08:20)
[2022-09-21] MEDS: Pantoprazole Sodium 40 MG Tablet PO (08:20)
[2022-09-21] MEDS: DAKIN'S SOL HALF STRENGTH (=0.25%) 1 APPLIC TOPICAL (09:11)
--- NOTE | 2022-09-21 09:48 | NURSING ---
COVID test sent down to lab
--- NOTE | 2022-09-21 10:04 | PCM.PN.REN ---
Subjective Subjective Sitting in chair. No overnight events. Reports feeling better today. Denies any nausea or vomiting. Objective Data Objective Data Vital Signs: Vital Signs Temp Pulse Resp BP Pulse Ox O2 Del Method 97.9 F 83 18 145/88 H 97 Room Air 09/21/22 08:05 09/21/22 08:05 09/21/22 08:05 09/21/22 08:05 09/21/22 08:05 09/21/22 08:05 Oxygen Delivery Method Room Air Weight: 92.2 kg Body Mass Index (BMI) 33.8 Intake & Output: Intake and Output for Last 24 Hours 09/19/22 09/20/22 09/21/22 23:59 23:59 23:59 Intake Total 3340 / 3540 2073.00 / 2473.00 521.25 / 521.25 Output Total 250 / 750 1150 / 1250 350 / 350 Balance 3090 / 2790 923.00 / 1223.00 171.25 / 171.25 Lab / Micro Data Result Diagrams: 09/21/22 04:22 09/21/22 04:22 Labs: Laboratory Results - last 24 hr 09/20/22 11:44: POC Glucose 210 H 09/20/22 16:20: POC Glucose 162 H 09/20/22 20:49: POC Glucose 62 L 09/20/22 21:13: POC Glucose 66 L 09/20/22 21:50: POC Glucose 87 09/21/22 04:22: WBC 7.0, RBC 2.74 L, Hgb 7.8 L, Hct 23.4 L, MCV 85.4, MCH 28.5, MCHC 33.3 D, RDW Std Deviation 50.5 H, RDW Coeff of Hilda 17.1 H, Plt Count 155, MPV 10.4, Immature Gran % (Auto) 0.700, Neut % (Auto) 57.6, Lymph % (Auto) 26.6, [place] % (Auto) 10.0, Eos % (Auto) 4.8, Baso % (Auto) 0.3, Absolute Neuts (auto) 4.1, Absolute Lymphs (auto) 1.87, Nucleated RBC % 0 09/21/22 04:22: Sodium 145, Potassium 3.3 L, Chloride 119 H, Carbon Dioxide 18.0 L, Anion Gap 8, BUN 32 H, Creatinine 3.40 H, Estim Creat Clear Calc 13.38, Est GFR (MDRD) Af Amer 17 L, Est GFR (MDRD) Non-Af 14 L, BUN/Creatinine Ratio 9.4 L, Glucose 81, Calcium 8.4 L Micro: Microbiology 09/16/22 19:16 Blood Culture (Wb) - Pic Blood Culture - Preliminary No growth in 48 hours. 09/16/22 18:38 Blood Culture (Wb) - Pic Blood Culture - Preliminary No growth in 48 hours. 09/16/22 17:21 Urine, Catheterized Urine Culture - Final Yeast, not Cesilia albicans 09/16/22 17:20 Nasal Secretion SARS-CoV-2 & FLU Antigen (Rapid) - Final Radiography Diagnostic Testing: Radiology Impression Renal Ultrasound 09/20/22 05:55 IMPRESSION: Small bilateral renal cysts. Electronically Signed: Ronen Norris MD at 10:17 EST , Physical Exam Narrative Alert and oriented x3, no apparent distress. S1, S2, RRR Lung sounds clear anteriorly and posteriorly no wheezes, rhonchi or rales noted Abdomen soft, nontender, positive bowel sounds No pitting edema. Dressing to feet Pure wick catheter with clear yellow urine in canister Assessment & Plan Assessment/Plan (1) Acute kidney injury: (2) Encephalopathy acute: (3) MRSA bacteremia: (4) Diabetic foot ulcer: PLAN: Plan -Nonoliguric, near euvolemic acute kidney injury superimposed on CKD stage III. YNAET possibly from Vanco, with concurrent use of torsemide and losartan, along with poor oral intake before hospitalization. Serum creatinine on September 03 1.18 mg/dL. Gap in lab work until September 16, at that time creatinine 3.51 mg/dL. Serum creatinine peaked to 3.55 mg/dL on 09/18 and today her creatinine is 3.40. Potassium 3.3, supplement has been ordered. No acute indication for [employer]. Renal function slow improvement. Encouraged patient to increase solute and fluid intake. Per patient appetite poor. Will give 500 mL LR IV fluids now -Recent history of diabetic foot infection and MRSA; antibiotics per ID, cefepime, Dapto and Flagyl. During last hospitalization and at [facility] patient was receiving cefepime and vancomycin. Vancomycin has been discontinued. She was also on torsemide and losartan and these were sent. Noted elevated Vanco trough during last hospitalization and elevated random Vanco levels of recent. -CKD stage III; elevated creatinine since 2015 and possible baseline creatinine has been ranging around 1.2 to 1.4 mg/dL as of August 2022. Renal ultrasound no hydro. Reviewed UA 100 protein, 250 occult blood, urine culture positive for yeast. Patient's urine is straw yellow today - Blood pressures are acceptable - D/w Dr. Arceo, possible discharge to [facility] today. Will arrange for hospital follow-up. Hold torsemide and losartan at ECF until renal function improves back to baseline.
--- NOTE | 2022-09-21 10:35 | TREXTCAR_ITS ---
Diet Diet Order/Speech Therapy: 09/20/22 13:55 Diet: Regular - General Food consistency:: Regular Liquid Consistency:: Regular/Thin Type of Dietary Supplement:: Glucerna Shake 4 oz Is pt able to select menu?: No Routine Orders/Code Status Routine Lab Work: CBC and BMP Code Status: DNRCC-A Wound(s) left foot: Wound Type: healing wounds to the left great and 2nd toes Dressing Change: betadine moistened gauze rt foot: Wound Type: healing wound s/p amputation of the right 2nd toe Dressing Change: Dakins moistened gauze Therapies Weight Bearing: Partial weight bearing Physical Therapy: Eval and Treat Occupational Therapy: Eval and Treat Problem/Diagnosis (1) Acute kidney injury: Status: Acute Code(s): N17.9 - Acute kidney failure, unspecified (2) Encephalopathy acute: Status: Acute Code(s): G93.40 - Encephalopathy, unspecified (3) MRSA bacteremia: Status: Acute Code(s): R78.81 - Bacteremia; B95.62 - Methicillin resistant Staphylococcus aureus infection as the cause of diseases classified elsewhere (4) Diabetic foot ulcer: Status: Acute Code(s): E11.621 - Type 2 diabetes mellitus with foot ulcer; L97.509 - Non-pressure chronic ulcer of other part of unspecified foot with unspecified severity Plan #Acute encephalopathy due to UTI/YANET due to ATN/chronic diabetic foot infection with MRSA * on IV daptomycin, cefepime, Flagyl * urine culture growing yeast like organism. * patient more alert and oriented today. * of note, she was already on vancomycin and cefepime prior to admission for MRSA bacteremia and right diabetic foot infection. * Was changed from vancomycin to daptomycin for foot infection until 11/01/2022 * Creatinine is stable and will be slow to recover consistent with ATN, possibly due to vancomycin, renal ultrasound is pending #TYpe 2 diabetes mellitus with neuropathy * was recently discharged for right diabetic foot infection. * on ISS. accuchecks ACHS * on lantus #Acute on Chronic anemia: * Hb remains 7.3 * stool for occult blood pending * heparin and aspirin on hold * on IV PPI * iron panel showed iron level of 67, and TIBC of 157 with ferritin 219. Iron sats is 42.7. * Pending EGD by GI #Paroxysmal afib/HTN/HLD/CAD status post CABG * not chronically anticoagulated. On heparin, which will be held due to acute on chronic anemia. * Will hold aspirin secondary to possible GI bleed in the setting of her anemia * Will hold her losartan or torsemide secondary to her YANET/ATN * Continue with her statin #Anxiety and depression * fluoxetine on hold due to confusion DVT: SCDs Allergies/Procedures Done in Hospital Allergies pregabalin [From Lyrica] Adverse Reaction (Verified 09/16/22 15:44) suicidal thoughts Procedures: EGD Type of Care/Length of Stay Estimated LOS: Convalescent Care Less Than 30 days Type of Care Needed: Skilled Rehab Potential: Good Prognosis: Good Additional Orders/Day of Discharge Day of Discharge: 09/21/22 Dietary and Speech Recommendations Dietitian Recommendations/Changes: Liberalize diet to Consistent CHO d/t poor po intake and refusals at meals Change to 4 oz glucerna shake tid w/ meals - can increase amount if pt drinking all of 4 oz GS. Consider more aggressive nutrition support if po intake fails to improve and if in accordance w/ pt/family wishes. Discharge Plan Admission Admit Date/Time: 09/16/22 18:05 Attending Provider: iMhir Arceo Primary Care Provider: Maldonado Horn Consulting Providers: Kaia Padilla ; Emmanuel Wood ; Edyta Schultz ; Moses Forbes Discharge Orders/Prescriptions Prescriptions: New pantoprazole 40 mg Tablet,Delayed Release (Dr/Ec) 40 mg PO BID Qty: 0 0RF nystatin [Nyamyc] 100,000 unit/gram Powder 1 applic topical TID Qty: 0 0RF Protocol: *Topical Application Instructions APPLICATION INSTRUCTIONS: to affected regions heparin (porcine) 5,000 unit/mL Solution 5,000 unit subcut Q12 Qty: 0 0RF daptomycin 500 mg recon soln 700 mg IV Q48H 21 Days Qty: 10 0RF Rx Instructions: administer over 30 mins dx: osteomyelitis stop date 10/12/22 weekly bmp, cbc, LFT, CK, and ESR. Fax to [phone] cefepime 2 gram Recon Soln 2 g IV Q24 21 Days Qty: 21 0RF Rx Instructions: dx: osteomyelitis stop date 10/12/22 weekly bmp, cbc, LFT, CK, and ESR. Fax to [phone] Continued aspirin 81 MG tablet,chewable 81 mg PO DAILY Label Comments: BLOOD THINNER/HEART levothyroxine 50 MCG tablet 50 mcg PO DAILY Multiple Vitamin-Minerals 1 EACH tablet 1 tab PO DAILY fluoxetine 20 MG capsule 40 mg PO DAILY Label Comments: TAKE 2 CAPSULE (20 MG) BY MOUTH DAILY omega-3 fatty acids-fish oil 1 EACH capsule 1 cap PO BID cholecalciferol (vitamin D3) [D3-2000] 2,000 UNIT capsule 3,000 unit PO DAILY sennosides-docusate sodium [Stool Softener-Stimulant Laxat] 8.6-50 mg Tablet 2 tab PO BID PRN PRN (Reason: Constipation) Qty: 0 0RF insulin lispro [Humalog KwikPen Insulin] 100 unit/mL Insulin Pen See Protocol subcut ACHS Qty: 0 0RF Protocol: 4. Sliding Scale Insulin High-Med Dosing Condition: 150-199 mg/dl = 2 units Condition: 200-259 mg/dl = 4 units Condition: 260-324 mg/dl = 6 units Condition: 325-374 mg/dl = 8 units Condition: 375-409 mg/dl = 10 units Condition: 410-449 mg/dl = 11 units Condition: Greater than 449 call physician Protocol Text: - Use for Total Daily Dose of Insulin 56-80 units - Patient who are insulin resistant or septic HIGH MEDIUM DOSING ALGORITHM insulin lispro [Humalog KwikPen Insulin] 100 unit/mL Insulin Pen 5 unit subcut TIDAC Qty: 0 0RF acetaminophen 500 mg tablet 1,000 mg PO Q8 insulin glargine-yfgn 100 unit/mL (3 mL) insulin pen 15 unit subcut BIDAC atorvastatin 20 mg Tablet 20 mg PO QHS omega-3 fatty acids Capsule 1,000 mg PO BID potassium chloride 20 mEq Tablet Extended Release 20 meq PO DAILY Held torsemide 20 MG tablet 20 mg PO DAILY Hold Instructions: Resume on 09/28/22. Label Comments: WATER PILL losartan 100 MG tablet 100 mg PO DAILY Hold Instructions: Resume on 09/28/22. Discontinued cefepime 2 gram Recon Soln 2 g IV Q12 40 Days Qty: 80 0RF Rx Instructions: stop date 10/12/22 dx: foot osteo weekly bmp, cbc, esr, and vanc trough. Fax to [phone] routine picc care metronidazole 500 mg Tablet 500 mg PO TID 14 Days Qty: 42 0RF vancomycin 750 mg recon soln 750 mg IV Q12H 40 Days Qty: 80 0RF Rx Instructions: stop date 10/12/22 dx: foot osteo weekly bmp, cbc, esr, and vanc trough. Fax to [phone] routine picc care oxycodone 5 mg Tablet 5 mg PO Q4H PRN PRN (Reason: Pain Score 4-10) 3 Days Qty: 12 0RF famotidine 20 mg tablet 20 mg PO BID enoxaparin 40 mg/0.4 mL syringe 40 mg subcut DAILY Referrals / Follow Up: Maldonado Horn MD [Primary Care Provider] - Disposition Disposition (needs filled in before D/C Order can be placed): Shelter Facility
--- NOTE | 2022-09-21 11:06 | CASEMGMT ---
Addendum entered by Makenzie Plata 09/21/22 11:54: Pt family called to request [facility] be [facility] for transport rather than [facility]. Original Note: Social work SW informed pt and pt niece, Helen, of discharge today. Both voiced understanding. Transport to be arranged later this day. PLAN: [address]
[2022-09-21 11:10] LABS: Bedside Glucose 74 mg/dL (74-106)
[2022-09-21] MEDS: Lactated Ringers 500 ML 100 ML IV (11:39)
--- NOTE | 2022-09-21 11:40 | PHA.DC.MR ---
Pharmacy Service has performed discharge medication reconciliation for this patient. The patient's discharge medication list was reviewed for discrepancies and discrepancies were resolved. Home Medications aspirin 81 mg chewable tablet 81 mg PO DAILY heart health 04/06/16 torsemide 20 mg tablet 20 mg PO DAILY diuretic 04/06/16 losartan 100 mg tablet 100 mg PO DAILY blood pressure 09/27/17 cholecalciferol (vitamin D3) 50 mcg (2,000 unit) capsule (D3-2000) 3,000 unit PO DAILY supplement 01/05/19 fluoxetine 20 mg capsule 40 mg PO DAILY depression 01/05/19 levothyroxine 50 mcg tablet 50 mcg PO DAILY thyroid 01/05/19 multivitamin with minerals (Multiple Vitamin-Minerals tablet) 1 tab PO DAILY supplement 01/05/19 omega-3 fatty acids-fish oil 300 mg-1,000 mg capsule 1 cap PO BID supplement 01/05/19 insulin lispro 100 unit/mL subcutaneous pen (Humalog KwikPen (U-100) Insulin) 5 unit (0.05 mL) subcut TIDAC #0 mL 09/03/22 insulin lispro 100 unit/mL subcutaneous pen (Humalog KwikPen (U-100) Insulin) See Protocol subcut ACHS #0 mL 09/03/22 sennosides 8.6 mg-docusate sodium 50 mg tablet (Stool Softener-Stimulant Laxative) 2 tab PO BID PRN PRN Constipation #0 tabs 09/03/22 acetaminophen 500 mg tablet 1,000 mg PO Q8 pain 09/16/22 atorvastatin 20 mg tablet 20 mg PO QHS cholesterol 09/16/22 insulin glargine-yfgn 100 unit/mL (3 mL) subcutaneous pen 15 unit subcut BIDAC dm 09/16/22 omega-3 fatty acids 1,000 mg PO BID supplement 09/16/22 potassium chloride 20 mEq tablet,extended release 20 meq PO DAILY supplement 09/16/22 cefepime 2 gram solution for injection 2 g IV Q24 21 days #21 ea 09/21/22 daptomycin 500 mg intravenous solution 700 mg IV Q48H 21 days #10 ea 09/21/22 heparin (porcine) 5,000 unit/mL injection solution 5,000 unit subcut Q12 #0 mL 09/21/22 nystatin 100,000 unit/gram topical powder (Nyamyc) 1 applic topical TID #0 grams 09/21/22 pantoprazole 40 mg tablet,delayed release 40 mg PO BID #0 tabs 09/21/22
[2022-09-21 12:06] LABS: Bedside Glucose 122 mg/dL (74-106)
--- NOTE | 2022-09-21 12:28 | PCM.PN.ID ---
Physical Exam Narrative Feeling ok, no fever, no n/v/d. 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 OR 08/31/[address] Dee for toe amp. Surg cx also with PsA and enterobacter. Discharged 09/03 with vanc/cefepime/flagyl for 6 weeks course, stop date 10/12/22. Now admitted with YANET. Foot doing well. On dapto/cefepime/flagyl. Will write updated rx for dapto/cefepime. Will follow, ID followup in 2 weeks. D/w Dr. Arceo (2) Acute kidney injury:
--- NOTE | 2022-09-21 12:37 | DS.PCM_ITS ---
Providers Date of Admission: 09/16/22 Primary Care Physician: Dr. Maldonado Horn MD Consultations 09/16/22 19:45 Consult: Onc/Wound/registered nurse first assistant Routine Comment: Reason for Consult:: Foot wounds 09/19/22 08:02 Consult: Gastroenterology Routine Consulting Provider: [facility] Reason for Consult: acute on chronic anemia EMERGENT Consult: No Notified: Yes Date Notified: 09/19/22 Time Notified: 08:02 Method of Notification: Text Consult: Nephrology Routine Consulting Provider: Emmanuel Wood Reason for Consult: YANET EMERGENT Consult: No Notified: Yes Date Notified: 09/19/22 Time Notified: 08:02 Method of Notification: Text 09/20/22 10:49 Consult: Infectious Disease Routine Consulting Provider: Moses Forbes Reason for Consult: Wound infection EMERGENT Consult: No Notified: Yes Date Notified: 09/20/22 Time Notified: 10:49 Method of Notification: Verbal Reason For Visit: ENCEPHALOPATHY,YANET,POSSIBLE UTI Diagnosis Discharge Diagnosis (1) Acute kidney injury: Status: Acute Code(s): N17.9 - Acute kidney failure, unspecified (2) Encephalopathy acute: Status: Acute Code(s): G93.40 - Encephalopathy, unspecified (3) MRSA bacteremia: Status: Acute Code(s): R78.81 - Bacteremia; B95.62 - Methicillin resistant Staphylococcus aureus infection as the cause of diseases classified elsewhere (4) Diabetic foot ulcer: Status: Acute Code(s): E11.621 - Type 2 diabetes mellitus with foot ulcer; L97.509 - Non-pressure chronic ulcer of other part of unspecified foot with unspecified severity Plan #Acute encephalopathy due to UTI/YANET due to ATN/chronic diabetic foot infection with MRSA * on IV daptomycin, cefepime, Flagyl * urine culture growing yeast like organism. * patient more alert and oriented today. * of note, she was already on vancomycin and cefepime prior to admission for MRSA bacteremia and right diabetic foot infection. * Was changed from vancomycin to daptomycin for foot infection until 11/01/2022 * Creatinine is stable and will be slow to recover consistent with ATN, possibly due to vancomycin, renal ultrasound is pending #TYpe 2 diabetes mellitus with neuropathy * was recently discharged for right diabetic foot infection. * on ISS. accuchecks ACHS * on lantus #Acute on Chronic anemia: * Hb remains 7.3 * stool for occult blood pending * heparin and aspirin on hold * on IV PPI * iron panel showed iron level of 67, and TIBC of 157 with ferritin 219. Iron sats is 42.7. * Pending EGD by GI #Paroxysmal afib/HTN/HLD/CAD status post CABG * not chronically anticoagulated. On heparin, which will be held due to acute on chronic anemia. * Will hold aspirin secondary to possible GI bleed in the setting of her anemia * Will hold her losartan or torsemide secondary to her YANET/ATN * Continue with her statin #Anxiety and depression * fluoxetine on hold due to confusion DVT: SCDs Medications at Discharge Home Medications aspirin 81 mg chewable tablet 81 mg PO DAILY heart health 04/06/16 torsemide 20 mg tablet 20 mg PO DAILY diuretic 04/06/16 losartan 100 mg tablet 100 mg PO DAILY blood pressure 09/27/17 cholecalciferol (vitamin D3) 50 mcg (2,000 unit) capsule (D3-2000) 3,000 unit PO DAILY supplement 01/05/19 fluoxetine 20 mg capsule 40 mg PO DAILY depression 01/05/19 levothyroxine 50 mcg tablet 50 mcg PO DAILY thyroid 01/05/19 multivitamin with minerals (Multiple Vitamin-Minerals tablet) 1 tab PO DAILY supplement 01/05/19 omega-3 fatty acids-fish oil 300 mg-1,000 mg capsule 1 cap PO BID supplement 01/05/19 insulin lispro 100 unit/mL subcutaneous pen (Humalog KwikPen (U-100) Insulin) 5 unit (0.05 mL) subcut TIDAC #0 mL 09/03/22 insulin lispro 100 unit/mL subcutaneous pen (Humalog KwikPen (U-100) Insulin) See Protocol subcut ACHS #0 mL 09/03/22 sennosides 8.6 mg-docusate sodium 50 mg tablet (Stool Softener-Stimulant Laxative) 2 tab PO BID PRN PRN Constipation #0 tabs 09/03/22 acetaminophen 500 mg tablet 1,000 mg PO Q8 pain 09/16/22 atorvastatin 20 mg tablet 20 mg PO QHS cholesterol 09/16/22 insulin glargine-yfgn 100 unit/mL (3 mL) subcutaneous pen 15 unit subcut BIDAC dm 09/16/22 omega-3 fatty acids 1,000 mg PO BID supplement 09/16/22 potassium chloride 20 mEq tablet,extended release 20 meq PO DAILY supplement 09/16/22 cefepime 2 gram solution for injection 2 g IV Q24 21 days #21 ea 09/21/22 daptomycin 500 mg intravenous solution 700 mg IV Q48H 21 days #10 ea 09/21/22 heparin (porcine) 5,000 unit/mL injection solution 5,000 unit subcut Q12 #0 mL 09/21/22 nystatin 100,000 unit/gram topical powder (Nyamyc) 1 applic topical TID #0 grams 09/21/22 pantoprazole 40 mg tablet,delayed release 40 mg PO BID #0 tabs 09/21/22 Hospital Course Operations None Procedures EGD Summary of Care Provided Minutes Spent on Discharge: 40 Hospital Course: Per HPI: The patient is a 77 y/o F w/ PMHx: Chronic normocytic anemia, Obesity, CAD s/p CABG x 4, CKD stage III unclear subtype, Anxiety and Depression, PAF/Flutter, Tobacco use, HTN, HLD, Diabetes mellitus type II w/ chronic neuropathy and history of diabetic foot wounds/osteomyelitis w/ prior MRSA bacteremia recently discharged on 09/03/22 secondary to MRSA bacteremia associated with diabetic wet gangrene of the foot with ulcerations to both feet concerning for osteomyelitis and specifically the right foot with MRSA infection noted with eventual cultures with Staph aureus and Enterobacter with I&D and debridement of the right foot per podiatry as well as a second toe amputation and a partial second metatarsal resection with also TTE given the staph bacteremia performed which was unremarkable for any vegetations who now re- presents to the [facility] ED on 09/16/22 with history of increased confusion and lethargy as well as increasing creatinine at the skilled facility with diffuse body aches reported and significantly decreased appetite as well as poor oral intake as far as fluids are concerned with no recent fevers or chills prompting ED evaluation. Work-up in the ED included T98.2, heart rate 90, BP 140/74, respiratory rate 16, 98% on room air, CBC with WC 11.9, hemoglobin 8.4, MCV 86.8, platelet 188 with left shift, CMP with potassium 3.4, chloride 113, carbon oxide 20, BUN/creatinine 50/3.51, glucose 346, hepatic profile with AST 45 otherwise not marked appearing, urinalysis pending upon requested evaluation of patient, chest x-ray with no acute cardiopulmonary findings, rapid COVID and influenza antigen pending upon requested evaluation, urine culture pending per ED. in the ED patient ministered 1 L normal saline as is Levaquin 500 mg as initial loading dose. Hospital Course: #Acute metabolic encephalopathy due to UTI/YANET due to ATN/chronic diabetic foot infection with MRSA * urine culture growing yeast like organism. * patient more alert and oriented today. * of note, she was already on vancomycin and cefepime prior to admission for MRSA bacteremia and right diabetic foot infection. * Was changed from vancomycin to daptomycin for foot infection until 10/12/2022 * Creatinine is stable and will be slow to recover consistent with ATN, likely due to vancomycin * Discussed possibility of discharge today and she expressed understanding of the risk benefits of going back to the alf and would like to go today if possible. We will continue with daptomycin as well as cefepime and her previous Flagyl order. Given her YANET will hold her reticulocyte and her losartan and recommend outpatient BMPs to monitor improvement. Would discuss with nephrology prior to reinitiating her ARB and her diuretic. She can resume her aspirin in a few days and will continue with p.o. PPI given the findings on her EGD of gastritis with a visible vessel. #TYpe 2 diabetes mellitus with neuropathy * was recently discharged for right diabetic foot infection. * on ISS. accuchecks ACHS * on lantus #Acute on Chronic anemia: * Hb remains 7.3 * stool for occult blood pending * heparin and aspirin on? hold * on IV PPI * iron panel showed iron level of 67, and TIBC of 157 with ferritin 219. Iron sats is 42.7. * GD demonstrated portal hypertensive gastropathy with an oozing gastric ulcer and a visible vessel that was treated with heater probe. #Paroxysmal afib #HTN/HLD/CAD status post CABG * ?not chronically anticoagulated. On heparin, which will be held due to acute on chronic anemia. * Will hold aspirin secondary to possible GI bleed in the setting of her anemia * Will hold her losartan or torsemide secondary to her YANET/ATN * Continue with her statin #Anxiety and depression * fluoxetine on hold due to confusion Physical Exam Narrative General: Alert, disoriented, Cooperative, No apparent distress HEENT: Atraumatic, PERRLA, EOMI, Normocephalic Oral: Moist Mucosa Neck: Supple, No JVD Lungs: Diminished, Normal air movement, No rhonchi, No wheeze, No rales Cardiovascular: Regular rate, Regular Rhythm, Normal S1, Normal S2, No murmurs Abdomen: Soft, Non Tender, Non-Distended, No Hepato-splenomegaly Extremities: No edema, Capillary Refill Less than 3 Seconds Skin: No rashes, No breakdown Musculoskeletal: No Tenderness to Palpation of Joints or Extremities Neurological: Cranial nerves II-XII grossly intact, Motor Exam 5/5 strength throughout, Sensory exam intact to light touch and pain Psych/Mental Status: Flat affect, Appropriate Weight / BMI Weight Weight: 203 lb 4.259 oz Body Mass Index (BMI) 33.8 ABG / Lab / Microbiology Data Result Diagrams: 09/21/22 04:22 09/21/22 04:22 Laboratory: Laboratory Results - last 24 hr 09/20/22 11:44: POC Glucose 210 H 09/20/22 16:20: POC Glucose 162 H 09/20/22 20:49: POC Glucose 62 L 09/20/22 21:13: POC Glucose 66 L 09/20/22 21:50: POC Glucose 87 09/21/22 04:22: WBC 7.0, RBC 2.74 L, Hgb 7.8 L, Hct 23.4 L, MCV 85.4, MCH 28.5, MCHC 33.3 D, RDW Std Deviation 50.5 H, RDW Coeff of Hilda 17.1 H, Plt Count 155, MPV 10.4, Immature Gran % (Auto) 0.700, Neut % (Auto) 57.6, Lymph % (Auto) 26.6, [place] % (Auto) 10.0, Eos % (Auto) 4.8, Baso % (Auto) 0.3, Absolute Neuts (auto) 4.1, Absolute Lymphs (auto) 1.87, Nucleated RBC % 0 09/21/22 04:22: Sodium 145, Potassium 3.3 L, Chloride 119 H, Carbon Dioxide 18.0 L, Anion Gap 8, BUN 32 H, Creatinine 3.40 H, Estim Creat Clear Calc 13.38, Est GFR (MDRD) Af Amer 17 L, Est GFR (MDRD) Non-Af 14 L, BUN/Creatinine Ratio 9.4 L, Glucose 81, Calcium 8.4 L 09/21/22 08:06: POC Glucose 74 09/21/22 11:42: POC Glucose 122 H Microbiology: Microbiology 09/21/22 09:45 Nasal Secretion SARS-CoV-2 Antigen (Rapid) - Final 09/16/22 19:16 Blood Culture (Wb) - Pic Blood Culture - Preliminary No growth in 48 hours. 09/16/22 18:38 Blood Culture (Wb) - Pic Blood Culture - Preliminary No growth in 48 hours. 09/16/22 17:21 Urine, Catheterized Urine Culture - Final Yeast, not Cesilia albicans 09/16/22 17:20 Nasal Secretion SARS-CoV-2 & FLU Antigen (Rapid) - Final Meaningful Use Info Meaningful Use Diagnoses (Choose all that apply): None applicable Discharge Plan Admission Admit Date/Time: 09/16/22 18:05 Attending Provider: Mihir Arceo Primary Care Provider: Maldonado Horn Consulting Providers: Kaia Padilla ; Emmanuel Wood ; Edyta Schultz ; Moses Gaffney Discharge Orders/Prescriptions Prescriptions: New pantoprazole 40 mg Tablet,Delayed Release (Dr/Ec) 40 mg PO BID Qty: 0 0RF nystatin [Nyamyc] 100,000 unit/gram Powder 1 applic topical TID Qty: 0 0RF Protocol: *Topical Application Instructions APPLICATION INSTRUCTIONS: to affected regions heparin (porcine) 5,000 unit/mL Solution 5,000 unit subcut Q12 Qty: 0 0RF daptomycin 500 mg recon soln 700 mg IV Q48H 21 Days Qty: 10 0RF Rx Instructions: administer over 30 mins dx: osteomyelitis stop date 10/12/22 weekly bmp, cbc, LFT, CK, and ESR. Fax to [phone] cefepime 2 gram Recon Soln 2 g IV Q24 21 Days Qty: 21 0RF Rx Instructions: dx: osteomyelitis stop date 10/12/22 weekly bmp, cbc, LFT, CK, and ESR. Fax to [phone] Continued aspirin 81 MG tablet,chewable 81 mg PO DAILY Label Comments: BLOOD THINNER/HEART levothyroxine 50 MCG tablet 50 mcg PO DAILY Multiple Vitamin-Minerals 1 EACH tablet 1 tab PO DAILY fluoxetine 20 MG capsule 40 mg PO DAILY Label Comments: TAKE 2 CAPSULE (20 MG) BY MOUTH DAILY omega-3 fatty acids-fish oil 1 EACH capsule 1 cap PO BID cholecalciferol (vitamin D3) [D3-2000] 2,000 UNIT capsule 3,000 unit PO DAILY sennosides-docusate sodium [Stool Softener-Stimulant Laxat] 8.6-50 mg Tablet 2 tab PO BID PRN PRN (Reason: Constipation) Qty: 0 0RF insulin lispro [Humalog KwikPen Insulin] 100 unit/mL Insulin Pen See Protocol subcut ACHS Qty: 0 0RF Protocol: 4. Sliding Scale Insulin High-Med Dosing Condition: 150-199 mg/dl = 2 units Condition: 200-259 mg/dl = 4 units Condition: 260-324 mg/dl = 6 units Condition: 325-374 mg/dl = 8 units Condition: 375-409 mg/dl = 10 units Condition: 410-449 mg/dl = 11 units Condition: Greater than 449 call physician Protocol Text: - Use for Total Daily Dose of Insulin 56-80 units - Patient who are insulin resistant or septic HIGH MEDIUM DOSING ALGORITHM insulin lispro [Humalog KwikPen Insulin] 100 unit/mL Insulin Pen 5 unit subcut TIDAC Qty: 0 0RF acetaminophen 500 mg tablet 1,000 mg PO Q8 insulin glargine-yfgn 100 unit/mL (3 mL) insulin pen 15 unit subcut BIDAC atorvastatin 20 mg Tablet 20 mg PO QHS omega-3 fatty acids Capsule 1,000 mg PO BID potassium chloride 20 mEq Tablet Extended Release 20 meq PO DAILY Held torsemide 20 MG tablet 20 mg PO DAILY Hold Instructions: Resume on 09/28/22. Label Comments: WATER PILL losartan 100 MG tablet 100 mg PO DAILY Hold Instructions: Resume on 09/28/22. Discontinued cefepime 2 gram Recon Soln 2 g IV Q12 40 Days Qty: 80 0RF Rx Instructions: stop date 10/12/22 dx: foot osteo weekly bmp, cbc, esr, and vanc trough. Fax to [phone] routine picc care metronidazole 500 mg Tablet 500 mg PO TID 14 Days Qty: 42 0RF vancomycin 750 mg recon soln 750 mg IV Q12H 40 Days Qty: 80 0RF Rx Instructions: stop date 10/12/22 dx: foot osteo weekly bmp, cbc, esr, and vanc trough. Fax to [phone] routine picc care oxycodone 5 mg Tablet 5 mg PO Q4H PRN PRN (Reason: Pain Score 4-10) 3 Days Qty: 12 0RF famotidine 20 mg tablet 20 mg PO BID enoxaparin 40 mg/0.4 mL syringe 40 mg subcut DAILY Referrals / Follow Up: Maldonado Horn MD [Primary Care Provider] - Disposition Disposition (needs filled in before D/C Order can be placed): Custodial Facility Charges/Coding Visit Charges Inpatient E&M: 93290 Disch Hosp >30min
--- NOTE | 2022-09-21 13:40 | CASEMGMT ---
Social Work? LURDES notified pt and pt family of discharge to [facility] today. LURDES completed 7000 convalescent form in [employer] [facility]. [email or web address] 4:30 pm. LURDES faxed all discharge orders to [facility] via [email or web address] and notified of discharge time. LURDES notified pt nurse of transport time. LURDES made copies of discharge orders and placed on pt chart. Sent original orders in envelope with pt upon discharge.?? Disposition: [facility], skilled, convalescent, level of care? JULIEN Barnes?
[2022-09-21] MEDS: Lactated Ringers 500 ML IV.SOLN. IV (15:31)
[2022-09-21 16:46] LABS: Bedside Glucose 125 mg/dL (74-106)
--- NOTE | 2022-09-21 16:49 | NURSING ---
Attempted to give report to [facility] but waiting on hold for 5 min and then this RN told studio receptionist to have RN call this RN back for report.
[2022-09-21 16:55] VITALS: BP 140/67; PULSE 88; RESP 18; TEMP 36.9; O2SAT 97
--- NOTE | 2022-09-21 16:59 | NURSING ---
Report given to Germania PEÑA at the [facility].
== END 2022-09-21 16:40 | disposition skilled nursing facility (03) | DRG 377 ==
LOC: ED 18:07 → MS3 18:20
PROVIDERS: Internal Medicine Gastroenterology; Student in an Organized Health Care Education/Training Program; Admitting Provider Family Medicine; Emergency Provider Emergency Medicine; PCP Family Medicine; Visit Provider Family Medicine
PROC: 0DJ08ZZ Inspection of Upper Intestinal Tract, Via Natural or Artificial Opening Endoscopic (ICD-10-PCS; CPT 43235; principal; 2022-09-20 13:10)
DX: K25.4 Chronic or unspecified gastric ulcer with hemorrhage (principal); N17.0 Acute kidney failure with tubular necrosis; G93.41 Metabolic encephalopathy; R78.81 Bacteremia; K76.6 Portal hypertension; B37.41 Candidal cystitis and urethritis; E87.0 Hyperosmolality and hypernatremia; I48.0 Paroxysmal atrial fibrillation; D63.1 Anemia in chronic kidney disease; L97.529 Non-pressure chronic ulcer of other part of left foot with unspecified severity; E11.22 Type 2 diabetes mellitus with diabetic chronic kidney disease; E11.42 Type 2 diabetes mellitus with diabetic polyneuropathy; E11.621 Type 2 diabetes mellitus with foot ulcer; K74.60 Unspecified cirrhosis of liver; Z79.4 Long term (current) use of insulin; N18.30 Chronic kidney disease, stage 3 unspecified; Z89.421 Acquired absence of other right toe(s); I12.9 Hypertensive chronic kidney disease with stage 1 through stage 4 chronic kidney disease, or unspecified chronic kidney disease; E03.9 Hypothyroidism, unspecified; E78.5 Hyperlipidemia, unspecified; I25.10 Atherosclerotic heart disease of native coronary artery without angina pectoris; E87.6 Hypokalemia; R26.2 Difficulty in walking, not elsewhere classified; D50.9 Iron deficiency anemia, unspecified; F41.9 Anxiety disorder, unspecified; K31.89 Other diseases of stomach and duodenum; K29.70 Gastritis, unspecified, without bleeding; B95.62 Methicillin resistant Staphylococcus aureus infection as the cause of diseases classified elsewhere; F32.A Depression, unspecified; E66.9 Obesity, unspecified; Z68.33 Body mass index [BMI] 33.0-33.9, adult; Z95.1 Presence of aortocoronary bypass graft; Z79.82 Long term (current) use of aspirin; Z79.84 Long term (current) use of oral hypoglycemic drugs; Z79.899 Other long term (current) drug therapy; Z87.891 Personal history of nicotine dependence
CPT/HCPCS: 36415; 36592; 70450; 71045; 76770; 80048; 80053; 80202; 81001; 82728; 82962; 83540; 83550; 83605; 83735; 84145; 85025; 87040; 87086; 87088; 87426; 87428; 88305; 88342; 93005; 94668; 97110; 97162; 97166; 97530; 97535; 97802; 99252; 99285; J0878; J7030; J7050; J7120; A4216; G0463; J2405; J3490